=== PATIENT | female | born 1965 | race Caucasian/White ===

== ENCOUNTER → 2019-08-19 08:02 | Outpatient (BNVA) | payer BC, SELFPAY | PROVIDERS: Family Provider Electrodiagnostic Medicine; PCP Nurse Practitioner Family; Visit Provider Anesthesiology | DX: G89.29 Other chronic pain (principal); M19.011 Primary osteoarthritis, right shoulder; M51.17 Intervertebral disc disorders with radiculopathy, lumbosacral region; M43.02 Spondylolysis, cervical region; M96.1 Postlaminectomy syndrome, not elsewhere classified; Z79.891 Long term (current) use of opiate analgesic | CPT/HCPCS: 99214 ==

== ENCOUNTER 2019-10-14 08:01 | Outpatient (CLI) | payer BC, SELFPAY ==
--- NOTE | 2019-10-14 08:16 | MM_ITS ---
WS: [id number] BILATERAL DIGITAL SCREENING MAMMOGRAPHY WITH CAD CLINICAL INFORMATION: SCREEENING HISTORY: Screening mammogram. No current complaints. COMPARISON: July 11, 2018 TECHNIQUE: Bilateral CC and MLO views. FINDINGS: Bilateral breast implants. Implants appear unchanged. The breasts are composed of heterogeneous fibroglandular density tissue, which can limit the detectio n of small underlying mass lesions. No suspicious mass, asymmetry, calcifications, or architectural d istortion. No evidence of malignancy. Stable coarse and Lucent centered calcifications MM/[place] [id number] IMPRESSION: BI-RADS: 2-Benign FOLLOW UP: 1 Year Follow-up Recommend return to annual screening mammography.
== END 2019-10-14 08:02 | disposition home or self-care (01) ==
LOC: RADSHAW 08:03
PROVIDERS: PCP Nurse Practitioner Family; Visit Provider Nurse Practitioner Family
DX: Z12.31 Encounter for screening mammogram for malignant neoplasm of breast (principal)
CPT/HCPCS: 77067

== ENCOUNTER → 2019-12-24 10:24 | Outpatient (BNVA) | payer BC, SELFPAY | PROVIDERS: PCP Nurse Practitioner Family; Visit Provider Anesthesiology | DX: G89.29 Other chronic pain (principal); M51.17 Intervertebral disc disorders with radiculopathy, lumbosacral region; M54.9 Dorsalgia, unspecified; M43.02 Spondylolysis, cervical region; M96.1 Postlaminectomy syndrome, not elsewhere classified; Z79.891 Long term (current) use of opiate analgesic | CPT/HCPCS: 99214 ==

== ENCOUNTER → 2020-02-03 14:27 | Outpatient (BNVA) | payer BC, SELFPAY | PROVIDERS: PCP Nurse Practitioner Family; Visit Provider Anesthesiology | DX: G89.29 Other chronic pain (principal); M51.17 Intervertebral disc disorders with radiculopathy, lumbosacral region; M43.02 Spondylolysis, cervical region; M96.1 Postlaminectomy syndrome, not elsewhere classified; M54.9 Dorsalgia, unspecified; Z79.891 Long term (current) use of opiate analgesic | CPT/HCPCS: 99213; 99214 ==

== ENCOUNTER → 2020-06-23 08:37 | Outpatient (BNVA) | payer OTHER, SELFPAY | PROVIDERS: PCP Nurse Practitioner Family; Visit Provider Specialist | DX: R51.9 Headache, unspecified (principal); M43.02 Spondylolysis, cervical region; M54.2 Cervicalgia; Z96.89 Presence of other specified functional implants | CPT/HCPCS: 99204 ==

== ENCOUNTER → 2020-07-12 08:04 | Outpatient (BNVA) | payer OTHER, SELFPAY | PROVIDERS: PCP Nurse Practitioner Family; Visit Provider Anesthesiology | DX: G89.29 Other chronic pain (principal); M96.1 Postlaminectomy syndrome, not elsewhere classified; M54.9 Dorsalgia, unspecified; M43.02 Spondylolysis, cervical region; M51.17 Intervertebral disc disorders with radiculopathy, lumbosacral region; Z79.891 Long term (current) use of opiate analgesic | CPT/HCPCS: 99214 ==

== ENCOUNTER 2020-08-02 09:56 | Outpatient (CLI) | payer OTHER, SELFPAY ==
--- NOTE | 2020-08-02 10:00 | CT_ITS ---
WS: [id number] CT CERVICAL SPINE TECHNIQUE: Noncontrast CT of the cervical spine with coronal and sagittal reformatted images. 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 DLP: 1886.[address] scans at [facility] use at least one of these dose optimization techniques: automat ed exposure control; mA and/or kV adjustment per patient size (includes targeted exams where dose is matched to clinical indication); or iterative reconstruction. FINDINGS: Straightening of the normal cervical lordosis. Mild cervical curve. Slight retrolisthesis C5 on C6. S light anterolisthesis C3 on C4. No high-grade central canal stenosis. Normal C1-C2 articulation. Mast oid air cells are well aerated. C2-C3: Normal C3-C4: Osteophytic ridging. Mild left foraminal narrowing. Moderate left facet arthropathy. Spinal ca nal and foramen are patent. C4-C5:: Osteophytic ridging. Mild left and no right foraminal narrowing. Moderate left facet arthrop athy. Spinal canal is patent. C5-C6: Disc osteophytic ridging. Mild central canal stenosis. Moderate to advanced bony foraminal shahid rowing. Moderate facet arthropathy. C6-C7: Disc osteophytic ridging. Mild left and no right foraminal narrowing. Spinal canal is patent. Mild facet arthropathy. C7-T1: Spinal canal foramen are patent. Mild facet arthropathy. Visualized posterior nasopharynx: Normal. Prevertebral soft tissues: Normal. CT/CT cervical spin wo con* [id number] IMPRESSION: 1. Mild spondylitic changes. Mild cervical curve convex right. Straightening o f the normal cervical lordosis. 2. No high-grade central canal stenosis. 3. Disc osteophyte complex C5-C6 with mild central canal stenosis. Moderate to severe left greater than right bony foraminal narrowing at this level. 4. Mild bony foraminal narrowing left C3-4, left C4-5, and left C6-7. 5. Moderate facet arthropathy left C3-4, left C4-5
[2020-08-02] MEDS: iohexol 350 mg/mL 100 mL Btl IV (10:33)
--- NOTE | 2020-08-02 11:00 | CT_ITS ---
WS: [id number] CTA HEAD AND NECK TECHNIQUE: Contrast enhanced CTA of the head and neck with coronal and sagittal reformatted images an d maximum intensity projection (MIP) images. NASCET criteria utilized. CLINICAL INFORMATION: R51.9 - Headache, unspecified COMPARISON: None. DLP: 1935.[address] scans at [facility] use at least one of these dose optimization techniques: automat ed exposure control; mA and/or kV adjustment per patient size (includes targeted exams where dose is matched to clinical indication); or iterative reconstruction. FINDINGS: No evidence of intracranial hemorrhage or mass effect. Ventricular system and basal cistern s are patent. Normal stephenson-white differentiation. No extra axial fluid collections. Mastoid air cells and paranasal sinuses are well aerated. RIGHT: Right common carotid artery is patent. No significant right ICA stenosis. Right ICA is patent to the skull base. LEFT: Left common carotid artery is patent. No significant left ICA stenosis. Left ICA is patent to t he skull base. Codominant and patent vertebral arteries bilaterally. INTRACRANIAL CTA: Basilar artery is patent. Normal vascularity to the [employer] territory bilaterally. Both ICAs are patent at the skull base. Normal vascularity to the DEEJAY and MCA territories bilaterally. No evidence of high-grade proximal stenosis or aneurysm. CT/CT angio headneck* [id number] IMPRESSION: 1. No significant ICA stenosis bilaterally. Both ICAs are patent to the skull base. 2. Unremarkable intracranial CTA. 3. Codominant and patent vertebral arteries bilaterally. 4. No other significant findings.
== END 2020-08-02 09:57 | disposition home or self-care (01) ==
LOC: RADWPI 09:58
PROVIDERS: PCP Nurse Practitioner Family; Visit Provider Specialist
DX: R51.9 Headache, unspecified (principal)
CPT/HCPCS: 70496; 70498; 72125; Q9967

== ENCOUNTER 2020-10-26 17:20 | Emergency (ER) | payer OTHER, SELFPAY ==
[2020-10-26 17:55] VITALS: BP 143/81; PULSE 102; RESP 16; TEMP 36.7; O2SAT 94; BMI 29.9
[2020-10-26 17:58] VITALS: BP 121/64; PULSE 110; RESP 20; O2SAT 93
--- NOTE | 2020-10-26 18:19 | W.ED.RECABL ---
HPI - Recheck/Abnormal Lab/Rx General: Chief Complaint: Recheck/Abnormal Lab/Rx Stated Complaint: muscle aches, abnormal lab values Time Seen by Provider: 10/26/20 17:56 Source: patient Mode of arrival: ambulatory Limitations: no limitations History of Present Illness: HPI narrative: 55-year-old female who states that she has been having joint and full body pain over the last week. States is mainly in her joints they have been aching. She was seen yesterday and had an elevated ESR and CRP. States pain today is a 9 out of 10. Denies any fevers. Denies any vomiting. Denies any worsening improving factors. Review of Systems Const: Reports: body aches Eyes: Denies: blurry vision or eye discomfort ENMT: Denies: throat pain or dental pain Card: Denies: chest pain Resp: Denies: dyspnea GI: Denies: abdominal pain, nausea, vomiting or diarrhea : Denies: dysuria Musc: Reports: joint pain Skin/Breast: Denies: rash Neuro: Denies: headache(s) Psych: Denies: depression Aj/Lymph: Denies: easy bruising All/Imm: Denies: urticaria PFSH ED PFSH: Medical History (Updated 10/26/20 @ 20:40 by Josi Matos MD) Arthritis of right acromioclavicular joint Chronic back pain Encounter for long-term opiate analgesic use Failed back syndrome, lumbosacral Intervertebral disc disorders with radiculopathy, lumbosacral region Spondylolisthesis, lumbar region Spondylolysis, cervical region Surgical History Hx of hysterectomy, total Hx of repair of right rotator cuff S/P insertion of spinal cord stimulator Family History Other CAD (coronary artery disease) Cancer Diabetes Social History Smoking and tobacco status: never smoked Second hand smoke exposure: No Alcohol intake: never History of recent travel: No Physical Exam Const: COMMON NORMALS: no acute distress, patient oriented x3 and healthy appearing HENMT: COMMON NORMALS: normocephalic and atraumatic HEAD & SCALP: normocephalic and atraumatic Eye: COMMON NORMALS: Equal, round and reactive pupils present and EOMs intact bilaterally PUPIL: Yes Equal, round and reactive pupils present Neck/C-Spine: COMMON NORMALS: full ROM and supple Chest: COMMONS NORMALS: normal inspection of the chest and normal palpation of entire chest wall Resp: COMMON NORMALS: normal respiratory effort, No retractions, No use of accessory muscles and clear to auscultation bilaterally AUSCULTATION: clear to auscultation bilaterally Cardio: COMMON NORMALS: regular rate, regular rhythm and No murmurs present (Cardio) RATE: regular rate RHYTHM: regular rhythm GI: COMMON NORMALS: Normal to inspection, nondistended, normoactive bowel sounds present, Soft to palpation, non-tender and no masses PALPATION: Yes Soft to palpation Extremity: COMMON NORMALS: normal to inspection and full ROM Neuro: COMMON NORMALS: patient oriented x3, moves all extremities and no focal motor deficits Psych: COMMON NORMALS: mental status grossly normal, Normal thought process present and cooperative THOUGHT PROCESS: Normal thought process present Skin: COMMON NORMALS: no rashes or lesions noted and no wounds GENERAL SKIN EXAM: no rashes or lesions noted Course Vital Signs: Vital signs: Vital Signs Temperature 98.0 F 10/26/20 17:55 Pulse Rate 98 10/26/20 20:46 Respiratory Rate 17 10/26/20 20:46 Blood Pressure 121/64 10/26/20 17:58 Pulse Oximetry 93 10/26/20 20:46 MDM - Recheck/Abnormal Lab/Rx MDM Narrative: Medical decision making narrative: Patient presents here with arthralgias with possibility of polymyalgia rheumatica. Her CRP is actually improved from 2 days ago. She is currently on the steroid taper. Did give her IV steroids. Patient is afebrile. She has had a cough and does have asthma. Her x-ray is concerning for pneumonitis. Her pulse ox here has been in the mid 90s and will start on doxycycline as well. She is to follow-up with PCP and return if worsening. We will also try to get her follow-up with rheumatology. Lab Data: Labs: Lab Results 10/26/20 10/26/20 10/26/20 Range/Units 18:35 18:35 18:35 WBC 7.5 (4.0-10.0) 10^3/ uL RBC 3.98 L (4.1-5.3) 10^6/u L Hgb 11.8 (11.5-15.3) g/dL Hct 37.3 (37.0-47.0) % MCV 93.7 (81-99) fL MCH 29.6 (28.0-34.0) pg MCHC 31.6 (30.0-36.0) g/dL RDW 15.9 H (12.1-15.1) % Plt Count 305 (130-400) 10^3/c mm MPV 9.1 (7.4-10.4) fL Neut % (Auto) 75.0 % Lymph % (Auto) 16.0 % Steele % (Auto) 7.7 % Eos % (Auto) 0.0 % Baso % (Auto) 0.1 % Neut # (Auto) 5.63 (1.8-7.7) 10^3/u L Lymph # (Auto) 1.2 (0.8-4.8) 10^3/u L Steele # (Auto) 0.6 (0.2-0.9) 10^3/u L Eos # (Auto) 0.0 (0.0-0.8) 10^3/u L Baso # (Auto) 0.0 (0.0-0.1) 10^3/u L Nucleated RBC % (a uto) 0 % Nucleated RBCs # 0.0 /100WBC ESR 58 H (0-15) mm/hr Sodium 141 (136-145) mmol/L Potassium 3.7 (3.5-5.1) mmol/L Chloride 104 (98-107) mmol/L Carbon Dioxide 22 (22-29) mmol/L Anion Gap 18.7 (5-19) BUN 7 (6-20) mg/dL Creatinine 0.8 (0.5-0.9) mg/dL GFR Calculation 75.0 L (90-130) mL/min Glucose 127 H (65-115) mg/dL Calculated Osmolal ity 292 (285-295) mOsm/k g Calcium 8.8 (8.5-10.5) mg/dL Total Bilirubin 0.3 (0.15-1.2) mg/dL AST 45 H (0-32) U/L ALT 55 H (0-33) U/L Alkaline Phosphata se 120 H (35-105) IU/L Creatine Kinase 46 (26-192) U/L C-Reactive Protein 61.8 H (0.0-4.9) mg/L Total Protein 7.3 (6.6-8.7) g/dL Albumin 4.1 (3.5-5.2) g/dL Globulin 3.2 (1.3-4.6) g/dL Imaging Data^: CXR: Attestation: I personally reviewed and interpreted this imaging study as follows: My impression: pneumonitis Discharge Plan Discharge Patient Disposition: Home Clinical Impression: Bronchitis Arthralgia Qualifiers: Laterality: unspecified laterality Condition: Stable Prescriptions: New doxycycline hyclate 100 mg tablet 100 mg PO BID 7 Days Qty: 14 RF: 0 No Action tramadol 50 mg tablet 100 mg PO BID PRN (Reason: pain) 30 Days Qty: 120 RF: 1 citalopram 40 mg tablet 40 mg PO DAILY@0800 RF: 0 fluticasone propion-salmeterol [Advair Diskus] 500-50 mcg/dose blister with device 1 inh INHALATION BID@0800,2000 RF: 0 albuterol sulfate [ProAir HFA] 90 mcg/actuation HFA aerosol inhaler 1 puff INHALATION PRN PRN (Reason: Shortness Of Breath) RF: 0 montelukast [Singulair] 10 mg tablet 10 mg PO DAILY@0800 RF: 0 diclofenac potassium 50 mg tablet 75 mg PO DAILY RF: 0 sumatriptan succinate [Imitrex] 100 mg tablet 100 mg PO Q2H PRN (Reason: Migraine Headache) RF: 0 estradiol 1 mg tablet 1 mg PO DAILY@0800 RF: 0 omeprazole 20 mg capsule,delayed release(DR/EC) 20 mg PO DAILY@0800 RF: 0 duloxetine [Cymbalta] 60 mg capsule,delayed release(DR/EC) 60 mg PO DAILY@0800 RF: 0 oxycodone-acetaminophen [Percocet] 10-325 mg tablet 1 tab PO QID PRN (Reason: pain) 30 Days Qty: 92 RF: 0 buspirone 5 mg tablet 5 mg PO TID@08,12,20 RF: 0 Vicks Zquill See Rx Instructions .ROUTE .COMPLEX RF: 0 Discharge Orders: Discharge ED (Routine); Ordered 10/26/20 Ordered By: Josi Matos Referrals: Anitra Millan FNP [Primary Care Provider] - Discharge Diet: Advance as tolerated Discharge Activity: Resume usual activity Patient Instructions: Arthralgia (ED), Opioid Safety Coding Level of Care Code ED Patient Scheduling Manager for Chg Fwd Exam Comprehensive
[2020-10-26 18:37] VITALS: RESP 18
[2020-10-26] MEDS: morphine 4 mg/mL SDV 1 mL IVP (18:37)
[2020-10-26 18:39] LABS: Basophils % 0.1 %; Hematocrit 37.3 % (37.0-47.0); Hemoglobin 11.8 g/dL (11.5-15.3); Lymphocytes # 1.2 10^3/uL (0.8-4.8); Mean Corpuscular HGB Conc 31.6 g/dL (30.0-36.0); Mean Corpuscular Hemoglobin 29.6 pg (28.0-34.0); Mean Corpuscular Volume 93.7 fL (81-99); Mean Platelet Volume 9.1 fL (7.4-10.4); Monocytes # 0.6 10^3/uL (0.2-0.9); Monocytes % 7.7 %; Neutrophils # 5.63 10^3/uL (1.8-7.7); Nucleated Red Blood Cells % 0 %; Platelet Count 305 10^3/cmm (130-400); Red Blood Count 3.98 10^6/uL (4.1-5.3); Red Cell Distribution Width 15.9 % (12.1-15.1); White Blood Count 7.5 10^3/uL (4.0-10.0)
[2020-10-26 18:55] LABS: Alanine Aminotransferase 55 U/L (0-33); Albumin Level 4.1 g/dL (3.5-5.2); Alkaline Phosphatase 120 IU/L (35-105); Anion Gap 18.7 (5-19); Aspartate Amino Transferase 45 U/L (0-32); Blood Urea Nitrogen 7 mg/dL (6-20); C Reactive Protein 61.8 mg/L (0.0-4.9); Calcium 8.8 mg/dL (8.5-10.5); Carbon Dioxide 22 mmol/L (22-29); Chloride 104 mmol/L (98-107); Creatine Phosphokinase 46 U/L (26-192); Globulin 3.2 g/dL (1.3-4.6); Glucose 127 mg/dL (65-115); Osmolality Calculated 292 mOsm/kg (285-295); Potassium 3.7 mmol/L (3.5-5.1); Sodium 141 mmol/L (136-145); Total Bilirubin 0.3 mg/dL (0.15-1.2); Total Protein 7.3 g/dL (6.6-8.7)
[2020-10-26 19:23] LABS: Erythrocyte Sedimentation Rate 58 mm/hr (0-15)
--- NOTE | 2020-10-26 19:41 | XRR_ITS ---
PROCEDURE INFORMATION: Exam: XR Chest Exam date and time: 10/26/2020 7:56 PM Age: 55 years old Clinical indication: Cough and shortness of breath; Prior surgery; Surgery type: Spinal stimulator; Additional info: Cough, SOB TECHNIQUE: Imaging protocol: XR of the chest. Views: 1 view. Total images: 1 COMPARISON: No relevant prior studies available. FINDINGS: Lungs: Bibasilar ground-glass interstitial lung disease of potential active interstitial pneumonitis. Mild discoid atelectasis lung bases. Pleural spaces: Unremarkable. No pleural effusion. No pneumothorax. Heart/Mediastinum: Cardiac structures and configuration unremarkable. Bones/joints: Unremarkable. Soft tissues: Heavy body habitus. Other findings: Epidural TENS unit. XR/XR chest 1V portable [id number] IMPRESSION: 1. Bibasilar ground-glass interstitial lung disease of potential active interstitial pneumonitis. 2. Mild bibasilar discoid atelectasis.
[2020-10-26 19:58] VITALS: PULSE 101; RESP 17; O2SAT 96
[2020-10-26] MEDS: ipratropium-albuterol 3 mL Neb INHALATION (19:58)
[2020-10-26 20:04] VITALS: PULSE 106
[2020-10-26 20:46] VITALS: PULSE 98; RESP 17; O2SAT 93
--- NOTE | 2020-10-27 09:45 | DCPLANNER ---
conference services manager had message to schedule a follow up appointment for patient with rheumatology. conference services manager called the rheumatology clinic, spoke with Nadege, gave clinic patients information. conference services manager was told that patients information would be printed and given to physician for review.
--- NOTE | 2020-11-02 15:49 | DCPLANNER ---
Patient has a follow up appointment scheduled for Saturday, December 21, 2020 at 9:[address] Rolon at Rheumatology. Clinic will call patient with appointment information.
--- NOTE | 2021-01-19 11:41 | DCPLANNER ---
Patient had a follow up appointment scheduled for 12.21.20 with rheumatology - patient did attend appointment.
== END 2020-10-26 20:47 | disposition home or self-care (01) ==
PROVIDERS: Family Medicine; Emergency Provider Emergency Medicine; PCP Nurse Practitioner Family
DX: J40 Bronchitis, not specified as acute or chronic (principal); M25.50 Pain in unspecified joint
CPT/HCPCS: 71045; 80053; 82550; 85025; 85651; 86140; 94640; 96374; 96375; 99284; J2270; J2930

== ENCOUNTER 2020-11-13 14:30 | Emergency (ER) | payer OTHER, SELFPAY ==
[2020-11-13 15:10] VITALS: BP 125/86; PULSE 109; RESP 16; TEMP 36.4; O2SAT 97; BMI 29.9
--- NOTE | 2020-11-13 15:58 | W.ED.GENADLT ---
Documented by User: LIZZIE Brown 11/15/20 17:09 HPI - General Adult General: Chief complaint: Recheck/Abnormal Lab/Rx Stated complaint: abnormal labs, high HR Time Seen by Provider: 11/13/20 15:37 Source: patient Mode of arrival: ambulatory Limitations: no limitations History of Present Illness: HPI narrative: Patient is a 55-year-old female who presents to ED today after she was referred here from the [facility] walk-in clinic. Patient tells me over the past few weeks she has been experiencing diffuse joint pains. She at some point had labs drawn which showed elevated inflammatory markers. She was given a presumptive diagnosis of polymyalgia rheumatica. She does have labs on her phone showing a negative SHAMAR and Rh factor. She does have a referral with rheumatology placed but her appointment is not until 12/21. She recently was diagnosed with hypokalemia on lab work and completed a 3-day course of potassium supplementation. She states when she was diagnosed she was having what felt like a racing heart. She states she went to [facility] today and the provider did not feel comfortable discharging her as she was having complaints of a racing heart again. She states they were concerned her potassium might be low and sent her to the ED. She also states she would like IV steroids for her joint pain. No fevers. No joint redness/warmth. Onset (ago): day(s) Location: lower extremity Quality: aching, dull and constant Pain Consistency: constant Exacerbating factors: movement Associated symptoms: Reports palpitations (reports racing heart ); Deny chest pain, dyspnea, headache(s), malaise, nausea, rash, syncope or vomiting Review of Systems Const: Reports: other (joint pain); Denies: fever(s), chills, change in appetite, change in weight, fatigue or malaise Eyes: Denies: change in vision, blurry vision, photophobia, floaters or seeing flashes Card: Reports: palpitations (reports racing heart ); Denies: chest pain, irregular heart rhythm, edema, swelling of feet/ankles, lightheadedness, syncope, pre-syncope, dyspnea on exertion or leg pain with exertion Resp: Denies: dyspnea, productive cough or pain on inspiration GI: Reports: abdominal pain (reports chronic pain related to hemorrhoids); Denies: nausea, vomiting, heartburn or diarrhea : Denies: flank pain, difficulty voiding, dysuria, urinary frequency, urinary urgency or urinary hesitancy Musc: Reports: neck pain, back pain, joint pain and joint stiffness; Denies: joint swelling, joint redness, joint warmth or limited range of motion Skin/Breast: Denies: rash Neuro: Reports: difficulty walking (secondary to hip arthalgias ); Denies: headache(s), numbness in extremities, weakness in extremities or sensory changes PFSH ED PFSH: Medical History (Updated 11/13/20 @ 18:56 by JOEL Clemens) Arthritis of right acromioclavicular joint Chronic back pain Encounter for long-term opiate analgesic use Failed back syndrome, lumbosacral Intervertebral disc disorders with radiculopathy, lumbosacral region Spondylolisthesis, lumbar region Spondylolysis, cervical region Surgical History Hx of hysterectomy, total Hx of repair of right rotator cuff S/P insertion of spinal cord stimulator Family History Other CAD (coronary artery disease) Cancer Diabetes Social History Smoking and tobacco status: never smoked Second hand smoke exposure: No Alcohol intake: never History of recent travel: No Physical Exam Const: COMMON NORMALS: no acute distress, patient oriented x3, no limitations and alert GENERAL APPEARANCE: cooperative NUTRITIONAL APPEARANCE: overweight ORIENTATION/CONSCIOUSNESS: Yes awake, Yes oriented to person, Yes oriented to place and Yes oriented to time HENMT: COMMON NORMALS: normocephalic and atraumatic HEAD & SCALP: normocephalic and atraumatic Neck/C-Spine: COMMON NORMALS: full ROM, no lymphadenopathy, supple and no meningeal signs Chest: COMMONS NORMALS: normal inspection of the chest Resp: COMMON NORMALS: normal respiratory effort and clear to auscultation bilaterally AUSCULTATION: clear to auscultation bilaterally Cardio: COMMON NORMALS: regular rate and regular rhythm RATE: regular rate RHYTHM: regular rhythm GI: COMMON NORMALS: Normal to inspection, nondistended, normoactive bowel sounds present, Soft to palpation, No hepatosplenomegaly present and no masses PALPATION: Yes Soft to palpation, Yes Tenderness to palpation present (GI) (mild diffusely-patient states this is normal) and Yes No hepatosplenomegaly present : COMMON NORMALS: Yes no CVA tenderness BLADDER/KIDNEY EXAM: Yes no CVA tenderness Back/Pelvis: COMMON NORMALS: no CVA tenderness, thoracic and lumbar spine normal to inspection, no thoracic nor lumbar tenderness, thoraco-lumbar ROM normal and straight leg raise negative bilaterally Extremity: COMMON NORMALS: normal to inspection, full ROM, capillary refill normal, no joint enlargement, no clubbing, cyanosis or edema, no calf tenderness and no pedal edema GENERAL: Yes normal exam except as noted Neuro: COMMON NORMALS: patient oriented x3, moves all extremities, no focal motor deficits and no sensory deficits noted SENSORIUM/ORIENTATION: Yes alert, Yes oriented to person, Yes oriented to place and Yes oriented to time MENINGEAL SIGNS: Yes no meningeal signs Skin: COMMON NORMALS: no rashes or lesions noted GENERAL SKIN EXAM: no rashes or lesions noted Course Vital Signs: Vital signs: Vital Signs Temperature 97.6 F 11/13/20 15:10 Pulse Rate 98 11/13/20 19:05 Respiratory Rate 16 11/13/20 19:05 Blood Pressure 129/71 11/13/20 19:05 Pulse Oximetry 97 11/13/20 19:05 MDM - General Adult MDM Narrative: Medical decision making narrative: Care transferred to JOEL Lipscomb pending remainder of lab results including repeat trop. Lab Data: Labs: Lab Results 11/13/20 11/13/20 11/13/20 Range/Units 16:10 16:10 16:10 WBC 17.7 H (4.0-10.0) 10^3/ uL RBC 4.70 (4.1-5.3) 10^6/u L Hgb 13.9 (11.5-15.3) g/dL Hct 43.6 (37.0-47.0) % MCV 92.8 (81-99) fL MCH 29.6 (28.0-34.0) pg MCHC 31.9 (30.0-36.0) g/dL RDW 16.2 H (12.1-15.1) % Plt Count 625 H (130-400) 10^3/c mm MPV 8.6 (7.4-10.4) fL Neut % (Auto) 88.3 % Lymph % (Auto) 6.4 % Whitley % (Auto) 4.2 % Eos % (Auto) 0.0 % Baso % (Auto) 0.2 % Neut # (Auto) 15.58 H (1.8-7.7) 10^3/u L Lymph # (Auto) 1.1 (0.8-4.8) 10^3/u L Whitley # (Auto) 0.8 (0.2-0.9) 10^3/u L Eos # (Auto) 0.0 (0.0-0.8) 10^3/u L Baso # (Auto) 0.0 (0.0-0.1) 10^3/u L Nucleated RBC % (a uto) 0 % Nucleated RBCs # 0.0 /100WBC Sodium 129 L (136-145) mmol/L Potassium 5.1 (3.5-5.1) mmol/L Chloride 91 L (98-107) mmol/L Carbon Dioxide 25 (22-29) mmol/L Anion Gap 18.1 (5-19) BUN 12 (6-20) mg/dL Creatinine 0.8 (0.5-0.9) mg/dL GFR Calculation 75.0 L (90-130) mL/min Glucose 118 H (65-115) mg/dL Calculated Osmolal ity 269 L (285-295) mOsm/k g Calcium 10.0 (8.5-10.5) mg/dL Total Bilirubin 0.8 (0.15-1.2) mg/dL AST 14 (0-32) U/L ALT 27 (0-33) U/L Alkaline Phosphata se 96 (35-105) IU/L Troponin T Gen 5 n g/L Cancelled Troponin T Baselin e (0-10) ng/L Troponin T 120 Min morongo (0-10) ng/L Delta Troponin T (0-10) ABS# C-Reactive Protein 0.3 (0.0-4.9) mg/L Total Protein 6.9 (6.6-8.7) g/dL Albumin 4.6 (3.5-5.2) g/dL Globulin 2.3 (1.3-4.6) g/dL 11/13/20 11/13/20 Range/Units 16:10 18:09 WBC (4.0-10.0) 10^3/ uL RBC (4.1-5.3) 10^6/u L Hgb (11.5-15.3) g/dL Hct (37.0-47.0) % MCV (81-99) fL MCH (28.0-34.0) pg MCHC (30.0-36.0) g/dL RDW (12.1-15.1) % Plt Count (130-400) 10^3/c mm MPV (7.4-10.4) fL Neut % (Auto) % Lymph % (Auto) % Whitley % (Auto) % Eos % (Auto) % Baso % (Auto) % Neut # (Auto) (1.8-7.7) 10^3/u L Lymph # (Auto) (0.8-4.8) 10^3/u L Whitley # (Auto) (0.2-0.9) 10^3/u L Eos # (Auto) (0.0-0.8) 10^3/u L Baso # (Auto) (0.0-0.1) 10^3/u L Nucleated RBC % (a uto) % Nucleated RBCs # /100WBC Sodium (136-145) mmol/L Potassium (3.5-5.1) mmol/L Chloride (98-107) mmol/L Carbon Dioxide (22-29) mmol/L Anion Gap (5-19) BUN (6-20) mg/dL Creatinine (0.5-0.9) mg/dL GFR Calculation (90-130) mL/min Glucose (65-115) mg/dL Calculated Osmolal ity (285-295) mOsm/k g Calcium (8.5-10.5) mg/dL Total Bilirubin (0.15-1.2) mg/dL AST (0-32) U/L ALT (0-33) U/L Alkaline Phosphata se (35-105) IU/L Troponin T Gen 5 n g/L Troponin T Baselin e 35 H (0-10) ng/L Troponin T 120 Min morongo 32.13 H (0-10) ng/L Delta Troponin T -2.87 L (0-10) ABS# C-Reactive Protein (0.0-4.9) mg/L Total Protein (6.6-8.7) g/dL Albumin (3.5-5.2) g/dL Globulin (1.3-4.6) g/dL EKG Data^: EKG 1: Computer generated interpretation: Chest X-Ray 11/13/20 15:59 IMPRESSION: 1. No acute findings. 2. Interval resolution of lower lung opacities visible on 10/26/2020. Discharge Plan Discharge Patient Disposition: Home Clinical Impression: Atypical chest pain, Corticosteroid use Constipation Qualifiers: Constipation type: unspecified constipation type Qualified Code(s): K59.00 - Constipation, unspecified Condition: Stable Prescriptions: No Action tramadol 50 mg tablet 100 mg PO BID PRN (Reason: pain) 30 Days Qty: 120 RF: 1 citalopram 40 mg tablet 40 mg PO DAILY@0800 RF: 0 fluticasone propion-salmeterol [Advair Diskus] 500-50 mcg/dose blister with device 1 inh INHALATION BID@0800,2000 RF: 0 sumatriptan succinate [Imitrex] 100 mg tablet 100 mg PO Q2H PRN (Reason: Migraine Headache) RF: 0 estradiol 1 mg tablet 1 mg PO DAILY@0800 RF: 0 omeprazole 20 mg capsule,delayed release(DR/EC) 20 mg PO DAILY@0800 RF: 0 duloxetine [Cymbalta] 60 mg capsule,delayed release(DR/EC) 60 mg PO DAILY@0800 RF: 0 oxycodone-acetaminophen [Percocet] 10-325 mg tablet 1 tab PO QID PRN (Reason: pain) 30 Days Qty: 92 RF: 0 buspirone 5 mg tablet 5 mg PO TID@08,12,20 RF: 0 Vicks Zquill See Rx Instructions .ROUTE .COMPLEX RF: 0 prednisone 20 mg Tablet 40 mg PO DAILY RF: 0 Discharge Orders: Discharge ED (Routine); Ordered 11/13/20 Ordered By: Victoriano Hooker Referrals: Anitra Millan FNP [Primary Care Provider] - Discharge Diet: Usual diet Discharge Activity: Increase activity as tolerated Patient Instructions: Chest Pain (ED), Opioid Safety Activity Restrictions/Additional Instructions: Healthy diet and activity. Continue with medications as directed. For constipation use MiraLAX 1 capful 3 times a day for the next 2 days. Drink at least 8-10, 8 ounce glasses of fluid with the regimen per day. Eat foods that are easy to digest over the next 2 days. Stay close to the toilet. Follow-up with primary care regarding other recommendations. Return to the ER for high fever, worsening pain, or new concerns. Sign Out Sign Out Data: Patient Sign Out occurred on 11/13/20 at 17:06. Patient's care was discussed, and care was transferred from to Victoriano Hooker. Coding Level of Care Code ED Hedis Manager for Chg Fwd Exam Comprehensive Documented by User: JOEL Clemens 11/13/20 18:58 HPI - General Adult General: Chief complaint: Recheck/Abnormal Lab/Rx Stated complaint: abnormal labs, high HR Time Seen by Provider: 11/13/20 15:37 PFSH ED PFSH: Medical History (Updated 11/13/20 @ 18:56 by JOEL Clemens) Arthritis of right acromioclavicular joint Chronic back pain Encounter for long-term opiate analgesic use Failed back syndrome, lumbosacral Intervertebral disc disorders with radiculopathy, lumbosacral region Spondylolisthesis, lumbar region Spondylolysis, cervical region Surgical History Hx of hysterectomy, total Hx of repair of right rotator cuff S/P insertion of spinal cord stimulator Family History Other CAD (coronary artery disease) Cancer Diabetes Social History Smoking and tobacco status: never smoked Second hand smoke exposure: No Alcohol intake: never History of recent travel: No Course ED course: 1704, see patient from Shanti Singh PA-C. We are awaiting repeat troponin due to some elevation at 35 on her first initial troponin. Patient was referred to the ER from [facility] for concerns of tachycardia and palpitations. EKG shows a rate of 91 bpm. Patient recently has been being treated with steroids for PMR. Vital Signs: Vital signs: Vital Signs Temperature 97.6 F 11/13/20 15:10 Pulse Rate 98 11/13/20 19:05 Respiratory Rate 16 11/13/20 19:05 Blood Pressure 129/71 11/13/20 19:05 Pulse Oximetry 97 11/13/20 19:05 MDM - General Adult MDM Narrative: Medical decision making narrative: Patient comes in today for complaints of palpitations. On exam patient is alert and oriented. Patient is concerned about her palpitations and increase shortness of breath. Patient has recently been on high-dose steroid daily for PMR. Patient has no swelling in lower extremities. Vital signs are normal. Differential diagnosis includes not limited to pneumonia, ACS, CHF. Chest x-ray was normal. Pneumonia which patient had at the end of October has cleared up. EKG showed no changes after 2 hours. Troponin had had shown any changes after 2 hours. Laboratory values noted a potassium of 5.1 and a sodium of 129. Patient had elevation in her white blood cell count of 17.7 which is probably most likely due to her high-dose steroid use. Patient was also concerned about constipation she was recommended to use a MiraLAX cleanout regimen. Patient should continue with routine care and follow-up with primary care for further evaluation and treatment. Patient stated understanding. Lab Data: Labs: Lab Results 11/13/20 11/13/20 11/13/20 Range/Units 16:10 16:10 16:10 WBC 17.7 H (4.0-10.0) 10^3/ uL RBC 4.70 (4.1-5.3) 10^6/u L Hgb 13.9 (11.5-15.3) g/dL Hct 43.6 (37.0-47.0) % MCV 92.8 (81-99) fL MCH 29.6 (28.0-34.0) pg MCHC 31.9 (30.0-36.0) g/dL RDW 16.2 H (12.1-15.1) % Plt Count 625 H (130-400) 10^3/c mm MPV 8.6 (7.4-10.4) fL Neut % (Auto) 88.3 % Lymph % (Auto) 6.4 % Whitley % (Auto) 4.2 % Eos % (Auto) 0.0 % Baso % (Auto) 0.2 % Neut # (Auto) 15.58 H (1.8-7.7) 10^3/u L Lymph # (Auto) 1.1 (0.8-4.8) 10^3/u L Whitley # (Auto) 0.8 (0.2-0.9) 10^3/u L Eos # (Auto) 0.0 (0.0-0.8) 10^3/u L Baso # (Auto) 0.0 (0.0-0.1) 10^3/u L Nucleated RBC % (a uto) 0 % Nucleated RBCs # 0.0 /100WBC Sodium 129 L (136-145) mmol/L Potassium 5.1 (3.5-5.1) mmol/L Chloride 91 L (98-107) mmol/L Carbon Dioxide 25 (22-29) mmol/L Anion Gap 18.1 (5-19) BUN 12 (6-20) mg/dL Creatinine 0.8 (0.5-0.9) mg/dL GFR Calculation 75.0 L (90-130) mL/min Glucose 118 H (65-115) mg/dL Calculated Osmolal ity 269 L (285-295) mOsm/k g Calcium 10.0 (8.5-10.5) mg/dL Total Bilirubin 0.8 (0.15-1.2) mg/dL AST 14 (0-32) U/L ALT 27 (0-33) U/L Alkaline Phosphata se 96 (35-105) IU/L Troponin T Gen 5 n g/L Cancelled Troponin T Baselin e (0-10) ng/L Troponin T 120 Min morongo (0-10) ng/L Delta Troponin T (0-10) ABS# C-Reactive Protein 0.3 (0.0-4.9) mg/L Total Protein 6.9 (6.6-8.7) g/dL Albumin 4.6 (3.5-5.2) g/dL Globulin 2.3 (1.3-4.6) g/dL 11/13/20 11/13/20 Range/Units 16:10 18:09 WBC (4.0-10.0) 10^3/ uL RBC (4.1-5.3) 10^6/u L Hgb (11.5-15.3) g/dL Hct (37.0-47.0) % MCV (81-99) fL MCH (28.0-34.0) pg MCHC (30.0-36.0) g/dL RDW (12.1-15.1) % Plt Count (130-400) 10^3/c mm MPV (7.4-10.4) fL Neut % (Auto) % Lymph % (Auto) % Whitley % (Auto) % Eos % (Auto) % Baso % (Auto) % Neut # (Auto) (1.8-7.7) 10^3/u L Lymph # (Auto) (0.8-4.8) 10^3/u L Whitley # (Auto) (0.2-0.9) 10^3/u L Eos # (Auto) (0.0-0.8) 10^3/u L Baso # (Auto) (0.0-0.1) 10^3/u L Nucleated RBC % (a uto) % Nucleated RBCs # /100WBC Sodium (136-145) mmol/L Potassium (3.5-5.1) mmol/L Chloride (98-107) mmol/L Carbon Dioxide (22-29) mmol/L Anion Gap (5-19) BUN (6-20) mg/dL Creatinine (0.5-0.9) mg/dL GFR Calculation (90-130) mL/min Glucose (65-115) mg/dL Calculated Osmolal ity (285-295) mOsm/k g Calcium (8.5-10.5) mg/dL Total Bilirubin (0.15-1.2) mg/dL AST (0-32) U/L ALT (0-33) U/L Alkaline Phosphata se (35-105) IU/L Troponin T Gen 5 n g/L Troponin T Baselin e 35 H (0-10) ng/L Troponin T 120 Min morongo 32.13 H (0-10) ng/L Delta Troponin T -2.87 L (0-10) ABS# C-Reactive Protein (0.0-4.9) mg/L Total Protein (6.6-8.7) g/dL Albumin (3.5-5.2) g/dL Globulin (1.3-4.6) g/dL EKG Data^: EKG 1: Attestation: I personally reviewed and interpreted this EKG as follows: (1710, EKG shows artifact secondary to patient's spinal stimulator, shows a regular rate at 91 bpm, no ST elevation, no ectopy. No prior data is available for interpretation.) Computer generated interpretation: Chest X-Ray 11/13/20 15:59 IMPRESSION: 1. No acute findings. 2. Interval resolution of lower lung opacities visible on 10/26/2020. Discharge Plan Discharge Patient Disposition: Home Clinical Impression: Atypical chest pain, Corticosteroid use Constipation Qualifiers: Constipation type: unspecified constipation type Qualified Code(s): K59.00 - Constipation, unspecified Condition: Stable Prescriptions: No Action tramadol 50 mg tablet 100 mg PO BID PRN (Reason: pain) 30 Days Qty: 120 RF: 1 citalopram 40 mg tablet 40 mg PO DAILY@0800 RF: 0 fluticasone propion-salmeterol [Advair Diskus] 500-50 mcg/dose blister with device 1 inh INHALATION BID@0800,2000 RF: 0 sumatriptan succinate [Imitrex] 100 mg tablet 100 mg PO Q2H PRN (Reason: Migraine Headache) RF: 0 estradiol 1 mg tablet 1 mg PO DAILY@0800 RF: 0 omeprazole 20 mg capsule,delayed release(DR/EC) 20 mg PO DAILY@0800 RF: 0 duloxetine [Cymbalta] 60 mg capsule,delayed release(DR/EC) 60 mg PO DAILY@0800 RF: 0 oxycodone-acetaminophen [Percocet] 10-325 mg tablet 1 tab PO QID PRN (Reason: pain) 30 Days Qty: 92 RF: 0 buspirone 5 mg tablet 5 mg PO TID@08,12,20 RF: 0 Vicks Zquill See Rx Instructions .ROUTE .COMPLEX RF: 0 prednisone 20 mg Tablet 40 mg PO DAILY RF: 0 Discharge Orders: Discharge ED (Routine); Ordered 11/13/20 Ordered By: Victoriano Hooker Referrals: Anitra Millan FNP [Primary Care Provider] - Discharge Diet: Usual diet Discharge Activity: Increase activity as tolerated Patient Instructions: Chest Pain (ED), Opioid Safety Activity Restrictions/Additional Instructions: Healthy diet and activity. Continue with medications as directed. For constipation use MiraLAX 1 capful 3 times a day for the next 2 days. Drink at least 8-10, 8 ounce glasses of fluid with the regimen per day. Eat foods that are easy to digest over the next 2 days. Stay close to the toilet. Follow-up with primary care regarding other recommendations. Return to the ER for high fever, worsening pain, or new concerns. Sign Out Sign Out Data: Patient Sign Out occurred on 11/13/20 at 17:06. Patient's care was discussed, and care was transferred from to Victoriano Hooker. Coding Level of Care Code ED Hedis Manager for Casi Fwd Exam Comprehensive
--- NOTE | 2020-11-13 15:59 | XRR_ITS ---
PROCEDURE INFORMATION: Exam: XR Chest Exam date and time: 11/13/2020 3:59 PM Age: 55 years old Clinical indication: Angina; Additional info: Racing heart TECHNIQUE: Imaging protocol: XR of the chest. Views: 1 view. COMPARISON: CR (CHEST, ) 10/26/2020 7:47 PM FINDINGS: Tubes, catheters and devices: There is an epidural neurostimulator with leads positioned at T6-7. Lungs: Lungs are clear. Pleural spaces: There is no pleural effusion or pneumothorax. Heart/Mediastinum: Cardiomediastinal contours are unremarkable. Bones/joints: Bones are unremarkable. XR/XR chest 1V portable [id number] IMPRESSION: 1. No acute findings. 2. Interval resolution of lower lung opacities visible on 10/26/2020.
--- NOTE | 2020-11-13 15:59 | ECG_ITS ---
[facility] Test Date: 2020-11-13 Pat Name: Sivan Sarabia Department: Room: Gender: Female Automobile Relocation Engineer: : 1965 Requested By: Shanti Singh Order Number: [id number] Art MD: Cortney Tabares M.D. Measurements Intervals [place] Rate: 103 P: 50 CT: 111 QRS: 6 QRSD: 69 T: 31 QT: 294 QTc: 386 Interpretive Statements SINUS TACHYCARDIA ARTIFACT ABNORMAL RHYTHM ECG No previous ECG available for comparison Electronically Signed On 11-14-2020 23:06:44 CDT by Cortney Tabares M.D. [id number]
[2020-11-13 16:18] LABS: Basophils % 0.2 %; Hematocrit 43.6 % (37.0-47.0); Hemoglobin 13.9 g/dL (11.5-15.3); Lymphocytes # 1.1 10^3/uL (0.8-4.8); Lymphocytes % 6.4 %; Mean Corpuscular HGB Conc 31.9 g/dL (30.0-36.0); Mean Corpuscular Hemoglobin 29.6 pg (28.0-34.0); Mean Corpuscular Volume 92.8 fL (81-99); Mean Platelet Volume 8.6 fL (7.4-10.4); Monocytes # 0.8 10^3/uL (0.2-0.9); Monocytes % 4.2 %; Neutrophils # 15.58 10^3/uL (1.8-7.7); Neutrophils % 88.3 %; Nucleated Red Blood Cells % 0 %; Platelet Count 625 10^3/cmm (130-400); Red Cell Distribution Width 16.2 % (12.1-15.1); White Blood Count 17.7 10^3/uL (4.0-10.0)
[2020-11-13 16:22] VITALS: BP 132/92; PULSE 92; RESP 18; O2SAT 95
[2020-11-13 16:42] LABS: Alanine Aminotransferase 27 U/L (0-33); Albumin Level 4.6 g/dL (3.5-5.2); Alkaline Phosphatase 96 IU/L (35-105); Blood Urea Nitrogen 12 mg/dL (6-20); C Reactive Protein 0.3 mg/L (0.0-4.9); Carbon Dioxide 25 mmol/L (22-29); Chloride 91 mmol/L (98-107); Globulin 2.3 g/dL (1.3-4.6); Glucose 118 mg/dL (65-115); Osmolality Calculated 269 mOsm/kg (285-295); Sodium 129 mmol/L (136-145); Total Bilirubin 0.8 mg/dL (0.15-1.2); Total Protein 6.9 g/dL (6.6-8.7)
[2020-11-13 16:45] LABS: Anion Gap 18.1 (5-19); Aspartate Amino Transferase 14 U/L (0-32); Potassium 5.1 mmol/L (3.5-5.1)
--- NOTE | 2020-11-13 16:47 | ECG_ITS ---
[facility] Test Date: 2020-11-13 Pat Name: Sivan Sarabia Department: Room: Gender: Female Mail Room: : 1965 Requested By: Shanti Singh Order Number: [id number] Rubens MD: Cortney Tabares M.D. Measurements Intervals [place] Rate: 91 P: 15 DE: 125 QRS: 6 QRSD: 82 T: 19 QT: 322 QTc: 398 Interpretive Statements SINUS RHYTHM NORMAL AXIS WARNING: DATA QUALITY MAY AFFECT INTERPRETATION No previous ECG available for comparison Electronically Signed On 11-13-2020 21:04:49 CDT by Cortney Tabares M.D. [id number]
[2020-11-13 16:53] LABS: Troponin(5th) Baseline 35 ng/L (0-10)
[2020-11-13 18:00] VITALS: BP 129/71; PULSE 96; RESP 16; O2SAT 98
[2020-11-13 18:40] LABS: Troponin 5 2HR 32.13 ng/L (0-10)
[2020-11-13 18:41] LABS: Troponin 5 2HR Delta -2.87 ABS# (0-10)
--- NOTE | 2020-11-13 18:47 | ECG_ITS ---
[facility] Test Date: 2020-11-13 Pat Name: Sivan Sarabia Department: Room: Gender: Female Contract Technician: : 1965 Requested By: Shanti Singh Order Number: [id number] Rubens MD: Cortney Tabares M.D. Measurements Intervals [place] Rate: P: HI: QRS: 0 QRSD: T: 0 QT: QTc: Interpretive Statements SINUS RHYTHM ATYPICAL ECG WARNING: DATA QUALITY MAY AFFECT INTERPRETATION Compared to ECG 11/13/2020 17:04:24 Atrial-paced complex(es) or rhythm no longer present Ventricular-paced complex(es) or rhythm no longer present Electronically Signed On 11-14-2020 23:03:55 CDT by Cortney Tabares M.D. [id number]
[2020-11-13 18:59] VITALS: BP 133/86; PULSE 101; RESP 18; O2SAT 98
[2020-11-13 19:05] VITALS: BP 129/71; PULSE 98; RESP 16; O2SAT 97
== END 2020-11-13 19:06 | disposition home or self-care (01) ==
PROVIDERS: Physician Assistant; Emergency Provider Nurse Practitioner Family; PCP Nurse Practitioner Family
DX: K59.00 Constipation, unspecified (principal); R07.89 Other chest pain; Z79.52 Long term (current) use of systemic steroids
CPT/HCPCS: 36415; 71045; 80053; 84484; 85025; 86140; 93005; 96374; 99284; J2930

== ENCOUNTER → 2020-11-25 10:16 | Outpatient (BNVA) | payer OTHER, SELFPAY | PROVIDERS: PCP Nurse Practitioner Family; Visit Provider Anesthesiology | DX: G89.29 Other chronic pain (principal); M51.17 Intervertebral disc disorders with radiculopathy, lumbosacral region; M54.9 Dorsalgia, unspecified; M43.02 Spondylolysis, cervical region; M96.1 Postlaminectomy syndrome, not elsewhere classified; Z79.891 Long term (current) use of opiate analgesic | CPT/HCPCS: 99214 ==

== ENCOUNTER → 2020-12-15 08:57 | Outpatient (BNVA) | payer OTHER, SELFPAY | PROVIDERS: PCP Nurse Practitioner Family; Visit Provider Nurse Practitioner | DX: G89.29 Other chronic pain (principal); M51.17 Intervertebral disc disorders with radiculopathy, lumbosacral region; M96.1 Postlaminectomy syndrome, not elsewhere classified; M43.02 Spondylolysis, cervical region; M19.011 Primary osteoarthritis, right shoulder; Z96.89 Presence of other specified functional implants; Z79.891 Long term (current) use of opiate analgesic | CPT/HCPCS: 99214 ==

== ENCOUNTER → 2020-12-21 09:07 | Outpatient (BNVA) | payer OTHER, SELFPAY | PROVIDERS: PCP Nurse Practitioner Family; Visit Provider Internal Medicine Rheumatology | DX: M35.3 Polymyalgia rheumatica (principal); M19.90 Unspecified osteoarthritis, unspecified site; Z79.899 Other long term (current) drug therapy; Z79.52 Long term (current) use of systemic steroids; Z11.59 Encounter for screening for other viral diseases; Z71.89 Other specified counseling | CPT/HCPCS: 99204 ==

== ENCOUNTER 2020-12-21 16:22 | Outpatient (CLI) | payer OTHER, SELFPAY ==
--- NOTE | 2020-12-21 16:29 | XR_ITS ---
WS: [id number] Right hand, 3 views, 12/21/2020 Clinical Data: Z79.899 - Other fpc (current) drug therapy Comparison: None. Findings: No fractures or dislocations are seen. The soft tissues are unremarkable. The joint space s are normal No periarticular demineralization or calcifications are seen. There are decorative items overlying th e distal phalanx of the right third finger. XR/XR hand RT min 3V* [id number] Impression: Negative right hand.
--- NOTE | 2020-12-21 16:29 | XR_ITS ---
WS: [id number] Left hand, 3 views, 12/21/2020 Clinical Data: Z79.899 - Other fpc (current) drug therapy Comparison: None. Findings: No fractures or dislocations are seen. The soft tissues are unremarkable. The joint spaces are normal No periarticular demineralization or calcifications are seen. XR/XR hand LT min 3V* [id number] Impression: Negative left hand.
[2020-12-21 17:52] LABS: Hepatitis B Core AB, Total Non-Reactive (Nonreactive); Hepatitis B Surface Antigen Non-Reactive (Nonreactive); Hepatitis C Virus Antibody Non-Reactive (Nonreactive)
[2020-12-21 20:43] LABS: 25 Hydroxy Vitamin D 33 ng/mL (30-100)
[2020-12-23 15:09] LABS: Cyclic Citrullinated Peptide <16 UNITS
== END 2020-12-21 16:23 | disposition home or self-care (01) ==
PROVIDERS: PCP Nurse Practitioner Family; Visit Provider Internal Medicine Rheumatology
DX: M19.90 Unspecified osteoarthritis, unspecified site (principal); Z79.899 Other long term (current) drug therapy; Z11.59 Encounter for screening for other viral diseases; R93.89 Abnormal findings on diagnostic imaging of other specified body structures
CPT/HCPCS: 36415; 73130; 82306; 86431; 86704; 86803; 87340

== ENCOUNTER 2021-01-03 07:50 | Outpatient (CLI) | payer OTHER, SELFPAY ==
--- NOTE | 2021-01-03 08:00 | CT_ITS ---
WS: [id number] CT scan of the chest without IV contrast, additional two-dimensional coronal and sagittal reconstruct ion was performed. 01/03/2021 Clinical Data: R93.89 - Abnormal findings on diagnostic imaging of other... Comparison: Portable chest, 11/13/2020 DLP: 914.[address] scans at [facility] use at least one of these dose optimization techniques: automat ed exposure control; mA and/or kV adjustment per patient size (includes targeted exams where dose is matched to clinical indication); or iterative reconstruction. Findings: No nodules, masses or effusions are seen. There are bilateral augmentation mammoplasty implants. The heart size is normal with no pericardial effusion. No pneumonia or pneumothorax is seen. The pulmonar y arterial system and thoracic aorta demonstrate no abnormalities or dilatations. The trachea bifurca cathy normally into the bronchi. There is no axillary or significant mediastinal adenopathy. There is a small hiatal hernia. The bones of the thorax show minimal osteoarthritic change. There are epidural stimulator wires which end in the mid thoracic epidural space. The upper abdomen and straight no abnormalities. CT/CT chest wo con [id number] Impression: Negative CT scan of the chest without IV contrast.
== END 2021-01-03 07:51 | disposition home or self-care (01) ==
PROVIDERS: PCP Nurse Practitioner Family; Visit Provider Nurse Practitioner Family
DX: R93.89 Abnormal findings on diagnostic imaging of other specified body structures (principal)
CPT/HCPCS: 71250

== ENCOUNTER → 2021-02-02 11:28 | Outpatient (BNVA) | payer OTHER, SELFPAY | PROVIDERS: PCP Nurse Practitioner Family; Visit Provider Internal Medicine Rheumatology | DX: M19.90 Unspecified osteoarthritis, unspecified site (principal); Z79.899 Other long term (current) drug therapy | CPT/HCPCS: 36415; 80076; 82565; 85025; 86140 ==

== ENCOUNTER → 2021-02-14 14:27 | Outpatient (BNVA) | payer OTHER, SELFPAY | PROVIDERS: PCP Nurse Practitioner Family; Visit Provider Internal Medicine Rheumatology | DX: M35.3 Polymyalgia rheumatica (principal); M19.90 Unspecified osteoarthritis, unspecified site; R60.9 Edema, unspecified; R13.10 Dysphagia, unspecified; Z79.899 Other long term (current) drug therapy; Z79.52 Long term (current) use of systemic steroids; Z71.89 Other specified counseling | CPT/HCPCS: 99214 ==

== ENCOUNTER → 2021-02-17 09:23 | Outpatient (BNVA) | payer OTHER, SELFPAY | PROVIDERS: PCP Nurse Practitioner Family; Visit Provider Nurse Practitioner | DX: G89.29 Other chronic pain (principal); M51.17 Intervertebral disc disorders with radiculopathy, lumbosacral region; M96.1 Postlaminectomy syndrome, not elsewhere classified; M43.02 Spondylolysis, cervical region; M19.011 Primary osteoarthritis, right shoulder; M19.90 Unspecified osteoarthritis, unspecified site; M35.3 Polymyalgia rheumatica; Z96.89 Presence of other specified functional implants; Z79.891 Long term (current) use of opiate analgesic | CPT/HCPCS: 99213 ==

== ENCOUNTER → 2021-03-28 15:46 | Outpatient (BNVA) | payer OTHER, SELFPAY | PROVIDERS: PCP Nurse Practitioner Family; Visit Provider Internal Medicine Rheumatology | DX: M35.3 Polymyalgia rheumatica (principal); Z71.89 Other specified counseling | CPT/HCPCS: 20610; J1030 ==

== ENCOUNTER → 2021-04-12 13:57 | Outpatient (BNVA) | payer OTHER, SELFPAY | PROVIDERS: PCP Nurse Practitioner Family; Visit Provider Anesthesiology | DX: G89.29 Other chronic pain (principal); M51.17 Intervertebral disc disorders with radiculopathy, lumbosacral region; M43.02 Spondylolysis, cervical region; M19.90 Unspecified osteoarthritis, unspecified site; M35.3 Polymyalgia rheumatica; M96.1 Postlaminectomy syndrome, not elsewhere classified; Z79.899 Other long term (current) drug therapy; Z79.891 Long term (current) use of opiate analgesic | CPT/HCPCS: 99214 ==

== ENCOUNTER 2021-06-13 11:00 | Outpatient (CLI) | payer OTHER, SELFPAY ==
--- NOTE | 2021-06-13 11:08 | CT_ITS ---
WS: [id number] CT LUMBAR SPINE TECHNIQUE: Noncontrast CT of the lumbar spine with coronal and sagittal reformatted images. CLINICAL INFORMATION: CHRONIC BILATERAL LOW BACK PAIN COMPARISON: None. DLP: 2706.[address] scans at [facility] use at least one of these dose optimization techniques: automated e xposure control; mA and/or kV adjustment per patient size (includes targeted exams where dose is matc hed to clinical indication); or iterative reconstruction. FINDINGS: Mild lumbar curve convex left. No acute compression fractures. Prior postoperative changes pedicle sc rew fixation L5-S1 with interbody fusion graft. No evidence of hardware loosening. Epidural catheter ascending cephalad off the [id number]. L1-L2: Mild disc bulging and osteophytic ridging. Spinal canal and foramen are patent. Mild facet art hropathy. L2-L3: Slight retrolisthesis. Mild annular bulging. Mild facet arthropathy. Spinal canal and foramen are patent. L3-L4: Mild annular bulging with slight effacement of the ventral thecal sac. Shallow central protrus ion with mild central canal stenosis. Slight impingement traversing L4 nerve roots bilaterally. Sligh t encroachment on the far exiting left L3 nerve root. Moderate facet arthropathy. L4-L5: Mild annular bulging. Spinal canal and foramen are patent. Moderate facet arthropathy. L5-S1: Pedicle screw fixation. No evidence of hardware loosening. Laminectomy defects. Spinal canal a nd foramen are patent. Partially visualized sigmoid diverticulosis. Adrenal Glands are normal. CT/CT lumbar spine wo con* [id number] IMPRESSION: 1. Mild lumbar curve convex left. 2. Prior postoperative changes pedicle screw fixation L5-S1 with interbody fus ion graft. Fusion appears solid. No evidence of hardware loosening. 3. Annular bulging L3-4 with a shallow central protrusion and mild central can al stenosis. Slight impingement traversing left greater than right L4 nerve laura ts. 4. Moderate facet arthropathy L3-L4 and L4-L5.
--- NOTE | 2021-06-13 11:08 | CT_ITS ---
WS: [id number] NONCONTRAST CT RIGHT HIP TECHNIQUE: Noncontrast CT of with coronal and sagittal reformatted images. CLINICAL INFORMATION: R HIP PAIN COMPARISON: Radiograph April 06, 2021 DLP: 1785.[address] scans at [facility] use at least one of these dose optimization techniques: automated e xposure control; mA and/or kV adjustment per patient size (includes targeted exams where dose is matc hed to clinical indication); or iterative reconstruction. FINDINGS: Moderate to advanced degenerative narrowing superolateral right hip with [id number]-cn-kulo articulation. S mall amount of subchondral sclerosis and subchondral cystic change. Slight hypertrophic spurring abou t the acetabulum. No acute fractures. Normal femoral neck. Normal pubic rami. Benign bone island pubi c symphysis CT/CT hip RT wo con* [id number] IMPRESSION: 1. Moderate to advanced degenerative narrowing superolateral joint compartment right hip with yasu-[id number]-jocm articulation. Subchondral cystic change and sclero sis involving the adjacent acetabulum and femoral head. 2. Mild hypertrophic spurring of the acetabulum. 3. No acute fractures. 4. No other acute findings. Benign bone island in the pubic symphysis. Pelvic phleboliths.
== END 2021-06-13 11:01 | disposition home or self-care (01) ==
LOC: RAD 11:04
PROVIDERS: PCP Nurse Practitioner Family; Visit Provider Nurse Practitioner Family
DX: M54.41 Lumbago with sciatica, right side (principal); M54.42 Lumbago with sciatica, left side; M25.551 Pain in right hip; M47.816 Spondylosis without myelopathy or radiculopathy, lumbar region; M51.26 Other intervertebral disc displacement, lumbar region
CPT/HCPCS: 72131; 73700

== ENCOUNTER → 2021-07-18 00:01 | Outpatient (BNVA) | payer OTHER, SELFPAY | PROVIDERS: PCP Nurse Practitioner Family; Visit Provider Orthopaedic Surgery | DX: Z20.822 Contact with and (suspected) exposure to COVID-19 (principal); M16.11 Unilateral primary osteoarthritis, right hip | CPT/HCPCS: 87635 ==

== ENCOUNTER 2021-07-24 15:13 | Observation (INO) | payer OTHER, SELFPAY ==
[2021-07-21 11:32] VITALS: BMI 30.4
[2021-07-21 12:22] LABS: Basophils # 0.1 10^3/uL (0.0-0.1); Basophils % 0.4 %; Eosinophils % 0.1 %; Hematocrit 42.6 % (37.0-47.0); Lymphocytes # 1.7 10^3/uL (0.8-4.8); Lymphocytes % 12.2 %; Mean Corpuscular HGB Conc 30.5 g/dL (30.0-36.0); Mean Corpuscular Hemoglobin 30.7 pg (28.0-34.0); Mean Corpuscular Volume 100.5 fl (81-99); Mean Platelet Volume 8.4 fL (7.4-10.4); Monocytes # 0.9 10^3/uL (0.2-0.9); Monocytes % 6.5 %; Neutrophils # 10.97 10^3/uL (1.8-7.7); Neutrophils % 80.2 %; Nucleated Red Blood Cells % 0 %; Platelet Count 486 10^3/cmm (130-400); Red Blood Count 4.24 10^6/uL (4.1-5.3); Red Cell Distribution Width 14.8 % (12.1-15.1); White Blood Count 13.7 10^3/uL (4.0-10.0)
--- NOTE | 2021-07-21 14:14 | ANES.PREANE2 ---
Pre-Anesthetic Assessment Height/Weight: Height 1.65 m Weight 83.007 kg Operation Date: 07/24/21 10:10 Proposed Procedures p Total Hip Arthroplasty(Not Applicable) - Remberto Freed MD Was Beta Kalie taken within 24 hours: N/A Was Clonidine taken within 24 hours: N/A Social No alcohol and No tobacco Exam alert, oriented x 3, clear to auscultation bilaterally and regular rate & rhythm Airway Submandibular: within normal limits Cervical ROM: within normal limits Mallampati: Class I Dentition: full Pulmonary Asthma CV/HEM METS < 4 due to pain Chronic steroids Presumed acquired adrenal insufficiency None reported Hepatic None reported GI Gastroesophageal Reflux Disease Metabolic Presumed acquired adrenal insufficiency from [facility] prednisone use 20 mg daily Musc/skel Lower Back Pain and Osteoarthritis/DJD PMR Immunosuppresion Neuropsych Anxiety Hx of neuralgia right thigh Anesthetic Plan Other: Plan stress dose steroids 100 mg hydrocortisone before or at induction of anesthesia. Patient prefers general. We discussed risk and benefits of general anesthesia including PONV, sore throat (sometimes severe), corneal abrasion, positioning and peripheral nerve injuries, life threatening allergic reaction, post operative ICU admission requiring prolonged intubation, stroke, heart attack, , and rare incidences of recall. Patient consents to proceed with general anesthesia. Risk of > 500 ml blood loss (7ml/kg in children): No Medications/Allergies Home Medications Medication Instructions Recorded Confirmed Last Taken Type citalopram 40 mg tablet 40 mg PO DAILY@0800 08/19/19 07/21/21 11/13/20 History sumatriptan succinate 100 mg 100 mg PO Q2H PRN 06/23/20 07/21/21 10/25/20 History tablet (Imitrex) duloxetine 60 mg capsule,delayed 60 mg PO DAILY@0800 09/22/20 07/21/21 11/13/20 History release (Cymbalta) buspirone 5 mg tablet 5 mg PO PRN PRN 10/26/20 07/21/21 11/12/20 History tuberculin-allergy syringes 1 mL #50 ea 01/04/21 07/05/21 Unknown Rx 26 gauge x 3/8 potassium gluconate 595 mg (99 mg) 595 mg PO DAILY 02/14/21 07/21/21 Unknown History tablet omeprazole 20 mg capsule,delayed 40 mg PO DAILY@0800 cap 04/12/21 07/21/21 Unknown History release tramadol 50 mg tablet 100 mg PO DAILY PRN 30 Days #60 tab 04/12/21 07/21/21 Unknown Rx prednisone 5 mg tablet See Rx Instructions PO DAILY #90 04/19/21 07/21/21 Unknown Rx tab oxycodone-acetaminophen 10 mg-325 1 tab PO QID PRN 30 Days #120 tab 05/15/21 07/21/21 Unknown Rx mg tablet (Percocet) leflunomide 20 mg tablet 20 mg PO DAILY #30 tab 06/26/21 07/21/21 Unknown Rx ondansetron HCl 8 mg tablet 8 mg PO Q8H PRN #30 tab 06/26/21 07/21/21 Unknown Rx prednisone 10 mg tablet 20 mg PO DAILY #60 tab 06/26/21 07/21/21 Unknown Rx sulfamethoxazole 800 See Rx Instructions PO .COMPLEX 06/26/21 07/21/21 Unknown Rx mg-trimethoprim 160 mg tablet #15 tab (Bactrim DS) estradiol 0.5 mg tablet 0.5 mg PO DAILY 07/21/21 07/21/21 Unknown History folic acid 1 mg tablet 1 mg PO DAILY 07/21/21 07/21/21 Unknown History Allergies Allergy/AdvReac Type Severity Reaction Status Date / Time tetracycline Allergy ADR-Nausea Verified 07/21/21 11:26 [facility] Anesthesia Medical History Anxiety Arthritis of right acromioclavicular joint Asthma Chronic back pain Chronic steroid use Encounter for long-term opiate analgesic use Failed back syndrome, lumbosacral Fibromyalgia High risk medication use Hx of migraines Immunization counseling Inflammatory arthritis Intervertebral disc disorders with radiculopathy, lumbosacral region Neuralgia of right thigh Numbness and tingling PMR (polymyalgia rheumatica) Polymyalgia rheumatica Radiculopathy Spina bifida Spondylolisthesis, lumbar region Spondylolysis, cervical region Trochanteric bursitis of right hip Surgical History Hx of hysterectomy, total Hx of repair of right rotator cuff S/P insertion of spinal cord stimulator Family History Other CAD (coronary artery disease) Cancer Chronic kidney disease (CKD) Diabetes Hyperlipidemia Denies family history of Rheumatoid arthritis Lupus Lung disease Hypertension Stroke Social History Smoking and tobacco status: never smoked Second hand smoke exposure: No Alcohol intake: never History of recent travel: No Data Anesthesia : 07/21/21 11:52 Short CBC 07/21/21 Range/Units 11:52 WBC 13.7 H (4.0-10.0) 10^3/uL Hgb 13.0 (11.5-15.3) g/dL Hct 42.6 (37.0-47.0) % MCV 100.5 H (81-99) fl Plt Count 486 H (130-400) 10^3/cmm Neut % (Auto) 80.2 % Neut # (Auto) 10.97 H (1.8-7.7) 10^3/uL Cardiac Studies: No Data to Display
[2021-07-21 14:32] LABS: Alanine Aminotransferase 27 U/L (0-33); Albumin Level 4.6 g/dL (3.5-5.2); Alkaline Phosphatase 99 IU/L (35-105); Aspartate Amino Transferase 21 U/L (0-32); Globulin 2.2 g/dL (1.3-4.6); Glomerular Filtration Rate 65.5 mL/min (90-130); Total Bilirubin 0.7 mg/dL (0.15-1.2); Total Protein 6.8 g/dL (6.6-8.7)
[2021-07-24] VITALS (32 sets, daily range): BP systolic 116–203; BP diastolic 60–123; PULSE 20–115; RESP 14–22; TEMP 36.3–37.1; O2SAT 90–100
[2021-07-24] MEDS: oxyCODONE 20 mg ER (12 HR) Tablet PO (09:47)
[2021-07-24] MEDS: sodium chloride 0.9% 1,000 ML 30 ML IV (09:48)
[2021-07-24] MEDS: acetaminophen 500 mg Tablet 1000 MG PO ×3 (09:48→23:07)
[2021-07-24] MEDS: CELEcoxib 200 mg Capsule 400 MG PO (09:48)
[2021-07-24] MEDS: fentaNYL 50 mcg/mL INJ 2mL IVP (09:51)
--- NOTE | 2021-07-24 10:06 | P.ANESUD_ITS ---
Pre-Anesthetic Update Pre-Anesthetic Assessment: Date of Surgery/Procedure: 07/24/21 Preop Nichole gnosis: Osteoarthritis right hip Proposed Procedure: Operation Date: 07/24/21 10:10 Proposed Procedures p Total Hip Arthroplasty(Not Applicable) - Remberto Freed MD Any changes to Pre-Anesthetic Assessment?: No Last Intake: Intake Last Liquid Date 07/23/21 Last Liquid Time 18:30 Last Solid Date 07/23/21 Last Solid Time 18:30 Vitals: Temperature 97.6 F 07/24/21 09:31 Temperature Source Temporal Artery S can 07/24/21 09:31 Pulse Rate 90 07/24/21 09:31 Pulse Rhythm 07/24/21 09:31 Pulse Strength 3+ Normal 07/24/21 09:31 Respiratory Rate 18 07/24/21 09:51 Respiratory Effort 07/24/21 09:51 Respiratory Depth Normal 07/24/21 09:51 Respiratory Patter n 07/24/21 09:51 Blood Pressure 130/82 07/24/21 09:31 Blood Pressure Eli n 98 07/24/21 09:31 Pulse Oximetry 97 07/24/21 09:51 Oxygen Delivery Me thod 07/24/21 09:31 Exam: Pre-Anes Outpt Exam: alert, oriented x 3, clear to auscultation bilaterally and regular rate & rhythm Cardiac Studies: No Data to Display
--- NOTE | 2021-07-24 11:08 | P.HP_ITS ---
Same Day Surgery H&P Indication for Procedure/HPI DATE OF PROCEDURE: July 24, 2021 CHIEF COMPLAINT/INDICATIONFOR SURGICAL PROCEDURE: Osteoarthritis right hip here for right total hip arthroplasty PREOP DIAGNOSIS: Osteoarthritis right hip PLANNED PROCEDURE: Operation Date: 07/24/21 10:10 Proposed Procedures p Total Hip Arthroplasty(Not Applicable) - Remberto Freed MD 55-year-old with progressive right hip pain here for right total hip arthroplasty Medications/Allergies* Home Medications Medication Instructions Recorded Confirmed Type citalopram 40 mg tablet 40 mg PO DAILY@0800 08/19/19 07/24/21 History sumatriptan succinate 100 mg 100 mg PO Q2H PRN 06/23/20 07/24/21 History tablet (Imitrex) duloxetine 60 mg capsule,delayed 60 mg PO DAILY@0800 09/22/20 07/24/21 History release (Cymbalta) buspirone 5 mg tablet 5 mg PO PRN PRN 10/26/20 07/24/21 History potassium gluconate 595 mg (99 mg) 595 mg PO DAILY 02/14/21 07/24/21 History tablet omeprazole 20 mg capsule,delayed 40 mg PO DAILY@0800 cap 04/12/21 07/24/21 Hi story release estradiol 0.5 mg tablet 0.5 mg PO DAILY 07/21/21 07/24/21 History folic acid 1 mg tablet 1 mg PO DAILY 07/21/21 07/24/21 History Allergies/Adverse Reactions Allergy/AdvReac Type Severity Reaction Status Date / Time tetracycline Allergy ADR-Nausea Verified 07/21/21 11:26 Current Medications: Generic Name Dose Route Start Last Admin Trade Name Freq PRN Reason Stop Dose Admin Fentanyl 50 mcg 07/24/21 09:08 07/24/21 09:51 Fentanyl 50 Mcg/Ml Inj 2ml IVP 50 mcg Q10M PRN Administration Preop Pain Sodium Chloride 1,000 mls @ 30 mls/hr 07/24/21 09:15 07/24/21 09:48 Sodium Chloride 0.9% IV 07/25/21 09:14 30 mls/hr .Q24H CORBY Administration Pertinent History/Comorbid Conditions* Medical History (Updated 12/21/20 @ 10:34 by Vasu Benitez MD) Anxiety Arthritis of right acromioclavicular joint Asthma Chronic back pain Chronic steroid use Encounter for long-term opiate analgesic use Failed back syndrome, lumbosacral Fibromyalgia High risk medication use Hx of migraines Immunization counseling Inflammatory arthritis Intervertebral disc disorders with radiculopathy, lumbosacral region Neuralgia of right thigh Numbness and tingling PMR (polymyalgia rheumatica) Polymyalgia rheumatica Radiculopathy Spina bifida Spondylolisthesis, lumbar region Spondylolysis, cervical region Trochanteric bursitis of right hip Surgical History (Updated 06/23/20 @ 12:48 by Haley Saunders MD) Hx of hysterectomy, total Hx of repair of right rotator cuff S/P insertion of spinal cord stimulator Family History (Updated 12/21/20 @ 09:50 by Monserrat Golden LPN) Diabetes CAD (coronary artery disease) Hyperlipidemia Chronic kidney disease (CKD) Cancer Denies family history of Rheumatoid arthritis Lupus Lung disease Hypertension Stroke Social History Smoking and tobacco status: never smoked Second hand smoke exposure: No Alcohol intake: never History of recent travel: No Pertinent Exam Findings alert, oriented x 3, clear to auscultation bilaterally, regular rate & rhythm and operative site marked Recommendations Surgery/Procedure today Coding Level of Care Code Acute Can Closing Machine Tender for Casi Miranda
--- NOTE | 2021-07-24 13:46 | P.OP_ITS ---
Operative Report Date of procedure: July 24, 2021 Pre-op diagnosis: Preop Diagnosis Osteoarthritis right hip Post-op diagnosis: same Post-op diagnosis: Same Post-op findings: Same Procedure done: Right total hip arthroplasty Implants: 1) Javy 52 mm Trident 2 solid back acetabular shell 2) Size 3 Javy 127 degree neck angle Accolade 2 stem 3} 28mm -3 mm ceramic femoral head 4} MDM metal liner Pathology: none sent Surgeon: Remberto Freed Estimated blood loss (mL): 200 Complications: None Findings: The patient had eburnated bone over the superior femoral head Condition: stable Disposition: PACU Procedure: The patient was taken to the operating room and anesthesia provided by the anesthesia service. The patient was placed in the lateral position on a pegboard. A timeout was performed. The patient was draped in the usual fashion. A 15 cm long incision was made beginning just proximal to the greater trochanter and extending posteriorly to a point just distal to the trochanter on the posterior border of the trochanter. Dissection was carried down with electrocautery through the subcutaneous fat to the fascia holley which was divided proximally and distally with curved scissors. The anterior two thirds of the gluteus medius and minimus were elevated off the hip with electrocautery. The capsule was divided in a H-like fashion. The hip was dislocated and a neck cut made just above the level of the lesser trochanter. Exposure of the acetabulum was facilitated with the acetabular retractors. Remnants of labrum and peripheral osteophytes were removed with electrocautery and a rongeur. A reamer 2 mm under the size the femoral head was utilized to ream medially to the base of the palm and are. Reaming was then increased in 1 mm intervals until a healthy rim a trabecular bone was encountered. The rim was touched with the reamer the size of the final acetabular shell to be placed. A final Trident 2 acetabular cup of the same size as the final reaming was press- fit into place. The ADM liner was secured. Attention was then focused on the femur. The canal was localized with a canal finder. Broaching was then accomplished until a stable broach size was obtained. A trial reduction with the head and neck provided excellent stability. The wound was irrigated with saline and antibiotic solution. The final Javy Accolade II stem was press-fit into place. The femoral head was placed and the hip was reduced. The hip was brought through range of motion and found to be free of impingement and stable. The anterior capsule was reapproximated with 1 Ethibond. The gluteus medius and minimus were repaired through bone with 5 Ethibond and reinforced with 1 Ethibond. The fascial holley was closed with a running 0 Stratafix suture. Deep pelvic tissues were closed with 2-0 Stratafix and the skin with a running 4-0 l Stratafix. The skin was covered with a Prineo dressing and op site dressings.
--- NOTE | 2021-07-24 13:52 | XR_ITS ---
WS: [id number] Exam: XR hip RT 1V wo/w pel [id number] Date/Time of Exam: 07/24/2021 2:03 PM Reason For Exam: right total hip Comparison 04/06/2021. Total hip prosthesis is in place. Postoperative changes in the adjacent soft tissues. Hardware noted in the lumbosacral spine. XR/XR hip RT 1V wo/w pel [id number] IMPRESSION: 1. Right hip prosthesis in place as noted above.
--- NOTE | 2021-07-24 14:04 | SUR.PHASEI ---
RECEIVED PATIENT FROM OR STAFF. AIRWAY PATENT PT APPEARS DROWSY. ST ON MONITOR. VENTILATING WELL.
[2021-07-24] MEDS: HYDROmorphone 1 mg/mL INJ 1 mL 0.5 MG IVP ×2 (14:28→14:45)
--- NOTE | 2021-07-24 14:29 | SUR.PHASEI ---
14:15 MEDICATED FOR HIP PAIN. PATIENT OFF O2 MASK.
--- NOTE | 2021-07-24 15:38 | ANE.PACU2 ---
Inpatient post-anesthesia follow up: Airway intact: Yes Vital signs: Temperature 98.4 F Pulse Rate 81 Respiratory Rate 18 Blood Pressure 165/95 Pulse Oximetry 100 Oxygen Delivery Me thod Nasal Cannula Oxygen Flow Rate 3 Fraction of Inspir ed Oxygen Hydration adequate: Yes Nausea and vomiting: No Pain level: 3 Mental status: Baseline
[2021-07-24] MEDS: CELEcoxib 200 mg Capsule PO (16:04)
[2021-07-24] MEDS: oxyCODONE 5 mg IR Tab/Cap 10 MG PO ×3 (16:05→23:04)
[2021-07-24] MEDS: gabapentin 300 mg Capsule PO (17:10)
[2021-07-24] MEDS: TRAMadol 50 mg Tablet 100 MG PO (17:13)
[2021-07-25 02:03] VITALS: RESP 16
[2021-07-25] MEDS: oxyCODONE 5 mg IR Tab/Cap 10 MG PO ×3 (02:03→09:56)
[2021-07-25] MEDS: sodium chloride 0.9% 1,000 ML 100 ML IV (02:05)
[2021-07-25] MEDS: ondansetron 2 mg/ML SDV 2 mL 4 MG IVP (03:55)
[2021-07-25 04:41] VITALS: BP 128/83; PULSE 95; RESP 19; TEMP 36.7; O2SAT 93
[2021-07-25 04:55] LABS: Hemoglobin 10.1 g/dL (11.5-15.3)
[2021-07-25 06:30] VITALS: RESP 16
--- NOTE | 2021-07-25 06:35 | PC.NURSE ---
SHIFT SUMMARY Has had a good night. Dressing to Right hip incision C&D. ABD pillow in place. Ice packs in place to hip. Has been up to BSC with walker and nurse with good tolerance. Has received OXYIR prn and scheduled po Tylenol for pain. Had a little nausea and lightheadedness after one of the doses of OXYIR and received IV Zofran with good relief. Says she usually only takes 5mg of the OXYIR at home. IV infusing at 100ml/hr rate. Is hoping to go home today.
[2021-07-25] MEDS: acetaminophen 500 mg Tablet 1000 MG PO (06:51)
--- NOTE | 2021-07-25 08:22 | PM.DCS ---
Discharge Providers Date of Admission: 07/24/21 15:13 Date of Discharge: July 25, 2021 Attending Provider at Admission: Remberto De Leon MD Attending Provider at Discharge: Remberto De Leon MD Primary Care Provider: JOEL Mahan Diagnoses at Discharge Discharge Diagnosis (1) Osteoarthritis of right hip: Status: Resolved (2) Status post right hip replacement: Status: Acute (3) Failed back syndrome, lumbosacral: Status: Chronic Reason for Visit Reason for Visit: arthritis of right hip Hospital Course Hospital Course The patient tolerated surgery well. They remained hemodynamically stable. They was begun on aspirin and foot pumps for DVT prophylaxis. The patient was mobilized with therapy beginning the day of surgery and by the first postoperative day independent with the walker. As the pain was adequately controlled and they were fully mobile they were discharged home. Physical Exam Narrative: On the day of discharge the hip incision was clean. The incision was free of drainage. They had no particular swelling about the thigh or distal. No distal neurovascular deficits were noted. Discharge Data Studies Completed and Pending Completed Studies During Hospitalization Category Date Time Status XR hip RT 1V wo/w pel [id number] Routine Exams 07/24/21 13:52 Completed Radiology Impressions Hip X-Ray 07/24/21 13:52 IMPRESSION: 1. Right hip prosthesis in place as noted above. Laboratory Results WBC 13.7 10^3/uL (4.0-10.0) H 07/21/21 11:52 RBC 4.24 10^6/uL (4.1-5.3) 07/21/21 11:52 Hgb 10.1 g/dL (11.5-15.3) L 07/25/21 04:25 Hct 42.6 % (37.0-47.0) 07/21/21 11:52 MCV 100.5 fl (81-99) H 07/21/21 11:52 MCH 30.7 pg (28.0-34.0) 07/21/21 11:52 MCHC 30.5 g/dL (30.0-36.0) 07/21/21 11:52 RDW 14.8 % (12.1-15.1) 07/21/21 11:52 Plt Count 486 10^3/cmm (130-400) H 07/21/21 11:52 MPV 8.4 fL (7.4-10.4) 07/21/21 11:52 Neut % (Auto) 80.2 % 07/21/21 11:52 Lymph % (Auto) 12.2 % 07/21/21 11:52 [place] % (Auto) 6.5 % 07/21/21 11:52 Eos % (Auto) 0.1 % 07/21/21 11:52 Baso % (Auto) 0.4 % 07/21/21 11:52 Neut # (Auto) 10.97 10^3/uL (1.8-7.7) H 07/21/21 11:52 Lymph # (Auto) 1.7 10^3/uL (0.8-4.8) 07/21/21 11:52 [place] # (Auto) 0.9 10^3/uL (0.2-0.9) 07/21/21 11:52 Eos # (Auto) 0.0 10^3/uL (0.0-0.8) 07/21/21 11:52 Baso # (Auto) 0.1 10^3/uL (0.0-0.1) 07/21/21 11:52 Nucleated RBC % (auto) 0 % 07/21/21 11:52 Nucleated RBCs # 0.0 /100WBC 07/21/21 11:52 Creatinine 0.9 mg/dL (0.5-0.9) 07/21/21 11:52 GFR Calculation 65.5 mL/min (90-130) L 07/21/21 11:52 Total Bilirubin 0.7 mg/dL (0.15-1.2) 07/21/21 11:52 Direct Bilirubin 0.20 mg/dL (0.00-0.30) 07/21/21 11:52 AST 21 U/L (0-32) 07/21/21 11:52 ALT 27 U/L (0-33) 07/21/21 11:52 Alkaline Phosphatase 99 IU/L (35-105) 07/21/21 11:52 C-Reactive Protein 3.0 mg/L (0.0-4.9) 07/21/21 11:52 Total Protein 6.8 g/dL (6.6-8.7) 07/21/21 11:52 Albumin 4.6 g/dL (3.5-5.2) 07/21/21 11:52 Globulin 2.2 g/dL (1.3-4.6) 07/21/21 11:52 Vitals Last Vital Signs Temp 98.1 F 07/25/21 04:41 Pulse 95 07/25/21 04:41 Resp 16 07/25/21 06:30 BP 128/83 07/25/21 04:41 Pulse Ox 93 07/25/21 04:41 Discharge Plan Discharge Patient Disposition: Home Condition: Stable Prescriptions: New acetaminophen 500 mg Tablet 1,000 mg PO Q8H 14 Days Qty: 84 0RF celecoxib 200 mg Capsule 200 mg PO Q12H 14 Days Qty: 28 0RF aspirin 325 mg Tablet,Delayed Release (Dr/Ec) 325 mg PO DAILY 30 Days Qty: 3 0RF gabapentin 300 mg Capsule 300 mg PO BID 7 Days Qty: 14 0RF Continued potassium gluconate 595 mg (99 mg) tablet 595 mg PO DAILY 0RF leflunomide 20 mg tablet 20 mg PO DAILY Qty: 30 3RF ondansetron HCl 8 mg tablet 8 mg PO Q8H PRN (Reason: nausea and vomiting) Qty: 30 1RF prednisone 10 mg tablet 20 mg PO DAILY Qty: 60 3RF sulfamethoxazole-trimethoprim [Bactrim DS] 800-160 mg tablet See Rx Instructions PO .COMPLEX Qty: 15 3RF Rx Instructions: take 1 tab 3 times a week, Sat, Sat, and Saturday PO; citalopram 40 mg tablet 40 mg PO DAILY@0800 0RF sumatriptan succinate [Imitrex] 100 mg tablet 100 mg PO Q2H PRN (Reason: Migraine Headache) 0RF Rx Instructions: do not exceed 2 doses per 24 hrs duloxetine [Cymbalta] 60 mg capsule,delayed release(DR/EC) 60 mg PO DAILY@0800 0RF omeprazole 20 mg capsule,delayed release(DR/EC) 40 mg PO DAILY@0800 0RF tramadol 50 mg tablet 100 mg PO DAILY PRN (Reason: pain) 30 Days Qty: 60 1RF Rx Instructions: Fill on or after 04/12/21 and 05/12/21 (DME) tuberculin-allergy syringes 1 mL 26 gauge x 3/8 syringe See Rx Instructions .Route Qty: 50 0RF Rx Instructions: As directed prednisone 5 mg tablet See Rx Instructions PO DAILY Qty: 90 0RF Rx Instructions: take 17.5mg for 7days then 15mg x7days then 12.5mg for 7days then stay on 10mg daily PO daily; oxycodone-acetaminophen [Percocet] 10-325 mg tablet 1 tab PO QID PRN (Reason: pain) 30 Days Qty: 120 0RF Rx Instructions: fill on or after 05/12/21 buspirone 5 mg tablet 5 mg PO PRN PRN (Reason: Anxiety) 0RF folic acid 1 mg tablet 1 mg PO DAILY 0RF estradiol 0.5 mg tablet 0.5 mg PO DAILY 0RF Discharge Orders: Discharge Order (Routine); Ordered 07/25/21 Ordered By: Remberto De Leon Referrals: Remberto De Leon MD [Physician] - 07/28/21 8:00 am Discharge Diet: Advance as tolerated Discharge Activity: Limit activity as instructed Patient Instructions: Opioid Safety Activity Restrictions/Additional Instructions: Okay to shower. No soaking incision in tub Apply FirstIce up to 20 min/hr for pain and swelling Take Celebrex twice a day for the next 15 days for pain , discontinue other anti-inflammatories Take Neurontin twice a day for 7 days. Take Tylenol 500mg (up to 2 tabs) 3 times a day for mild pain Take oxycodone or Ultram for breakthrough pain. Exercises per physical therapy. May weight-bear as tolerated on total hip arthroplasty IF HAVE ANY PROBLEMS OR QUESTIONS CALL HOSPITAL VIDEO COORDINATOR AT AND ASK TO HAVE DR. DE LEON PAGED. Discharge Attestations Time Spent in Discharge Care*: other Quality Metrics Clinical Quality Measures [ No reported AMI, CVA or VTE this stay] Coding Level of Care Code Acute Community Resource Consultant for g Fwd Diagnoses Osteoarthritis of right hip M16.11 Status post right hip replacement Z96.641 Failed back syndrome, lumbosacral M96.1
[2021-07-25 08:28] VITALS: BP 127/78; PULSE 117; RESP 18; TEMP 37.1; O2SAT 93
[2021-07-25] MEDS: aspirin 325 mg EC Tablet PO (08:40)
[2021-07-25] MEDS: duloxetine 60 mg Capsule PO (08:40)
[2021-07-25] MEDS: folic acid 1 mg Tablet PO (08:40)
[2021-07-25] MEDS: pantoprazole DR 40 mg Tablet PO (08:40)
[2021-07-25] MEDS: gabapentin 300 mg Capsule PO (08:41)
[2021-07-25] MEDS: citalopram 20 mg Tablet 40 MG PO (08:41)
[2021-07-25 09:56] VITALS: RESP 18; O2SAT 95
--- NOTE | 2021-07-25 11:41 | PC.NURSE ---
discharge instructions given to patient and patient verbalized understanding of instructions. patient taken to private vehicle via wheel chair by literary writer.
[2021-07-25 11:42] VITALS: BP 127/78; PULSE 117; RESP 18; TEMP 37.1; O2SAT 95
== END 2021-07-25 11:43 | disposition home or self-care (01) ==
LOC: MEDSURG 15:14
PROVIDERS: Internal Medicine Rheumatology; Admitting Provider Orthopaedic Surgery; PCP Nurse Practitioner Family; Visit Provider Orthopaedic Surgery
PROC: (CPT 27130; principal; 2021-07-24 09:55)
DX: M16.11 Unilateral primary osteoarthritis, right hip (principal); F41.9 Anxiety disorder, unspecified; M79.7 Fibromyalgia; Z82.49 Family history of ischemic heart disease and other diseases of the circulatory system; Z83.3 Family history of diabetes mellitus; M96.1 Postlaminectomy syndrome, not elsewhere classified; K21.9 Gastro-esophageal reflux disease without esophagitis; Z79.52 Long term (current) use of systemic steroids
CPT/HCPCS: 27130; 36415; 73501; 80076; 82565; 85018; 85025; 86140; 96374; 97110; 97116; 97161; 97165; 97530; C1713; C1776; G0378; J0690; J1170; J1580; J1720; J2270; J2405; J2704; J2710; J3010; J3490; J7030

== ENCOUNTER → 2021-08-08 09:36 | Outpatient (BNVA) | payer OTHER, SELFPAY | PROVIDERS: PCP Nurse Practitioner Family; Visit Provider Orthopaedic Surgery | DX: M16.11 Unilateral primary osteoarthritis, right hip (principal) | CPT/HCPCS: 73502 ==

== ENCOUNTER → 2022-01-22 14:57 | Outpatient (BNVA) | payer OTHER, SELFPAY | PROVIDERS: PCP Nurse Practitioner Family; Visit Provider Internal Medicine Rheumatology | DX: M06.041 Rheumatoid arthritis without rheumatoid factor, right hand (principal); M35.3 Polymyalgia rheumatica; Z71.89 Other specified counseling; M06.042 Rheumatoid arthritis without rheumatoid factor, left hand; Z79.899 Other long term (current) drug therapy | CPT/HCPCS: 80076; 82565; 85025; 86140 ==

== ENCOUNTER 2022-01-30 12:32 | Outpatient (CLI) | payer OTHER, SELFPAY ==
[2022-01-30 13:05] LABS: Basophils % 0.5 %; Hemoglobin 10.9 g/dL (11.5-15.3); Lymphocytes # 0.8 10^3/uL (0.8-4.8); Lymphocytes % 9.8 %; Mean Corpuscular HGB Conc 29.5 g/dL (30.0-36.0); Mean Corpuscular Hemoglobin 28.4 pg (28.0-34.0); Mean Corpuscular Volume 96.4 fl (81-99); Mean Platelet Volume 8.3 fL (7.4-10.4); Monocytes # 0.4 10^3/uL (0.2-0.9); Monocytes % 4.4 %; Neutrophils # 7.16 10^3/uL (1.8-7.7); Neutrophils % 84.5 %; Nucleated Red Blood Cells % 0 %; Platelet Count 483 10^3/cmm (130-400); Red Blood Count 3.84 10^6/uL (4.1-5.3); Red Cell Distribution Width 15.4 % (12.1-15.1); White Blood Count 8.5 10^3/uL (4.0-10.0)
[2022-01-30 13:06] LABS: Erythrocyte Sedimentation Rate < 1 mm/hr (0-15)
[2022-01-30 13:07] VITALS: BP 154/90; PULSE 104; RESP 18; TEMP 37.5; O2SAT 96
[2022-01-30] MEDS: sodium chloride 0.9% 250 ML 50 ML IV (13:20)
[2022-01-30] MEDS: acetaminophen 325 mg Tablet 650 MG PO (13:21)
[2022-01-30] MEDS: diphenhydrAMINE 50 mg/mL SDV 1mL 25 MG IVP (13:23)
[2022-01-30 13:30] LABS: Alanine Aminotransferase 26 U/L (0-33); Albumin Level 4.5 g/dL (3.5-5.2); Alkaline Phosphatase 68 U/L (35-105); Aspartate Amino Transferase 16 U/L (0-32); Glomerular Filtration Rate 65.2 mL/min (90-130); Total Bilirubin 0.5 mg/dL (0.15-1.2); Total Protein 6.5 g/dL (6.6-8.7)
[2022-01-30] MEDS: tocilizumab 400 MG, tocilizumab 200 MG, tocilizumab 70 MG in sodium chloride 0.9% (100 ... 100 MG IV (13:40)
[2022-01-30 14:57] VITALS: BP 155/93; PULSE 92; RESP 18; TEMP 36.2; O2SAT 95
== END 2022-01-30 12:33 | disposition home or self-care (01) ==
PROVIDERS: PCP Nurse Practitioner Family; Visit Provider Internal Medicine Rheumatology
DX: M06.9 Rheumatoid arthritis, unspecified (principal); Z79.899 Other long term (current) drug therapy
CPT/HCPCS: 80076; 82565; 85025; 85651; 96365; 96375; J1200; J2920; J3262; J7050

== ENCOUNTER 2022-03-01 10:55 | Outpatient (CLI) | payer OTHER, SELFPAY ==
[2022-03-01] MEDS: acetaminophen 325 mg Tablet 650 MG PO (11:30)
[2022-03-01] MEDS: sodium chloride 0.9% 250 ML 75 ML IV (11:30)
[2022-03-01] MEDS: diphenhydrAMINE 50 mg/mL SDV 1mL 25 MG IV (11:30)
[2022-03-01 15:23] VITALS: BP 122/68; PULSE 96; RESP 18; TEMP 36.3; O2SAT 98
== END 2022-03-01 10:56 | disposition home or self-care (01) ==
PROVIDERS: PCP Nurse Practitioner Family; Visit Provider Internal Medicine Rheumatology
DX: M06.9 Rheumatoid arthritis, unspecified (principal)
CPT/HCPCS: 96365; 96375; J1200; J2920; J3262; J7050

== ENCOUNTER → 2022-03-21 17:03 | Outpatient (BNVA) | payer OTHER, SELFPAY | PROVIDERS: PCP Nurse Practitioner Family; Visit Provider Internal Medicine Cardiovascular Disease | DX: R06.02 Shortness of breath (principal); N18.9 Chronic kidney disease, unspecified; R00.0 Tachycardia, unspecified; I10 Essential (primary) hypertension; M35.3 Polymyalgia rheumatica | CPT/HCPCS: 80048; 83880; 84443; 85378 ==

== ENCOUNTER 2022-03-29 09:29 | Outpatient (CLI) | payer OTHER, SELFPAY ==
[2022-03-29 09:43] VITALS: BP 131/86; PULSE 96; RESP 18; TEMP 35.7; O2SAT 98
[2022-03-29 10:11] LABS: Basophils # 0.1 10^3/uL (0.0-0.1); Basophils % 0.3 %; Eosinophils # 0.1 10^3/uL (0.0-0.8); Eosinophils % 0.3 %; Hematocrit 36.7 % (37.0-47.0); Hemoglobin 11.1 g/dL (11.5-15.3); Lymphocytes # 5.5 10^3/uL (0.8-4.8); Mean Corpuscular HGB Conc 30.2 g/dL (30.0-36.0); Mean Corpuscular Hemoglobin 28.6 pg (28.0-34.0); Mean Corpuscular Volume 94.6 fl (81-99); Mean Platelet Volume 8.2 fL (7.4-10.4); Monocytes # 1.3 10^3/uL (0.2-0.9); Monocytes % 8.1 %; Neutrophils # 8.23 10^3/uL (1.8-7.7); Neutrophils % 53.8 %; Nucleated Red Blood Cells % 0 %; Platelet Count 498 10^3/cmm (130-400); Red Blood Count 3.88 10^6/uL (4.1-5.3); Red Cell Distribution Width 15.7 % (12.1-15.1); White Blood Count 15.3 10^3/uL (4.0-10.0)
[2022-03-29 10:22] LABS: Erythrocyte Sedimentation Rate 1 mm/hr (0-15)
[2022-03-29] MEDS: acetaminophen 325 mg Tablet 650 MG PO (10:47)
[2022-03-29] MEDS: sodium chloride 0.9% 250 ML 50 ML IV (10:47)
[2022-03-29] MEDS: diphenhydrAMINE 50 mg/mL SDV 1mL 25 MG IVP (10:49)
[2022-03-29 10:51] LABS: Alanine Aminotransferase 22 U/L (0-33); Albumin Level 4.6 g/dL (3.5-5.2); Alkaline Phosphatase 58 U/L (35-105); Aspartate Amino Transferase 13 U/L (0-32); Globulin 1.9 g/dL (1.3-4.6); Glomerular Filtration Rate 65.2 mL/min (90-130); Total Bilirubin 0.7 mg/dL (0.15-1.2); Total Protein 6.5 g/dL (6.6-8.7)
[2022-03-29] MEDS: tocilizumab 400 MG, tocilizumab 200 MG, tocilizumab 70 MG in sodium chloride 0.9% (100 ... 100 MG IV (10:59)
[2022-03-29 12:03] VITALS: BP 120/76; PULSE 94; RESP 18; TEMP 35.9; O2SAT 96
== END 2022-03-29 09:30 | disposition home or self-care (01) ==
PROVIDERS: PCP Nurse Practitioner Family; Visit Provider Internal Medicine Rheumatology
DX: M06.9 Rheumatoid arthritis, unspecified (principal)
CPT/HCPCS: 80076; 82565; 85025; 85651; 96365; 96375; J1200; J2920; J3262; J7050

== ENCOUNTER 2022-04-25 09:56 | Outpatient (CLI) | payer OTHER, SELFPAY ==
[2022-04-25 10:15] VITALS: BP 123/73; PULSE 105; RESP 18; TEMP 36.6; O2SAT 94
[2022-04-25] MEDS: sodium chloride 0.9% 250 ML 50 ML IV (10:58)
[2022-04-25] MEDS: acetaminophen 325 mg Tablet 650 MG PO (10:59)
[2022-04-25] MEDS: diphenhydrAMINE 50 mg/mL SDV 1mL 25 MG IVP (11:00)
[2022-04-25] MEDS: tocilizumab 400 MG, tocilizumab 200 MG, tocilizumab 70 MG in sodium chloride 0.9% (100 ... 100 MG IV (11:07)
[2022-04-25 12:26] VITALS: BP 135/82; PULSE 103; RESP 18; TEMP 36.1; O2SAT 97
== END 2022-04-25 09:57 | disposition home or self-care (01) ==
PROVIDERS: PCP Nurse Practitioner Family; Visit Provider Internal Medicine Rheumatology
DX: M06.9 Rheumatoid arthritis, unspecified (principal)
CPT/HCPCS: 96365; 96375; J1200; J2920; J3262; J7050

== ENCOUNTER 2022-05-02 12:36 | Outpatient (CLI) | payer OTHER, SELFPAY ==
--- NOTE | 2022-05-02 13:00 | CT_ITS ---
WS: [id number] CTA OF THE CHEST WITH PULMONARY EMBOLISM PROTOCOL TECHNIQUE: High-resolution contrast enhanced CTA of the chest with coronal and sagittal reformatted i mages with pulmonary embolism protocol. MIP images are also reviewed. CLINICAL INFORMATION: R/O PE COMPARISON: CT January 03, 2021 DLP: 472.[address] scans at [facility] use at least one of these dose optimization techniques: automated e xposure control; mA and/or kV adjustment per patient size (includes targeted exams where dose is matc hed to clinical indication); or iterative reconstruction. FINDINGS: Proximal main pulmonary arteries are normal. Normal segmental and subsegmental pulmonary arteries. No evidence of pulmonary embolus. Normal caliber thoracic aorta. Normal descending thoracic aorta. Adrenal glands are normal. Small eso phageal hiatal hernia. Bilateral breast implants. Both lungs are well aerated. Slight bibasilar atele ctasis. No focal pneumonia or pleural fluid. No axillary lymphadenopathy. Dorsal epidural spinal cath eter in the mid thoracic spine. Mild thoracic curve. CT/CT angio chest PE protcl [id number] IMPRESSION: 1. No evidence of pulmonary embolus. 2. Lungs are well aerated. Slight bibasilar atelectasis. 3. Small esophageal hiatal hernia. 4. No other acute findings.
[2022-05-02] MEDS: iohexol 350 mg/mL 500 mL Btl (per mL) IV (13:01)
== END 2022-05-02 12:37 | disposition home or self-care (01) ==
LOC: RAD 12:38
PROVIDERS: PCP Nurse Practitioner Family; Visit Provider Internal Medicine Cardiovascular Disease
DX: R06.02 Shortness of breath (principal); R00.0 Tachycardia, unspecified; K44.9 Diaphragmatic hernia without obstruction or gangrene; J98.11 Atelectasis
CPT/HCPCS: 71275; Q9967

== ENCOUNTER 2022-05-10 09:53 | Outpatient (CLI) | payer OTHER, SELFPAY ==
--- NOTE | 2022-05-10 10:12 | US_ITS ---
WS: [id number] ULTRASOUND SOFT TISSUES neck, parotid glands. HISTORY: R60.9 - Edema, unspecified COMPARISON: None available. TECHNIQUE: 2-D and color Doppler imaging is submitted. Imaging is performed in the region of the parotid glands as requested. Parotid glands appear normal h omogeneous intermediate echogenicity. There is a hypoechoic nodule at adjacent to the RIGHT parotid g land. Ill-defined nodule measures 1.7 x 1.4 x 1.3 cm. This is probably external to the parotid gland and may be a small lymph node or normal adjacent soft tissues. This is very nonspecific and no increa sed vascularity. US/US soft tissue head neck [id number] IMPRESSION: 1. Unremarkable parotid glands. 2. Indeterminate hypoechoic nodule adjacent to the RIGHT parotid gland. This m ay be external to the parotid gland and normal adjacent cervical musculature. F or further evaluation neck CT with IV contrast can be obtained.
--- NOTE | 2022-05-10 10:15 | USCV_ITS ---
Sivan Sarabia Age: 56 Gender: F : 1965 Exam Date: 05/10/2022 10:44 Ordering Phys: Kristi Godoy MD ([email or web address]) Technologist: ELI Exam Location: [facility] [place] Indication: SHORTNESS OF BREATH BP: 117 / 66 HR: 38 Rhythm: Sinus Technical Quality: Adequate MEASUREMENTS (Male / Female) Normal Values 2D ECHO LVOT Diameter 2.0 cm LV Ejection Fraction MOD 2C 69.7 % LV Ejection Fraction 2C AL 70.8 % LA Diameter 2.6 cm LA Width 2.4 cm LA Height 3.5 cm RA Width 2.7 cm RA Height 3.5 cm Aorta at Sinotubular Diameter 2.4 cm IVC Diameter 1.1 cm M-MODE Aortic Annulus Diameter 2.8 cm LA Ao Ratio MM 0.9 MV E Point Septal Separation 0.2 cm DOPPLER AV Peak Velocity 137.0 cm/s LVOT Peak Velocity 102.0 cm/s AV Area Cont Eq vti 2.1 cm squared AV Area Cont Eq pk 2.4 cm squared MV Peak Velocity 113.0 cm/s MV Area PHT 3.1 cm squared Mitral E to A Ratio 0.9 MV E' Velocity 55.0 cm/s Mitral E to MV E' Ratio 10.4 Mitral E to LV E' Lateral Ratio 10.4 Mitral E to LV E' Septal Ratio 10.5 TR Peak Velocity 193.8 cm/s TR Peak Gradient 15.0 mmHg TR Mean Velocity 192.2 cm/s TR Mean Gradient 15.0 mmHg TR Velocity Time Integral 64.9 cm TV Peak E Velocity 59.0 cm/s Right Atrial Pressure 3.0 mmHg Pulmonary Artery Systolic Pressu 18.0 mmHg PV Peak Velocity 100.0 cm/s RV Acceleration Time 0.2 s RV Ejection Time 0.3 s RV AcT/ET 0.6 FINDINGS Left Ventricle Normal left ventricular size and systolic function, EF 67 %. No regional wall motion abnormalities. Grade I/IV diastolic dysfunction (abnormal relaxation filling pattern), normal to mildly elevated filling pressures. Right Ventricle The right ventricle is normal in size and function. Right Atrium The right atrium is normal in size. Left Atrium The left atrium is normal in size. Mitral Valve Mild mitral valve regurgitation. Aortic Valve Trace of aortic valve regurgitation. Tricuspid Valve Trace tricuspid valve regurgitation. Pulmonic Valve No gross abnormalities noted Pericardium No pericardial effusion. Aorta Normal ascending aorta dimension. IVC The inferior vena cava appears normal. CONCLUSIONS Normal left ventricular size and systolic function, EF 67 %. No regional wall motion abnormalities. Grade I/IV diastolic dysfunction (abnormal relaxation filling pattern), normal to mildly elevated filling pressures. Trace of aortic valve regurgitation. Mild mitral valve regurgitation. Trace tricuspid valve regurgitation. Estimated pulmonary artery peak systolic pressure of 18 mmHg There is no pericardial effusion. There are no intracardiac masses. No previous study is available for comparison. Dr Kristi Godoy MD [facility] (Electronically Signed) Final Date: 11 May 2022 19:00 S
== END 2022-05-10 09:54 | disposition home or self-care (01) ==
PROVIDERS: PCP Nurse Practitioner Family; Visit Provider Internal Medicine Cardiovascular Disease
DX: R60.9 Edema, unspecified (principal); R06.02 Shortness of breath; R06.09 Other forms of dyspnea
CPT/HCPCS: 76536; 93306

== ENCOUNTER 2022-05-24 07:55 | Outpatient (CLI) | payer OTHER, SELFPAY ==
[2022-05-24 08:06] VITALS: BP 141/87; PULSE 92; RESP 18; TEMP 35.8; O2SAT 95
[2022-05-24] MEDS: sodium chloride 0.9% 250 ML 50 ML IV (08:31)
[2022-05-24] MEDS: acetaminophen 325 mg Tablet 650 MG PO (08:32)
[2022-05-24] MEDS: diphenhydrAMINE 50 mg/mL SDV 1mL 25 MG IVP (08:33)
[2022-05-24] MEDS: tocilizumab 400 MG, tocilizumab 200 MG, tocilizumab 80 MG in sodium chloride 0.9% (100 ... 100 MG IV (08:50)
[2022-05-24 10:06] VITALS: BP 126/78; PULSE 92; RESP 18; TEMP 36.2; O2SAT 99
== END 2022-05-24 07:56 | disposition home or self-care (01) ==
PROVIDERS: PCP Nurse Practitioner Family; Visit Provider Internal Medicine Rheumatology
DX: M06.9 Rheumatoid arthritis, unspecified (principal)
CPT/HCPCS: 96365; 96375; J1200; J2920; J3262; J7050

== ENCOUNTER → 2022-06-06 14:59 | Outpatient (BNVA) | payer OTHER, SELFPAY | PROVIDERS: PCP Nurse Practitioner Family; Visit Provider Internal Medicine Rheumatology | DX: M06.041 Rheumatoid arthritis without rheumatoid factor, right hand (principal); M06.042 Rheumatoid arthritis without rheumatoid factor, left hand; R06.02 Shortness of breath; Z79.899 Other long term (current) drug therapy; Z71.89 Other specified counseling | CPT/HCPCS: 36415; 71046; 80076; 82565; 85025; 86140 ==

== ENCOUNTER 2022-06-18 09:20 | Outpatient (CLI) | payer OTHER, MEDICAID, SELFPAY ==
[2022-06-18 09:45] VITALS: BP 135/79; PULSE 117; RESP 18; TEMP 36.1; O2SAT 96
[2022-06-18 09:52] LABS: Basophils # 0.1 10^3/uL (0.0-0.1); Basophils % 0.3 %; Eosinophils # 0.1 10^3/uL (0.0-0.8); Eosinophils % 0.6 %; Hematocrit 37.4 % (37.0-47.0); Hemoglobin 10.9 g/dL (11.5-15.3); Lymphocytes # 4.8 10^3/uL (0.8-4.8); Lymphocytes % 31.5 %; Mean Corpuscular HGB Conc 29.1 g/dL (30.0-36.0); Mean Corpuscular Volume 92.6 fl (81-99); Mean Platelet Volume 8.1 fL (7.4-10.4); Monocytes # 1.3 10^3/uL (0.2-0.9); Monocytes % 8.6 %; Neutrophils # 8.81 10^3/uL (1.8-7.7); Neutrophils % 57.8 %; Nucleated Red Blood Cells % 0 %; Platelet Count 565 10^3/cmm (130-400); Red Blood Count 4.04 10^6/uL (4.1-5.3); Red Cell Distribution Width 15.9 % (12.1-15.1); White Blood Count 15.3 10^3/uL (4.0-10.0)
[2022-06-18] MEDS: sodium chloride 0.9% 250 ML 50 ML IV (09:55)
[2022-06-18] MEDS: acetaminophen 325 mg Tablet 650 MG PO (09:56)
[2022-06-18] MEDS: diphenhydrAMINE 50 mg/mL SDV 1mL 25 MG IVP (09:58)
[2022-06-18 10:04] LABS: Erythrocyte Sedimentation Rate 1 mm/hr (0-15)
[2022-06-18 10:11] LABS: Alanine Aminotransferase 28 U/L (0-33); Albumin Level 4.5 g/dL (3.5-5.2); Alkaline Phosphatase 66 U/L (35-105); Aspartate Amino Transferase 18 U/L (0-32); Globulin 2.5 g/dL (1.3-4.6); Glomerular Filtration Rate 51.8 mL/min (90-130); Total Bilirubin 0.5 mg/dL (0.15-1.2)
[2022-06-18 11:13] VITALS: BP 109/80; PULSE 113; RESP 18; TEMP 36.4; O2SAT 94
== END 2022-06-18 09:21 | disposition home or self-care (01) ==
LOC: ONCMED 09:20
PROVIDERS: PCP Nurse Practitioner Family; Visit Provider Internal Medicine Rheumatology
DX: M06.9 Rheumatoid arthritis, unspecified (principal); Z79.899 Other long term (current) drug therapy
CPT/HCPCS: 80076; 82565; 85025; 85651; 96365; 96375; J1200; J2920; J3262; J7050

== ENCOUNTER 2022-07-16 11:02 | Outpatient (CLI) | payer OTHER, SELFPAY ==
[2022-07-16] MEDS: acetaminophen 325 mg Tablet 650 MG PO (11:59)
[2022-07-16] MEDS: diphenhydrAMINE 50 mg/mL SDV 1mL 25 MG IV (11:59)
[2022-07-16] MEDS: sodium chloride 0.9% 250 ML 100 ML IV (12:01)
[2022-07-16] MEDS: tocilizumab 400 MG, tocilizumab 200 MG, tocilizumab 80 MG in sodium chloride 0.9% (100 ... 100 MG IV (12:08)
[2022-07-16 14:15] VITALS: BP 114/64; PULSE 66; RESP 18; TEMP 36.9; O2SAT 98
== END 2022-07-16 11:03 | disposition home or self-care (01) ==
PROVIDERS: PCP Nurse Practitioner Family; Visit Provider Internal Medicine Rheumatology
DX: M06.9 Rheumatoid arthritis, unspecified (principal)
CPT/HCPCS: 96365; 96375; J1200; J2920; J3262; J7050

== ENCOUNTER → 2022-07-17 10:48 | Outpatient (BNVA) | payer OTHER, SELFPAY | PROVIDERS: PCP Nurse Practitioner Family; Visit Provider Orthopaedic Surgery | DX: M25.552 Pain in left hip (principal); Z96.641 Presence of right artificial hip joint; M35.3 Polymyalgia rheumatica | CPT/HCPCS: 73522 ==

== ENCOUNTER → 2022-07-26 14:37 | Outpatient (BNVA) | payer OTHER, SELFPAY | PROVIDERS: PCP Nurse Practitioner Family; Visit Provider Internal Medicine Rheumatology | DX: R79.89 Other specified abnormal findings of blood chemistry (principal); R22.1 Localized swelling, mass and lump, neck; M06.041 Rheumatoid arthritis without rheumatoid factor, right hand; M06.042 Rheumatoid arthritis without rheumatoid factor, left hand; Z71.89 Other specified counseling; Z79.899 Other long term (current) drug therapy | CPT/HCPCS: 36415; 82565; 84520 ==

== ENCOUNTER 2022-08-02 13:36 | Outpatient (CLI) | payer OTHER, MEDICAID, SELFPAY ==
--- NOTE | 2022-08-02 13:56 | CT_ITS ---
WS: [id number] CT NECK TECHNIQUE: Contrast-enhanced CT of the neck with coronal and sagittal reformatted images. CLINICAL INFORMATION: R22.1 - Localized swelling, mass and lump, neck COMPARISON: Ultrasound May 10, 2022 DLP: 232.[address] scans at [facility] use at least one of these dose optimization techniques: automated e xposure control; mA and/or kV adjustment per patient size (includes targeted exams where dose is matc hed to clinical indication); or iterative reconstruction. FINDINGS: Somewhat enlarged heterogeneously dense parotid glands bilaterally. Accessory LEFT anterior parotid t issue. No parotid lesions. Submandibular glands are normal in appearance. Normal posterior nasopharynx. Normal parapharyngeal fat. Mastoid air cells well aerated. Paranasal si nuses are well aerated. Small amount of mucosal thickening RIGHT maxillary sinus. No evidence of supr aglottic or glottic mass. Retropharyngeal course RIGHT cervical ICA. Thyroid gland is normal in appea krissy. Lung apices are well aerated. Mild spondylitic changes cervical spine. Straightening of the no rmal cervical lordosis. Slight anterolisthesis C4 on C5 measuring 3.[address]/CT neck w con* [id number] IMPRESSION: 1. No parotid nodules to correspond to the ultrasound findings. 2. Somewhat enlarged heterogeneously dense parotid glands bilaterally may be i ncidental but can be seen with connective tissue disorders and Sjogren's. 3. No evidence of supraglottic or glottic mass. 4. No cervical lymphadenopathy. 5. Retropharyngeal course to the RIGHT cervical ICA. 6. Slight anterolisthesis C4 on C5 measuring 3.5 mm.
== END 2022-08-02 13:37 | disposition home or self-care (01) ==
PROVIDERS: PCP Nurse Practitioner Family; Visit Provider Internal Medicine Rheumatology
DX: R22.1 Localized swelling, mass and lump, neck (principal)
CPT/HCPCS: 70491; Q9967

== ENCOUNTER 2022-08-16 11:24 | Observation (INO) | payer OTHER, MEDICAID, SELFPAY ==
[2022-08-16] VITALS (13 sets, daily range): BP systolic 127–165; BP diastolic 69–101; PULSE 63–79; RESP 16–22; TEMP 36.8; O2SAT 92–98; BMI 31.6
--- NOTE | 2022-08-16 11:34 | ECG_ITS ---
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
[2022-08-16] MEDS: clopidogrel 300 mg Tablet 600 MG PO (11:42)
[2022-08-16] MEDS: aspirin 81 mg Chew Tablet 324 MG PO (11:42)
[2022-08-16] MEDS: heparin 5,000 unit/mL INJ 1 mL 4000 UNIT IVP (11:43)
--- NOTE | 2022-08-16 11:48 | ECG_ITS ---
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
--- NOTE | 2022-08-16 11:53 | ED_ITS ---
HPI - Chest Pain General: Chief Complaint: Chest Pain Stated Complaint: Chest Pain, Jaw pain, Back pain Time Seen by Provider: 08/16/22 11:37 Source: patient Mode of arrival: ambulatory History of Present Illness: 57-year-old female presents emergency room with onset of chest pain 3040 minutes prior to arrival while at rest extends into her jaw left arm she has been nauseous with that no diaphoresis. She has not had any previous episodes. She is not diabetic hypertensive nor does she smoke. She has a history of polymyalgia rheumatica and is on chronic prednisone. She does have a family history of early coronary disease. MD complaint: chest pain Onset (ago): minute(s) Timing of current episode: episodic Prior episodes: No Onset: during rest Pain location: substernal and left chest Pain radiation: left arm, back, neck and jaw/teeth Severity: severe Quality: tightness and aching Relieving factors: nothing Exacerbating factors: nothing Associated symptoms: Reports dyspnea and nausea; Deny abdominal pain, diaphoresis, fever(s), leg edema, palpitations, sense of impending doom, syncope or vomiting Treatment prior to arrival: none Review of Systems Const: Denies: fever(s) or diaphoresis ENMT: Denies: throat pain, ear or mastoid pain, nasal discharge or nasal congestion Card: Reports: chest pain; Denies: palpitations, irregular heart rhythm, edema, swelling of feet/ankles or syncope Resp: Reports: dyspnea GI: Reports: nausea; Denies: abdominal pain or vomiting : Denies: flank pain, difficulty voiding, dysuria, urinary frequency or urinary urgency Skin/Breast: Denies: rash or pruritus PFSH ED PFSH: Medical History Anxiety Arthritis of right acromioclavicular joint Asthma Chronic back pain Chronic steroid use Encounter for long-term opiate analgesic use Failed back syndrome, lumbosacral Fibromyalgia Heart palpitations High risk medication use Hx of migraines Hypertension Immunization counseling Inflammatory arthritis Intervertebral disc disorders with radiculopathy, lumbosacral region Neuralgia of right thigh Numbness and tingling PMR (polymyalgia rheumatica) Polymyalgia rheumatica Radiculopathy Rapid heart rate Seronegative rheumatoid arthritis of both hands Spina bifida Spondylolisthesis, lumbar region Spondylolysis, cervical region Trochanteric bursitis of right hip Surgical History History of back surgery x 2 with hardware Hx of section x 2 Hx of hysterectomy, total Hx of repair of right rotator cuff S/P insertion of spinal cord stimulator Family History Mother Cancer Father Diabetes Hypertension CAD (coronary artery disease) [place] Chronic kidney disease (CKD) Family/Other Parkinson disease Grandmother Stroke Other Hyperlipidemia Denies family history of Rheumatoid arthritis Lupus Clotting disorder Dementia Suicide Anesthesia complication Bleeding disorder Lung disease Social History Smoking and tobacco status: never smoked Second hand smoke exposure: No Alcohol intake: never Physical Exam Const: GENERAL APPEARANCE: cooperative and comfortable ORIENTATION/CONSCIOUSNESS: Yes awake, Yes oriented to person, Yes oriented to place and Yes oriented to time HENMT: COMMON NORMALS: normocephalic, atraumatic and hearing grossly normal bilaterally HEAD & SCALP: normocephalic and atraumatic Resp: COMMON NORMALS: normal respiratory effort, No retractions, No use of accessory muscles and clear to auscultation bilaterally AUSCULTATION: clear to auscultation bilaterally Cardio: COMMON NORMALS: regular rate, regular rhythm and No murmurs present (Cardio) RATE: regular rate RHYTHM: regular rhythm GI: COMMON NORMALS: Soft to palpation and No hepatosplenomegaly present AUSCULTATION: Yes normoactive bowel sounds PALPATION: Yes Soft to palpation, No Tenderness to palpation present (GI), No Guarding due to palpation present (GI) and Yes No hepatosplenomegaly present Extremity: COMMON NORMALS: normal to inspection, capillary refill normal, no clubbing, cyanosis or edema, no calf tenderness and no pedal edema Neuro: SENSORIUM/ORIENTATION: Yes oriented to person, Yes oriented to place and Yes oriented to time Skin: COMMON NORMALS: no rashes or lesions noted GENERAL SKIN EXAM: no rashes or lesions noted Course Vital Signs: Vital signs: Vital Signs Temperature 98.2 F 08/16/22 11:32 Pulse Rate 79 08/16/22 11:32 Respiratory Rate 20 H 08/16/22 12:16 Blood Pressure 165/101 08/16/22 12:16 Pulse Oximetry 98 03/16/23 12:16 Oxygen Delivery Me thod 08/16/22 11:32 MDM - Chest Pain Medical Decision Making EKG shows acute ST changes which are very subtle. Old EKG shows a lot of ar tifact from her spinal cord stimulator. STEMI alert was called based on her EKG changes and her current ongoing symptoms cussed Dr. Farley explained take her directly to Jr. Systems Administrator. She is given heparin Plavix and aspirin per STEMI protocols. Medical Records I reviewed the patient's medical records. Lab Data I reviewed the patient's lab results. 08/16/22 11:49 08/16/22 11:49 Laboratory Results WBC 13.0 10^3/uL (4.0-10.0) H 08/16/22 11:49 RBC 4.02 10^6/uL (4.1-5.3) L 08/16/22 11:49 Hgb 10.8 g/dL (11.5-15.3) L 08/16/22 11:49 Hct 37.5 % (37.0-47.0) 08/16/22 11:49 MCV 93.3 fl (81-99) 08/16/22 11:49 MCH 26.9 pg (28.0-34.0) L 08/16/22 11:49 MCHC 28.8 g/dL (30.0-36.0) L 08/16/22 11:49 RDW 16.2 % (12.1-15.1) H 08/16/22 11:49 Plt Count 443 10^3/cmm (130-400) H 08/16/22 11:49 MPV 8.5 fL (7.4-10.4) 08/16/22 11:49 Neut % (Auto) 50.7 % 08/16/22 11:49 Lymph % (Auto) 40.0 % 08/16/22 11:49 Coffee % (Auto) 7.5 % 08/16/22 11:49 Eos % (Auto) 0.5 % 08/16/22 11:49 Baso % (Auto) 0.5 % 08/16/22 11:49 Neut # (Auto) 6.59 10^3/uL (1.8-7.7) 08/16/22 11:49 Lymph # (Auto) 5.2 10^3/uL (0.8-4.8) H 08/16/22 11:49 Coffee # (Auto) 1.0 10^3/uL (0.2-0.9) H 08/16/22 11:49 Eos # (Auto) 0.1 10^3/uL (0.0-0.8) 08/16/22 11:49 Baso # (Auto) 0.1 10^3/uL (0.0-0.1) 08/16/22 11:49 Nucleated RBC % (auto) 0 % 08/16/22 11:49 Nucleated RBCs # 0.0 /100WBC 08/16/22 11:49 PT 13.10 SECONDS (12.1-14.9) 08/16/22 11:49 INR 0.96 (0.8-1.2) 08/16/22 11:49 APTT 46.9 SECONDS (23.9-36.7) H 08/16/22 11:49 Sodium 139 mmol/L (136-145) 08/16/22 11:49 Potassium 4.0 mmol/L (3.5-5.1) 08/16/22 11:49 Chloride 101 mmol/L (98-107) 08/16/22 11:49 Carbon Dioxide 25 mmol/L (22-29) 08/16/22 11:49 Anion Gap 17.0 (5-19) 08/16/22 11:49 BUN 13 mg/dL (6-20) 08/16/22 11:49 Creatinine 0.8 mg/dL (0.5-0.9) 08/16/22 11:49 GFR Calculation 74.5 mL/min (90-130) L 08/16/22 11:49 Glucose 78 mg/dL (65-115) 08/16/22 11:49 Calculated Osmolality 287 mOsm/kg (285-295) 08/16/22 11:49 Calcium 9.1 mg/dL (8.5-10.5) 08/16/22 11:49 Total Bilirubin 0.8 mg/dL (0.15-1.2) 08/16/22 11:49 AST 21 U/L (0-32) 08/16/22 11:49 ALT 25 U/L (0-33) 08/16/22 11:49 Alkaline Phosphatase 50 U/L (35-105) 08/16/22 11:49 Troponin T Baseline 64 ng/L (0-10) H 08/16/22 11:49 Total Protein 6.1 g/dL (6.6-8.7) L 08/16/22 11:49 Albumin 4.1 g/dL (3.5-5.2) 08/16/22 11:49 Globulin 2.0 g/dL (1.3-4.6) 08/16/22 11:49 Discharge Plan Discharge Patient Disposition: Admitted As Inpatient Admit Provider: Alex Juarez Clinical Impression: ST elevation (STEMI) myocardial infarction Condition: Stable Coding Level of Care Code ED Continuous Mining Machine Operator for Casi Miranda
--- NOTE | 2022-08-16 11:58 | XACV_ITS ---
Exam Room: [facility] Ht: 165 cm Wt: 86 kg BSA: 2.02 m2 Gender: Female : 1965 Exam Priority: Routine Procedure(s): Procedure Description: Diagnostic procedure Procedure Description: Left Heart Catheterization Procedure Description: Left ventriculography Procedure Description: Coronary Angiography Cecily TURNER; Diagnostic Cath Status: Emergency Diagnostic Findings * Left heart cath, left main is normal, LAD no significant obstructive disease, left ramus intermedius and nondominant circumflex no significant disease. RCA moderate size and caliber vessel which is dominant no significant disease.. * Normal left ventricular ejection fraction 60% without wall motion abnormality. * Mild peak to peak gradient noted * across the aortic valve * suggestive of mild aortic stenosis. PCI Status: Emergency Conclusions 1. Cardiac Catheterization study revealed normal coronaries, normal left ventriculogram and elevated left ventricular end-diastolic pressure. Recommendations * Usual post-cath care. Interventional RX Recommendation: none Diagnostic RX Recommendation: medical therapy and/or counseling LV EDP: 22 mmHg Ventriculography Ejection Fraction: 60.0 % Pressures Phase:Rest AO : 150 / 91 ( 118 ) @ 1:11:00 PM 161 / 90 ( 125 ) @ 1:22:00 PM LV : 176 / -3 / 22 @ 1:20:00 PM 171 / -6 / 25 @ 1:21:00 PM 173 / -5 / 25 @ 1:22:00 PM Valves Phase:DefaultPhase AV : 13.0 @ 12:45:43 PM 13.0 @ 12:45:43 PM AV Mean Gradient: 11.0 @ 12:45:43 PM Clinical Evaluation EBL: 5mL-10mL Procedural Details Pre-Procedure Time Out. Identified patient by full name and date of as verbalized by the patient/guarantor. Does the consent match the physician's order: Yes. Accurate & Complete Informed Consent: N/A Emergent. Inpatient/Outpatient History & Physical on Chart: N/A Emergent. If H&P is completed, is and addenduem needed: N/A Emergent; If yes, is the addendum complete: N/A Emergent. Visualize and Verify Site with Patient/Guarantor: N/A. Relevant Radiology Images available: N/A Emergent. Pre-op teaching completed and patient verbalized understanding. The risks, benefits, and alternatives of sedation and/or procedure were discussed by physician. The patient agrees to continue. Procedure started. Current diagnosis: STEMI. Correct patient, site and procedure confirmed by cath team. PERRLA. 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 Lungs clear x 5 lobes. IV Site on Arrival: 20 gauge in the left anticubital. IV Site on Arrival: 20 gauge in the right forearm. Pre Procedural Pulses: right radial was 3+. Pre Procedural Pulses: right dorsalis pedis was 1+. Oxygen started at 2liters/min via nasal canula. right groin was prepped with chloroprep then draped in the usual sterile fashion. right radial was prepped with chloroprep then draped in the usual sterile fashion. Baseline sample Acquired. HR: 68 BPM. Physician notified. Physician arrived. Physician scrubbed in. Immediate Pre-Procedure Time Out. Correct Patient: N/A Emergent; Correct Procedure: N/A Emergent; Correct Site: N/A Emergent; Correct Patient Position: N/A Emergent; Correct Supplies: N/A Emergent; Dried Flammable Prep: N/A Emergent; Blood Products Available: N/A;. Lidocaine 1% infiltrated to the right radial. Admit Source: Emergency department. Arterial access obtained. IV Fluids: 0.9% NaCl at KVO. 0 mL infused prior to laboratory tester. A 6 slovenian TIG catheter in over wire. Multiple views taken of left coronary artery. Catheter redirected to the RCA. Multiple views taken of right coronary artery. Catheter out. A 5 slovenian Angled Pig catheter in over wire. EDP Sample taken: LV 176/-4,22; HR: 70 BPM; SpO2: Off%. LV gram performed in DANGELO @ 10 mL/second for a total of 30 mL. Patient EF: Normal. EDP Sample taken: LV 171/-7,25; HR: 85 BPM; SpO2: 98%. Pullback taken: LV 173/-6,25; AO 161/90(125); Mean: 11mmHg, Peak to Peak: 13mmHg, SEP: 24sec/min; HR: 86 BPM; SpO2: 97%. Catheter out. Wire out. A TR Band was successful obtaining hemostatsis at the Right Radial artery insertion site. PERRLA. 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 No VTE prophylaxis required. Medication's Wasted: Heparin = 1000 units. Medication's Wasted: Nitro = 49.8 mg. Medication's Wasted: Other = versed 1 mg. Total IV fluids: 25 mL. PCI Indication: New Onset Angina. Post-op diagnosis: normal coronaries. Complications: none. Estimated blood loss: 5mL-10mL. Responsiveness - Normal response to verbal stimuli; alert and oriented, PERRLA. Airway - Unaffected, no intervention required; spontaneous ventilation. Circulation: W/N/L, pulses unchanged. Nausea/Vomiting: No. Procedure completed. Patient transferred by wheelchair to 1st floor. Vital chart was stopped. Access Site Site: Right Radial artery Sheath Size: 6 Fr Hemostasis Method: TR Band Hemostasis Success: Successful Procedure Medications Start: 12:06 PM Stop: 12:06 PM Medication: Versed Amount: 1 mg Route: I.V. Start: 12:06 PM Stop: 12:06 PM Medication: Fentanyl Amount: 50 mcg Route: I.V. Start: 12:07 PM Stop: 12:07 PM Medication: Nitrogylcerin Amount: 200 mcg Route: I.A. Start: 12:18 PM Stop: 12:18 PM Medication: Fentanyl Amount: 50 mcg Route: I.V. I, the attending physician, have reviewed and verified all procedure medications. Yes, all medications given per verbal order Report Signatures Finalized by Alex Mitchell MD on 08/16/2022 12:53 PM
[2022-08-16 12:04] LABS: Basophils # 0.1 10^3/uL (0.0-0.1); Basophils % 0.5 %; Eosinophils # 0.1 10^3/uL (0.0-0.8); Eosinophils % 0.5 %; Hematocrit 37.5 % (37.0-47.0); Hemoglobin 10.8 g/dL (11.5-15.3); Lymphocytes # 5.2 10^3/uL (0.8-4.8); Mean Corpuscular HGB Conc 28.8 g/dL (30.0-36.0); Mean Corpuscular Hemoglobin 26.9 pg (28.0-34.0); Mean Corpuscular Volume 93.3 fl (81-99); Mean Platelet Volume 8.5 fL (7.4-10.4); Monocytes % 7.5 %; Neutrophils # 6.59 10^3/uL (1.8-7.7); Neutrophils % 50.7 %; Nucleated Red Blood Cells % 0 %; Platelet Count 443 10^3/cmm (130-400); Red Blood Count 4.02 10^6/uL (4.1-5.3); Red Cell Distribution Width 16.2 % (12.1-15.1)
--- NOTE | 2022-08-16 12:15 | PC.NURSE ---
[facility]emi was called , started a IV and did not have time to do a assessment on the pt. Pt care was turned over to [place]ings dam laborer staff
[2022-08-16 12:21] LABS: INR 0.96 (0.8-1.2)
[2022-08-16 12:22] LABS: Partial Thromboplastin Time 46.9 SECONDS (23.9-36.7)
[2022-08-16 12:25] LABS: Troponin(5th) Baseline 64 ng/L (0-10)
[2022-08-16 12:26] LABS: Alanine Aminotransferase 25 U/L (0-33); Albumin Level 4.1 g/dL (3.5-5.2); Alkaline Phosphatase 50 U/L (35-105); Aspartate Amino Transferase 21 U/L (0-32); Blood Urea Nitrogen 13 mg/dL (6-20); Calcium 9.1 mg/dL (8.5-10.5); Carbon Dioxide 25 mmol/L (22-29); Chloride 101 mmol/L (98-107); Creatinine Clr Calc Pharmacy 86.1396; Glomerular Filtration Rate 74.5 mL/min (90-130); Glucose 78 mg/dL (65-115); Osmolality Calculated 287 mOsm/kg (285-295); Sodium 139 mmol/L (136-145); Total Bilirubin 0.8 mg/dL (0.15-1.2); Total Protein 6.1 g/dL (6.6-8.7)
--- NOTE | 2022-08-16 12:33 | PM.CONSULT ---
Providers/Reason For Consult Consulting Physician/Specialty*: Dr. Tony Reason for Consult*: Chest pain with abnormal EKG suspicious for ST elevation [place] Requesting Physician: Dr. Peña Attending Physician: Alex Juarez MD Primary Care Provider: JOEL Mahan History of Present Illness History of Present Illness Sivan Sarabia is a 57 year old female with past medical history significant for polymyalgia rheumatic obesity hypertension who is non-smoker nondiabetic presented with chest pain radiating to neck jaw along with shortness of breath with twelve-lead EKG was suggestive of questionable ST elevation in the inferolateral lead versus early repolarization abnormality. Prior EKG had a lot of artifact so not comparable since patient continues to have chest pain with subtle EKG changes unsure of ST elevation CO versus early repolarization she was taken to the Senior Hardware Design Engineer, left heart cath revealed normal coronaries without significant stenosis, left ventricular ejection fraction was normal. There was mild gradient across the aortic valve could be mild aortic stenosis. Recommend echocardiogram. Medications/Allergies Home Medications Medication Instructions Recorded Confirmed Last Taken Type citalopram 40 mg tablet 40 mg PO DAILY@0800 08/19/19 07/26/22 07/23/21 History sumatriptan succinate 100 mg 100 mg PO Q2H PRN Migraine Headache 06/23/20 07/26/22 07/23/21 History tablet (Imitrex) duloxetine 60 mg capsule,delayed 60 mg PO DAILY@0800 09/22/20 07/26/22 07/23/21 History release (Cymbalta) potassium gluconate 595 mg (99 mg) 595 mg PO DAILY 02/14/21 07/26/22 07/23/21 History tablet oxycodone-acetaminophen 10 mg-325 1 tab PO QID PRN pain 30 days #120 05/15/21 07/26/22 07/23/21 Rx mg tablet (Percocet) tabs conjugated estrogens 0.625 mg 0.625 mg PO DAILY 03/19/22 07/26/22 Unknown History tablet (Premarin) buspirone 5 mg tablet 5 mg PO BID PRN 03/20/22 07/26/22 Unknown History diclofenac sodium 75 mg 75 mg PO BID PRN 03/20/22 07/26/22 Unknown History tablet,delayed release tramadol 50 mg tablet 50 mg PO Q6H PRN 03/20/22 07/26/22 Unknown History omeprazole 20 mg capsule,delayed 40 mg PO DAILY@0800 #90 caps 06/06/22 07/26/22 Unknown Rx release prednisone 5 mg tablet See Rx Instructions PO DAILY #90 06/06/22 07/26/22 Unknown Rx tabs sulfamethoxazole 800 See Rx Instructions PO .COMPLEX 06/06/22 07/26/22 Unknown Rx mg-trimethoprim 160 mg tablet #15 tabs (Bactrim DS) cyclobenzaprine 10 mg tablet 10 mg PO TID PRN muscle spasm 06/26/22 07/26/22 Unknown History lisinopril 2.5 mg tablet 2.5 mg PO DAILY #90 tabs 06/26/22 07/26/22 Unknown Rx metoprolol tartrate 25 mg tablet 25 mg PO BID #180 tabs 07/23/22 07/26/22 Unknown Rx Allergies Allergy/AdvReac Type Severity Reaction Status Date / Time tetracycline Allergy ADR-Nausea Verified 07/23/22 11:09 PFSH Acute PFSH: Medical History Anxiety Arthritis of right acromioclavicular joint Asthma Chronic back pain Chronic steroid use Encounter for long-term opiate analgesic use Failed back syndrome, lumbosacral Fibromyalgia Heart palpitations High risk medication use Hx of migraines Hypertension Immunization counseling Inflammatory arthritis Intervertebral disc disorders with radiculopathy, lumbosacral region Neuralgia of right thigh Numbness and tingling PMR (polymyalgia rheumatica) Polymyalgia rheumatica Radiculopathy Rapid heart rate Seronegative rheumatoid arthritis of both hands Spina bifida Spondylolisthesis, lumbar region Spondylolysis, cervical region Trochanteric bursitis of right hip Surgical History History of back surgery x 2 with hardware Hx of section x 2 Hx of hysterectomy, total Hx of repair of right rotator cuff S/P insertion of spinal cord stimulator Family History Mother Cancer Father Diabetes Hypertension CAD (coronary artery disease) [place] Chronic kidney disease (CKD) Family/Other Parkinson disease Grandmother Stroke Other Hyperlipidemia Denies family history of Rheumatoid arthritis Lupus Clotting disorder Dementia Suicide Anesthesia complication Bleeding disorder Lung disease Social History Smoking and tobacco status: never smoked Second hand smoke exposure: No Alcohol intake: never Vitals/I&O/Wt Last Vital Signs Temp 98.2 F 08/16/22 11:32 Pulse 79 08/16/22 11:32 Resp 20 H 08/16/22 12:16 BP 165/101 08/16/22 12:16 Pulse Ox 98 08/16/22 12:16 O2 Del Method 08/16/22 11:32 Weight last 48 hrs Weight 190 lb Physical Exam Narrative: Alert awake oriented x3, mild distress No JVD cyanosis icterus Heart regular S1-S2 Abdomen soft nontender nondistended Lungs clear to auscultate bilateral 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 Patient will be transferred back to [facility]. Extracardiac causes for chest pain will be sought out most likely secondary to polymyalgia, no need further continuing Plavix (2) Hypertension: Moderately elevated will titrate medications to control blood pressure increase lisinopril to 5 mg once a day Plan From a cardiovascular perspective patient can go home once she complete bedrest however due to other comorbidities we will leave the decision to medicine whether she will be admitted for observation Coding Level of Care Code Acute Code for [facility] Diagnoses Chest pain R07.9 Hypertension I10
--- NOTE | 2022-08-16 12:41 | USCV_ITS ---
Sivan aSrabia Age: 57 Gender: F : 1965 Exam Date: 08/16/2022 14:18 Ordering Phys: Alex Mitchell MD ([email or web address]) Technologist: ELI Exam Location: [facility] Indication: CHEST PAIN, MILD SEEN ON LEFT HEART CATH BP: 143 / 87 HR: 62 Rhythm: Sinus Technical Quality: Adequate MEASUREMENTS (Male / Female) Normal Values 2D ECHO LVOT Diameter 2.0 cm LV Ejection Fraction MOD 2C 67.9 % LV Ejection Fraction 2C AL 66.9 % LA Diameter 2.8 cm LA Width 2.4 cm LA Height 4.7 cm RA Width 2.8 cm RA Height 3.1 cm Aorta at Sinotubular Diameter 2.0 cm IVC Diameter 1.3 cm M-MODE Aortic Annulus Diameter 2.5 cm LA Ao Ratio MM 1.1 MV E Point Septal Separation 0.4 cm DOPPLER AV Peak Velocity 166.0 cm/s LVOT Peak Velocity 138.0 cm/s AV Area Cont Eq vti 2.5 cm squared AV Area Cont Eq pk 2.6 cm squared MV Peak Velocity 135.0 cm/s MV Area PHT 3.9 cm squared Mitral E to A Ratio 0.9 MV E' Velocity 64.0 cm/s Mitral E to MV E' Ratio 10.9 Mitral E to LV E' Lateral Ratio 10.6 Mitral E to LV E' Septal Ratio 11.2 TR Peak Velocity 182.0 cm/s TR Peak Gradient 13.2 mmHg TR Mean Velocity 147.9 cm/s TR Mean Gradient 9.4 mmHg TR Velocity Time Integral 57.3 cm TV Peak E Velocity 48.0 cm/s Right Atrial Pressure 3.0 mmHg Pulmonary Artery Systolic Pressu 16.2 mmHg PV Peak Velocity 119.0 cm/s RV Acceleration Time 0.1 s RV Ejection Time 0.3 s RV AcT/ET 0.2 FINDINGS Left Ventricle Normal left ventricular size, systolic function and wall thickness, with no regional wall motion abnormalities. Left ventricular ejection fraction is estimated at 60 %. Grade I/IV diastolic dysfunction (abnormal relaxation filling pattern), normal to mildly elevated filling pressures. Right Ventricle The right ventricle is normal in size and function. Right Atrium The right atrium is normal in size. Left Atrium The left atrium is normal in size. Mitral Valve Structurally normal mitral valve without significant stenosis or prolapse. Trace mitral regurgitation. Aortic Valve Moderate aortic valve calcification. No aortic valve stenosis. There is mild aortic regurgitation. Tricuspid Valve Structurally normal tricuspid valve without significant stenosis or regurgitation. Pulmonary artery systolic pressure is normal. Pulmonic Valve Structurally normal pulmonic valve without significant stenosis. There is no pulmonic regurgitation. Pericardium Normal pericardium without effusion. Aorta Normal ascending aorta dimension. IVC The inferior vena cava appears normal. CONCLUSIONS 1-Normal left ventricular size, systolic function and wall thickness, with no regional wall motion abnormalities. Left ventricular ejection fraction is estimated at 60 %. Grade I/IV diastolic dysfunction (abnormal relaxation filling pattern), normal to mildly elevated filling pressures. 2-Structurally normal mitral valve without significant stenosis or prolapse. Trace mitral regurgitation. 3- There is mild aortic regurgitation. 4-There is no pericardial effusion. 5-Right atrial pressure is around 5 mm of mercury. Alex Mitchell MD (Electronically Signed) Final Date: 16 August 2022 20:50 S
--- NOTE | 2022-08-16 13:19 | PM.HP ---
Providers/Chief Complaint Admitting Physician: Alex Juarez MD Primary Care Provider: JOEL Mahan Chief Complaint: Chest Pain, Jaw pain, Back pain History of Present Illness Sivan Sarabia is a 57 year old female who has history of polymyalgia rheumatica, on muscle relaxants and anxiolytics presented with chief complaint of chest pain, STEMI alert was called in the ER Dr. Farley evaluated her and took her to the [facility]le Control [facility]. Normal coronary vessels as per my conversation with Dr. Farley. Radial access for cardiac catheterization. Patient is hemodynamically stable. Hospitalist service was consulted for postcardiac cath management and assist in disposition. Review of Systems Const: Denies: fever(s) Eyes: Denies: change in vision ENMT: Denies: throat pain Card: Reports: chest pain Resp: Reports: dyspnea GI: Denies: abdominal pain : Denies: flank pain Skin/Breast: Denies: rash Neuro: Denies: headache(s) Psych: Reports: anxiety Endo: Denies: polyuria Aj/Lymph: Denies: easy bruising All/Imm: Denies: urticaria Medications/Allergies Home Medications Medication Instructions Recorded Confirmed Last Taken Type citalopram 40 mg tablet 40 mg PO DAILY@0800 08/19/19 07/26/22 07/23/21 History sumatriptan succinate 100 mg 100 mg PO Q2H PRN Migraine Headache 06/23/20 07/26/22 07/23/21 History tablet (Imitrex) duloxetine 60 mg capsule,delayed 60 mg PO DAILY@0800 09/22/20 07/26/22 07/23/21 History release (Cymbalta) potassium gluconate 595 mg (99 mg) 595 mg PO DAILY 02/14/21 07/26/22 07/23/21 History tablet oxycodone-acetaminophen 10 mg-325 1 tab PO QID PRN pain 30 days #120 05/15/21 07/26/22 07/23/21 Rx mg tablet (Percocet) tabs conjugated estrogens 0.625 mg 0.625 mg PO DAILY 03/19/22 07/26/22 Unknown History tablet (Premarin) buspirone 5 mg tablet 5 mg PO BID PRN 03/20/22 07/26/22 Unknown History diclofenac sodium 75 mg 75 mg PO BID PRN 03/20/22 07/26/22 Unknown History tablet,delayed release tramadol 50 mg tablet 50 mg PO Q6H PRN 03/20/22 07/26/22 Unknown History omeprazole 20 mg capsule,delayed 40 mg PO DAILY@0800 #90 caps 06/06/22 07/26/22 Unknown Rx release prednisone 5 mg tablet See Rx Instructions PO DAILY #90 06/06/22 07/26/22 Unknown Rx tabs sulfamethoxazole 800 See Rx Instructions PO .COMPLEX 06/06/22 07/26/22 Unknown Rx mg-trimethoprim 160 mg tablet #15 tabs (Bactrim DS) cyclobenzaprine 10 mg tablet 10 mg PO TID PRN muscle spasm 06/26/22 07/26/22 Unknown History lisinopril 2.5 mg tablet 2.5 mg PO DAILY #90 tabs 06/26/22 07/26/22 Unknown Rx metoprolol tartrate 25 mg tablet 25 mg PO BID #180 tabs 07/23/22 07/26/22 Unknown Rx Allergies Allergy/AdvReac Type Severity Reaction Status Date / Time tetracycline Allergy ADR-Nausea Verified 07/23/22 11:09 PFSH Acute PFSH: Medical History Anxiety Arthritis of right acromioclavicular joint Asthma Chronic back pain Chronic steroid use Encounter for long-term opiate analgesic use Failed back syndrome, lumbosacral Fibromyalgia Heart palpitations High risk medication use Hx of migraines Hypertension Immunization counseling Inflammatory arthritis Intervertebral disc disorders with radiculopathy, lumbosacral region Neuralgia of right thigh Numbness and tingling PMR (polymyalgia rheumatica) Polymyalgia rheumatica Radiculopathy Rapid heart rate Seronegative rheumatoid arthritis of both hands Spina bifida Spondylolisthesis, lumbar region Spondylolysis, cervical region Trochanteric bursitis of right hip Surgical History History of back surgery x 2 with hardware Hx of section x 2 Hx of hysterectomy, total Hx of repair of right rotator cuff S/P insertion of spinal cord stimulator Family History Mother Cancer Father Diabetes Hypertension CAD (coronary artery disease) [place] Chronic kidney disease (CKD) Family/Other Parkinson disease Grandmother Stroke Other Hyperlipidemia Denies family history of Rheumatoid arthritis Lupus Clotting disorder Dementia Suicide Anesthesia complication Bleeding disorder Lung disease Social History Smoking and tobacco status: never smoked Second hand smoke exposure: No Alcohol intake: never Vitals/I&O/Wt Last Vital Signs Temp 98.2 F 08/16/22 11:32 Pulse 79 08/16/22 11:32 Resp 20 H 08/16/22 12:16 BP 165/101 08/16/22 12:16 Pulse Ox 98 08/16/22 12:16 O2 Del Method 08/16/22 11:32 Weight last 48 hrs Weight 86.183 kg Physical Exam Narrative: Middle-age female Appears stated age Complaining of active chest pain S1, S2 Abdomen soft Nonfocal neuro exam Currently on room air Awake and alert GCS 15 Data 08/16/22 11:49 08/16/22 11:49 A&P Assessment and plan (1) ST elevation (STEMI) myocardial infarction: (2) Sinus tachycardia: (3) SVT (supraventricular tachycardia): (4) Polymyalgia rheumatica: (5) Hypertension: (6) Seronegative rheumatoid arthritis of both hands: Plan Acute STEMI STEMI alert was called [facility] activated Dr. Farley consulted who has evaluated the patient in the ER Patient is n.p.o. Full code Received ACS protocol medications Hypertension: Optimize antihypertensive regimen Hold anxiolytics muscle relaxants which she takes for polymyalgia rheumatica and GERD Attestations Medical Necessity Statement*: Anticipating discharge within [address] elevation (STEMI) myocardial infarction I21.3 Sinus tachycardia R00.0 SVT (supraventricular tachycardia) I47.1 Polymyalgia rheumatica M35.3 Hypertension I10 Seronegative rheumatoid arthritis of both hands M06.041; M06.042
--- NOTE | 2022-08-16 14:07 | ECG_ITS ---
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
--- NOTE | 2022-08-16 14:21 | PC.NURSE ---
received into room 102 from landscape and yardwork laborer at 1240.report received.pt is alert and awake and oriented x 4.sr on monitor.bp stable.reports chest pain-substernal /10.right radial tr band is on and inflated.right hand is warm to touch and with brisk capillary refill.palpable radial pulse noted distal to tr band .no hematoma noted.instructed in activity restrictions s/p radial artery procedure..and instructed to notify staff for any bleeding,pain,numbness,sob,or for any concerns at all.pt verb understanding of instructions
[2022-08-16 14:24] LABS: Troponin 5 2HR 176.9 ng/L (0-10); Troponin 5 2HR Delta 112.9 ABS# (0-10)
[2022-08-16] MEDS: oxyCODONE-APAP 10-325 mg Tablet 1 TAB PO (14:46)
[2022-08-16] MEDS: metoprolol tartrate 25 mg Tablet PO (17:18)
--- NOTE | 2022-08-16 17:19 | PM.DCS ---
Discharge Providers Date of Admission: 08/16/22 11:52 Date of Discharge: August 16, 2022 Attending Provider at Admission: Alxe Juarez MD Attending Provider at Discharge: Alex Juarez MD Primary Care Provider: JOEL Mahan Diagnoses at Discharge Discharge Diagnosis (1) ST elevation (STEMI) myocardial infarction: Status: Acute (2) Sinus tachycardia: Status: Acute (3) SVT (supraventricular tachycardia): Status: Acute (4) Polymyalgia rheumatica: Status: Acute (5) Hypertension: Status: Acute (6) Seronegative rheumatoid arthritis of both hands: Status: Acute Reason for Visit Reason for Visit: Chest Pain, Jaw pain, Back pain Hospital Course Hospital Course 57 female who presented to the hospital with chief complaint chest pain, troponin 64 and then 176, STEMI alert was called, coronary angiogram was unremarkable patient was sent to [facility], patient is stating that she is hurting all over especially in her left body, she is already on omeprazole along anxiolytics. I will discontinue NSAIDs, asked her to continue her PPI, for her hypertension she is already on lisinopril and metoprolol, at this point I would not add any new medication for her she can follow-up with her PCP for further recommendations. Right radial access with TR band, we will remove it before discharge and make sure there is no bleeding or hematoma. CSU nurse updated. 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 Timed Lab 08/16/22 17:40 Ordered CV. echo complete* [id number] Routine Ultrasound 08/16/22 12:41 Taken Laboratory Results WBC 13.0 10^3/uL (4.0-10.0) H 08/16/22 11:49 RBC 4.02 10^6/uL (4.1-5.3) L 08/16/22 11:49 Hgb 10.8 g/dL (11.5-15.3) L 08/16/22 11:49 Hct 37.5 % (37.0-47.0) 08/16/22 11:49 MCV 93.3 fl (81-99) 08/16/22 11:49 MCH 26.9 pg (28.0-34.0) L 08/16/22 11:49 MCHC 28.8 g/dL (30.0-36.0) L 08/16/22 11:49 RDW 16.2 % (12.1-15.1) H 08/16/22 11:49 Plt Count 443 10^3/cmm (130-400) H 08/16/22 11:49 MPV 8.5 fL (7.4-10.4) 08/16/22 11:49 Neut % (Auto) 50.7 % 08/16/22 11:49 Lymph % (Auto) 40.0 % 08/16/22 11:49 Sutton % (Auto) 7.5 % 08/16/22 11:49 Eos % (Auto) 0.5 % 08/16/22 11:49 Baso % (Auto) 0.5 % 08/16/22 11:49 Neut # (Auto) 6.59 10^3/uL (1.8-7.7) 08/16/22 11:49 Lymph # (Auto) 5.2 10^3/uL (0.8-4.8) H 08/16/22 11:49 Sutton # (Auto) 1.0 10^3/uL (0.2-0.9) H 08/16/22 11:49 Eos # (Auto) 0.1 10^3/uL (0.0-0.8) 08/16/22 11:49 Baso # (Auto) 0.1 10^3/uL (0.0-0.1) 08/16/22 11:49 Nucleated RBC % (auto) 0 % 08/16/22 11:49 Nucleated RBCs # 0.0 /100WBC 08/16/22 11:49 PT 13.10 SECONDS (12.1-14.9) 08/16/22 11:49 INR 0.96 (0.8-1.2) 08/16/22 11:49 APTT 46.9 SECONDS (23.9-36.7) H 08/16/22 11:49 Sodium 139 mmol/L (136-145) 08/16/22 11:49 Potassium 4.0 mmol/L (3.5-5.1) 08/16/22 11:49 Chloride 101 mmol/L (98-107) 08/16/22 11:49 Carbon Dioxide 25 mmol/L (22-29) 08/16/22 11:49 Anion Gap 17.0 (5-19) 08/16/22 11:49 BUN 13 mg/dL (6-20) 08/16/22 11:49 Creatinine 0.8 mg/dL (0.5-0.9) 08/16/22 11:49 GFR Calculation 74.5 mL/min (90-130) L 08/16/22 11:49 Glucose 78 mg/dL (65-115) 08/16/22 11:49 Calculated Osmolality 287 mOsm/kg (285-295) 08/16/22 11:49 Calcium 9.1 mg/dL (8.5-10.5) 08/16/22 11:49 Total Bilirubin 0.8 mg/dL (0.15-1.2) 08/16/22 11:49 AST 21 U/L (0-32) 08/16/22 11:49 ALT 25 U/L (0-33) 08/16/22 11:49 Alkaline Phosphatase 50 U/L (35-105) 08/16/22 11:49 Troponin T Baseline 64 ng/L (0-10) H 08/16/22 11:49 Troponin T 120 Minute 176.9 ng/L (0-10) H 08/16/22 13:45 Delta Troponin T 112.9 ABS# (0-10) H* 08/16/22 13:45 Total Protein 6.1 g/dL (6.6-8.7) L 08/16/22 11:49 Albumin 4.1 g/dL (3.5-5.2) 08/16/22 11:49 Globulin 2.0 g/dL (1.3-4.6) 08/16/22 11:49 Vitals Last Vital Signs Temp 98.2 F 08/16/22 11:32 Pulse 63 08/16/22 15:21 Resp 18 03/16/23 15:08 BP 143/87 08/16/22 15:08 Pulse Ox 96 08/16/22 15:21 O2 Del Method 08/16/22 15:21 Discharge Plan Discharge Patient Disposition: Home Condition: Stable Prescriptions: Continued potassium gluconate 595 mg (99 mg) tablet 595 mg PO DAILY citalopram 40 mg tablet 40 mg PO DAILY@0800 duloxetine [Cymbalta] 60 mg capsule,delayed release(DR/EC) 60 mg PO DAILY@0800 Premarin 0.625 mg tablet 0.625 mg PO DAILY tramadol 50 mg tablet 50 mg PO Q6H PRN buspirone 5 mg tablet 5 mg PO BID PRN cyclobenzaprine 10 mg tablet 10 mg PO TID PRN (Reason: muscle spasm) lisinopril 2.5 mg tablet 2.5 mg PO DAILY Qty: 90 3RF omeprazole 20 mg capsule,delayed release(DR/EC) 40 mg PO DAILY@0800 Qty: 90 1RF prednisone 5 mg tablet See Rx Instructions PO DAILY Qty: 90 3RF Rx Instructions: take 3 tabs(15mg) daily x5 days then stay on 2 tabs (10mg) orally daily; sulfamethoxazole-trimethoprim [Bactrim DS] 800-160 mg tablet See Rx Instructions PO .COMPLEX Qty: 15 3RF Rx Instructions: take 1 tab 3 times a week, Sat, Sat, and Saturday PO; metoprolol tartrate 25 mg tablet 25 mg PO BID Qty: 180 3RF Rx Instructions: May take an additional 12.5mg (1/2 tab) as needed for heart rate above 110 bpm oxycodone-acetaminophen [Percocet] 10-325 mg tablet 1 tab PO QID PRN (Reason: pain) 30 Days Qty: 120 0RF Rx Instructions: fill on or after 05/12/21 Held sumatriptan succinate [Imitrex] 100 mg tablet 100 mg PO Q2H PRN (Reason: Migraine Headache) Hold Instructions: Resume on 08/23/22. Rx Instructions: do not exceed 2 doses per 24 hrs Discontinued diclofenac sodium 75 mg tablet,delayed release (DR/EC) 75 mg PO BID PRN Discharge Orders: Discharge Order (Routine); Ordered 08/16/22 Ordered By: Alex Juarez Referrals: Anitra Millan FNP [Primary Care Provider] - (Anitra MALDONADO Office will be calling you to schedule a follow up appointment. Please call [phone] if you have any questions or concerns. Thank you.) Shelly Dennis FNP [Nurse Practitioner] - 08/29/22 10:15 am Patient Instructions: Opioid Safety Discharge Attestations Time Spent in Discharge Care*: less than 30 min Quality Metrics Clinical Quality Measures [ No reported AMI, CVA or VTE this stay] Coding Level of Care Code Acute Code for g Fwd Diagnoses ST elevation (STEMI) myocardial infarction I21.3 Sinus tachycardia R00.0 SVT (supraventricular tachycardia) I47.1 Polymyalgia rheumatica M35.3 Hypertension I10 Seronegative rheumatoid arthritis of both hands M06.041; M06.042
[2022-08-16 18:21] LABS: Troponin 5 6HR 416.5 ng/L (0-10); Troponin 5 6HR Delta 352.5 ng/L (0-12)
--- NOTE | 2022-08-16 18:37 | PC.NURSE ---
tr band slowly deflated and eventually removed at 1630.site dressed with 2x2 gauze and secured with biocclusive drsg.right hand remained warm to touch and with brisk capillary refill.no hematoma noted.discharge instructions given and explained.pt verb understanding of instructions.discharged via w/c to exit at this time.spouse to drive pt home
== END 2022-08-16 18:41 | disposition home or self-care (01) ==
LOC: ER 11:47 → CSU 11:54
PROVIDERS: Internal Medicine Cardiovascular Disease; Admitting Provider Internal Medicine; Emergency Provider Family Medicine; PCP Nurse Practitioner Family; Visit Provider Internal Medicine
DX: I21.3 ST elevation (STEMI) myocardial infarction of unspecified site (principal); I47.1 Supraventricular tachycardia; M35.3 Polymyalgia rheumatica; I10 Essential (primary) hypertension; M06.041 Rheumatoid arthritis without rheumatoid factor, right hand; M06.042 Rheumatoid arthritis without rheumatoid factor, left hand; F41.9 Anxiety disorder, unspecified; Z79.52 Long term (current) use of systemic steroids; M79.7 Fibromyalgia; E66.9 Obesity, unspecified; Z68.31 Body mass index [BMI] 31.0-31.9, adult
CPT/HCPCS: 36415; 80053; 84484; 85025; 85610; 85730; 93005; 93306; 93458; 96360; 99152; 99153; 99285; C1769; C1887; C1894; G0378; J1644; J2250; J3010; J3490; Q9967

== ENCOUNTER 2022-08-21 09:22 | Outpatient (CLI) | payer OTHER, MEDICAID, SELFPAY ==
--- NOTE | 2022-08-21 09:40 | CT_ITS ---
WS: [id number] NONCONTRAST CT LEFT HIP TECHNIQUE: Noncontrast CT LEFT with coronal and sagittal reformatted images. CLINICAL INFORMATION: LEFT HIP PAIN COMPARISON: None. DLP: 541.[address] scans at [facility] use at least one of these dose optimization techniques: automated e xposure control; mA and/or kV adjustment per patient size (includes targeted exams where dose is matc hed to clinical indication); or iterative reconstruction. FINDINGS: Prior postoperative changes RIGHT BELLE. Postoperative changes lower lumbar spine with pedicle screw fi xation L5-S1. Mild to moderate degenerative narrowing LEFT hip with joint space narrowing. Normal jacques tabulum. Normal femoral head and neck. No visualized acute fractures. Normal pubic rami. Degenerative arthritis LEFT sacroiliac joint. Normal sigmoid colon. Sigmoid diverticulosis. Normal visualized sac rum. CT/CT hip LT wo con* [id number] IMPRESSION: 1. Mild to moderate degenerative narrowing LEFT hip. No acute fractures. 2. Normal LEFT pubic rami. 3. Degenerative arthritis partially visualized LEFT sacroiliac joint 4. Partially visualized pedicle screw fixation L5-S1 with interbody fusion gra ft. 5. Sigmoid diverticulosis. 6. No other acute findings.
== END 2022-08-21 09:23 | disposition home or self-care (01) ==
PROVIDERS: PCP Nurse Practitioner Family; Visit Provider Nurse Practitioner Family
DX: K57.30 Diverticulosis of large intestine without perforation or abscess without bleeding (principal); M46.1 Sacroiliitis, not elsewhere classified
CPT/HCPCS: 73700

== ENCOUNTER 2022-08-28 11:53 | Oncology outpatient (recurring) (ONCR) | payer OTHER, MEDICAID, SELFPAY ==
[2022-08-28 12:06] VITALS: BP 114/63; PULSE 73; RESP 16; TEMP 35.3; O2SAT 96
[2022-08-28] MEDS: acetaminophen 325 mg Tablet 650 MG PO (12:19)
[2022-08-28] MEDS: sodium chloride 0.9% 250 ML 75 ML IV (12:20)
[2022-08-28] MEDS: diphenhydrAMINE 50 mg/mL SDV 1mL 25 MG IVP (12:49)
[2022-08-28] MEDS: abatacept 500 MG in sodium chloride 0.9% (100 ml) 100 ML 200 MG IV (13:06)
[2022-08-28 13:55] VITALS: BP 98/58; PULSE 82; RESP 18; TEMP 36.6; O2SAT 98
== END 2022-08-31 23:59 | disposition home or self-care (01) ==
PROVIDERS: PCP Nurse Practitioner Family; Visit Provider Internal Medicine Rheumatology
DX: M06.9 Rheumatoid arthritis, unspecified (principal); Z79.899 Other long term (current) drug therapy
CPT/HCPCS: 96365; 96375; J0129; J1200; J7050

== ENCOUNTER → 2022-08-29 11:29 | Outpatient (BNVA) | payer OTHER, MEDICAID, SELFPAY | PROVIDERS: PCP Nurse Practitioner Family; Visit Provider Nurse Practitioner Family | DX: I10 Essential (primary) hypertension (principal) | CPT/HCPCS: 36415; 80048 ==

== ENCOUNTER 2022-09-13 10:33 | Emergency (ER) | payer OTHER, MEDICAID, SELFPAY ==
[2022-09-13 10:42] VITALS: BP 106/68; PULSE 62; RESP 16; TEMP 36.8; O2SAT 97; BMI 32.3
--- NOTE | 2022-09-13 10:52 | ECG_ITS ---
[facility] Test Date: 2022-09-13 Pat Name: Geovanna Sarabia Department: Room: Gender: Female Senior Wealth Advisor: : 1965 Requested By: Suhail Sharif Order Number: [id number] Rubens MD: Kristi Godoy M.D. Measurements Intervals [place] Rate: 62 P: -77 MS: 305 QRS: -9 QRSD: 73 T: -28 QT: 376 QTc: 382 Interpretive Statements Regular supraventricular rhythm Electrical artifact Defective EKG Electronically Signed On 09-13-2022 21:06:43 CDT by Kristi Godoy M.D. [email or web address] [email or web address] specialty hospital of greenvilleWebPesadosselect medical specialty hospital [facility] north.[employer]/store/OM/[id number]
--- NOTE | 2022-09-13 10:56 | XR_ITS ---
WS: [id number] EXAMINATION: XR chest 1V portable [id number] REASON FOR EXAM: cp COMPARISON: 06/06/2022 ORDER DATE: 09/13/2022 11:01 AM TECHNIQUE: A single, portable frontal chest x-ray was obtained. X-RAY FINDINGS: Electronic stimulator wire extends to the mid dorsal spine Lungs: Unremarkable. No consolidation. Pleural spaces: Unremarkable. No pleural effusion. No pneumothorax. Heart/Mediastinum: Unremarkable. No cardiomegaly. Bones/joints: Mild dorsal spine dextroscoliosis. XR/XR chest 1V portable [id number] IMPRESSION: 1. No acute findings. 2. Electronic stimulator wire mid dorsal spine 3. Dorsolumbar spine mild dextroscoliosis
[2022-09-13 11:40] LABS: Basophils % 0.3 %; Eosinophils % 0.1 %; Hematocrit 33.9 % (37.0-47.0); Hemoglobin 9.8 g/dL (11.5-15.3); Lymphocytes # 2.1 10^3/uL (0.8-4.8); Lymphocytes % 13.8 %; Mean Corpuscular HGB Conc 28.9 g/dL (30.0-36.0); Mean Corpuscular Hemoglobin 27.1 pg (28.0-34.0); Mean Corpuscular Volume 93.9 fl (81-99); Mean Platelet Volume 8.2 fL (7.4-10.4); Monocytes # 0.7 10^3/uL (0.2-0.9); Monocytes % 4.9 %; Neutrophils # 11.96 10^3/uL (1.8-7.7); Neutrophils % 79.6 %; Nucleated Red Blood Cells % 0 %; Platelet Count 422 10^3/cmm (130-400); Red Blood Count 3.61 10^6/uL (4.1-5.3); Red Cell Distribution Width 16.7 % (12.1-15.1)
[2022-09-13 11:42] VITALS: BP 119/75; PULSE 61; RESP 14; O2SAT 97
[2022-09-13 12:02] LABS: Troponin(5th) Baseline 9 ng/L (0-10)
[2022-09-13 12:05] LABS: Alanine Aminotransferase 24 U/L (0-33); Albumin Level 4.1 g/dL (3.5-5.2); Alkaline Phosphatase 48 U/L (35-105); Anion Gap 16.5 (5-19); Aspartate Amino Transferase 14 U/L (0-32); Blood Urea Nitrogen 14 mg/dL (6-20); Calcium 8.9 mg/dL (8.5-10.5); Carbon Dioxide 27 mmol/L (22-29); Chloride 100 mmol/L (98-107); Globulin 2.3 g/dL (1.3-4.6); Glomerular Filtration Rate 57.6 mL/min (90-130); Glucose 100 mg/dL (65-115); Osmolality Calculated 289 mOsm/kg (285-295); Potassium 4.5 mmol/L (3.5-5.1); Sodium 139 mmol/L (136-145); Total Bilirubin 0.6 mg/dL (0.15-1.2); Total Protein 6.4 g/dL (6.6-8.7)
--- NOTE | 2022-09-13 12:28 | W.ED.CHESTPA ---
HPI - Chest Pain General: Chief Complaint: Chest Pain Stated Complaint: chest pain, heart pt Time Seen by Provider: 09/13/22 11:26 Source: patient Mode of arrival: ambulatory History of Present Illness: 57-year-old female with a history of polymyalgia rheumatica who is on infusions. Last month she describes having had an UT she had an angiogram there were no stents it was thought to be due to her PMR per her report. This morning she began having chest discomfort she thought it was what she describes as a gas bubble it lasted for few minutes and resolved after she drank some water she reports that when she went to the infusion center to get her regular scheduled infusion her blood pressure was low and they referred her to the emergency room because of her history and the episode of chest pain this morning MD complaint: chest pain Onset (ago): hour(s) Timing of current episode: episodic Prior episodes: Yes Onset: during rest Pain location: substernal and epigastric Pain radiation: none Severity: moderate Quality: tightness and aching Relieving factors: other (Drinking water) Exacerbating factors: nothing Associated symptoms: Deny abdominal pain, diaphoresis, dyspnea, fever(s), leg edema, nausea, palpitations, sense of impending doom, syncope or vomiting Treatment prior to arrival: none Review of Systems Const: Reports: fatigue and malaise; Denies: fever(s), chills or diaphoresis ENMT: Denies: throat pain, ear or mastoid pain, nasal discharge or nasal congestion Card: Reports: chest pain, edema and swelling of feet/ankles; Denies: palpitations or syncope Resp: Denies: dyspnea GI: Denies: abdominal pain, nausea or vomiting : Denies: flank pain, difficulty voiding, dysuria, urinary frequency or urinary urgency Skin/Breast: Denies: rash or pruritus PFSH ED PFSH: Medical History Anxiety Arthritis of right acromioclavicular joint Asthma Chronic back pain Chronic steroid use Encounter for long-term opiate analgesic use Failed back syndrome, lumbosacral Fibromyalgia Heart palpitations High risk medication use Hx of migraines Hypertension Immunization counseling Inflammatory arthritis Intervertebral disc disorders with radiculopathy, lumbosacral region Neuralgia of right thigh Numbness and tingling PMR (polymyalgia rheumatica) Polymyalgia rheumatica Polymyalgia rheumatica Radiculopathy Rapid heart rate Seronegative rheumatoid arthritis of both hands Sinus tachycardia Spina bifida Spondylolisthesis, lumbar region Spondylolysis, cervical region SVT (supraventricular tachycardia) Trochanteric bursitis of right hip Surgical History History of back surgery x 2 with hardware Hx of section x 2 Hx of hysterectomy, total Hx of repair of right rotator cuff S/P insertion of spinal cord stimulator Family History Mother Cancer Father Diabetes Hypertension CAD (coronary artery disease) UT Chronic kidney disease (CKD) Family/Other Parkinson disease Grandmother Stroke Other Hyperlipidemia Denies family history of Rheumatoid arthritis Lupus Clotting disorder Dementia Suicide Anesthesia complication Bleeding disorder Lung disease Social History Smoking and tobacco status: never smoked Second hand smoke exposure: No Alcohol intake: never Physical Exam Const: GENERAL APPEARANCE: cooperative and comfortable ORIENTATION/CONSCIOUSNESS: Yes awake, Yes oriented to person, Yes oriented to place and Yes oriented to time HENMT: COMMON NORMALS: normocephalic, atraumatic and hearing grossly normal bilaterally HEAD & SCALP: normocephalic and atraumatic Resp: COMMON NORMALS: normal respiratory effort, No retractions, No use of accessory muscles and clear to auscultation bilaterally AUSCULTATION: clear to auscultation bilaterally Cardio: COMMON NORMALS: regular rate, regular rhythm and No murmurs present (Cardio) RATE: regular rate RHYTHM: regular rhythm GI: COMMON NORMALS: Soft to palpation and No hepatosplenomegaly present AUSCULTATION: Yes normoactive bowel sounds PALPATION: Yes Soft to palpation, No Tenderness to palpation present (GI), No Guarding due to palpation present (GI) and Yes No hepatosplenomegaly present Extremity: COMMON NORMALS: normal to inspection, capillary refill normal, no clubbing, cyanosis or edema, no calf tenderness and no pedal edema Neuro: SENSORIUM/ORIENTATION: Yes oriented to person, Yes oriented to place and Yes oriented to time Skin: COMMON NORMALS: no rashes or lesions noted GENERAL SKIN EXAM: no rashes or lesions noted Course Vital Signs: Vital signs: Vital Signs Temperature 98.2 F 09/13/22 10:42 Pulse Rate 61 09/13/22 11:42 Respiratory Rate 14 09/13/22 11:42 Blood Pressure 119/75 09/13/22 11:42 Pulse Oximetry 97 09/13/22 11:42 Oxygen Delivery Me thod Room Air 09/13/22 11:42 MDM - Chest Pain Medical Decision Making Labs imaging and EKG reviewed. Negative delta troponin EKG does not show any acute ST changes her symptoms are resolved at this point. Patient had normal coronary arteries at her last angiogram in August. Discussed with cardiology at this point they feel patient be discharged home they are not likely to repeat a coronary angiogram given normal EKG and cardiac enzymes. Cardiology on-call recommends same medications and follow-up in the cardiology clinic. Return if is further problems. Discussed with the patient she is anxious to be discharged had no further symptoms she has rescheduled her regular infusion. She understands to return if she has worsening symptoms Medical Records I reviewed the patient's medical records. Lab Data I reviewed the patient's lab results. 09/13/22 11:27 09/13/22 11:27 Radiology Impressions Chest X-Ray 09/13/22 10:56 IMPRESSION: 1. No acute findings. 2. Electronic stimulator wire mid dorsal spine 3. Dorsolumbar spine mild dextroscoliosis Laboratory Results WBC 15.0 10^3/uL (4.0-10.0) H 09/13/22 11:27 RBC 3.61 10^6/uL (4.1-5.3) L 09/13/22 11:27 Hgb 9.8 g/dL (11.5-15.3) L 09/13/22 11:27 Hct 33.9 % (37.0-47.0) L 09/13/22 11:27 MCV 93.9 fl (81-99) 09/13/22 11:27 MCH 27.1 pg (28.0-34.0) L 09/13/22 11:27 MCHC 28.9 g/dL (30.0-36.0) L 09/13/22 11:27 RDW 16.7 % (12.1-15.1) H 09/13/22 11:27 Plt Count 422 10^3/cmm (130-400) H 09/13/22 11:27 MPV 8.2 fL (7.4-10.4) 09/13/22 11:27 Neut % (Auto) 79.6 % 09/13/22 11: Lymph % (Auto) 13.8 % 09/13/22 11:27 [place] % (Auto) 4.9 % 09/13/22 11: Eos % (Auto) 0.1 % 09/13/22 11:27 Baso % (Auto) 0.3 % 09/13/22 11:27 Neut # (Auto) 11.96 10^3/uL (1.8-7.7) H 09/13/22 11: Lymph # (Auto) 2.1 10^3/uL (0.8-4.8) 09/13/22 11: [place] # (Auto) 0.7 10^3/uL (0.2-0.9) 09/13/22 11: Eos # (Auto) 0.0 10^3/uL (0.0-0.8) 09/13/22 11: Baso # (Auto) 0.0 10^3/uL (0.0-0.1) 09/13/22 11: Nucleated RBC % (auto) 0 % 09/13/22 11: Nucleated RBCs # 0.0 /100WBC 09/13/22 11:27 Sodium 139 mmol/L (136-145) 09/13/22 11:27 Potassium 4.5 mmol/L (3.5-5.1) 09/13/22 11:27 Chloride 100 mmol/L (98-107) 09/13/22 11:27 Carbon Dioxide 27 mmol/L (22-29) 09/13/22 11:27 Anion Gap 16.5 (5-19) 09/13/22 11:27 BUN 14 mg/dL (6-20) 09/13/22 11:27 Creatinine 1.0 mg/dL (0.5-0.9) H 09/13/22 11:27 GFR Calculation 57.6 mL/min (90-130) L 09/13/22 11:27 Glucose 100 mg/dL (65-115) 09/13/22 11:27 Calculated Osmolality 289 mOsm/kg (285-295) 09/13/22 11:27 Calcium 8.9 mg/dL (8.5-10.5) 09/13/22 11:27 Total Bilirubin 0.6 mg/dL (0.15-1.2) 09/13/22 11:27 AST 14 U/L (0-32) 09/13/22 11:27 ALT 24 U/L (0-33) 09/13/22 11:27 Alkaline Phosphatase 48 U/L (35-105) 09/13/22 11:27 Troponin T Baseline 9 ng/L (0-10) 09/13/22 11:27 Troponin T 120 Minute 7.18 ng/L (0-10) 09/13/22 13:39 Delta Troponin T -1.82 ABS# (0-10) L 09/13/22 13:39 Total Protein 6.4 g/dL (6.6-8.7) L 09/13/22 11:27 Albumin 4.1 g/dL (3.5-5.2) 09/13/22 11:27 Globulin 2.3 g/dL (1.3-4.6) 09/13/22 11:27 Discharge Plan Discharge Patient Disposition: Home Clinical Impression: Atypical chest pain, Polymyalgia rheumatica Condition: Stable Prescriptions: No Action potassium gluconate 595 mg (99 mg) tablet 595 mg PO DAILY citalopram 40 mg tablet 40 mg PO DAILY@0800 sumatriptan succinate [Imitrex] 100 mg tablet 100 mg PO Q2H PRN (Reason: Migraine Headache) Hold Instructions: Resume on 08/23/22. Rx Instructions: do not exceed 2 doses per 24 hrs duloxetine [Cymbalta] 60 mg capsule,delayed release(DR/EC) 60 mg PO DAILY@0800 Premarin 0.625 mg tablet 0.625 mg PO DAILY tramadol 50 mg tablet 50 mg PO Q6H PRN (Reason: Pain) buspirone 5 mg tablet 5 mg PO BID PRN (Reason: Anxiety) lisinopril 2.5 mg tablet 2.5 mg PO DAILY Qty: 90 3RF omeprazole 20 mg capsule,delayed release(DR/EC) 40 mg PO DAILY@0800 Qty: 90 1RF prednisone 5 mg tablet See Rx Instructions PO DAILY Qty: 90 3RF Rx Instructions: take 3 tabs(15mg) daily x5 days then stay on 2 tabs (10mg) orally daily; sulfamethoxazole-trimethoprim [Bactrim DS] 800-160 mg tablet See Rx Instructions PO .COMPLEX Qty: 15 3RF Rx Instructions: take 1 tab 3 times a week, Mon, Wed, and Saturday PO; metoprolol tartrate 25 mg tablet 25 mg PO BID Qty: 180 3RF Rx Instructions: May take an additional 12.5mg (1/2 tab) as needed for heart rate above 110 bpm oxycodone-acetaminophen [Percocet] 10-325 mg tablet 1 tab PO QID PRN (Reason: pain) 30 Days Qty: 120 0RF Rx Instructions: fill on or after 05/12/21 isosorbide mononitrate 30 mg tablet extended release 24 hr 30 mg PO DAILY Qty: 60 3RF aspirin 81 mg tablet,delayed release (DR/EC) 81 mg PO DAILY Qty: 60 0RF nitroglycerin 0.4 mg tablet, sublingual 0.4 mg sublingual Q5M Qty: 10 0RF Rx Instructions: do not exceed 3 doses per episode chlorzoxazone 500 mg tablet 500 mg PO TID magnesium 200 mg Tablet 200 mg PO DAILY biotin 5 mg Tablet 5 mg PO DAILY Discharge Orders: Discharge ED (Routine); Ordered 09/13/22 Ordered By: Suhail Tony Referrals: Anitra Millan FNP [Primary Care Provider] - Patient Instructions: Opioid Safety, Pain Management Activity Restrictions/Additional Instructions: You are seen today for chest discomfort. Your presenting symptoms were atypical for coronary symptoms. Your EKG and troponins were negative. We discussed your case with the on-call client service consultant reviewed your previous angiogram. At this point recommend discharge and follow-up with your primary care doctor. Continue to take your current medications as previously prescribed. Coding Level of Care Code ED Mobile Patrol Officer for Casi Miranda
--- NOTE | 2022-09-13 12:56 | ECG_ITS ---
[facility] Test Date: 2022-09-13 Pat Name: Geovanna Sarabia Department: Room: Gender: Female Historic Preservationist: : 1965 Requested By: Samuel Resendiz Order Number: [id number] Rubens MD: Kristi Godoy M.D. Measurements Intervals [place] Rate: 58 P: 0 TX: 0 QRS: 51 QRSD: 71 T: 57 QT: 398 QTc: 393 Interpretive Statements Sinus bradycardia with a rate of 58 bpm. Electrical artifacts. Definitive EKG Electronically Signed On 09-13-2022 21:13:06 CDT by Kristi Godoy M.D. [email or web address]/store/[id number]
[2022-09-13 14:10] LABS: Troponin 5 2HR 7.18 ng/L (0-10)
[2022-09-13 14:21] LABS: Troponin 5 2HR Delta -1.82 ABS# (0-10)
== END 2022-09-13 14:55 | disposition home or self-care (01) ==
PROVIDERS: Emergency Medicine; Emergency Provider Family Medicine; PCP Nurse Practitioner Family
DX: R07.89 Other chest pain (principal); M35.3 Polymyalgia rheumatica
CPT/HCPCS: 36415; 71045; 80053; 84484; 85025; 93005; 99285

== ENCOUNTER 2022-09-18 10:07 | Oncology outpatient (recurring) (ONCR) | payer OTHER, MEDICAID, SELFPAY ==
[2022-09-13 10:20] VITALS: BP 109/68; PULSE 64; RESP 18; TEMP 35.9; O2SAT 97
--- NOTE | 2022-09-13 12:09 | PC.NURSE ---
Pt presented to the infusion suite for [place] infusion. Vital signs obtained, and pt expressed some discomfort in her chest similar to the same discomfort she experienced before an MN last month. No shortness of breath, or elevated BP was noted, however, she was diaphoretic. I spoke with my supervisor aluminum fabrication, and we transported her by wheelchair to the E.D. where she will be further evaluated. If she is cleared in the E.D., she will return to the infusion suite for her scheduled infusion. dh
[2022-09-18 10:20] VITALS: BP 127/71; PULSE 75; TEMP 36.1; O2SAT 96
[2022-09-18] MEDS: sodium chloride 0.9% 250 ML 100 ML IV (10:40)
[2022-09-18] MEDS: diphenhydrAMINE 50 mg/mL SDV 1mL 25 MG IVP (10:41)
[2022-09-18] MEDS: acetaminophen 325 mg Tablet 650 MG PO (10:41)
[2022-09-18] MEDS: abatacept 500 MG in sodium chloride 0.9% (100 ml) 100 ML 200 MG IV (11:23)
[2022-09-18 12:06] VITALS: BP 118/72; PULSE 79; TEMP 36.2; O2SAT 94
== END 2022-09-30 23:59 | disposition home or self-care (01) ==
PROVIDERS: PCP Nurse Practitioner Family; Visit Provider Internal Medicine Rheumatology
DX: M06.9 Rheumatoid arthritis, unspecified (principal)
CPT/HCPCS: 96375; 96413; J0129; J1200; J7050

== ENCOUNTER 2022-10-02 09:44 | Oncology outpatient (recurring) (ONCR) | payer OTHER, MEDICAID, SELFPAY ==
[2022-10-02 10:10] VITALS: BP 120/78; PULSE 78; RESP 18; TEMP 36.6
[2022-10-02 10:37] LABS: Hematocrit 38.8 % (37.0-47.0); Hemoglobin 11.2 g/dL (11.5-15.3); Mean Corpuscular HGB Conc 28.9 g/dL (30.0-36.0); Mean Corpuscular Hemoglobin 26.7 pg (28.0-34.0); Mean Corpuscular Volume 92.4 fl (81-99); Mean Platelet Volume 8.2 fL (7.4-10.4); Platelet Count 588 10^3/cmm (130-400); Red Cell Distribution Width 16.2 % (12.1-15.1); White Blood Count 17.9 10^3/uL (4.0-10.0)
[2022-10-02] MEDS: acetaminophen 325 mg Tablet 650 MG PO (10:37)
[2022-10-02] MEDS: diphenhydrAMINE 50 mg/mL SDV 1mL 25 MG IVP (10:37)
[2022-10-02] MEDS: sodium chloride 0.9% 250 ML 75 ML IV (10:38)
[2022-10-02] MEDS: abatacept 500 MG in sodium chloride 0.9% (100 ml) 100 ML 200 MG IV (10:53)
[2022-10-02 11:01] LABS: Alanine Aminotransferase 21 U/L (0-33); Albumin Level 4.5 g/dL (3.5-5.2); Alkaline Phosphatase 63 U/L (35-105); Anion Gap 19.6 (5-19); Aspartate Amino Transferase 14 U/L (0-32); Blood Urea Nitrogen 17 mg/dL (6-20); Calcium 9.5 mg/dL (8.5-10.5); Carbon Dioxide 24 mmol/L (22-29); Chloride 100 mmol/L (98-107); Globulin 2.4 g/dL (1.3-4.6); Glucose 86 mg/dL (65-115); Osmolality Calculated 291 mOsm/kg (285-295); Potassium 3.6 mmol/L (3.5-5.1); Sodium 140 mmol/L (136-145); Total Bilirubin 0.4 mg/dL (0.15-1.2); Total Protein 6.9 g/dL (6.6-8.7)
[2022-10-02 11:25] LABS: Slide Review Slide Review Perform
[2022-10-02 11:26] LABS: Absolute Segmented Neutrophil 11.6 10/cmm (1.6-7.1); Lymphocytes 19 %; Monocytes Absolute 0.7 10^3/cmm (0.1-0.6); Segmented Neutrophils 65 %; Total Cells Counted 100 (0-100)
[2022-10-02 11:27] LABS: Absolute Neutrophil 11.6 10^3/cmm (1.4-6.5); Eosinophils 0 %; Lymphocytes Absolute 5.5 10^3/cmm (1.2-3.4); Platelet Estimate Increased (Normal); Polychromasia 1+
[2022-10-02 11:40] LABS: Erythrocyte Sedimentation Rate 9 mm/hr (0-15)
[2022-10-02 12:05] VITALS: BP 114/78; PULSE 78; RESP 18; TEMP 36.6; O2SAT 91
== END 2022-10-31 23:59 | disposition home or self-care (01) ==
LOC: ONCMED 09:45
PROVIDERS: PCP Nurse Practitioner Family; Visit Provider Internal Medicine Rheumatology
DX: M35.3 Polymyalgia rheumatica
CPT/HCPCS: 80053; 85007; 85025; 85651; 86140; 96375; 96413; J0129; J1200; J7050

== ENCOUNTER → 2022-10-24 14:48 | Outpatient (BNVA) | payer OTHER, MEDICAID, SELFPAY | PROVIDERS: PCP Nurse Practitioner Family; Visit Provider Internal Medicine Rheumatology | DX: M45.6 Ankylosing spondylitis lumbar region (principal); Z79.899 Other long term (current) drug therapy; I10 Essential (primary) hypertension | CPT/HCPCS: 36415; 85651; 86038; 86140; 86812 ==

== ENCOUNTER 2022-12-11 10:32 | Outpatient (CLI) | payer OTHER, SELFPAY ==
--- NOTE | 2022-12-11 10:56 | XRR_ITS ---
PROCEDURE INFORMATION: Exam: XR Chest Exam date and time: 12/11/2022 11:05 AM Age: 57 years old Clinical indication: Cough; Patient HX: Checking for tb; Additional info: R05.8 - other specified cough TECHNIQUE: Imaging protocol: Radiologic exam of the chest. Views: 2 views. COMPARISON: CR XR chest 1V portable [id number] 09/13/2022 11:09 AM FINDINGS: Tubes, catheters and devices: Epidural neurostimulator in the midthoracic spine. Lungs: There is no consolidation. Pleural spaces: There is no pleural effusion or pneumothorax. Heart/Mediastinum: Cardiomediastinal contours are unremarkable. Bones/joints: There is mild irregularity of the right lateral chest wall suggesting healed rib fractures. There is mild S-shaped thoracic scoliosis. No acute fracture. XR/XR chest 2V* [id number] IMPRESSION: No acute findings.
[2022-12-13 13:14] LABS: Quantiferon Mitogen >10.00 IU/mL; Quantiferon Nil 0.02 IU/mL; Quantiferon Plus TB1 <0.00 IU/mL; Quantiferon Plus TB2 <0.00 IU/mL; Quantiferon TB Gold NEGATIVE (NEGATIVE)
== END 2022-12-11 10:33 | disposition home or self-care (01) ==
PROVIDERS: PCP Nurse Practitioner Family; Visit Provider Internal Medicine Rheumatology
DX: Z11.59 Encounter for screening for other viral diseases (principal); R05.8 Other specified cough
CPT/HCPCS: 36415; 71046; 86480

== ENCOUNTER → 2023-01-29 15:55 | Outpatient (BNVA) | payer OTHER, MEDICAID, SELFPAY | PROVIDERS: PCP Nurse Practitioner Family; Visit Provider Internal Medicine Rheumatology | DX: Z79.899 Other long term (current) drug therapy (principal); M06.041 Rheumatoid arthritis without rheumatoid factor, right hand; M06.042 Rheumatoid arthritis without rheumatoid factor, left hand; M19.90 Unspecified osteoarthritis, unspecified site; R76.8 Other specified abnormal immunological findings in serum; Z71.89 Other specified counseling | CPT/HCPCS: 36415; 80076; 82565; 85025; 86140; 86160; 86162; 86235; 86255; 86376 ==

== ENCOUNTER → 2023-02-26 11:09 | Outpatient (BNVA) | payer OTHER, MEDICAID, SELFPAY | PROVIDERS: PCP Nurse Practitioner Family; Visit Provider Nurse Practitioner Women's Health | DX: N39.0 Urinary tract infection, site not specified (principal) | CPT/HCPCS: 81000; 87086 ==

== ENCOUNTER → 2023-03-27 11:39 | Outpatient (BNVA) | payer OTHER, MEDICAID, SELFPAY | PROVIDERS: PCP Nurse Practitioner Family; Visit Provider Internal Medicine Rheumatology | DX: Z79.899 Other long term (current) drug therapy (principal); M06.041 Rheumatoid arthritis without rheumatoid factor, right hand; M06.042 Rheumatoid arthritis without rheumatoid factor, left hand; Z71.89 Other specified counseling | CPT/HCPCS: 36415; 80076; 82565; 82728; 83540; 83550; 85025; 86140; 99214 ==

== ENCOUNTER 2023-05-01 12:53 | Emergency (ER) | payer OTHER, MEDICAID, SELFPAY ==
--- NOTE | 2023-05-01 12:58 | ECG_ITS ---
[facility] Test Date: 2023-05-01 Pat Name: Geovanna Sarabia Department: Room: Gender: Female Wet Process Technician: : 1965 Requested By: Keaton Garay Order Number: [id number] Rubens MD: Flor Perez M.D. Measurements Intervals [place] Rate: 66 P: 45 VT: 131 QRS: 6 QRSD: 66 T: 26 QT: 349 QTc: 368 Interpretive Statements Significant baseline artifact SINUS RHYTHM Unable to comment on ST segments due to artifact Compared to ECG 09/13/2022 12:52:37 No significant change Electronically Signed On 05-02-2023 16:41:40 BARKER OPERATOR by Flor Perez M.D. [email or web address] Marineuniversity [email or web address] par[facility].[email or web address]/store/NU/[id number]/[id number] f
[2023-05-01 13:03] VITALS: BP 168/85; PULSE 64; RESP 17; TEMP 36.5; O2SAT 97; BMI 30.4
[2023-05-01] MEDS: aspirin 81 mg Chew Tablet 324 MG PO (13:13)
[2023-05-01 14:23] LABS: Basophils # 0.1 10^3/uL (0.0-0.1); Basophils % 0.3 %; Eosinophils # 0.1 10^3/uL (0.0-0.8); Eosinophils % 0.4 %; Hematocrit 37.4 % (36-47); Lymphocytes # 5.1 10^3/uL (0.8-4.8); Lymphocytes % 33.6 %; Mean Corpuscular HGB Conc 28.6 g/dL (30-55); Mean Corpuscular Hemoglobin 26.6 pg (27-33); Mean Platelet Volume 8.2 fL (7.4-10.4); Monocytes # 1.2 10^3/uL (0.2-0.9); Monocytes % 7.8 %; Neutrophils # 8.65 10^3/uL (1.8-7.7); Neutrophils % 56.7 %; Nucleated Red Blood Cells % 0 %; Platelet Count 532 10^3/cmm (157-399); Red Blood Count 4.02 10^6/uL (3.85-5.65); Red Cell Distribution Width 18.1 % (12.1-15.1); White Blood Count 15.29 10^3/uL (3.29-11.43)
[2023-05-01 14:38] LABS: D Dimer 0.34 ug/mLFEU (0-0.59)
[2023-05-01 14:40] LABS: Alanine Aminotransferase 27 U/L (0-33); Albumin Level 4.3 g/dL (3.5-5.2); Alkaline Phosphatase 62 U/L (35-105); Anion Gap 17.7 (5-19); Aspartate Amino Transferase 16 U/L (0-32); Blood Urea Nitrogen 15 mg/dL (6-20); Calcium 9.1 mg/dL (8.5-10.5); Carbon Dioxide 25 mmol/L (22-29); Chloride 101 mmol/L (98-107); Globulin 2.1 g/dL (1.3-4.6); Glucose 87 mg/dL (65-115); Osmolality Calculated 290 mOsm/kg (285-295); Potassium 3.7 mmol/L (3.5-5.1); Sodium 140 mmol/L (136-145); Total Bilirubin 0.6 mg/dL (0.15-1.2); Total Protein 6.4 g/dL (6.6-8.7)
[2023-05-01 14:43] LABS: Troponin(5th) Baseline 11 ng/L (0-10)
== END 2023-05-01 14:05 | disposition left against medical advice (07) ==
PROVIDERS: Emergency Medicine; Emergency Provider Family Medicine; PCP Nurse Practitioner Family
DX: Z53.21 Procedure and treatment not carried out due to patient leaving prior to being seen by health care provider (principal)
CPT/HCPCS: 36415; 80053; 84484; 85025; 85378; 93005; 99285

== ENCOUNTER → 2023-06-11 14:16 | Outpatient (BNVA) | payer OTHER, MEDICAID, SELFPAY | PROVIDERS: PCP Nurse Practitioner Family; Visit Provider Internal Medicine Rheumatology | DX: M06.041 Rheumatoid arthritis without rheumatoid factor, right hand; M06.042 Rheumatoid arthritis without rheumatoid factor, left hand; Z71.89 Other specified counseling; Z79.899 Other long term (current) drug therapy | CPT/HCPCS: 99214 ==

== ENCOUNTER → 2023-06-27 15:12 | Outpatient (BNVA) | payer OTHER, MEDICAID, SELFPAY | PROVIDERS: PCP Nurse Practitioner Family; Referring Provider Internal Medicine Rheumatology; Visit Provider Orthopaedic Surgery | DX: G89.29 Other chronic pain; M54.41 Lumbago with sciatica, right side; M54.42 Lumbago with sciatica, left side; Z96.82 Presence of neurostimulator; Z98.1 Arthrodesis status | CPT/HCPCS: 72070; 72110 ==

== ENCOUNTER 2023-09-20 06:00 | Outpatient (RCR) | payer OTHER, MEDICAID, SELFPAY | END 2023-10-01 23:59 | disposition home or self-care (01) | LOC: SPT 06:00 | PROVIDERS: PCP Nurse Practitioner Family; Visit Provider Orthopaedic Surgery | DX: M54.9 Dorsalgia, unspecified (principal); G89.29 Other chronic pain | CPT/HCPCS: 97110; 97161 ==

== ENCOUNTER 2023-10-10 09:59 | Outpatient (RCR) | payer OTHER, MEDICAID, SELFPAY | END 2023-11-01 23:59 | disposition home or self-care (01) | LOC: SPT 09:59 | PROVIDERS: PCP Nurse Practitioner Family; Visit Provider Orthopaedic Surgery | DX: M54.9 Dorsalgia, unspecified (principal); G89.29 Other chronic pain | CPT/HCPCS: 97110 ==

== ENCOUNTER 2023-11-04 12:45 | Outpatient (CLI) | payer OTHER, MEDICAID, SELFPAY ==
[2023-11-04 13:04] LABS: Basophils % 0.4 %; Eosinophils % 0.4 %; Hematocrit 37.6 % (36-47); Lymphocytes % 26.9 %; Mean Corpuscular HGB Conc 29.8 g/dL (30-55); Mean Corpuscular Volume 104.2 fl (85-98); Monocytes % 9.1 %; Neutrophils # 6.87 10^3/uL (1.8-7.7); Neutrophils % 61.8 %; Nucleated Red Blood Cells % 0 %; Platelet Count 614 10^3/cmm (157-399); Red Blood Count 3.61 10^6/uL (3.85-5.65); Red Cell Distribution Width 15.9 % (12.1-15.1)
[2023-11-04 13:26] LABS: Alanine Aminotransferase 25 U/L (0-33); Albumin Level 4.4 g/dL (3.5-5.2); Alkaline Phosphatase 77 U/L (35-105); Aspartate Amino Transferase 21 U/L (0-32); Globulin 2.3 g/dL (1.3-4.6); Glomerular Filtration Rate 51.4 mL/min (90-130); Total Bilirubin 0.5 mg/dL (0.15-1.2); Total Protein 6.7 g/dL (6.6-8.7)
== END 2023-11-04 12:46 | disposition home or self-care (01) ==
LOC: LAB 12:47
PROVIDERS: PCP Nurse Practitioner Family; Visit Provider Internal Medicine Rheumatology
DX: Z79.899 Other long term (current) drug therapy (principal); M06.041 Rheumatoid arthritis without rheumatoid factor, right hand; M06.042 Rheumatoid arthritis without rheumatoid factor, left hand; M19.90 Unspecified osteoarthritis, unspecified site
CPT/HCPCS: 36415; 80076; 82565; 85025; 86140

== ENCOUNTER 2023-11-14 10:01 | Outpatient (CLI) | payer OTHER, MEDICAID, SELFPAY ==
--- NOTE | 2023-11-14 10:00 | IR_ITS ---
WS: [id number] LUMBAR MYELOGRAM HISTORY: back pain COMPARISON: Lumbar CT 06/13/2021 FLUOROSCOPY TIME: 1min [id number] # of spot films: 9 Procedure, risks and complications were explained to the patient. Risks including bleeding, infection , headaches, allergic reaction and seizures. Consent has been obtained. With the patient in prone position the skin over the lumbar region is cleansed with ChloraPrep and an esthetized with lidocaine. 22-gauge spinal needle is inserted into the thecal sac at the appropriate level determined by fluoroscopy. Omnipaque 240; 10 ml is injected slowly under fluoroscopy with no co mplications. Needle bevel is perpendicular to the longitudinal fibers of the dura. Stylet is reinsert ed prior to removal of the needle. Patient tolerated the procedure well. Patient will proceed to CT f or further evaluation. Uncomplicated injection into the thecal sac. Patient is status post lumbar fusion at L5-S1. Same numb ering pattern will be used for the vertebral bodies as on 06/13/2021. There is also a dorsal column st imulator with lead wires extending superiorly towards the thoracic spine. Rotary scoliosis of the lum bar spine. There is mild disc bulging and contact on the ventral thecal sac. IR/IR myelogram sp lumbar [id number] IMPRESSION: 1. Uncomplicated lumbar myelogram. 2. Posterior lumbar fusion at L5-S1. 3. Lumbar CT to follow. 4. Note: As the patient was being discharged after the myelogram was performed she did experience some chest pain. She took a nitroglycerin tablet. Chest marlon n persisted and she was transported to the emergency department for further gómez luation.
--- NOTE | 2023-11-14 10:03 | CT_ITS ---
WS: [id number] CT MYELOGRAM LUMBAR SPINE HISTORY: POST MYELOGRAM TECHNIQUE: Contiguous 2.5 mm axial imaging performed from T12 through the mid sacral level. Bone and soft tissue windows reviewed. Sagittal and coronal reformats are submitted and reviewed. DLP: 734.[address] scans at [facility] use at least one of these dose optimization techniques: automated e xposure control; mA and/or kV adjustment per patient size (includes targeted exams where dose is matc hed to clinical indication); or iterative reconstruction. COMPARISON: CT lumbar spine 06/13/2021 Same vertebral body numbering pattern will be utilized as on 06/13/2021. Very slight increase in the LEFT rotary scoliosis of the lumbar spine. Prior posterior fusion at L5-S 1 with interbody spacer. There is also a dorsal column stimulator with the electrodes extending super iorly towards the thoracic line. 2 mm retrolisthesis of of L1 and L3. L1-L2: Mild annular disc bulging and osteophytic ridging. Vacuum disc phenomenon and disc space narro wing has progressed since 06/13/2021. L2-L3: Mild diffuse annular disc bulging and ligamentum flavum hypertrophy. No stenosis. L3-L4: Asymmetric disc bulging to the RIGHT. Mild encroachment and narrowing of the thecal sac. Ligam entum flavum and facet arthritis. Mild central and subarticular recess encroachment. L4-L5: Mild annular disc bulging. Mild osteophytic ridging. Facet joint arthropathy has progressed. M ild central and bilateral foraminal stenosis. L5-S1: Osteophytic ridging. Large posterior laminectomy defect. Mild LEFT foraminal stenosis. Hardwar e is causing significant artifact but no disc is identified. CT/CT lumbar spine w con [id number] IMPRESSION: 1. Study is compromised by artifact from the hardware at L5-S1. 2. Prior posterior lumbar fusion at L5-S1 with interbody spacer. No hardware f racture or displacement identified. No loosening appreciated. 3. Mild progression of degenerative LEFT scoliosis lumbar spine. 4. Large posterior laminectomy defect at L5-S1. 5. Progression of degenerative disc disease at L1-2. 6. Mild central and subarticular recess stenosis at L3-4. 7. Mild central and bilateral foraminal stenosis at L4-5.
== END 2023-11-14 10:02 | disposition home or self-care (01) ==
PROVIDERS: PCP Nurse Practitioner Family; Visit Provider Orthopaedic Surgery
DX: M43.27 Fusion of spine, lumbosacral region (principal); M41.86 Other forms of scoliosis, lumbar region; M43.16 Spondylolisthesis, lumbar region; M51.36 Other intervertebral disc degeneration, lumbar region; M48.061 Spinal stenosis, lumbar region without neurogenic claudication; M51.86 Other intervertebral disc disorders, lumbar region; M47.816 Spondylosis without myelopathy or radiculopathy, lumbar region; M25.78 Osteophyte, vertebrae; M48.07 Spinal stenosis, lumbosacral region; M53.87 Other specified dorsopathies, lumbosacral region
CPT/HCPCS: 62304; 72132

== ENCOUNTER 2023-11-14 11:28 | Emergency (ER) | payer MEDICAID, SELFPAY ==
[2023-11-14 11:30] VITALS: BP 120/73; PULSE 60; RESP 18; TEMP 36.8; O2SAT 92; BMI 34.3
--- NOTE | 2023-11-14 11:39 | XRR_ITS ---
PROCEDURE INFORMATION: Exam: XR Chest Exam date and time: 11/14/2023 12:00 PM Age: 58 years old Clinical indication: Cough and dyspnea; Patient HX: PT had a lumbar myelogram this morning and immediately following started having severe chest pains and n/v. ; Additional info: Dyspnea/cough TECHNIQUE: Imaging protocol: Radiologic exam of the chest. Views: 1 view. COMPARISON: CR XR chest 2V* [id number] 04/09/2023 11:05 FINDINGS: Tubes, catheters and devices: There is a epidural neurostimulator device projecting over the midthoracic spine. Lungs: Unremarkable. No consolidation. Pleural spaces: Unremarkable. No pleural effusion. No pneumothorax. Heart/Mediastinum: Unremarkable. No cardiomegaly. Bones/joints: Unremarkable. XR/XR chest 1V portable [id number] IMPRESSION: No radiographic evidence of acute cardiopulmonary disease
--- NOTE | 2023-11-14 11:40 | ECG_ITS ---
[facility] Test Date: 2023-11-14 Pat Name: Sivan Sarabia Department: Room: Gender: Female Supervisor Benzene Refining: : 1965 Requested By: Suhail Sharif Order Number: [id number] Rubens MD: Kristi Godoy M.D. Measurements Intervals [place] Rate: 58 P: 39 UT: 136 QRS: 37 QRSD: 70 T: 47 QT: 409 QTc: 402 Interpretive Statements SINUS BRADYCARDIA Compared to ECG 05/01/2023 12:58:02 Sinus rhythm no longer present Electronically Signed On 11-14-2023 22:00:24 CDT by Kristi Godoy M.D. [email or web address] Incomelicking memorial hospitalTAPQUAD/store/NU/[id number] f
--- NOTE | 2023-11-14 11:58 | ED_ITS ---
HPI - Chest Pain 2 General: Chief Complaint: Chest Pain Stated Complaint: cp Time Seen by Provider: 11/14/23 11:37 Source: patient History of Present Illness: 58-year-old female presents emergency ro om with onset of chest pain after getting a myelogram. Patient is history of rheumatoid arthritis. 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 Because of her normal cath she was discharged home she was not started on any other medications. She does report having had intermittent episodes of chest pain since then. She does take aspirin daily. She took nitro today when the chest pain started with no relief of symptoms. She seen cardiology in August of this year she complained of some intermittent chest pain at that time and MD complaint: chest pain Pertinent past history: coronary artery disease Onset (ago): minute(s) Timing of current episode: episodic Onset: during rest Pain location: left chest Quality: tightness and heaviness Exacerbating factors: nothing Associated symptoms: Deny abdominal pain, dyspnea, fever(s) or palpitations Review of Systems 2 Const: Denies: fever(s) or chills Card: Reports: chest pain; Denies: palpitations Resp: Denies: dyspnea GI: Denies: abdominal pain : Denies: dysuria, urinary frequency or urinary urgency Musc: Denies: neck pain or back pain Skin/Breast: Denies: rash PFSH ED 2 PFSH: Medical History Shoulder pain, acute Sinus tachycardia SVT (supraventricular tachycardia) Polymyalgia rheumatica Rapid heart rate Hypertension Heart palpitations Seronegative rheumatoid arthritis of both hands Immunization counseling Inflammatory arthritis High risk medication use Chronic steroid use Polymyalgia rheumatica Spina bifida Asthma Anxiety Numbness and tingling Fibromyalgia PMR (polymyalgia rheumatica) Hx of migraines Radiculopathy Neuralgia of right thigh Trochanteric bursitis of right hip Chronic back pain Failed back syndrome, lumbosacral Spondylolisthesis, lumbar region Intervertebral disc disorders with radiculopathy, lumbosacral region Arthritis of right acromioclavicular joint Spondylolysis, cervical region Encounter for long-term opiate analgesic use Surgical History Hx of section x 2 History of back surgery x 2 with hardware Hx of hysterectomy, total S/P insertion of spinal cord stimulator Hx of repair of right rotator cuff Family History Mother Breast cancer Father Diabetes Hypertension Heart disease Hypercholesteremia Grandmother Stroke Sister Uterine cancer Denies family history of Colon cancer Ovarian cancer Social History Smoking and tobacco/nicotine status: never used tobacco/nicotine Alcohol intake: never Physical Exam 2 Const: COMMON NORMALS: no acute distress GENERAL APPEARANCE: cooperative and comfortable ORIENTATION/CONSCIOUSNESS: Yes awake, Yes oriented to person, Yes oriented to place and Yes oriented to time HENMT: COMMON NORMALS: normocephalic, atraumatic and hearing grossly normal bilaterally HEAD & SCALP: normocephalic and atraumatic Resp: COMMON NORMALS: normal respiratory effort, No retractions, No use of accessory muscles and clear to auscultation bilaterally AUSCULTATION: clear to auscultation bilaterally Cardio: COMMON NORMALS: regular rate, regular rhythm and No murmurs present (Cardio) RATE: regular rate RHYTHM: regular rhythm GI: COMMON NORMALS: Soft to palpation and No hepatosplenomegaly present A USCULTATION: Yes normoactive bowel sounds PALPATION: Yes Soft to palpation, No Tenderness to palpation present (GI), No Guarding due to palpation present (GI) and Yes No hepatosplenomegaly present Extremity: COMMON NORMALS: normal to inspection, capillary refill normal, no clubbing, cyanosis or edema, no calf tenderness and no pedal edema Neuro: SENSORIUM/ORIENTATION: Yes oriented to person, Yes oriented to place and Yes oriented to time Skin: COMMON NORMALS: no rashes or lesions noted GENERAL SKIN EXAM: no rashes or lesions noted Course 2 Vital Signs: Vital signs: Vital Signs Temperature 98.3 F 11/14/23 11:30 Pulse Rate 57 L 11/14/23 15:58 Respiratory Rate 18 11/14/23 11:30 Blood Pressure 121/73 11/14/23 15:58 Pulse Oximetry 94 11/14/23 15:58 Oxygen Delivery Me thod Room Air 11/14/23 15:17 MDM - Chest Pain Medical Decision Making Cardiac enzymes and EKG did not show any sign of acute coronary syndrome. Year ago was seen this time patient and she had an ST elevation [place] with significant increase in her cardiac enzymes but her heart catheterization was normal. Left ventriculogram was normal as well. 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 Reviewed the case with Dr. Godoy reviewed his office notes as well she is continually had chest pain to the last year she states today is a little more intense was no sign of acute coronary syndrome, her EKGs did not show any acute changes. Dr. Godoy recommends Lexiscan sestamibi stress test will discharge patient home she is pain-free at this time have her follow-up with Dr. Godoy after the stress test completed. Medical Records I reviewed the patient's medical records. Lab Data I reviewed the patient's lab results. 11/14/23 11:52 11/14/23 11:52 Radiology Impressions Chest X-Ray 11/14/23 11:39 IMPRESSION: No radiographic evidence of acute cardiopulmonary disease Laboratory Results WBC 9.62 10^3/uL (3.29-11.43) 11/14/23 11:52 RBC 3.29 10^6/uL (3.85-5.65) L 11/14/23 11:52 Hgb 10.20 g/dL (11.27-16.99) L 11/14/23 11:52 Hct 33.7 % (36-47) L 11/14/23 11:52 MCV 102.4 fl (85-98) H 11/14/23 11:52 MCH 31.0 pg (27-33) 11/14/23 11:52 MCHC 30.3 g/dL (30-55) 11/14/23 11:52 RDW 15.9 % (12.1-15.1) H 11/14/23 11:52 Plt Count 532 10^3/cmm (157-399) H 11/14/23 11:52 MPV 7.9 fL (7.4-10.4) 11/14/23 11:52 Neut % (Auto) 62.0 % 11/14/23 11:52 Lymph % (Auto) 27.0 % 11/14/23 11:52 [place] % (Auto) 9.0 % 11/14/23 11:52 Eos % (Auto) 0.3 % 11/14/23 11:52 Baso % (Auto) 0.3 % 11/14/23 11:52 Neut # (Auto) 5.96 10^3/uL (1.8-7.7) 11/14/23 11:52 Lymph # (Auto) 2.6 10^3/uL (0.8-4.8) 11/14/23 11:52 [place] # (Auto) 0.9 10^3/uL (0.2-0.9) 11/14/23 11:52 Eos # (Auto) 0.0 10^3/uL (0.0-0.8) 11/14/23 11:52 Baso # (Auto) 0.0 10^3/uL (0.0-0.1) 11/14/23 11:52 Nucleated RBC % (auto) 0 % 11/14/23 11:52 Nucleated RBCs # 0.0 /100WBC 11/14/23 11:52 Sodium 138 mmol/L (136-145) 11/14/23 11:52 Potassium 4.6 mmol/L (3.5-5.1) 11/14/23 11:52 Chloride 100 mmol/L (98-107) 11/14/23 11:52 Carbon Dioxide 27 mmol/L (22-29) 11/14/23 11:52 Anion Gap 15.6 (5-19) 11/14/23 11:52 BUN 20 mg/dL (6-20) 11/14/23 11:52 Creatinine 1.2 mg/dL (0.5-0.9) H 11/14/23 11:52 GFR Calculation 46.5 mL/min (90-130) L 11/14/23 11:52 Glucose 96 mg/dL (65-115) 11/14/23 11:52 Calculated Osmolality 288 mOsm/kg (285-295) 11/14/23 11:52 Calcium 9.1 mg/dL (8.5-10.5) 11/14/23 11:52 Total Bilirubin 0.7 mg/dL (0.15-1.2) 11/14/23 11:52 AST 17 U/L (0-32) 11/14/23 11:52 ALT 23 U/L (0-33) 11/14/23 11:52 Alkaline Phosphatase 58 U/L (35-105) 11/14/23 11:52 Troponin T Baseline 25 ng/L (0-10) H 11/14/23 11:52 Troponin T 120 Minute 20.56 ng/L (0-10) H 11/14/23 13:52 Delta Troponin T -4.44 ABS# (0-10) L 11/14/23 13:52 Total Protein 5.9 g/dL (6.6-8.7) L 11/14/23 11:52 Albumin 4.0 g/dL (3.5-5.2) 11/14/23 11:52 Globulin 1.9 g/dL (1.3-4.6) 11/14/23 11:52 Urine Color Yellow (Yellow) 11/14/23 13:46 Urine Appearance Slightly cloudy (CLEAR) 11/14/23 13:46 Urine pH 7 (5-7) 11/14/23 13:46 Ur Specific [place] 1.010 (1.005-1.030) 11/14/23 13:46 Urine Protein Neg (Negative) 11/14/23 13:46 Urine Glucose (UA) Norm (Normal) 11/14/23 13:46 Urine Ketones Negative (Negative) 11/14/23 13:46 Urine Blood Neg (Negative) 11/14/23 13:46 Urine Nitrate Negative (Negative) 11/14/23 13:46 Urine Bilirubin Neg (Negative) 11/14/23 13:46 Urine Urobilinogen Norm mg/dL (Negative) 11/14/23 13:46 Ur Leukocyte Esterase 2+ (Negative) H 11/14/23 13:46 Urine RBC 0-4 /hpf (0-2) H 11/14/23 13:46 Urine WBC Rare /hpf (0-5) 11/14/23 13:46 Ur Squamous Epith Cells 0-4 /hpf (0-5) H 11/14/23 13:46 Amorphous Sediment Not Reportable 11/14/23 13:46 Urine Bacteria 1+ /hpf (NONE) H 11/14/23 13:46 Urine Mucus 1+ /hpf 11/14/23 13:46 All radiology interpretation(s) finalized by discharge Discharge Plan Discharge Patient Disposition: Home Clinical Impression: Atypical chest pain Condition: Stable Prescriptions: No Action potassium gluconate 595 mg (99 mg) tablet 595 mg PO DAILY citalopram 40 mg tablet 40 mg PO DAILY@0800 sumatriptan succinate [Imitrex] 100 mg tablet 100 mg PO Q2H PRN (Reason: Migraine Headache) Hold Instructions: Resume on 08/23/22. Rx Instructions: do not exceed 2 doses per 24 hrs duloxetine [Cymbalta] 60 mg capsule,delayed release(DR/EC) 60 mg PO DAILY@0800 tramadol 50 mg tablet 50 mg PO Q6H PRN (Reason: Pain) buspirone 5 mg tablet 5 mg PO BID PRN (Reason: Anxiety) diclofenac sodium 75 mg tablet,delayed release (DR/EC) 75 mg PO BID PRN (Reason: PAIN OR INFLAMMATION) sulfamethoxazole-trimethoprim 800-160 mg tablet See Rx Instructions .ROUTE .COMPLEX Qty: 15 3RF Dose Instruction: TAKE ONE TABLET BY MOUTH THREE TIMES WEEKLY ON SATURDAY, SATURDAY, AND SATURDAY Rx Instructions: TAKE ONE TABLET BY MOUTH THREE TIMES WEEKLY ON SATURDAY, SATURDAY, AND SATURDAY prednisone 5 mg tablet 15 mg PO DAILY Qty: 90 5RF Humira Pen 40 mg/0.8 mL pen injector kit 40 mg SUBCUT Q14D Qty: 2 5RF estradiol 0.5 mg tablet 0.5 mg PO DAILY Rx Instructions: off 5 days; repeat cycle oxycodone-acetaminophen [Percocet] 10-325 mg tablet 1 tab PO QID PRN (Reason: pain) 30 Days Qty: 120 0RF isosorbide mononitrate 30 mg tablet extended release 24 hr 30 mg PO DAILY Qty: 60 3RF lisinopril 2.5 mg tablet 2.5 mg PO DAILY Qty: 90 3RF ondansetron HCl 8 mg tablet 8 mg PO Q8H PRN (Reason: nausea and vomiting) Qty: 30 1RF aspirin 81 mg tablet,delayed release (DR/EC) 81 mg PO DAILY Qty: 60 0RF nitroglycerin 0.4 mg tablet, sublingual 0.4 mg sublingual Q5M Qty: 10 0RF Rx Instructions: do not exceed 3 doses per episode ketoconazole 2 % shampoo See Rx Instructions .ROUTE .COMPLEX Rx Instructions: APPLY TOPICALLY TO SCALP 2-3 TIMES WEEKLY AND ALLOW TO SIT 5 MINUTES BEFORE RINSING. furosemide 20 mg tablet 20 mg PO DAILY PRN (Reason: SWELLING) clobetasol 0.05 % solution See Rx Instructions .ROUTE .COMPLEX Rx Instructions: APPLY TOPICALLY TO THE SCALP DAILY NEEDED FOR ITCHING. potassium chloride 20 mEq tablet extended release 20 meq PO DAILY Rx Instructions: WHEN TAKING LASIX cyclobenzaprine 10 mg tablet 10 mg PO TID PRN (Reason: Muscle Spasm) omeprazole 20 mg capsule,delayed release(DR/EC) 40 mg PO DAILY Rx Instructions: AT 8AM estradiol 0.01 % (0.1 mg/gram) cream See Rx Instructions .ROUTE .COMPLEX Rx Instructions: INSERT 1 g vaginally twice daily for 14 days and then apply twice weekly. metoprolol tartrate 25 mg tablet 25 mg PO BID magnesium 200 mg Tablet 200 mg PO DAILY biotin 5 mg Tablet 5 mg PO DAILY Discharge Orders: Discharge ED (Routine); Ordered 11/14/23 Ordered By: Suhail Tony Referrals: Anitra Millan FNP [Primary Care Provider] - Discharge Diet: Usual diet Discharge Activity: Resume usual activity Patient Instructions: Opioid Safety, Pain Management Activity Restrictions/Additional Instructions: Thank you for choosing [facility] for your healthcare needs today. It is very important that you follow up as instructed or that you return to the Emergency Department should you have concerns or if your condition changes or worsens in any way. You are seen today for chest discomfort your cardiac enzymes were normal. Your EKG does not show any acute changes I reviewed your case with Dr. Godoy she recommends that we do an outpatient Lexiscan sestamibi stress test and have you follow-up with him in the office return to the emergency room if you have any further problems. Continue to take all of your previously prescribed medications. Coding Level of Care Code ED Legal Officer for Casi Miranda
[2023-11-14 12:05] LABS: Basophils % 0.3 %; Eosinophils % 0.3 %; Hematocrit 33.7 % (36-47); Lymphocytes # 2.6 10^3/uL (0.8-4.8); Mean Corpuscular HGB Conc 30.3 g/dL (30-55); Mean Corpuscular Volume 102.4 fl (85-98); Mean Platelet Volume 7.9 fL (7.4-10.4); Monocytes # 0.9 10^3/uL (0.2-0.9); Neutrophils # 5.96 10^3/uL (1.8-7.7); Nucleated Red Blood Cells % 0 %; Platelet Count 532 10^3/cmm (157-399); Red Blood Count 3.29 10^6/uL (3.85-5.65); Red Cell Distribution Width 15.9 % (12.1-15.1); White Blood Count 9.62 10^3/uL (3.29-11.43)
[2023-11-14 12:24] LABS: Alanine Aminotransferase 23 U/L (0-33); Alkaline Phosphatase 58 U/L (35-105); Anion Gap 15.6 (5-19); Aspartate Amino Transferase 17 U/L (0-32); Blood Urea Nitrogen 20 mg/dL (6-20); Calcium 9.1 mg/dL (8.5-10.5); Carbon Dioxide 27 mmol/L (22-29); Chloride 100 mmol/L (98-107); Creatinine Clr Calc Pharmacy 57.1094; Globulin 1.9 g/dL (1.3-4.6); Glomerular Filtration Rate 46.5 mL/min (90-130); Glucose 96 mg/dL (65-115); Osmolality Calculated 288 mOsm/kg (285-295); Potassium 4.6 mmol/L (3.5-5.1); Sodium 138 mmol/L (136-145); Total Bilirubin 0.7 mg/dL (0.15-1.2); Total Protein 5.9 g/dL (6.6-8.7)
[2023-11-14 12:30] LABS: Troponin(5th) Baseline 25 ng/L (0-10)
--- NOTE | 2023-11-14 12:30 | PC.NURSE ---
NITRO PASTE ORDERED FOR PATIENT. BLOOD PRESSURE RECYCLED. BLOOD PRESSURE 106/65 PRIOR TO ADMINISTRATION OF NITRO PASTE. ORDER VERIFIED WITH DR PEÑA. NEW ORDERS FOR 500ML BAG OF NORMAL SALINE. VERBAL ORDERS TO CONTINUE WITH NITRO PASTE WITH FLUIDS.
[2023-11-14] MEDS: sodium chloride 0.9% 500 ML 999 ML IV ×2 (12:52→14:18)
[2023-11-14 12:54] VITALS: BP 100/58; PULSE 54
[2023-11-14] MEDS: nitroglycerin 1 gm/inch oint Pkt 0.5 INCH TOPICAL (12:54)
[2023-11-14 13:00] VITALS: BP 103/61; PULSE 55; O2SAT 94
[2023-11-14 13:30] VITALS: BP 95/54; PULSE 51; O2SAT 97
--- NOTE | 2023-11-14 13:35 | ECG_ITS ---
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 Measurements Intervals [place] Rate: 52 P: 54 HI: 143 QRS: 38 QRSD: 67 T: 50 QT: 439 QTc: 410 Interpretive Statements SINUS BRADYCARDIA LOW QRS VOLTAGE IN PRECORDIAL LEADS [QRS DEFLECTION < 1.0 mV IN CHEST LEADS] MODERATE ST DEPRESSION [0.05+ mV ST DEPRESSION] Compared to ECG 11/14/2023 11:40:17 Low QRS voltage now present ST (T wave) deviation now present Electronically Signed On 11-14-2023 22:11:03 CDT by Kristi Godoy M.D. [id number]
[2023-11-14 14:23] LABS: Bilirubin Urine Neg (Negative); Blood Urine Neg (Negative); Glucose Urine UA Norm (Normal); Ketones Urine Negative (Negative); Nitrate Urine Negative (Negative); Protein Urine Neg (Negative); Urine Appearance Slightly Cloudy (CLEAR); Urine Color Yellow (Yellow); Urobilinogen Urine Norm (Negative); pH Urine 7 (5-7)
[2023-11-14 14:24] LABS: Add Urine Microscopic? YES; Leukocyte Esterase Urine 2+ (Negative)
[2023-11-14 14:24] LABS: Troponin 5 2HR 20.56 ng/L (0-10); Troponin 5 2HR Delta -4.44 ABS# (0-10)
[2023-11-14 14:25] LABS: RBC Urine 0-4 /hpf (0-2)
[2023-11-14 14:26] LABS: Bacteria Urine 1+ /hpf; Mucus Urine 1+ /hpf; Squamous Epithelial Cell Urine 0-4 /hpf (0-5); WBC Urine RARE /hpf (0-5)
[2023-11-14 15:17] VITALS: BP 103/66; PULSE 52; O2SAT 93
[2023-11-14 15:58] VITALS: BP 121/73; PULSE 57; O2SAT 94
--- NOTE | 2023-11-14 16:18 | DCPLANNER ---
faxed referral and order for er f/u to scheduling
== END 2023-11-14 16:05 | disposition home or self-care (01) ==
PROVIDERS: Emergency Provider Family Medicine; PCP Nurse Practitioner Family
DX: R07.89 Other chest pain (principal); I10 Essential (primary) hypertension; I25.10 Atherosclerotic heart disease of native coronary artery without angina pectoris; M06.042 Rheumatoid arthritis without rheumatoid factor, left hand; M06.041 Rheumatoid arthritis without rheumatoid factor, right hand; J45.909 Unspecified asthma, uncomplicated; Z79.899 Other long term (current) drug therapy; Z79.82 Long term (current) use of aspirin
CPT/HCPCS: 71045; 80053; 81001; 84484; 85025; 93005; 96360; 96361; 99285; J7040

== ENCOUNTER 2023-12-24 08:06 | Outpatient (CLI) | payer OTHER, MEDICAID, SELFPAY ==
[2023-12-24 08:25] VITALS: BMI 35.4
--- NOTE | 2023-12-24 08:29 | NMCV_ITS ---
NM keshav perf SPECT r/s* [id number] Cornell, Sivan Age: 58 Gender: F : 1965 Exam Date: 12/24/2023 08:29 Ordering Phys: Suhail Tony DO Technologist: MARGARITA Hernadez Exam Location: [facility] Indications: Chest discomfort STRESS TEST [facility] IMAGE PROTOCOL Rest/Stress 1 Lexiscan Day Radiopharmaceutical Dose (mCi) Administration Site Administered by Rest: Tc-99m 10.6 IV MARGARITA Hernadez Sestamibi Stress:Tc-99m 32.9 IV MARGARITA Hernadez Sestamibi Rest: 24-Dec-2023 60 Discovery 630 Stress: 24-Dec-2023 30 Discovery 630 0.4mg Lexiscan. Supine position only as patient was unable to lay prone. SPECT RESULTS Technical Quality: Good Raw Data Analysis: Breast attenuation Image Corrections: No attenuation or motion correction applied Summed Stress Score: 5 Summed Rest Score: 5 Summed Difference Score: 1 PERFUSION FINDINGS There is a moderate sized, mostly fixed perfusion defect noted in the inferolateral and apical lateral lafle[place]. This is consistent with moderate sized area of prior infarct with minimal ramesh-infarct ischemia seen in the left circumflex artery territory. FUNCTIONAL RESULTS (calculated via Gated SPECT) Stress Image LV EF (%): 76 Stress EDV (mL):68 TID: 1.13 Stress ESV (mL):16 FUNCTIONAL FINDINGS: There is normal left ventricular systolic function. IMPRESSIONS 1. Moderate sized area of prior infarct with minimal ramesh-infarct ischemia seen in the left circumflex artery territory. 2. LV systolic function is normal Gerard Palumbo MD (Electronically Signed) Final Date: 27 December 2023 12:05 S
--- NOTE | 2023-12-24 08:29 | ECG_ITS ---
[facility] Test Date: 2023-12-24 Pat Name: Sivan Sarabia Department: Room: Gender: Female Cook Short Order: : 1965 Requested By: Suhail Sharif Order Number: [id number] Reading MD: Interpretive Statements Lung unchanged pre/post procedure; Intraprocedure shortess of breath; Symptoms resoled by discharge [id number]
[2023-12-24] MEDS: regadenoson 0.4 Mg/5 ml Syringe IVP (10:18)
[2023-12-24 10:36] VITALS: BP 105/74; PULSE 67
== END 2023-12-24 08:07 | disposition home or self-care (01) ==
LOC: CDL 08:07
PROVIDERS: PCP Nurse Practitioner Family; Visit Provider Family Medicine
DX: R07.9 Chest pain, unspecified (principal); R06.02 Shortness of breath
CPT/HCPCS: 36415; 78452; 93017; 96374; A9500; J2785

== ENCOUNTER → 2024-01-20 10:34 | Outpatient (BNVA) | payer OTHER, MEDICAID, SELFPAY | PROVIDERS: Visit Provider Specialist | DX: M18.0 Bilateral primary osteoarthritis of first carpometacarpal joints (principal) | CPT/HCPCS: 73130 ==

== ENCOUNTER 2024-01-20 12:14 | Outpatient (CLI) | payer OTHER, MEDICAID, SELFPAY | END 2024-01-20 12:15 | disposition home or self-care (01) | LOC: SPT 12:14 | PROVIDERS: Visit Provider Specialist | DX: Z46.89 Encounter for fitting and adjustment of other specified devices (principal); M18.0 Bilateral primary osteoarthritis of first carpometacarpal joints | CPT/HCPCS: 97760; L3924 ==

== ENCOUNTER → 2024-01-30 14:42 | Outpatient (BNVA) | payer OTHER, MEDICAID, SELFPAY | PROVIDERS: PCP Nurse Practitioner Family; Visit Provider Orthopaedic Surgery | DX: Z01.818 Encounter for other preprocedural examination (principal); M43.16 Spondylolisthesis, lumbar region | CPT/HCPCS: 72070; 72110; 80053; 81003; 81015; 85025 ==

== ENCOUNTER → 2024-02-26 14:04 | Outpatient (BNVA) | payer OTHER, MEDICAID, SELFPAY | PROVIDERS: PCP Nurse Practitioner Family; Visit Provider Family Medicine | DX: Z01.818 Encounter for other preprocedural examination (principal) | CPT/HCPCS: 81003; 87086 ==

== ENCOUNTER → 2024-07-14 15:12 | Outpatient (BNVA) | payer MEDICAID, SELFPAY | PROVIDERS: PCP Nurse Practitioner Family; Visit Provider Internal Medicine Rheumatology | DX: M06.041 Rheumatoid arthritis without rheumatoid factor, right hand (principal); M06.042 Rheumatoid arthritis without rheumatoid factor, left hand; Z79.899 Other long term (current) drug therapy; Z71.89 Other specified counseling | CPT/HCPCS: 36415; 80076; 82565; 85025; 85651; 86140 ==

== ENCOUNTER → 2024-07-27 11:39 | Outpatient (BNVA) | payer MEDICAID, SELFPAY | PROVIDERS: PCP Nurse Practitioner Family; Visit Provider Family Medicine | DX: Z01.818 Encounter for other preprocedural examination (principal) | CPT/HCPCS: 81003; 87086 ==

== ENCOUNTER 2024-08-03 15:28 | Inpatient (IN) | payer MEDICAID, SELFPAY ==
[2024-08-03] VITALS (24 sets, daily range): BP systolic 87–142; BP diastolic 51–90; PULSE 67–120; RESP 14–24; TEMP 36.2–36.9; O2SAT 90–100; BMI 36.1
[2024-08-03] MEDS: sodium chloride 0.9% 1,000 ML 30 ML IV (09:32)
--- NOTE | 2024-08-03 09:34 | W.PM.OPSFHP ---
Same Day Surgery H&P Indication for Procedure/HPI DATE OF PROCEDURE: August 03, 2024 CHIEF COMPLAINT/INDICATIONFOR SURGICAL PROCEDURE: Back and leg pain PREOP DIAGNOSIS: Lumbar stenosis with neurogenic claudication PLANNED PROCEDURE: Operation Date: 08/03/24 10:40 Proposed Procedures p Spinal Fusion PSF(Not Applicable) - Rogelio Messer, DO s Lumbar Decompression(Not Applicable) - Rogelio Messer, DO s Lumbopelvic Fixation(Not Applicable) - Rogelio Messer, DO s Sacroiliac Joint Fusion SI Joint Fusion(Bilateral) - Rogelio Messer, DO Medications/Allergies* Home Medications ?Medication ?Instructions ?Recorded ?Confirmed ?Type citalopram 40 mg tablet 40 mg PO DAILY@0800 08/19/19 07/31/24 History sumatriptan succinate 100 mg 100 mg PO Q2H PRN Migraine Headache 06/23/20 07/31/24 History tablet (Imitrex) Held on 08/16/22. Instructions: Resume on 08/23/22. duloxetine 60 mg capsule,delayed 60 mg PO DAILY@0800 09/22/20 07/31/24 History release (Cymbalta) potassium gluconate 595 mg (99 mg) 595 mg PO DAILY 02/14/21 07/31/24 History tablet buspirone 5 mg tablet 5 mg PO BID PRN Anxiety 03/20/22 07/31/24 History biotin 5 mg tablet 5 mg PO DAILY 09/13/22 07/31/24 History diclofenac sodium 75 mg 75 mg PO BID PRN PAIN OR 03/27/23 07/31/24 History tablet,delayed release INFLAMMATION clobetasol 0.05 % scalp solution See Rx Instructions .Route .COMPLEX 11/14/23 07/31/24 History cyclobenzaprine 10 mg tablet 10 mg PO TID PRN Muscle Spasm 11/14/23 07/31/24 History ketoconazole 2 % shampoo See Rx Instructions .Route .COMPLEX 11/14/23 07/31/24 History gabapentin 100 mg capsule 100 mg PO TID 01/30/24 07/31/24 History calcium 333 mg-vit D3 200 1 tab PO DAILY 02/26/24 07/31/24 History unit-magnesium 133 mg-zinc 5 mg tablet cholecalciferol (vitamin D3) 50 50 mcg PO DAILY 02/26/24 07/31/24 History mcg (2,000 unit) capsule ferrous sulfate 325 mg (65 mg 325 mg PO DAILY 02/26/24 07/31/24 History iron) tablet (Feosol) estradiol 0.5 mg tablet 0.5 mg PO DAILY 07/27/24 07/31/24 History metoprolol tartrate 25 mg tablet 25 mg PO BID 07/31/24 07/31/24 History sulfamethoxazole 800 160 - 800 tab PO QMWF 07/31/24 07/31/24 History mg-trimethoprim 160 mg tablet Allergies/Adverse Reactions Allergy/AdvReac Type Severity Reaction Status Date / Time Iodinated Contrast Media Allergy Unknown Unknown Verified 07/27/24 11:28 tetracycline Allergy ADR-Nausea Verified 07/27/24 11:28 adalimumab (From Humira(CF)) AdvReac Intermediate body rash Verified 07/27/24 11:28 etanercept (From Enbrel) AdvReac Intermediate hair loss Verified 07/27/24 11:28 and bruising Current Medications: Generic Name Dose Route Start Last Admin Trade Name Freq PRN Reason Stop Dose Admin Sodium Chloride 1,000 mls @ 30 mls/hr 08/03/24 09:30 08/03/24 09:32 Sodium Chloride 0.9% IV 08/04/24 09:29 30 mls/hr .Q24H CORBY Administration Pertinent History/Comorbid Conditions* Medical History (Updated 01/30/24 @ 16:01 by Rogelio Messer DO) Shoulder pain, acute Sinus tachycardia SVT (supraventricular tachycardia) Polymyalgia rheumatica Rapid heart rate Hypertension Heart palpitations Seronegative rheumatoid arthritis of both hands Immunization counseling Inflammatory arthritis High risk medication use Chronic steroid use Polymyalgia rheumatica Spina bifida Asthma Anxiety Numbness and tingling Fibromyalgia PMR (polymyalgia rheumatica) Hx of migraines Radiculopathy Neuralgia of right thigh Trochanteric bursitis of right hip Chronic back pain Failed back syndrome, lumbosacral Spondylolisthesis, lumbar region Intervertebral disc disorders with radiculopathy, lumbosacral region Arthritis of right acromioclavicular joint Spondylolysis, cervical region Encounter for long-term opiate analgesic use Surgical History (Updated 07/13/22 @ 11:35 by Amberly Odonnell DO) Hx of section x 2 History of back surgery x 2 with hardware Hx of hysterectomy, total S/P insertion of spinal cord stimulator Hx of repair of right rotator cuff Family History (Updated 12/03/22 @ 14:24 by Sophie Dolan LPN) Diabetes Father Heart disease Father Hypercholesteremia Father Breast cancer Mother Hypertension Father Uterine cancer Sister Stroke Grandmother Denies family history of Colon cancer Ovarian cancer Social History Smoking and tobacco/nicotine status: never used tobacco/nicotine Pertinent Exam Findings alert and procedure specific exam findings Recommendations Surgery/Procedure today Coding Level of Care Code Acute Code for Chg Ruben
--- NOTE | 2024-08-03 09:50 | ANES.PREANE2 ---
Pre-Anesthetic Assessment Height/Weight: Height 5 ft 3 in Weight 204 lb Temp Pulse Resp BP Pulse Ox O2 Del Method 97.2 F L 67 18 127/80 96 Room Air 08/03/24 09:29 08/03/24 09:29 08/03/24 09:29 08/03/24 09:29 08/03/24 09:29 08/03/24 09:30 Preop Diagnosis: Lumbar stenosis with neurogenic claudication Operation Date: 08/03/24 10:40 Proposed Procedures p Spinal Fusion PSF(Not Applicable) - Rogelio Messer DO s Lumbar Decompression(Not Applicable) - Rogelio Messer DO s Lumbopelvic Fixation(Not Applicable) - Rogelio Messer DO s Sacroiliac Joint Fusion SI Joint Fusion(Bilateral) - Rogelio Messer DO Was Beta Kalie taken within 24 hours: Yes Was Clonidine taken within 24 hours: N/A Social No alcohol and No tobacco Exam alert, oriented x 3, clear to auscultation bilaterally and regular rate & rhythm Airway Submandibular: within normal limits Cervical ROM: within normal limits Mallampati: Class II Dentition: full Comments: Comments: Large neck circumference Anesthetic Plan ASA status: 3 Anesthesia: General Other: No prior issues with anesthesia NPO since yesterday evening History of hypertension on lisinopril and metoprolol KETTY compliant with CPAP CAD GERD on omeprazole Rheumatoid arthritis and polymyalgia rheumatica, on chronic prednisone 15 mg daily. Will plan on stress dose steroids Labs reviewed 07/14/2024 and acceptable for procedure Stress test in December was negative Plan for GETA Medications/Allergies Home Medications ?Medication ?Instructions ?Recorded ?Confirmed ?Last Taken ?Type citalopram 40 mg tablet 40 mg PO DAILY@0800 08/19/19 07/31/24 08/03/24 History sumatriptan succinate 100 mg 100 mg PO Q2H PRN Migraine Headache 06/23/20 08/03/24 07/23/21 History tablet (Imitrex) Held on 08/16/22. Instructions: Resume on 08/23/22. duloxetine 60 mg capsule,delayed 60 mg PO DAILY@0800 09/22/20 07/31/24 08/03/24 History release (Cymbalta) potassium gluconate 595 mg (99 mg) 595 mg PO DAILY 02/14/21 07/31/2408/03/25 History tablet buspirone 5 mg tablet 5 mg PO BID PRN Anxiety 03/20/22 07/31/24 08/01/24 History nitroglycerin 0.4 mg sublingual 0.4 mg sublingual Q5M #10 tabs 08/16/22 08/03/24 Unknown Rx tablet biotin 5 mg tablet 5 mg PO DAILY 09/13/22 07/31/24 08/03/24 History diclofenac sodium 75 mg 75 mg PO BID PRN PAIN OR 03/27/23 07/31/24 07/24/24 History tablet,delayed release INFLAMMATION lisinopril 2.5 mg tablet 2.5 mg PO DAILY #90 tabs 09/03/23 07/31/24 08/02/24 Rx clobetasol 0.05 % scalp solution See Rx Instructions .Route .COMPLEX 11/14/23 08/03/24 Unknown History cyclobenzaprine 10 mg tablet 10 mg PO TID PRN Muscle Spasm 11/14/23 08/03/24 08/01/24 History ketoconazole 2 % shampoo See Rx Instructions .Route .COMPLEX 11/14/23 08/03/24 Unknown History isosorbide mononitrate 30 mg 30 mg PO DAILY #60 tabs 12/11/23 07/31/24 08/03/24 Rx tablet,extended release 24 hr [facility] Joint Brace #2 ea 01/20/24 07/14/24 Unknown Rx gabapentin 100 mg capsule 100 mg PO TID 01/30/24 07/31/24 08/02/24 History calcium 333 mg-vit D3 200 1 tab PO DAILY 02/26/24 07/31/24 08/03/24 History unit-magnesium 133 mg-zinc 5 mg tablet cholecalciferol (vitamin D3) 50 50 mcg PO DAILY 02/26/24 07/31/24 08/03/24 History mcg (2,000 unit) capsule ferrous sulfate 325 mg (65 mg 325 mg PO DAILY 02/26/24 07/31/24 08/03/24 History iron) tablet (Feosol) estradiol 0.01% (0.1 mg/gram) See Rx Instructions .Route 04/06/24 07/31/24 07/31/24 Rx vaginal cream .COMPLEX #42.5 grams certolizumab pegol 200 mg/mL 200 mg SUBCUT .[id number] #6 ea 07/14/24 08/03/24 Unknown Rx subcutaneous syringe kit (Cimzia) certolizumab pegol 400 mg/2 mL See Rx Instructions SUBCUT 07/14/24 08/03/24 Unknown Rx (200 mg/mL x2) subcutaneous .COMPLEX #3 ea syringe kit (Cimzia Starter Kit) omeprazole 20 mg capsule,delayed 40 mg (2 x 20 mg) PO DAILY #180 07/14/24 07/31/24 08/03/24 Rx release caps prednisone 5 mg tablet 15 mg (3 x 5 mg) PO DAILY #90 tabs 07/14/24 07/31/24 08/03/24 Rx Bone Growth Stimulator #1 ea 07/23/24 Unknown Rx estradiol 0.5 mg tablet 0.5 mg PO DAILY 07/27/24 07/31/24 08/03/24 History hydrocodone 5 mg-acetaminophen 325 1 tab PO Q8H PRN pain 30 days #30 07/29/24 08/03/24 Unknown Rx mg tablet tabs metoprolol tartrate 25 mg tablet 25 mg PO BID 07/31/24 07/31/24 08/03/24 History sulfamethoxazole 800 160 - 800 tab PO QMWF 07/31/24 07/31/24 08/03/24 History mg-trimethoprim 160 mg tablet Allergies Allergy/AdvReac Type Severity Reaction Status Date / Time Iodinated Contrast Media Allergy Unknown Unknown Verified 08/03/24 09:41 tetracycline Allergy ADR-Nausea Verified 08/03/24 09:41 adalimumab (From Humira(CF)) AdvReac Intermediate body rash Verified 08/03/24 09:41 etanercept (From Enbrel) AdvReac Intermediate hair loss Verified 08/03/24 09:41 and bruising Current Medications Generic Name Dose Route Start Last Admin Trade Name Freq PRN Reason Stop Dose Admin Sodium Chloride 1,000 mls @ 30 mls/hr 08/03/24 09:30 08/03/24 09:32 Sodium Chloride 0.9% IV 08/04/24 09:29 30 mls/hr .Q24H CORBY Administration PFSH Anesthesia Medical History Shoulder pain, acute Sinus tachycardia SVT (supraventricular tachycardia) Polymyalgia rheumatica Rapid heart rate Hypertension Heart palpitations Seronegative rheumatoid arthritis of both hands Immunization counseling Inflammatory arthritis High risk medication use Chronic steroid use Polymyalgia rheumatica Spina bifida Asthma Anxiety Numbness and tingling Fibromyalgia PMR (polymyalgia rheumatica) Hx of migraines Radiculopathy Neuralgia of right thigh Trochanteric bursitis of right hip Chronic back pain Failed back syndrome, lumbosacral Spondylolisthesis, lumbar region Intervertebral disc disorders with radiculopathy, lumbosacral region Arthritis of right acromioclavicular joint Spondylolysis, cervical region Encounter for long-term opiate analgesic use Surgical History Hx of section x 2 History of back surgery x 2 with hardware Hx of hysterectomy, total S/P insertion of spinal cord stimulator Hx of repair of right rotator cuff Family History Mother Breast cancer Father Diabetes Hypertension Heart disease Hypercholesteremia Grandmother Stroke Sister Uterine cancer Denies family history of Colon cancer Ovarian cancer Social History Smoking and tobacco/nicotine status: never used tobacco/nicotine Data Anesthesia Cardiac Studies: Echocardiogram 08/16/22 Sestamibi Stress Test (Cardiology) 12/24/23 Holter Monitor 02/22/22
[2024-08-03] MEDS: ceFAZolin 2,000 mg SDV 2000 MG IVP ×2 (10:12→18:00)
[2024-08-03 10:37] LABS: Add Urine Microscopic? NO
[2024-08-03 10:42] LABS: Bilirubin Urine Negative (Negative); Blood Urine Negative (Negative); Glucose Urine UA Negative (Normal); Ketones Urine Negative (Negative); Leukocyte Esterase Urine Negative (Negative); Nitrate Urine Negative (Negative); Protein Urine Negative (Negative); Specific Gravity, Urine 1.016 (1.005-1.030); Urine Appearance Clear (CLEAR); Urine Color Yellow (Yellow); Urobilinogen Urine 0.2 mg/dL (Negative)
[2024-08-03 10:56] LABS: Add Urine Culture? No; Charge for UA Resulting for Rev
[2024-08-03] MEDS: vancomycin 1,000 MG SDV 1000 MG XX (11:09)
[2024-08-03] MEDS: lidocaine-epi 1% 20 mL INJ INJECTION (11:09)
[2024-08-03] MEDS: heparin, porcine 1,000 unit/mL INJ 10 mL 10000 UNIT IRRIGATION (11:10)
[2024-08-03 11:18] LABS: Anion Gap 14.3 (5-19); Blood Urea Nitrogen 18 mg/dL (6-20); Carbon Dioxide 24 mmol/L (22-29); Chloride 105 mmol/L (98-107); Creatinine Clr Calc Pharmacy 75.4253; Glomerular Filtration Rate 64.8 mL/min (90-130); Glucose 130 mg/dL (65-115); Osmolality Calculated 292 mOsm/kg (285-295); Potassium 4.3 mmol/L (3.5-5.1); Sodium 139 mmol/L (136-145)
--- NOTE | 2024-08-03 14:01 | SUR.OPER ---
updated on surgical progress.
--- NOTE | 2024-08-03 15:26 | XR_ITS ---
WS: [id number] XR lumbar spine 2-3V* [id number] REASON FOR EXAM: GEOVANI IMAGES FINDINGS: Removal of dorsal column stimulator. No device remnant is noted. XR/XR lumbar spine 2-3V* [id number] IMPRESSION: Removal of dorsal column stimulator.
--- NOTE | 2024-08-03 15:32 | PM.OP ---
Operative Report Date of procedure: August 03, 2024 Pre-op diagnosis: Degenerative scoliosis Lumbar stenosis with neurogenic claudication Post-op diagnosis: same Procedure done: 1. T9 to pelvis posterior spine fusion 2. T9 to S1 posterior spine instrumentation 3. Lumbopelvic instrumentation 4. Right open SI fusion 5. Left open SI fusion 6. L3-4 laminectomy with partial facetectomies 7. L4-5 laminectomy with partial facetectomies 8. Use of computer navigation/stereotactic for the spine 9. Bone marrow aspirate from right iliac crest 10. Use of autograft from same incision 11. Use of allograft 12. removal of deep hardware from spine Surgeon: Rogelio Messer DO Estimated blood loss (mL): 600 Procedure: 1. T9 to pelvis posterior spine fusion 2. T9 to S1 posterior spine instrumentation 3. Lumbopelvic instrumentation 4. Right open SI fusion 5. Left open SI fusion 6. L3-4 laminectomy with partial facetectomies 7. L4-5 laminectomy with partial facetectomies 8. Use of computer navigation/stereotactic for the spine 9. Bone marrow aspirate from right iliac crest 10. Use of autograft from same incision 11. Use of allograft 12. removal of deep hardware from spine Patient brought to the operative suite after undergoing anesthesia was placed in the prone position. All areas impingement well-padded. Patient is prepped and draped in normal sterile fashion. Skin incisions made using the previous skin incision extending slightly above and below. The thoracolumbar fascia was split and subperiosteal dissection was made out to the transverse process of T9 down to L5 bilaterally as well as the sacral ala bilaterally. Sacrum and SI joints were dissected out as well. The L5-S1 her previous fusion was identified screws were removed the S1 screw on the left was found to be broken. Next attension was was brought to the bone marrow aspirate. This was done by using the [employer] cell bone marrow aspiration kit. The iliac crest was identified and through a separate incision through the fascia and the bone marrow aspiration kit was inserted into the right iliac crest. Bone marrow aspirate was taken 20 cc. This was mixed with the allograft. Next attention was brought to placing the fiducial for the C-arm. This is going to be used for the computer navigation. 2 pins were placed into the right iliac crest which were later moved to the end of the case. The fiducial was attached. C-arm was brought in and then spun around the patient. The information from serum was then later used after is loaded the computer for the placement of pedicle screws. Next attention was brought to placing the pedicle screws. This was done at T9 bilaterally, T10 bilaterally, T11 bilaterally, T12 bilaterally, L1 was skipped on the left side. But L1 was placed on the right. L2 bilaterally, L3 bilaterally, L4 bilaterally, L3 bilaterally L4 bilaterally, L5 was skipped on the right but 1 was placed on the left side. And S1 on the right. Left arm was in place because of the previous broken screw. The computer navigated awl was inserted into the pedicle. Followed by the pedicle feeler. Followed by placement of the screws using the computer navigation. At all these levels. Next attention was placing the iliac screws. This was done using the computer navigated awl. This is placed through the ala across the SI joint into the iliac crest. Then followed by the pedicle feeler. Followed by computer navigated tap. 90 mm 9.5 millimeter pedicle screws were then placed into the iliac crest. This was done bilaterally. A 70 mm screw was placed on the left side. Next attention was brought to the open SI joint fusions. This was done by using the computer navigated awl crossing the SI joint. Through direct visualization as well. The pedicle feeler was used to make sure was crossed no breaches. The canal was then filled with bone graft. And then a computer navigated SI joint fusion screws placed across the SI joint. This process was done on both the right and the left side. Once all the screws were placed attention was then brought to doing the laminectomy at L3-4. Patient had previous laminectomies performed on the right side. At this point the spinous process was taken down at L3-4. High-speed bur was used to take down the laminectomy. The facet joints were also taken down using the high-speed bur burring completely out so that the L3 nerves were identified. The facet was taken down and the medial aspect of the facet up to the pedicle was taken down bilaterally of the L4 pedicle. Using Kerrison rongeur. Ligamentum flavum was taken down as far as the kidney there was scarring. However the dura was completely opened and felt to be adequately decompressed. The L3 nerves were traced around the L3 pedicle out where the foramen was in the L4 nerves were traced around the L4 pedicles. Laminectomy was performed at L4 at the L4-5 level. Limb was taken down with a high-speed bur medial aspect of facet joints were taken down the high-speed bur curved. Kerrison we reviewed used to remove the remaining bone. The ligament plate was taken down from L4-L5. The L4 nerve roots were traced out the L4-5 foramen and the L5 nerve was traced around the L5 pedicles bilaterally. The dura fluid up to the top there is significant stenosis at this level and significant thickening of the ligamentum flavum. Wounds were then irrigated. The marybeth was then attached from T9, T10, T11, T12 L1, L2 L3, L4, L5, S1 and into the iliac screw completing the lumbopelvic fixation. The screw caps were then torqued into position. This was done bilaterally. Next attention was brought to decorticating the transverse processes offrom T9 down to L5 bilaterally and sacral ala bilaterally as well as the SI joints. Osteoamp bone graft was then packed into the gutters. And across the SI joint. Vancomycin powder was placed deep drain was placed and wound was closed in layered fashion with Vicryl and Monocryl. Sterile dressings were applied patient was transferred to the PACU in stable condition.
[2024-08-03] MEDS: fentaNYL 50 mcg/mL INJ 2mL IVP (16:02)
[2024-08-03] MEDS: HYDROmorphone 1 mg/mL INJ 1 mL 0.5 MG IVP ×2 (16:10→16:20)
--- NOTE | 2024-08-03 17:22 | ANE.PACU2 ---
Inpatient post-anesthesia follow up: Airway intact: Yes Vital signs: Temperature 97.7 F Pulse Rate 73 Respiratory Rate 17 Blood Pressure 98/61 Pulse Oximetry 91 Oxygen Delivery Me thod Room Air Oxygen Flow Rate 1 Fraction of Inspir ed Oxygen Hydration adequate: Yes Nausea and vomiting: No Pain level: 1 Mental status: Baseline
[2024-08-03] MEDS: ketorolac 30 mg/mL INJ IVP (18:00)
[2024-08-03] MEDS: lactated ringers 1,000 ML 90 ML IV (18:00)
[2024-08-03] MEDS: morphine 4 mg/mL SDV 1 mL 2 MG IVP (18:01)
[2024-08-03] MEDS: docusate sodium 100 mg Capsule PO (18:01)
[2024-08-03] MEDS: lanolin oint 7 gm 1 APPLIC TOPICAL (18:34)
[2024-08-03] MEDS: HYDROcodone-acetaminophen 10-325 mg Tablet PO ×2 (18:35→22:22)
[2024-08-03] MEDS: HYDROMORPHONE HCL 0.5 MG/0.5 ML INJ IVP ×2 (21:04→23:37)
[2024-08-03] MEDS: gabapentin 100 mg Capsule PO (21:04)
[2024-08-04] VITALS (12 sets, daily range): BP systolic 95–130; BP diastolic 60–67; PULSE 84–136; RESP 16–22; TEMP 36.5–37; O2SAT 91–96; BMI 36.1
[2024-08-04] MEDS: ceFAZolin 2,000 mg SDV 2000 MG IVP ×2 (01:10→09:04)
[2024-08-04] MEDS: lactated ringers 1,000 ML 90 ML IV (01:11)
[2024-08-04] MEDS: HYDROcodone-acetaminophen 10-325 mg Tablet PO ×2 (02:11→06:41)
[2024-08-04] MEDS: ondansetron 2 mg/ML SDV 2 mL 4 MG IVP (02:46)
[2024-08-04] MEDS: HYDROMORPHONE HCL 0.5 MG/0.5 ML INJ IVP (03:31)
[2024-08-04] MEDS: ketorolac 30 mg/mL INJ IVP ×3 (05:25→15:00)
[2024-08-04] MEDS: BuSPIRONE 10 mg Tablet 5 MG PO (05:27)
--- OUTSIDE RECORDS SUMMARY | 2024-08-04 06:52 | XMS_ITS | Clinical Summary ---
Author Organization [facility] Address [address] [place] [address] Care Team Providers Care Professor Of Theology Name Role Phone Luis Eduardo Kaur Primary Care Provider [phone] Allergies No known active allergies Medications CITALOPRAM HYDROBROMIDE (CELEXA ORAL) Take 40 mg by mouth daily . Active ALPRAZOLAM (XANAX ORAL) Take 0.5 mg by mouth daily at bedtime . Active SUMAtriptan (IMITREX) 25 mg tablet Take 25 mg by mouth every 2 hours as needed for Other (See Comment) may repeat in 2 hours; max dose 200mg in 24 hours . Active ACETAMINOPHEN/DIP HENHYDRAMINE (TYLENOL PM ORAL) Take by mouth. Active oxyCODONE (ROXICODONE) 10 mg tablet Take 1 Tablet (10 mg) by mouth every 4 hours as needed for Pain, Severe (For Pain Scale 7-10). Max Daily Amount: 60 mg 120 Tablet 0 6 Active sennosides-docusa te sodium (SENEXON-S) 8.6-50 mg tablet Take 1 Tablet by mouth 1 time daily as needed. Active cyclobenzaprine (FLEXERIL) 10 mg tablet TAKE ONE TABLET BY MOUTH THREE TIMES DAILY NEEDED FOR SPASM 90 Tablet 7 Active gabapentin (NEURONTIN) 600 mg tablet TAKE ONE TABLET BY MOUTH THREE TIMES DAILY. 90 Tablet 7 Active ADVAIR DISKUS 500-50 mcg/dose disk inhaler 7 Active gabapentin (NEURONTIN) 100 mg capsule 7 Active PROAIR HFA 90 mcg/actuation inhaler 7 Active oxyCODONE-acetami nophen (PERCOCET) 10-325 mg Tablet 7 Active omeprazole (PriLOSEC) 20 mg Capsule, Delayed Release(E.C.) 7 Active gabapentin (NEURONTIN) 300 mg capsule 7 Active montelukast (SINGULAIR) 10 mg tablet Take 10 mg by mouth daily at bedtime. Active Active Problems Problem Noted Date Diagnosed Date Lumbosacral radiculopathy at L5 08/23/2015 Spondylolisthesis, grade 2 08/31/2014 Immunizations Immunization Administration Dates Next Due Influenza Seasonal Unspecified Formulation IM Family History Medical History Relation Name Comments Asthma Father Diabetes Father Heart Failure Father Hypertension Father Cancer Mother Relation Name Status Comments Father Mother Social History Tobacco Use Types Packs/Day Years Used Date Smoking Tobacco: Never Smokeless Tobacco: Never Alcohol Use Standard Drinks/Week Comments No 0 (1 standard drink = 0.6 oz pur e alcohol) Comments No Sex and Gender Information Value Date Recorded Sex Assigned at Not on file Legal Sex Female 11:48 AM [employer] Gender Identity Not on file Sexual Orientation Not on file Last Filed Vital Signs Vital Sign Reading Time Taken Comments Blood Pressure 114/64 03/11/2017 10:14 AM CDT Pulse 88 03/11/2017 10:14 AM CDT Temperature 36.3 ??C (97.4 ??F) 03/11/2017 10:14 AM C DT Respiratory Rate 16 05/05/2015 7:20 AM [employer] Oxygen Saturation 96% 03/11/2017 10:14 AM CDT Inhaled Oxygen Concentration - - Weight 77.1 kg (170 lb) 03/11/2017 10:14 AM CDT Height 162.6 cm (5' 4 ) 03/11/2017 10:14 AM CDT Body Mass Index 29.18 03/11/2017 10:14 AM CDT Plan of Treatment Health Maintenance Due Date Last Done Comments DTAP/TDAP/TD VACCINES (1 - Tdap) 08/14/1986 HEPATITIS B VACCINES (1 of 3 - 19+ 3-dose series) 08/14/1986 CERVICAL CANCER SCREENING 08/14/1997 BREAST CANCER SCREENING 2007 COLORECTAL SCREENING 08/14/2012 Colorectal Cancer Screening 08/14/2012 FIT-DNA Q 3 years 08/14/2012 FIT/FOBT Q 1 year 08/14/2012 Flex Sig/CT Colonography Q 5 years 08/14/2012 ZOSTER VACCINE (1 of 2) 08/14/2017 INFLUENZA VACCINE (#1) 2024 03/21/2015 PNEUMOCOCCAL VACCINE 0-49 YEARS Aged Out No longer eligible based on patient's age to complete this topic Medical Devices Implanted Type Area Superintendent Drivers Device Identifier Shelf Expiration Date Model / Serial / Lot Vitoss Ba Foam Pack 5ml - Sna Implanted:Qty: 1 on 05/02/2015 by Mark Meier MD at [facility] Biological N/A: Spine Lumbar [employer] SPINE 11/30/2016 / NA / [id number] Cage Acculif Pl [id number] - Sna Implanted:Qty: 1 on 05/02/2015 by Mark Meier MD at [facility] Cage N/A: Spine Lumbar [employer]INE 11/30/2016 [id number] / NA / [id number] Yvan Es2 Hex Rad 5.5x40mm [id number] - Sload#[id number] Implanted:Qty: 2 on 05/02/2015 by Mark eMier MD at [facility] Yvan N/A: Spine Lumbar [employer]INE [id number] / LOAD#[id number] / NA Screw Es2 Lng Bld 6.5x40mm [id number] - Sload#[id number] Implanted:Qty: 2 on 05/02/2015 by Mark Meier MD at [facility] Screw N/A: Spine Lumbar [employer]INE [id number] / LOAD#[id number] / NA Screw Es2 Lng Bld 6.5x45mm [id number] - Sload#[id number] Implanted:Qty: 2 on 05/02/2015 by Mark Meier MD at [facility] Screw N/A: Spine Lumbar [employer]INE [id number] / LOAD#[id number] / NA Lite Kalie Mantis [id number] - Sload#[id number] Implanted:Qty: 4 on 05/02/2015 by Mark Meier MD at [facility] Spine N/A: Spine Lumbar [employer]INE [id number] / LOAD#[id number] / NA Explanted Type Area Superintendent Drivers Device Identifier Shelf Expiration Date Model / Serial / Lot Wire K Es2 Le Nitinol Sharp [id number] - Sload#[id number] Implanted:Mark Meier MD (Quantity not on file) Explanted:Qty: 4 on 05/02/2015 by Mark Meier MD at [facility] Wire N/A: Spine Lumbar [employer]INE [id number] / LOAD#[id number] / NA Insurance Deep Glint [facility] Advance Directives For more information, please contact: [phone] * Full Code (Latest Code Status on File) Date Activated Date Inactivated Comments 05/02/2015 5:24 PM 05/05/2015 1:35 PM * Full Code Date Activated Date Inactivated Comments 05/02/2015 9:22 AM 05/02/2015 5:24 PM Care Teams Professor Of Theology Relationship Specialty Start Date End Date Luis Eduardo Kaur DO PCP - General Family Practice 08/31/14
--- OUTSIDE RECORDS SUMMARY | 2024-08-04 06:52 | XMS_ITS | Patient Health Record ---
Author Organization [facility] Address [address] [place], [place] [id number] Care Team Providers Care Cellar Pumper Name Role Phone Anitra Mejía Primary Care Provider Unavailab yajaira Conway MD, Mitchel Unavailable [phone] Kristine Miranda Unavailable [phone] Allergies Allergen (clinical drug ingredient) Drug/Non Drug Allergy documented on EMR Reaction Allergy Type Onset Date Status contrast dye used for myelogram (uncoded) low heart rate Allergy Active Results Component Value Reference Range Notes Urine tox screen / MS if ind icated Reviewed date:11/04/2023 08:25:31 AM Interpretation:Consistent Performing Lab: Notes/Report: Consistent Urine tox screen / MS if ind icated Reviewed date:11/04/2023 08:25:31 AM Interpretation:Consistent Performing Lab: Notes/Report: Consistent [facility] Results Reviewed date:11/04/2023 08:24:54 AM Interpretation: Performing Lab:[id number] [employer], [address] [facility] [place] [address] Karen Sandoval MD Notes/Report: [facility], [address], [facility] [address], [place] [address], , L ab Director: Karen Sandoval MD, CLIA ID# [id number] OPIATES SCREEN negative 300 ng/mL Codeine Quantification negative 50 ng/mL Morphine Quantification negative 50 ng/mL Hydrocodone Quantification negative 50 ng/mL Norhydrocodone Quantification negative 50 ng/mL Hydromorphone Quantification negative 50 ng/mL OXYCODONE SCREEN positive 100 ng/mL Oxycodone Quantification positive-1762.288 50 ng/mL Noroxycodone Quantification positive-2738.625 50 ng/mL Oxymorphone Quantification positive-408.095 50 ng/mL BUPRENORPHINE SCREEN negative 10 ng/mL Buprenorphine Quantification negative 5 ng/mL Norbuprenorphine Quantification negative 20 ng/mL FENTANYL SCREEN negative 2 ng/mL Fentanyl Quantification negative 1 ng/mL Norfentanyl Quantification negative 8 ng/mL METHADONE SCREEN negative 300 ng/mL Methadone Quantification negative 100 ng/mL EDDP (Methadone metabolite) Quantification negative 100 ng/mL TRAMADOL SCREEN positive 200 ng/mL Tramadol Quantification positive-65159.400 100 ng/mL X-ffziholan-nyljzlgt Quantification positive-8780.204 100 ng/mL Z-Jiaafuioi-Jiavzudn Quantification positive-5119.750 100 ng/mL BENZODIAZEPINES SCREEN negative 200 ng/mL Alpha-Hydroxyalprazolam Quantification negative 20 ng/mL 4-Pobpv-Ewszloprbe Quantification negative 20 ng/m L Lorazepam Quantification negative 40 ng/mL Nordiazepam Quantification negative 40 ng/mL Temazepam Quantification negative 50 ng/mL Oxazepam Quantification negative 40 ng/mL AMPHETAMINES SCREEN negative 500 ng/mL Amphetamine Quantification negative 100 ng/mL Methylphenidate Quantification negative 50 ng/mL Ritalinic Acid Quantification negative 50 ng/mL Gabapentin Quantification negative 1000 ng/mL Pregabalin Quantification negative 400 ng/mL Ketamine Quantification negative 50 ng/mL Norketamine Quantification negative 50 ng/mL Naltrexone Quantification negative 10 ng/mL Naltrexol Quantification negative 10 ng/mL Naloxone Quantification negative 20 ng/mL Carisoprodol Quantification negative 100 ng/mL Meprobamate Quantification negative 100 ng/mL BARBITURATES SCREEN negative 200 ng/mL Pentobarbital Quantification negative 200 ng/mL Phenobarbital Quantification negative 200 ng/mL Secobarbital Quantification negative 200 ng/mL Butalbital Quantification negative 200 ng/mL Phentermine Quantification negative 50 ng/mL Methamphetamine Quantification negative 100 ng/mL COCAINE METABOLITE SCREEN negative 150 ng/mL Cocaine metabolite Quantification negative 50 ng/m L CANNABINOIDS (cTHC) SCREEN negative 50 ng/mL cTHC (Marijuana metabolite) Quantification negative 15 ng/mL MDMA SCREEN negative 500 ng/mL MDMA Quantification negative 100 ng/mL HEROIN METABOLITE SCREEN negative 10 ng/mL 6-JARRELL (Heroin metabolite) Quantification negative 10 ng/mL PHENCYCLIDINE SCREEN negative 25 ng/mL Phencyclidine Quantification negative 10 ng/mL 4-ANPP Quantification Fen Neg 2 ng/mL Acetyl fentanyl Quantification Fen Neg 2 ng/mL Acetyl norfentanyl Quantification Fen Neg 5 ng/mL Acryl fentanyl Quantification Fen Neg 1 ng/mL Carfentanil Quantification Fen Neg 2 ng/mL Para-fluorofentanyl Quantification Fen Neg 1 ng/m L 2-methyl AP-237 Quantification negative 10 ng/mL Brorphine Quantification negative 15 ng/mL Metonitazene Quantification negative 5 ng/mL 8-aminoclonazolam Quantification negative 10 ng/mL Etizolam Quantification negative 10 ng/mL Alpha-hydroxyetizolam Quantification negative 10 n g/mL Flualprazolam Quantification negative 10 ng/mL Flubromazolam Quantification negative 10 ng/mL ULH775 metabolite Quantification negative 10 ng/mL HFX025 metabolite Quantification negative 10 ng/mL RCS4 metabolite Quantification negative 10 ng/mL XLR11/UR144 metabolite negative 10 ng/mL 5F-ADB-M7 negative 10 ng/mL DV-DSKODVUD-B7 negative 10 ng/mL MYDR-EQSQNGMU-C6 negative 10 ng/mL Eutylone Quantification negative 10 ng/mL Methylone Quantification negative 3 ng/mL Xylazine Quantification negative 10 ng/mL 4-hydroxy Xylazine Quantification negative 10 ng/m L Mitragynine (Kratom alkaloid ) Quantification negative 1 ng/mL 1-SW-Wziltvlmbnm (Kratom alk aloid) Quantification negative 1 ng/mL CREATININE (CHEMICAL) normal-68.5 >20 mg/dL mg/dL OXIDANT normal-4 <200 ug/mL ug/mL PH normal-5.6 4.5 - 9.5 SPECIFIC GRAVITY normal-1.006 1.003 - 1.035 Embedded PDF Reviewed date:11/04/2023 08:25:04 AM Interpretation: Performing Lab: Notes/Report: 4-ANPP: Fentanyl Negative. Acetyl fentanyl: Fentanyl Negative. Acetyl norfentan yl: Fentanyl Negative. Acryl fentanyl: Fentanyl Negative. Carfentanil: Fentanyl Negative. Para-fluorofentanyl: Fentanyl Negative. [facility], [address] [address] [facility], [facility] [address], [place] [address], , L ab Director: Karen Sandoval MD, CLIA ID# [id number] Reason For Referral No Information Medications Medication SIG (Take, Route, Frequency, Duration) Notes Start Date End Date Status busPIRone 5 mg 1 tab orally 3 times a day Active omeprazole 40 mg 1 cap orally once a day Active Calcium, Magnesium and Zinc as directed Active Potassium Gluconate 99 mg as directed Active acetaminophen-oxycodone 325 mg-10 mg 1 tab orally Q4H prn pain (max 4/day; hold within 4H of planned sleep) for 7 days Do not fill prior to 06/21/24. ICD-10: G89.29 06/18/2024 Active citalopram 40 mg 1 tab orally once a day Active predniSONE 5 mg 1 tab orally once a day Active diclofenac sodium 75 mg 1 tab orally 2 t imes a day, as needed Active isosorbide mononitrate 30 mg 1 tab(s) orally once a day (in the morning) Active lisinopril 2.5 mg 1 tab(s) orally once a day 05/02/2022 Active Aspir 81 Active metoprolol 50 mg 1 tab(s) orally 2 times a day for 30 day(s) Active biotin 10 mg 1 tab orally once a day Active nitroglycerin 0.4 mg 1 tab(s) sublingual ly every 5 minutes Active DULoxetine 60 mg 1 cap orally once a day Active Vitamin C with [place] Hips 1000 mg 1 tab orally once a day Active estradiol 0.5 mg 1 tab(s) orally once a day for 30 day(s) Active Vitamin D3 25 mcg 1 tab chewed once a day Active Humira 20 mg/0.2 mL as directed Active vitamin E 180 mg 1 cap(s) orally once a day Active acetaminophen-oxycodone 325 mg-10 mg 1 tab orally Q4-6H prn pain (max 3/day; hold within 4H of planned sleep) for 21 days ICD-10: G89.29 06/30/2024 Active acetaminophen-oxycodone 325 mg-10 mg 1 tab orally Q4-6H prn pain (max 3/day; hold within 4H of planned sleep) for 28 days Do not fill prior to 07/21/24. ICD-10: G89.29 06/30/2024 Active Social History Tobacco Use: Social History Observation Description Date Details (start date - stop date) Never Smoker NA - NA Tobacco use: Question Answer Notes : nonsmoker AUDIT-C (Standard) Question Answer Notes Did you have a drink contain ing alcohol in the past year? Yes How often did you have six o r more drinks on one occasion in the past year? Never (0 point) How many drinks did you have on a typical day when you were drinking in the past year? 1 or 2 drinks (0 point) How often did you have a dri nk containing alcohol in the past year? Monthly or less (1 point) Points 1 Interpretation Negative Problems Problem Type SNOMED Code ICD Code Onset Dates Problem Status W/U Status Risk Notes Problem High risk drug monitoring status (007043898) senior care (current) use of opiate analgesic (Z79.891) Active confirmed Problem Obstructive sleep apnea syndrome (68184634) Obstructive sleep apnea (adult) (pediatric) (G47.33) Active confirmed Problem Chronic pain (32894365) Other chronic pain (G89.29) Active confirmed Problem Acquired spondylolisthesis (768834922) Spondylolisthesis , lumbosacral region (M43.17) Active confirmed Problem Sciatica (63341130) Lumbago with sciatica, left side (M54.42) Active confirmed Problem Post-laminectomy syndrome (54479637) Postlaminectomy syndrome, not elsewhere classified (M96.1) Active confirmed Problem Long-term current use of drug therapy (036859852) 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 (Z79.899) Active confirmed Problem Neurogenic claudication (068528776) Spinal stenosis, lumbar region with neurogenic claudication (M48.062) Active confirmed Problem Pain in lumbar spine (495734794) Vertebrogenic low back pain (M54.51) Active confirmed Vital Signs Temperature 90.4 degrees Fahrenheit 06/18/2024 Blood pressure diastolic 61 mm Hg 06/18/2024 Oximetry 92 % 06/18/2024 Height 65 in 06/18/2024 Blood pressure systolic 117 mm Hg 06/18/2024 Weight 213.4 lbs 06/18/2024 BMI 35.51 kg/m2 06/18/2024 Encounters Encounter Location Date Provider Diagnosis [facility], [id number] [place], [place] [id number] 08/20/2023 Kristine Brownlee Vertebrogenic low ba ck pain M54.51 ; Other chronic pain G89.29 ; Obstructive sleep apnea (adult) (pediatric) G47.33 and terminal operator (current) use of opiate analgesic Z79.891 [facility], [facility] [address] [place], [place] [id number] 10/29/2023 Kristinesaima Brownlee Vertebrogenic low ba ck pain M54.51 ; Other chronic pain G89.29 ; Obstructive sleep apnea (adult) (pediatric) G47.33 and senior care (current) use of opiate analgesic Z79.891 [facility], [facility] [address] [place], [place] [id number] 12/03/2023 Mitchel Conway Vertebrogenic low ba ck pain M54.51 ; Other chronic pain G89.29 and Obstructive sleep apnea (adult) (pediatric) G47.33 [facility], [facility] [address] [place], [place] [id number] 12/31/2023 Kristine Brownlee Vertebrogenic low ba ck pain M54.51 ; Other chronic pain G89.29 and Obstructive sleep apnea (adult) (pediatric) G47.33 [facility], [facility] [address] [place], [place] [id number] 02/25/2024 Kristine Keenes Vertebrogenic low ba ck pain M54.51 ; Other chronic pain G89.29 and Obstructive sleep apnea (adult) (pediatric) G47.33 [facility], [facility] [address] [place], [place] [id number] 04/23/2024 Mitchel Conway Vertebrogenic low ba ck pain M54.51 ; Other chronic pain G89.29 and Obstructive sleep apnea (adult) (pediatric) G47.33 [facility], [facility] [address] [place], [place] [id number] 06/18/2024 Mitchel Conway Vertebrogenic low ba ck pain M54.51 ; Other chronic pain G89.29 and Obstructive sleep apnea (adult) (pediatric) G47.33 [facility], [facility] [address] [place], [place] [id number] 09/25/2023 Mitchel Conway [facility], [facility] [address] [place], [place] [id number] 03/04/2024 Mitchel Conway [facility], [facility] [address] [place], [place] [id number] 06/29/2024 Mitchel Conway [facility] [address] [place] [phone] 02/21/2024 Mitchel Daviscaron Assessments Encounter Date Diagnosis (ICD Code) Assessment Notes Treatment Notes Treatment Clinical Notes Section Notes 08/20/2023 Vertebrogenic low back pain (ICD-10 - M54.51) Chronic lumbar spine pain. 10/29/2023 Vertebrogenic low back pain (ICD-10 - M54.51) Chronic lumbar spine pain. 12/03/2023 Other chronic pain (ICD-10 - G89.29) Patient reports that taking her pain medication allows her to be more active. Plan to continue oral opioid medication management. RADIOLOGIST'S IMPRESSION OF L-SPINE CT/MYELOGRAM ON 11/14/23: Myelogram: 1. Uncomplicated lumbar myelogram. 2. Posterior lumbar fusion at L5-S1. 3. Lumbar CT to follow. CT: 1. Study is compromised by artifact from the hardware at L5-S1. 2. Prior posterior lumbar fusion at L5-S1 with interbody spacer. No hardware fracture or displacement identified. No loosening appreciated. 3. Mild progression of degenerative LEFT scoliosis lumbar spine. 4. Large posterior laminectomy defect at L5-S1. 5. Progression of degenerative disc disease at L1-2. 6. Mild central and subarticular recess stenosis at L3-4. 7. Mild central and bilateral foraminal stenosis at L4-5. 12/03/2023 Vertebrogenic low back pain (ICD-10 - M54.51) Chronic lumbosacral spine pain. SCS [place] [address] Berger. Recommended patient proceed with reprogramming of SCS system since patient admitted that she has never had reprogramming of the system (contact information for [employer] field sales representative given patient at 12/03/23 visit). Consider SI joint injection therapy pending outcome of reprogramming. Patient has met her insurer's criteria for conservative treatment prior to interventional treatment when she completed PT in order to get her imaging study approved by the insurer (patient did physical therapy twice a week beginning 09/20/23 and ending 10/30/23). Consider LESI as needed pending outcome of reprogramming and SI intervention. Patient reports that Dr. Messer (orthopedic spine surgeon) requires injection therapy prior to any surgical treatment offerings. RADIOLOGIST'S IMPRESSION OF L-SPINE CT/MYELOGRAM ON 11/14/23: Myelogram: 1. Uncomplicated lumbar myelogram. 2. Posterior lumbar fusion at L5-S1. 3. Lumbar CT to follow. CT: 1. Study is compromised by artifact from the hardware at L5-S1. 2. Prior posterior lumbar fusion at L5-S1 with interbody spacer. No hardware fracture or displacement identified. No loosening appreciated. 3. Mild progression of degenerative LEFT scoliosis lumbar spine. 4. Large posterior laminectomy defect at L5-S1. 5. Progression of degenerative disc disease at L1-2. 6. Mild central and subarticular recess stenosis at L3-4. 7. Mild central and bilateral foraminal stenosis at L4-5. 12/31/2023 Other chronic pain (ICD-10 - G89.29) Patient reports that taking her pain medication allows her to care for her home. Plan to continue oral opioid medication management. 12/31/2023 Vertebrogenic low back pain (ICD-10 - M54.51) Chronic lumbosacral spine pain. SCS [place] [address] Berger. Recommended patient proceed with reprogramming of SCS system since patient admitted that she has never had reprogramming of the system (contact information for [employer] field sales representative given patient at 12/03/23 visit). Consider SI joint injection therapy pending outcome of reprogramming. Patient has met her insurer's criteria for conservative treatment prior to interventional treatment when she completed PT in order to get her imaging study approved by the insurer (patient did physical therapy twice a week beginning 09/20/23 and ending 10/30/23). Consider LESI as needed pending outcome of reprogramming and SI intervention. Patient has reported that Dr. Messer (orthopedic spine surgeon) requires injection therapy prior to any surgical treatment offerings. 02/25/2024 Vertebrogenic low back pain (ICD-10 - M54.51) Chronic lumbosacral spine pain. Patient reports benefit with SCS/IPG reprogramming since her last visit. Patient reports she is scheduled for LSP surgery on 03/02/[address] Messer. 04/23/2024 Other chronic pain (ICD-10 - G89.29) Patient reports that taking her pain medication allows her to work in her yard. Plan to continue oral opioid medication management. 04/23/2024 Vertebrogenic low back pain (ICD-10 - M54.51) Chronic lumbosacral spine pain. Patient has reported benefit with reprogramming of the SCS system. Patient reports she is scheduled for lumbar spine surgery with Dr. Messer as soon as insurance approves the surgery. 06/18/2024 Vertebrogenic low back pain (ICD-10 - M54.51) Chronic lumbosacral spine pain. Patient has reported benefit with reprogramming of the SCS system. Patient reports follow up with Dr. Messer is scheduled in 2 weeks to discuss surgery. 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 Patient's insurance change has resulted in a lower MED that is allowed. She has opted for Percocet only; stopping the tramadol. Plan to continue oral opioid medication management. 04/23/2024 Obstructive sleep apnea (adult) (pediatric) (ICD-10 - G47.33) Patient reports consistent nightly use of her CPAP device. 02/25/2024 Obstructive sleep apnea (adult) (pediatric) (ICD-10 - G47.33) Patient reports consistent nightly use of her CPAP device. 02/25/2024 Other chronic pain (ICD-10 - G89.29) Patient reports that taking her pain medication allows her to cook for her family. Plan to continue oral opioid medication management. 12/31/2023 Obstructive sleep apnea (adult) (pediatric) (ICD-10 - G47.33) Patient reports CPAP device use. 12/03/2023 Obstructive sleep apnea (adult) (pediatric) (ICD-10 - G47.33) Patient reports CPAP device use. RADIOLOGIST'S IMPRESSION OF L-SPINE CT/MYELOGRAM ON 11/14/23: Myelogram: 1. Uncomplicated lumbar myelogram. 2. Posterior lumbar fusion at L5-S1. 3. Lumbar CT to follow. CT: 1. Study is compromised by artifact from the hardware at L5-S1. 2. Prior posterior lumbar fusion at L5-S1 with interbody spacer. No hardware fracture or displacement identified. No loosening appreciated. 3. Mild progression of degenerative LEFT scoliosis lumbar spine. 4. Large posterior laminectomy defect at L5-S1. 5. Progression of degenerative disc disease at L1-2. 6. Mild central and subarticular recess stenosis at L3-4. 7. Mild central and bilateral foraminal stenosis at L4-5. 10/29/2023 Obstructive sleep apnea (adult) (pediatric) (ICD-10 - G47.33) Patient reports compliance with use of her CPAP device. 10/29/2023 Other chronic pain (ICD-10 - G89.29) Patient reports that taking her pain medication allows her to increase her physical activity each day. Plan to continue oral opioid medication management. 08/20/2023 Obstructive sleep apnea (adult) (pediatric) (ICD-10 - G47.33) Patient reports compliance with use of her CPAP device. 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 Plan to continue oral opioid medication management. 08/20/2023 senior care (current) use of opiate analgesic (ICD-10 - Z79.891) Patient has a total daily MED of 90. This places the patient in the [facility] high risk category for total daily opioid usage. Have recommended patient taper daily doses to the lowest number of daily doses that provide effective analgesia. 10/29/2023 terminal operator (current) use of opiate analgesic (ICD-10 - Z79.891) Patient has a total daily MED of 90. This places the patient in the [facility]' high risk category for total daily opioid usage. 2022 opioid (OUD) risk tool score = 1. This places the patient in the low risk category. Plan urine toxicology screen today with [employer] to monitor for presence of any unprescribed or illicit controlled substance(s), as well as prescribed oxycodone and tramadol. 06/18/2024 Obstructive sleep apnea (adult) (pediatric) (ICD-10 - G47.33) Patient reports consistent nightly use of her CPAP device. 08/20/2023 Other 10/29/2023 Other 12/03/2023 Other RADIOLOGIST'S IMPRESSION OF L-SPINE CT/MYELOGRAM ON 11/14/23: Myelogram: 1. Uncomplicated lumbar myelogram. 2. Posterior lumbar fusion at L5-S1. 3. Lumbar CT to follow. CT: 1. Study is compromised by artifact from the hardware at L5-S1. 2. Prior posterior lumbar fusion at L5-S1 with interbody spacer. No hardware fracture or displacement identified. No loosening appreciated. 3. Mild progression of degenerative LEFT scoliosis lumbar spine. 4. Large posterior laminectomy defect at L5-S1. 5. Progression of degenerative disc disease at L1-2. 6. Mild central and subarticular recess stenosis at L3-4. 7. Mild central and bilateral foraminal stenosis at L4-5. 12/31/2023 Other 02/25/2024 Other 04/23/2024 Other The service was provided by JOEL Reza, as part of the ongoing care plan established by Mitchel Conway MD, who was present in the office for direct supervision during the encounter. 06/18/2024 Other Patient reports new insurance effective 06/03/24. [place] Medicaid will only pay for an MED of 50. Melissa with [employer] in [place] was notified and the quantity issued was adjusted to equal #3 tablets per day to meet patient's new insurer's (Medicaid) requirements. The service was provided by JOEL Reza, as part of the ongoing care plan established by Mitchel Conway MD, who was present in the office for direct supervision during the encounter. Plan Of Treatment Next Appt Details Provider Name:Mitchel Gallo son, 08/13/2024 02:30:00 PM, [address] [facility], [place], [place], [id number], Insurance Providers Payer Name Payer Address Payer Phone Subscriber Number Group Number Insured Name Patient Relationship to Insured Coverage Start Date Coverage End Date [facility] ATT[employer] CLAIMS [address] [place] [phone] [id number] Blanca Sarabia Self - patient is the insured Medical (General) History Medical History History ICD Code Chronic pain Low back pain (patient has had lumbar la minectomy and fusion surgeries) Lumbar spondylosis, disc dis ease, spinal canal and foraminal stenoses noted upon review of 2023 imaging study report Lumbar radiculopathy Scoliosis, progressive as per 2023 imagi ng study report Hip pain (patient ended up having hip re placement surgery) Fibromyalgia Polymyalgia rheumatica syndrome Asthma Anxiety disorder and depression Mixed hyperlipidemia Migraine with aura and without status mi grainosus Tachycardia CAD, myocardial infarction 2022 Diverticulosis Low hemogobin Elevated glucose Hiatal hernia GERD Obstructive sleep apnea syndrome Obesity, mild Surgical History Surgery Date(Month/Year) section x 2, performed in [facility] by Dr. Brendon Aguilar, 1989, 2003 Lumbar laminectomy, performed in [facility] by Dr. Arredondo, 07/2004 Hysterectomy, performed in [place] by Dr. Praful Aguilar, 2007 Rotator cuff tear repair, right, perform ed by Dr. Reveles, 2010 Arthroscopy, shoulder, right (clean scar tissue) 2011 Spinal fusion, performed at [facility] in [place], [place], 2015 SCS system (with IPG) placem ent ([employer] brand), performed at [facility] by Dr. Liliana Berger, 02/14/18 Colonoscopy, performed by Dr. Chino, 10/22/18 Total hip replacement, right, performed at [facility] by Dr. Freed, 07/24/21 Skin biopsy (basal cell), performed at [facility] by Dr. Maryanne Damico, 03/21/22 Repair of detached retina, left, perform ed at [facility] by Dr. Myers, 05/2022, 06/2022 Hospitalization History Reason Date(Month/Year) Heart attack, treated at [facility] 08/16/22
--- OUTSIDE RECORDS SUMMARY | 2024-08-04 06:52 | XMS_ITS | Encounter Summary ---
Author Organization [facility] Address [address] [place] [address] Care Team Providers Care Smeller Name Role Phone Luis Eduardo Kaur DO Primary Care Provider [phone] Encounter Details Date Type Department Care Team (Late st Contact Info) Description 07/21/2024 External Device Data [place] ABSTRACTION Provider, Abstract NO ADDRESS ON FILE Social History Tobacco Use Types Packs/Day Years Used Date Smoking Tobacco: Never Smokeless Tobacco: Never Alcohol Use Standard Drinks/Week Comments No 0 (1 standard drink = 0.6 oz pur e alcohol) Comments Unknown Sex and Gender Information Value Date Recorded Sex Assigned at Not on file 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
--- OUTSIDE RECORDS SUMMARY | 2024-08-04 06:52 | XMS_ITS ---
Author Organization [facility] Address [address] [place], [place] [address] Care Team Providers Care Nuclear Reactor Technician Name Role Phone Anitra Mejía Primary Care Provider Unavailab Kelli NG, Mitchel Unavailable [phone] Allergies Allergen (clinical drug ingredient) Drug/Non Drug Allergy documented on EMR Reaction Allergy Type Onset Date Status contrast dye used for myelogram (uncoded) low heart rate Allergy Active REASON FOR VISIT Patient states she is here today for low back pain. Medications Medication SIG (Take, Route, Frequency, Duration) Notes Start Date End Date Status predniSONE 5 mg 1 tab orally once a day Active acetaminophen-oxycodone 325 mg-10 mg 1 tab orally Q4H prn severe pain (max 4/day; hold within 4H of planned sleep) for 28 days Do not fill prior to 04/24/24. ICD-10: G89.29 04/23/2024 Active Vitamin D3 25 mcg 1 tab chewed once a day Active Vitamin C with Alma Hips 1000 mg 1 tab orally once a day Active vitamin E 180 mg 1 cap(s) orally once a day Active Potassium Gluconate 99 mg as directed Active omeprazole 40 mg 1 cap orally once a day Active lisinopril 2.5 mg 1 tab(s) orally once a day 05/02/2022 Active nitroglycerin 0.4 mg 1 tab(s) sublingual ly every 5 minutes Active metoprolol 50 mg 1 tab(s) orally 2 times a day for 30 day(s) Active isosorbide mononitrate 30 mg 1 tab(s) orally once a day (in the morning) Active DULoxetine 60 mg 1 cap orally once a day Active diclofenac sodium 75 mg 1 tab orally 2 t imes a day, as needed Active Humira 20 mg/0.2 mL as directed Active estradiol 0.5 mg 1 tab(s) orally once a day for 30 day(s) Active Calcium, Magnesium and Zinc as directed Active busPIRone 5 mg 1 tab orally 3 times a day Active biotin 10 mg 1 tab orally once a day Active Aspir 81 Active citalopram 40 mg 1 tab orally once a day Active acetaminophen-oxycodone 325 mg-10 mg 1 tab orally Q4H prn severe pain (max 4/day; hold within 4H of planned sleep) for 28 days Do not fill prior to 05/22/24. ICD-10: G89.29 04/23/2024 Active traMADol 50 mg 1 tab orally Q4-6H prn pain (max 3/day; hold within 4H of planned sleep) for 28 days ICD-10: G89.29 04/23/2024 Active Social History Tobacco Use: Social History Observation Description Date Details (start date - stop date) Never Smoker NA - NA alcohol Question Answer Notes Did you have a drink containing alcohol in the p ast year? No Points 0 Interpretation Negative Tobacco use: Question Answer Notes : nonsmoker Vital Signs Temperature 90.9 degrees Fahrenheit 04/23/20 24 Blood pressure systolic 124 mm Hg 04/23/20 24 Blood pressure diastolic 74 mm Hg 024 Height 65 in 04/23/2024 Weight 207.2 lbs 04/23/2024 Oximetry 91 % 04/23/2024 BMI 34.48 kg/m2 04/23/2024 Encounters Encounter Location Date Provider Diagnosis [facility], [address] [id number] 04/23/2024 Mitchel Conway Vertebrogenic low ba ck pain M54.51 ; Other chronic pain G89.29 and Obstructive sleep apnea (adult) (pediatric) G47.33 Assessments Encounter Date Diagnosis (ICD Code) Assessment Notes Treatment Notes Treatment Clinical Notes Section Notes 04/23/2024 Vertebrogenic low back pain (ICD-10 - M54.51) Chronic lumbosacral spine pain. Patient has reported benefit with reprogramming of the SCS system. Patient reports she is scheduled for lumbar spine surgery with Dr. Messer as soon as insurance approves the surgery. 04/23/2024 Other chronic pain (ICD-10 - G89.29) Patient reports that taking her pain medication allows her to work in her yard. Plan to continue oral opioid medication management. 04/23/2024 Obstructive sleep apnea (adult) (pediatric) (ICD-10 - G47.33) Patient reports consistent nightly use of her CPAP device. 04/23/2024 Other The service was provided by JOEL Reza, as part of the ongoing care plan established by Mitchel Conway MD, who was present in the office for direct supervision during the encounter. Plan Of Treatment Medication Medication Name Sig Start Date Stop Date Notes acetaminophen-oxycodone 325 mg-10 mg 1 tab orally Q4H prn severe pain (max 4/day; hold within 4H of planned sleep) for 28 days 04/23/2024 Do not fill prior to 04/24/24. ICD-10: G89.29 acetaminophen-oxycodone 325 mg-10 mg 1 tab orally Q4H prn severe pain (max 4/day; hold within 4H of planned sleep) for 28 days 04/23/2024 Do not fill prior to 05/22/24. ICD-10: G89.29 traMADol 50 mg 1 tab orally Q4-6H prn pain (max 3/day; hold within 4H of planned sleep) for 28 days 04/23/2024 ICD-10: G89.29 Treatment Notes Assessment Notes Vertebrogenic low back pain Chronic lumbosacral spine pain. Patient has reported benefit with reprogramming of the SCS system. Patient reports she is scheduled for lumbar spine surgery with Dr. Messer as soon as insurance approves the surgery. Other chronic pain Patient reports that taking her pain medication allows her to work in her yard. Plan to continue oral opioid medication management. Obstructive sleep apnea (adult) (pediatr ic) Patient reports consistent nightly use of her CPAP device. Other The service was prov ided by JOEL Reza, as part of the ongoing care plan established by Mitchel Conway MD, who was present in the office for direct supervision during the encounter. Next Appt Details Follow Up: 2 month Rx visit. , Reason: Provider Name:Mitchel Gallo son, 08/13/2024 02:30:00 PM, [address] [place], [place], [id number], Progress Notes * Deborah SARABIAOB: 8 (58 yo F)Acc No.[id number]:04/23/2024 Patient:Blanca TEIXEIRA Provider:?Mitchel Ryancaron :1965???Age:58 Y???Sex:Female D ate:04/23/2024 Address:[address] [place], [place] [id number] Pcp:JOEL Perez Subjective: * Chief Complaints: * ???Patient states she is her e today for low back pain. * HPI: ???Lumbar Spine:?58 year old female presents with c/o pain?for?chronic duration?in the bilateral lower back. This pain is described as intermittent aching with a burning sensation. This pain extends into the hips and thighs. The back pain is aggravated by sitting > 15 minutes, standing to do dishes, and vacuuming. This pain is somewhat alleviated with use of muscle cream, ice, and heat.?c/o tingling/numbness?intermittently in the feet and toes.?c/o weakness?in the LLE (difficulty lifting LLE).?Denies : radiation of pain.?Denies : change in bowel/bladder function.?Denies : injury:.?previous surgery:?lumbar laminectomy in 2005; L5-S1 fusion / fixation in 2015; SCS system (with IPG) placement in 2018.?Previous Imaging/Studies:?Home-based sleep study?on 10/14/18.?CT?of the right hip and L-spine on 06/13/21; of the C-spine on 08/02/20.?CT / Myelogram?of the L-spine on 11/14/23 and?10/19/14.?X-rays?of the right hip on 04/06/21; of the L-spine on 02/05/20; of the T- spine on 02/14/18.?MRI?of the L-spine on 09/14/14.?Previous Therapy:?Previous therapy:?heat therapy with some benefit; ice therapy with some benefit; topical agent therapy with some benefit; physical therapy with history of no benefit (2017); chiropractic?therapy with history of no significant benefit (1990 - 2020); injection therapy?by Dr. Davenport with history of?moderate benefit (03/2021 - 06/2021) and injection therapy?at [facility] pain clinic in 2016 with history of no benefit; medication management / opioid therapy by Dr. Mendoza at [facility] pain clinic with history of some benefit.?Medication history:?Xanax 0.5 mg; Percocet 10/325; Cymbalta 60 mg; Ultram 50 mg; diclofenac sodium 75 mg; chlorzoxazone 500 mg; OTC Hemp cream topical applications.?Medications:?aspirin?is managed by Dr. Godoy (recent NH); will address / send request for anticoagulation cessation recommendations as the need arises.?Percocet (oxycodone / acetaminophen)?325 mg-10 mg, 1 tab, orally, Q4H prn severe pain (max 4/day; hold within 4H of planned sleep), 28 days, 112, Refills 0.Notes: Prescriptions given (2) on 02/25/24. Patient reports good benefit, as evidenced by improved ability to rake leave and clean house, with quantity 29 and 0 prescription(s) remaining.Last fill date: 03/27/24.?tramadol (Ultram)?50 mg, 1 tab, orally, Q4-6H prn pain (max 3/day; hold within 4H of planned sleep), 28 days, 84, Refills 1 (last prescribed 12/31/23). Patient reports good benefit, as evidenced by improved ability to rake leaves and clean house, with quantity 42 remaining and 0 refills.Last fill date: 04/08/24.? * ROS:?14 point review of systems negative. * Medical History:? * Surgical History:? s ection x 2, performed in [place] by Dr. Brendon Aguilar, 1989, 2003Lumbar laminectomy, performed in [place] by Dr. Arredondo, 07/2004Hysterectomy, performed in [place] by Dr. Praful Aguilar, 2007Rotator cuff tear repair, right, performed by Dr. Reveles, 2011Arthroscopy, shoulder, right (clean scar tissue) 2012Spinal fusion, performed at [facility] in [place], [place], 2015SCS system (with IPG) placement ([place]), performed at [facility] by Dr. Liliana Berger, 02/14/18Colonoscopy, performed by Dr. Chino, 10/22/18Total hip replacement, right, performed at [facility] by Dr. Freed, 07/24/21Skin biopsy (basal cell), performed at [facility] by Dr. Maryanne Damico, 03/21/22Repair of detached retina, left, performed at [facility] by Dr. Myers, 05/2022, 06/2022 * Hospitalization/Major Diagno stic Procedure:?Heart attack, treated at [facility] 08/16/22 * Family History:?Father: dece ased 75 yrs, heart disease and kidney failure.?Mother: 60 yrs, bone cancer.? * Social History:?Tobacco use?:?nonsmoker ???Marijuana: no. ???Meth: no. ???Other illicit drug use: no. ???Alcohol?Did you have a drink containing alcohol in the past year??No ?Points?0 ?Interpretation?Negative ???: yes. ???Children: 1. ???Education: highest grade completed = 12th. ???Occupation: no, reportedly disabled. ???Exercise: no. ???History of welding/metal work: no. ???Travel: no. * Medications:?Takingacetamino phen-oxycodone 325 mg-10 mg tablet 1 tab orally Q4H prn severe pain (max 4/day; hold within 4H of planned sleep) Aspir 81(aspirin) biotin 10 mg tablet 1 tab orally once a day busPIRone 5 mg tablet 1 tab orally 3 times a day Calcium, Magnesium and Zinc as directed citalopram 40 mg tablet 1 tab orally once a day diclofenac sodium 75 mg delayed release tablet 1 tab orally 2 times a day, as needed DULoxetine 60 mg delayed release capsule 1 cap orally once a day estradiol 0.5 mg tablet 1 tab(s) orally once a day Humira(adalimumab) 20 mg/0.2 mL kit as directed isosorbide mononitrate 30 mg tablet, extended release 1 tab(s) orally once a day (in the morning) lisinopril 2.5 mg tablet 1 tab(s) orally once a day metoprolol 50 mg tablet 1 tab(s) orally 2 times a day nitroglycerin 0.4 mg tablet 1 tab(s) sublingually every 5 minutes omeprazole 40 mg delayed release capsule 1 cap orally once a day Potassium Gluconate 99 mg as directed predniSONE 5 mg tablet 1 tab orally once a day traMADol 50 mg tablet 1 tab orally Q4-6H prn pain (max 3/day; hold within 4H of planned sleep) Vitamin C with Alma Hips(ascorbic acid) 1000 mg tablet 1 tab orally once a day Vitamin D3(cholecalciferol) 25 mcg tablet, chewable 1 tab chewed once a day vitamin E 180 mg capsule 1 cap(s) orally once a day Medication List reviewed and reconciled with the patientTaking acetaminophen-oxycodone 325 mg-10 mg tablet 1 tab orally Q4H prn severe pain (max 4/day; hold within 4H of planned sleep) Taking Aspir 81(aspirin) Taking biotin 10 mg tablet 1 tab orally once a day Taking busPIRone 5 mg tablet 1 tab orally 3 times a day Taking Calcium, Magnesium and Zinc as directed Taking citalopram 40 mg tablet 1 tab orally once a day Taking diclofenac sodium 75 mg delayed release tablet 1 tab orally 2 times a day, as needed Taking DULoxetine 60 mg delayed release capsule 1 cap orally once a day Taking estradiol 0.5 mg tablet 1 tab(s) orally once a day Taking Humira(adalimumab) 20 mg/0.2 mL kit as directed Taking isosorbide mononitrate 30 mg tablet, extended release 1 tab(s) orally once a day (in the morning) Taking lisinopril 2.5 mg tablet 1 tab(s) orally once a day Taking metoprolol 50 mg tablet 1 tab(s) orally 2 times a day Taking nitroglycerin 0.4 mg tablet 1 tab(s) sublingually every 5 minutes Taking omeprazole 40 mg delayed release capsule 1 cap orally once a day Taking Potassium Gluconate 99 mg as directed Taking predniSONE 5 mg tablet 1 tab orally once a day Taking traMADol 50 mg tablet 1 tab orally Q4-6H prn pain (max 3/day; hold within 4H of planned sleep) Taking Vitamin C with Alma Hips(ascorbic acid) 1000 mg tablet 1 tab orally once a day Taking Vitamin D3(cholecalciferol) 25 mcg tablet, chewable 1 tab chewed once a day Taking vitamin E 180 mg capsule 1 cap(s) orally once a day Medication List reviewed and reconciled with the patient * Allergies:?contrast dye used for myelogram: low heart rateno[Allergies Verified] Objective: * Vitals:?Pain Scale: 7 (0-10) , Pain average: 6, Pain Range: 3-9, Ht:65in, Wt:207.2lbs, BMI:34.48index, BP:124/74mm Hg, HR:94, RR:16, Temp:90.9, SaO2: 91. * Physical Examination:?General:?General appearence:?well groomed, well nourished.?Build:?mildly obese.?Head:?normocephalic.?Eyes:?Conjunctiva:?without injection.?ENT:?Hearing:?grossly intact.?Chest:?Shape and expansion:?normal expansion, equal bilaterally, respirations even and unlabored.?Neurological:?Psychiatric:?alert and conversant.?Musculoskeletal:?Upper extremity:?bilateral thumb braces in place.?Gait:?antalgic, use of cane for ambulation assistance.?Outcome Assessment:?Findings:?Negative, care plan not required ???Dermatology:?Skin inspection:?pink, warm, dry, and intact.? Therapeutic Interventions: Assessment: * Assessment: 1.?Vertebrogenic low back pa in - M54.51 (Primary)???2.?Other chronic pain - G89.29???3.?Obstructive sleep apnea (adult) (pediatric) - G47.33??? Plan: * Treatment: 2.?Other chronic pain? Notes: Patient reports that taking her pain medication allows her to work in her yard. Plan to continue oral opioid medication management.?? 3.?Obstructive sleep apnea ( adult) (pediatric)? Notes: Patient reports consistent nightly use of her CPAP device.?? 4.?Others? Continue acetaminophen-oxycodone tablet, 325 mg-10 mg, 1 tab, orally, Q4H prn severe pain (max 4/day; hold within 4H of planned sleep), 28 days, 112, Refills 0, Notes to Pharmacist: Do not fill prior to 04/24/24. ICD-10: G89.29;?Continue acetaminophen-oxycodone tablet, 325 mg-10 mg, 1 tab, orally, Q4H prn severe pain (max 4/day; hold within 4H of planned sleep), 28 days, 112, Refills 0, Notes to Pharmacist: Do not fill prior to 05/22/24. ICD-10: G89.29;?Continue traMADol tablet, 50 mg, 1 tab, orally, Q4-6H prn pain (max 3/day; hold within 4H of planned sleep), 28 days, 84, Refills 1, Notes to Pharmacist: ICD-10: G89.29.?? Notes: The service was provided by JOEL Reza, as part of the ongoing care plan established by Mitchle Conway MD, who was present in the office for direct supervision during the encounter.?? Prescription Drug Monitoring Program (PDMP) PDMP report request complete d on 04/23/2024 05:35:52 PM - Mitchel Conway * Procedure Codes:? * Preventive Medicine:? ??Counseling:?Pain Management:?Follow-up Plan documented:?Yes ?Pain Screening:?7 * Follow Up:?2 month Rx visit. * Images: * RANCE UNDERWRITER SALES Sign off status: Completed true * Provider:Jesse Conway Date:?04/23/20 24 Generated for Stoney metzger/Blas/Jeremias on:?08/04/2024 06:52 AM INSURANCE UNDERWRITER SALES History and Physical Notes * HPI (History of Present Illness) Category Sub-Category Detail Notes Category Not es Lumbar Spine injury: tingling/numbness intermittently in th e feet and toes pain in the bilateral low er back. This pain is described as intermittent aching with a burning sensation. This pain extends into the hips and thighs. The back pain is aggravated by sitting > 15 minutes, standing to do dishes, and vacuuming. This pain is somewhat alleviated with use of muscle cream, ice, and heat radiation of pain previous surgery: lumbar laminectomy i n 2004; L5-S1 fusion / fixation in 2014; SCS system (with IPG) placement in 2017 weakness in the LLE (difficul ty lifting LLE) change in bowel/bladder function Medications Percocet (oxycodone / acetaminophen) 325 mg-10 mg, 1 tab, orally, Q4H prn severe pain (max 4/day; hold within 4H of planned sleep), 28 days, 112, Refills 0. Notes: Prescriptions given (2) on 02/25/24. Patient reports good benefit, as evidenced by improved ability to rake leave and clean house, with quantity 29 and 0 prescription(s) remaining. Last fill date: 03/27/24 tramadol (Ultram) 50 mg, 1 tab, orally , Q4-6H prn pain (max 3/day; hold within 4H of planned sleep), 28 days, 84, Refills 1 (last prescribed 12/31/23). Patient reports good benefit, as evidenced by improved ability to rake leaves and clean house, with quantity 42 remaining and 0 refills. Last fill date: 04/08/24 aspirin is managed by Dr. Nitesh cosby (recent NH); will address / send request for anticoagulation cessation recommendations as the need arises Previous Therapy Previous therapy: heat therapy with some benefit; ice therapy with some benefit; topical agent therapy with some benefit; physical therapy with history of no benefit (2018); chiropractic therapy with history of no significant benefit (1990 - 2020); injection therapy by Dr. Davenport with history of moderate benefit (03/2021 - 06/2021) and injection therapy at [facility] pain clinic in 2017 with history of no benefit; medication management / opioid therapy by Dr. Mendoza at [facility] pain clinic with history of some benefit Medication history: Xanax 0.5 mg; Percoc et 10/325; Cymbalta 60 mg; Ultram 50 mg; diclofenac sodium 75 mg; chlorzoxazone 500 mg; OTC Hemp cream topical applications Previous Imaging/Studies MRI of the L-spine o n 09/14/14 CT of the right hip and L-spine on 06/13/21; of the C-spine on 08/02/20 CT / Myelogram of the L-spine on and 10/19/14 X-rays of the right hip on 04/06/21; of the L-spine on 02/05/20; of the T-spine on 02/14/18 Home-based sleep study on 10/14/18 Physical Examination Category Sub-Category Detail Notes Section Note s ENT Hearing: grossly intact Chest Shape and expansion: normal expa nsion, equal bilaterally, respirations even and unlabored Neurological Psychiatric: alert and conversant Musculoskeletal Upper extremity: bilateral thumb brace s in place Gait: antalgic, use of can e for ambulation assistance Outcome Assessment: Findings:: Negative, care pl an not required Dermatology Skin inspection: pink, warm, dry, and int act General General appearence: well groomed, well no urished Build: mildly obese Head: normocephalic Eyes Conjunctiva: without injection
--- OUTSIDE RECORDS SUMMARY | 2024-08-04 06:52 | XMS_ITS ---
Author Organization [facility] Address [address] [place], [place] [address] Care Team Providers Care Cath Lab Radiological Technologist Name Role Phone Anitra Mejía Primary Care Provider Ирина Pereira MD, Mitchel Salazar [phone] REASON FOR VISIT Rx request Medications Medication SIG (Take, Route, Frequency, Duration) Notes Start Date End Date Status acetaminophen-oxycodo ne 325 mg-10 mg 1 tab orally Q4-6H prn pain (max 3/day; hold within 4H of planned sleep) for 28 days Do not fill prior to 07/21/24. ICD-10: G89.29 06/30/2024 Active acetaminophen-oxycodo ne 325 mg-10 mg 1 tab orally Q4-6H prn pain (max 3/day; hold within 4H of planned sleep) for 21 days ICD-10: G89.29 06/30/2024 Active Encounters Encounter Location Date Provider Diagnosis [facility], [place] [address] [place] [id number] 06/29/2024 Mitchel Conway Plan Of Treatment Medication Medication Name Sig Start Date Stop Date Notes acetaminophen-oxycodone 325 mg-10 mg 1 tab orally Q4-6H prn pain (max 3/day; hold within 4H of planned sleep) for 28 days 06/30/2024 Do not fill prior to 07/21/24. ICD-10: G89.29 acetaminophen-oxycodone 325 mg-10 mg 1 tab orally Q4-6H prn pain (max 3/day; hold within 4H of planned sleep) for 21 days 06/30/2024 ICD-10: G89.29 Next Appt Details Provider Name:Mitchel Gallo son, 08/13/2024 02:30:00 PM, [address], [place], [place], [id number], Progress Notes * Kristen SARABIAAdyOB: 8 (58 yo F)Acc No.[id number]:06/29/2024 Patient:?Blanca SARABIA :1965???Age:58 Y???Sex:Female Address:[address] [place] [address], [place], [address] * Refills? Decrease acetaminophen-oxycodone tablet, 325 mg-10 mg, orally, 63, 1 tab, Q4-6H prn pain (max 3/day; hold within 4H of planned sleep), 21 days, Refills=0 Decrease acetaminophen-oxycodone tablet, 325 mg-10 mg, orally, 84, 1 tab, Q4-6H prn pain (max 3/day; hold within 4H of planned sleep), 28 days, Refills=0 * true * Date:? 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
--- OUTSIDE RECORDS SUMMARY | 2024-08-04 06:52 | XMS_ITS | Encounter Summary ---
Author Organization [facility] Address [address] [place] [address] Care Team Providers Care Suction Worker Name Role Phone Luis Eduardo Kaur DO Primary Care Provider [phone] Encounter Details Date Type Department Care Team (Late st Contact Info) Description 07/07/2024 External Device Data [place] ABSTRACTION Provider, Abstract NO ADDRESS ON FILE Social History Tobacco Use Types Packs/Day Years Used Date Smoking Tobacco: Never Smokeless Tobacco: Never Alcohol Use Standard Drinks/Week Comments No 0 (1 standard drink = 0.6 oz pur e alcohol) Comments Unknown Sex and Gender Information Value Date Recorded Sex Assigned at Not on file 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
--- OUTSIDE RECORDS SUMMARY | 2024-08-04 06:52 | XMS_ITS | Clinical Summary ---
Author Organization [facility] Address 5 [facility] Attn: [place] [address] Care Team Providers Care Personal Computer Network Engineer Name Role Phone Luis Eduardo Kaur DO Primary Care Provider [phone] Allergies No known active allergies Medications omeprazole (PriLOSEC) 20 mg Capsule, Delayed Release(E.C.) 7 Active oxyCODONE-acetami nophen (PERCOCET) 10-325 mg Tablet 7 Active gabapentin (NEURONTIN) 100 mg capsule 7 Active gabapentin (NEURONTIN) 300 mg capsule 7 Active gabapentin (NEURONTIN) 600 mg tablet TAKE ONE TABLET BY MOUTH THREE TIMES DAILY. 90 Tablet 0 7 Active fluticasone propion-salmetero L (Advair Diskus) 500-50 mcg/dose disk inhaler 7 Active cyclobenzaprine (FLEXERIL) 10 mg tablet TAKE ONE TABLET BY MOUTH THREE TIMES DAILY NEEDED FOR SPASM 90 Tablet 0 7 Active albuterol sulfate (ProAir HFA) 90 mcg/Actuation inhaler 7 Active montelukast (SINGULAIR) 10 mg tablet Take 10 mg by mouth daily at bedtime. 7 Active SUMAtriptan (IMITREX) 25 mg tablet Take 25 mg by mouth every 2 hours as needed for Other (See Comment) may repeat in 2 hours; max dose 200mg in 24 hours . 5 Active citalopram hydrobromide (CELEXA ORAL) Take 40 mg by mouth daily . 5 Active alprazolam (XANAX ORAL) Take 0.5 mg by mouth daily at bedtime . 5 Active acetaminophen/dip henhydramine (TYLENOL PM ORAL) Take by mouth. 5 Active sennosides-docusa te sodium (SENNA-S) 8.6-50 mg tablet Take 1 Tablet by mouth 1 time daily as needed. 7 Active oxyCODONE (ROXICODONE) 10 mg tablet Take 1 Tablet (10 mg) by mouth every 4 hours as needed for Pain, Severe (For Pain Scale 7-10). Max Daily Amount: 60 mg 120 Tablet 0 6 Active Active Problems Problem Noted Date Diagnosed Date Lumbosacral radiculopathy at L5 08/23/2015 Spondylolisthesis, grade 2 08/31/2014 Encounters Date Type Department Care Team Description 07/21/2024 External Device Data [facility]STRACTION Provider, Abstract 07/07/2024 External Device Data [facility]STRACTION Provider, Abstract 06/24/2024 External Device Data [facility]CTION Provider, Abstract 06/23/2024 External Device Data [facility]STRACTION Provider, Abstract 05/20/2024 Orders Only [place] [address] [place] [place] [address] Crys Gutierrez MD 05/19/2024 8:45 AM COMPUTER HELP DESK SPECIALIST - 05/19/2024 11:59 PM COMPUTER HELP DESK SPECIALIST Hospital Encounter [facility] [place] [address] [place] [place] [address] Crys Gutierrez MD Discharge Disposition: Home or Self Care 05/19/2024 8:10 AM COMPUTER HELP DESK SPECIALIST Ancillary Procedure [place] [address] [place] [phone] Tracy Buenrostro PA-C Chronic thumb pain, bilateral 05/19/2024 7:45 AM COMPUTER HELP DESK SPECIALIST Office Visit [facility] [place] [address] [place] [id number] Crys Gutierrez MD Chronic thumb pain, bilateral (Primary Dx); Arthritis of carpometacarpal (CMC) joint of both thumbs; Rupture of ulnar collateral ligament of right thumb, initial encounter; Closed dislocation of metacarpophalangeal joint of left thumb, initial encounter from Last 3 Months Immunizations Immunization Administration Dates Next Due Influenza Seasonal Unspecified Formulation IM Family History Medical History Relation Name Comments Asthma Father Diabetes Father Heart Failure Father Hypertension Father Cancer Mother Relation Name Status Comments Father Mother Social History Tobacco Use Types Packs/Day Years Used Date Smoking Tobacco: Never Smokeless Tobacco: Never Tobacco Cessation:Counseling Given: Not Answered Alcohol Use Standard Drinks/Week Comments No 0 (1 standard drink = 0.6 oz pur e alcohol) Comments Unknown Sex and Gender Information Value Date Recorded Sex Assigned at Not on file Legal Sex Female 10:34 AM COMPUTER HELP DESK SPECIALIST Gender Identity Not on file Sexual Orientation Not on file Last Filed Vital Signs Vital Sign Reading Time Taken Comments Blood Pressure 138/82 05/19/2024 7:43 AM COMPUTER HELP DESK SPECIALIST Pulse 88 03/11/2017 10:14 AM CDT Temperature 36.3 ??C (97.4 ??F) 03/11/2017 10:14 AM C DT Respiratory Rate 16 05/05/2015 7:20 AM COMPUTER HELP DESK SPECIALIST Oxygen Saturation - - Inhaled Oxygen Concentration - - Weight 90.7 kg (200 lb) 05/19/2024 7:43 AM COMPUTER HELP DESK SPECIALIST Height 162.6 cm (5' 4 ) 05/19/2024 7:43 AM COMPUTER HELP DESK SPECIALIST Body Mass Index 34.33 05/19/2024 7:43 AM COMPUTER HELP DESK SPECIALIST Plan of Treatment Health Maintenance Due Date Last Done Comments Pre-Diabetes and Diabetes Screening 1965 DTAP/TDAP/TD VACCINES (1 - Tdap) 08/14/1986 HEPATITIS B VACCINES (1 of 3 - 19+ 3-dose series) 08/14/1986 CERVICAL CANCER SCREENING 08/14/1997 BREAST CANCER SCREENING 2007 FIT-DNA Q 3 years 08/14/2012 FIT/FOBT Q 1 year 08/14/2012 Flex Sig/CT Colonography Q 5 years 08/14/2012 ZOSTER VACCINE (1 of 2) 08/14/2017 INFLUENZA VACCINE (#1) 2024 9, 03/09/2018, 04/06/2016, Additional history exists Preventative Visit- Commercial 06/03/2024 COLORECTAL SCREENING 06/03/2028 06/03/2018 Colorectal Cancer Screening 06/03/2028 Medical Devices Implanted Type Area Script Supervisor Device Identifier Shelf Expiration Date Model / Serial / Lot Vitoss Ba Foam Pack 5ml - Implanted:Qt y: 1 on 05/02/2015 by Mark Meier MD Biological N/A: Spine Lumbar MAY[employer]- SPINE 11/30/2016 / NA / [id number] Cage Acculif Pl [id number] - Sna Implanted:Qt y: 1 on 05/02/2015 by Mark Meier MD Cage N/A: Spine Lumbar [employer] SPINE 11/30/2016 / NA / [id number] Yvan Es2 Hex Rad 5.5x40mm [id number] - Sload#[id number] Implanted:Qt y: 2 on 05/02/2015 by Mark Meier MD Yvan N/A: Spine Lumbar [employer] SPINE [id number] / LOAD#[id number] / NA Screw Es2 Lng Bld 6.5x40mm [id number] - Sload#[id number] Implanted:Qt y: 2 on 05/02/2015 by Mark Meier MD Screw N/A: Spine Lumbar [employer] SPINE [id number] / LOAD#[id number] / NA Screw Es2 Lng Bld 6.5x45mm [id number] - Sload#[id number] Implanted:Qt y: 2 on 05/02/2015 by Mark Meier MD Screw N/A: Spine Lumbar [employer] SPINE [id number] / LOAD#[id number] / NA Lite Kalie Mantis [id number] - Sload#[id number] Implanted:Qt y: 4 on 05/02/2015 by Mark Meier MD Spine N/A: Spine Lumbar [employer] SPINE [id number] / LOAD#[id number] / NA Explanted Type Area Script Supervisor Device Identifier Shelf Expiration Date Model / Serial / Lot Wire K Es2 Le Nitinol Sharp [id number] - Sload#[id number] Implanted:Mark Meier MD (Quantity not on file) Explanted:Qty: 4 on 05/02/2015 by Mark Meier MD Wire N/A: Spine Lumbar [employer] SPINE [id number] / LOAD#[id number] / NA Procedures Procedure Name Priority Date/Time Associated Diagnosis Comments REFERENCE LAB PROCESSING FEE Routine 05/19/2024 9:01 AM COMPUTER HELP DESK SPECIALIST Rupture of ulnar collateral ligament of right thumb, initial encounter XR HAND 1 VW BILAT Stat 05/19/2024 8:22 AM COMPUTER HELP DESK SPECIALIST Chronic thumb pain, bilateral VITAMIN D 25 HYDROXY Routine 05/19/2024 12:00 AM COMPUTER HELP DESK SPECIALIST Rupture of ulnar collateral ligament of right thumb, initial encounter Closed dislocation of metacarpophalangeal joint of left thumb, initial encounter from Last 3 Months Results * REFERENCE LAB PROCESSING FEE (05/19/2024 9:01 AM COMPUTER HELP DESK SPECIALIST) REFERENCE LAB SENDOUT Sent to Ref Lab 05/19/2024 9:04 AM COMPUTER HELP DESK SPECIALIST [facility] Other, specify BLOOD SPECIMEN / Unknown Collection / Unknown 05/19/2024 9:01 AM COMPUTER HELP DESK SPECIALIST 05/19/2024 9:03 AM COMPUTER HELP DESK SPECIALIST Crys Gutierrez MD CHEMISTRY ORDERABLES Final R esult [id number] [facility] [place] [address] * XR HAND 1 VW BILAT (05/19/2024 8:22 AM COMPUTER HELP DESK SPECIALIST) Anatomical Region Laterality Modality Wrist / Hand Computed Radiogr aphy Narrative 05/20/2024 7:19 AM COMPUTER HELP DESK SPECIALIST X-Rays of the right AP lateral Zulay of the right thumb show angular deformity at the MP joint with some displacement radially indicative of an ulnar collateral ligament injury. ??AP lateral and Zulay of the left showed a dislocated CMC joint fluid secondary MP hyperextension us Tracy Buenrostro PA-C DIAGNOSTIC IMAGING ORDERABLES Final Result * VITAMIN D 25 HYDROXY (05/19/2024 12:00 AM COMPUTER HELP DESK SPECIALIST) VITAMIN D, 25 OH, TOTAL 39 30 - 100 ng/mL [facility] Comment: Vitamin D Status ? 25-OH Vitamin D: Deficiency: ?<20 ng/mL Insufficiency: ? 20 - 29 ng/mL Optimal: ? > or = 30 ng/mL For 25-OH Vitamin D testing on patients on D2-supplementation and patients for whom quantitation of D2 and D3 fractions is required, the QuestAssureD(TM) 25-OH VIT D, (D2,D3), LC/MS/MS is recommended: order code 79675 (patients >2yrs). See Note 1 Note 1 For additional information, please refer to http://education.Miappi/faq/SXZ094 (This link is being provided for informational/ educational purposes only.) Test Performed at: [facility] [address] [place], [place] ??[address] Darius Chavez MD Blood 05/19/2024 05/19/2024 1:4 4 PM COMPUTER HELP DESK SPECIALIST us Crys Gutierrez MD CHEMISTRY ORDERABLES Final R esult [facility] [phone] [facility] [address] [place] [address] from Last [address] [place] [address] [employer] [place] [phone] [facility] MEDICAID Care Teams Personal Computer Network Engineer Relationship Specialty Start Date End Date Luis Eduardo Kaur DO PCP - General Family Practice 08/31/14
--- OUTSIDE RECORDS SUMMARY | 2024-08-04 06:53 | XMS_ITS ---
Author Organization [facility] Address [address] [place], [place] [id number] Care Team Providers Care Plush Finisher Name Role Phone Anitra Mejía Primary Care Provider Unavailab Kelli NG, Mitchel Unavailable [phone] Allergies Allergen (clinical drug ingredient) Drug/Non Drug Allergy documented on EMR Reaction Allergy Type Onset Date Status contrast dye used for myelogram (uncoded) low heart rate Allergy Active REASON FOR VISIT Patient states she is here today for low back pain. Medications Medication SIG (Take, Route, Frequency, Duration) Notes Start Date End Date Status acetaminophen-oxycodone 325 mg-10 mg 1 tab orally Q4H prn pain (max 4/day; hold within 4H of planned sleep) for 7 days Do not fill prior to 06/21/24. ICD-10: G89.29 06/18/2024 Active acetaminophen-oxycodone 325 mg-10 mg 1 tab orally Q4H prn pain (max 4/day; hold within 4H of planned sleep) for 28 days Do not fill prior to 07/19/24. ICD-10: G89.29 06/18/2024 Active acetaminophen-oxycodone 325 mg-10 mg 1 tab orally Q4H prn pain (max 4/day; hold within 4H of planned sleep) for 21 days Do not fill prior to 06/28/24. ICD-10: G89.29 06/18/2024 Active vitamin E 180 mg 1 cap(s) orally once a day Active omeprazole 40 mg 1 cap orally once a day Active Potassium Gluconate 99 mg as directed Active predniSONE 5 mg 1 tab orally once a day Active Vitamin C with [place] 1000 mg 1 tab orally once a day Active Vitamin D3 25 mcg 1 tab chewed once a day Active isosorbide mononitrate 30 mg 1 tab(s) orally once a day (in the morning) Active lisinopril 2.5 mg 1 tab(s) orally once a day 05/02/2022 Active metoprolol 50 mg 1 tab(s) orally 2 times a day for 30 day(s) Active nitroglycerin 0.4 mg 1 tab(s) sublingual ly every 5 minutes Active Humira 20 mg/0.2 mL as directed Active Calcium, Magnesium and Zinc as directed Active citalopram 40 mg 1 tab orally once a day Active diclofenac sodium 75 mg 1 tab orally 2 t imes a day, as needed Active DULoxetine 60 mg 1 cap orally once a day Active estradiol 0.5 mg 1 tab(s) orally once a day for 30 day(s) Active busPIRone 5 mg 1 tab orally 3 times a day Active Aspir 81 Active biotin 10 mg 1 tab orally once a day Active Social History Tobacco Use: Social History [...] less (1 point) Points 1 Interpretation Negative Vital Signs Temperature 90.4 degrees Fahrenheit 06/18/19 25 Blood pressure systolic 117 mm Hg 06/18/19 25 Blood pressure diastolic 61 mm Hg 025 Height 65 in 06/18/2024 Weight 213.4 lbs 06/18/2024 Oximetry 92 % 06/18/2024 BMI 35.51 kg/m2 06/18/2024 Encounters Encounter Location Date Provider Diagnosis [facility] [id number] [place], [place] [id number] 06/18/2024 Mitchel Conway Vertebrogenic low ba ck pain M54.51 ; Other chronic pain G89.29 and Obstructive sleep apnea (adult) (pediatric) G47.33 Assessments Encounter Date Diagnosis (ICD Code) Assessment Notes Treatment Notes Treatment Clinical Notes Section Notes 06/18/2024 Vertebrogenic low back pain (ICD-10 - M54.51) Chronic lumbosacral spine pain. Patient has reported benefit with reprogramming of the SCS system. Patient reports follow up with Dr. Messer is scheduled in 2 weeks to discuss surgery. 06/18/2024 Other chronic pain (ICD-10 - G89.29) Patient reports that taking her pain medication allows her to complete her lap machine tender. Patient's insurance change has resulted in a lower MED that is allowed. She has opted for Percocet only; stopping the tramadol. Plan to continue oral opioid medication management. 06/18/2024 Obstructive sleep apnea (adult) (pediatric) (ICD-10 - G47.33) Patient reports consistent nightly use of her CPAP device. 06/18/2024 Other Patient reports new insurance effective 06/03/24. [place] Medicaid will only pay for an MED of 50. Melissa with [facility] in [place] was notified and the quantity issued was [...] 4H of planned sleep) for 7 days 06/18/2024 Do not fill prior to 06/21/24. ICD-10: G89.29 acetaminophen-oxycodone 325 mg-10 mg 1 tab orally Q4H prn pain (max 4/day; hold within 4H of planned sleep) for 28 days 06/18/2024 Do not fill prior to 07/19/24. ICD-10: G89.29 acetaminophen-oxycodone 325 mg-10 mg 1 tab orally Q4H prn pain (max 4/day; hold within 4H of planned sleep) for 21 days 06/18/2024 Do not fill prior to 06/28/24. ICD-10: G89.29 traMADol 50 mg 1 tab orally Q4-6H prn pain (max 3/day; hold within 4H of planned sleep) Treatment Notes Assessment Notes Vertebrogenic low back pain Chronic lumbosacral spine pain. Patient has reported benefit with reprogramming of the SCS system. Patient reports follow up with Dr. Messer is scheduled in 2 weeks to discuss surgery. Other chronic pain Patient reports that taking her pain medication allows her to complete her lap machine tender. Patient's insurance change has resulted in a lower MED that is allowed. She has opted for Percocet only; stopping the tramadol. Plan to continue oral opioid medication management. Obstructive sleep apnea (adult) (pediatr ic) Patient reports consistent nightly use of her CPAP device. Other Patient reports new insurance effective 06/03/24. [place] Medicaid will only pay for an MED of 50. Melissa with [facility] in [place] was notified and the quantity issued was [...] Provider Name:Mitchel Gallo son, 08/13/2024 02:30:00 PM, [facility], [place], [place], [id number], Progress Notes * ARIELDeborahOB: 8 (58 yo F)Acc No.[id number]:06/18/2024 Patient:?Sivan SARABIAellen Provider:?Mitchel Conway :1965???Age:58 Y???Sex:Female D ate:06/18/2024 Address:[address] [place], [place] [id number] Pcp:JOEL Perez Subjective: * Chief Complaints: * ???Patient states she is her e today for low back pain. * HPI: ???Lumbar Spine:?58 year old female presents with c/o pain?for?chronic duration?in the bilateral lower back. This pain is described as intermittent aching with a burning sensation. This pain extends into the hips and thighs. The back pain is aggravated by cold weather, sitting straight upright, standing to do dishes, and with vacuuming. This pain is somewhat alleviated with use of muscle cream, ice, and heat.?c/o tingling/numbness?intermittently in the feet and toes.?c/o weakness?in the LLE (difficulty lifting LLE).?Denies : radiation of pain.?Denies : change in bowel/bladder function.?Denies : injury:.?previous surgery:?lumbar laminectomy in 2004; L5-S1 fusion / fixation in 2014; SCS system (with IPG) placement in 2018.?Previous Therapy:?Previous therapy:?heat therapy with some benefit; ice therapy with some benefit; topical agent therapy with some benefit; physical therapy with history of no benefit (2017); chiropractic?therapy with history of no significant benefit (1990 - 2020); injection therapy?by Dr. Davenport with history of?moderate benefit (03/2021 - 06/2021) and injection therapy?at [facility] pain clinic in 2016 with history of no benefit; medication management / opioid therapy by Dr. Mendoza at [facility] pain clinic with history of some benefit; prior SCS therapy via other provider with history of some benefit.?Medication history:?Xanax 0.5 mg; Percocet 10/325; Cymbalta 60 mg; Ultram 50 mg; diclofenac sodium 75 mg; chlorzoxazone 500 mg; OTC Hemp cream topical applications.?Medications:?Percocet (oxycodone / acetaminophen)?325 mg-10 mg, 1 tab, orally, Q4H prn severe pain (max 4/day; hold within 4H of planned sleep), 28 days, 112, Refills 0.Notes: Prescriptions given (2) on 04/23/24. Patient reports good benefit, as evidenced by improved ability to perform self care and attend doctor's appointments, with quantity 26 and 0 prescription(s) remaining.Last fill date: 05/24/24.?tramadol (Ultram)?50 mg, 1 tab, orally, Q4-6H prn pain (max 3/day; hold within 4H of planned sleep), 28 days, 84, Refills 1(last prescribed 04/23/24). Patient reports good benefit, as evidenced by improved ability to perform self care and attend doctor's appointments, with quantity 82 remaining and 0 refills.Last fill date: 06/10/24.? * ROS:?14 point review of systems negative. * Medical History:? * Surgical History:? s ection x 2, performed in [place] by Dr. Brendon Aguilar, 1989, 2003Lumbar laminectomy, performed in [place] by Dr. Arredondo, 07/2004Hysterectomy, performed in [place] by Dr. Praful Aguilar, 2007Rotator cuff tear repair, right, performed by Dr. Reveles, 2011Arthroscopy, shoulder, right (clean scar tissue) 2012Spinal fusion, performed at [facility] in [place], [place], 2015SCS system (with IPG) placement (Spectral Image), performed at [facility] by Dr. Liliana Berger, 02/14/18Colonoscopy, performed by Dr. Chino, 10/22/18Total hip replacement, right, performed at [facility] by Dr. Freed, 07/24/21Skin biopsy (basal cell), performed at [facility] by Dr. Maryanne Damico, 03/21/22Repair of detached retina, left, performed at [facility] by Dr. Myers, 05/2022, 06/2022 * Hospitalization/Major Diagno stic Procedure:?Heart attack, treated at [facility] 08/16/22 * Family History:?Father: dece ased 75 yrs, heart disease and kidney failure.?Mother: 60 yrs, bone cancer.? * Social History:?Tobacco use?:?nonsmoker ???Marijuana: no. ???Meth: no. ???Other illicit drug use: no. ???: yes. ???Children: 1. ???Education: highest grade completed = 12th. ???Occupation: no, reportedly disabled. ???Exercise: no. ???History of welding/metal work: no. ???Travel: no. ???AUDIT-C (Standard)?Did you have a drink containing alcohol in the past year??Yes ?How often did you have six or more drinks on one occasion in the past year??Never (0 point) ?How many drinks did you have on a typical day when you were drinking in the past year??1 or 2 drinks (0 point) ?How often did you have a drink containing alcohol in the past year??Monthly or less (1 point) ?Points?1 ?Interpretation?Negative * Medications:?Takingacetamino phen-oxycodone 325 mg-10 mg tablet [...] Pain average: 6, Pain Range: 3-9, Ht:65in, Wt:213.4lbs, BMI:35.51index, BP:117/61mm Hg, HR:71, RR:16, Temp:90.4, SaO2: 92. * Physical Examination:?General:?General appearence:?well groomed, well nourished.?Build:?moderately obese.?Head:?normocephalic.?Eyes:?Conjunctiva:?without injection.?ENT:?Hearing:?grossly intact.?Chest:?Shape and expansion:?normal expansion, equal [...] pain medication allows her to complete her lap machine tender. Patient's insurance change has resulted in a lower MED that is allowed. She has opted for Percocet only; stopping the tramadol. Plan to continue oral opioid medication management.?? 3.?Obstructive sleep apnea ( adult) (pediatric)? Notes: Patient reports consistent nightly use of her CPAP device.?? 4.?Others? Continue acetaminophen-oxycodone tablet, 325 mg-10 mg, 1 tab, orally, Q4H prn pain (max 4/day; hold within 4H of planned sleep), 7 days, 28, Refills 0, Notes to Pharmacist: Do not fill prior to 06/21/24. ICD-10: G89.29;?Continue acetaminophen-oxycodone tablet, 325 mg-10 mg, 1 tab, orally, Q4H prn pain (max 4/day; hold within 4H of planned sleep), 21 days, 84, Refills 0, Notes to Pharmacist: Do not fill prior to 06/28/24. ICD-10: G89.29;?Stop traMADol tablet, 50 mg, 1 tab, orally, Q4-6H prn pain (max 3/day; hold within 4H of planned sleep);?Continue acetaminophen-oxycodone tablet, 325 mg-10 mg, 1 tab, orally, Q4H prn pain (max 4/day; hold within 4H of planned sleep), 28 days, 112, Refills 0, Notes to Pharmacist: Do not fill prior to 07/19/24. ICD-10: G89.29.?? Notes: Patient reports new insurance effective 06/03/24. [place] Medicaid will only pay for an MED of 50. Melissa with [facility] in [place] was notified and the quantity issued was adjusted to equal #3 tablets per day to meet patient's new insurer's (Medicaid) requirements. The service was provided by JOEL Reza, as part of the ongoing care plan established by Mitchel Conway MD, who was present in the office for direct supervision during the encounter.?? Prescription Drug Monitoring Program (PDMP) PDMP report request complete d on 06/17/2024 07:16:04 PM - Mitchel Conway * Procedure Codes:? * Preventive Medicine:? ??Counseling:?Pain Management:?Follow-up Plan documented:?Yes ?Pain Screening:?7 * Follow Up:?2 month Rx visit. * Images: * NTER HAND Sign off status: Completed true * Provider:?Mitchel Conway Date:?06/18/19 Generated for Stoney metzger/Blas/Jeremias on:?08/04/2024 06:52 AM CEMENT[facility] HAND History and Physical Notes * HPI (History of Present Illness) Category Sub-Category Detail Notes Category Not es Lumbar Spine injury: tingling/numbness intermittently in th e feet and toes pain in the bilateral low er back. This pain is described as intermittent aching with a burning sensation. This pain extends into the hips and thighs. The back pain is aggravated by cold weather, sitting straight upright, standing to do dishes, and with vacuuming. This pain is somewhat alleviated with use of muscle cream, ice, and heat radiation of pain previous surgery: lumbar laminectomy i n 2004; L5-S1 fusion / fixation in 2014; SCS system (with IPG) placement in 2018 weakness in the LLE (difficul ty lifting LLE) change in bowel/bladder function Medications Percocet (oxycodone / acetaminophen) 325 mg-10 mg, 1 tab, orally, Q4H prn severe pain (max 4/day; hold within 4H of planned sleep), 28 days, 112, Refills 0. Notes: Prescriptions given (2) on 04/23/24. Patient reports good benefit, as evidenced by improved ability to perform self care and attend doctor's appointments, with quantity 26 and 0 prescription(s) remaining. Last fill date: 05/24/24 tramadol (Ultram) 50 mg, 1 tab, orally , Q4-6H prn pain (max 3/day; hold within 4H of planned sleep), 28 days, 84, Refills 1 (last prescribed 04/23/24). Patient reports good benefit, as evidenced by improved ability to perform self care and attend doctor's appointments, with quantity 82 remaining and 0 refills. Last fill date: 06/10/24 Previous Therapy Previous therapy: heat therapy with some benefit; ice therapy with some benefit; topical agent therapy with some benefit; physical therapy with history of no benefit (2017); chiropractic therapy with history of no significant benefit (1990 - 2020); injection therapy by Dr. Davenport with history of moderate benefit (03/2021 - 06/2021) and injection therapy at [facility] pain clinic in 2016 with history of no benefit; medication management / opioid therapy by Dr. Mendoza at [facility] pain clinic with history of some benefit; prior SCS therapy via other provider with history of some benefit Medication history: Xanax 0.5 mg; Percoc et 10/325; Cymbalta 60 mg; Ultram 50 mg; diclofenac sodium 75 mg; chlorzoxazone 500 mg; OTC Hemp cream topical applications Physical Examination Category Sub-Category Detail Notes Section [...] appearence: well groomed, well no urished Build: moderately obese Head: normocephalic Eyes Conjunctiva: without injection
--- OUTSIDE RECORDS SUMMARY | 2024-08-04 06:53 | XMS_ITS | Data Portability ---
Author Organization [facility]EN [facility] Address [address] [facility] [address] [place] [address] Care Team Providers Care Disability Benefits Specialist Name Role Phone ANITRA BRICENO Primary Care Provider [phone] Assessment Encounter Date Assessment Date Assessment LastModified by Organization Details LastModified Time 11/06/2023 11/06/2023 3 view xray right hand- no fx, no dislocation, no soft tissue swelling- independently viewed by al [email or web address] Not available 11/06/2023 14:24:06 12/25/2023 12/25/2023 Patient here today for a check-up. Her thumbs are really bothering her still. Not available 12/25/2023 12:16:02 04/15/2024 04/15/2024 Patient reports she is waiting on approval for a surgery on her back as well. Insurance is denying it at this time. She has an umbilical hernia that she knew was there but now has a bulge above that area as well that appears to be a hernia. She also reports that she was contacted by her insurance and told she had a positive Fit/cologuard, she is not sure which one it was she did. She contacted her insurance but was unable to figure out what it was. Not available 04/15/2024 12:05:07 06/25/2024 06/25/2024 Patient here today for a [id number] for her CPAP supplies. She has been doing well. She uses her CPAP nightly. She is planning on starting a diet in July. Not available 06/25/2024 16:21:35 Plan of Treatment Reminders Order Date Submit Date Provider Last Modified By Organization Details Last Modified Time Details Appointments None recorded. Lab lipid panel, serum 2024 025 [employer] [facility], [address] [facility] [address], [place], [address], 5 06:01:43 TSH, serum or plasma 2024 025 [facility], [address] [facility] [address], [place], [address], 5 06:01:44 Referral general surgeon referral - Hernias and possibly needs a colonoscopy . 2023 024 [email or web address] 2 Not available 4 14:35:15 hand surgeon referral 2023 024 [email or web address] 8 [facility], [address] [place], [address], 4 15:31:57 occupationa l therapist referral 2023 024 [email or web address] 8 [facility], [address] [place] [address], [facility] [address], [address], 4 16:54:21 Procedures None recorded. Surgeries None recorded. Imaging XR, hand, 3 or more view 2023 024 [facility] [address] [place], [address], 4 10:03:22 Medication Orders gabapentin 100 mg capsule [address] [facility], [address], [place], [address], 5 15:34:36 gabapentin 100 mg capsule 2023 024 [facility], [address], [place], [address], 12:21:35 Zepbound 2.5 mg/0.5 mL subcutaneou s pen injector 2023 024 [facility], [address], [place], [address], 10:14:37 Patient TargetsNo targets recorded. Patient Instructions Encounter Date Encounter Id Patient Instructions Last Modified By Organization Details Last Modified Time 08/22/2023 [id number] Call or return for questions or concerns. Advised her to get an appt a month following starting of the medication. Not available 08/23/2023 09:42:39 12/25/2023 [id number] Call or return for questions or concerns. Not available 12/25/2023 12:15:50 04/15/2024 [id number] Call or return for questions or concerns. Not available 04/15/2024 12:05:46 06/25/2024 [id number] Call or return for questions or concerns. Not available 06/25/2024 16:20:42 Reason for Referral Hand Surgeon Referral for Bi lateral thumb pain Referring Physician: Anitra [facility], Encounter Date: 12/25/2023 Occupational Therapist Refer ral for Bilateral thumb pain Referring Physician: Anitra [facility], Encounter Date: 12/25/2023 General Surgeon Referral for Umbilical hernia Hernias and possibly needs a colonoscopy. Referring Physician: An[facility]ra [facility], Encounter Date: 04/15/2024 Results Created Date Observation Date Name Description Value Unit Range Abnormal Flag Note LastModifiedBy Organization Detail LastModifiedTime 06/25/1906/26/2024 LIPID PANEL , STAND KARLIE cholesterol, total 339 mg/dL <200 high Not Available [facility] [facility] [address], [place], [address], 06/26/2024 06:01:43 06/25/1906/26/2024 LIPID PANEL , STAND KARLIE HDL cholesterol 62 mg/dL > or = 50 normal Not Available [facility] [address] [address] [place], [address], 06/26/2024 06:01:43 06/25/19 25 06/26/2024 LIPID PANEL , STAND KARLIE triglyceride s 531 mg/dL <150 high If a non-f astin g speci men was colle cted, consi sue repea t trigl yceri de testi ng on a fasti ng speci men if clini jayla indic ated. Abhi desir et al. J. of Clin. Lipid ol. 2015; 9:129 -169. There is incre ased risk of pancr eatit is when the trigl yceri de jeannie ntrat ion is very high (> or = 500 mg/dL , espec ially if > or = 1000 mg/dL ). Abhi desir et al. J. of Clin. Lipid ol. 2015; 9:129 -169. Not Available [facility] [address] [address] [place], [address], 06/26/2024 06:01:43 06/25/19 25 06/26/2024 LIPID PANEL , STAND KARLIE LDL-choleste rol mg/dL _(chapo c) LDL sridhar stero l not calcu lated . Trigl yceri de level s great er than 400 mg/dL inval idate calcu lated LDL resul ts. Refer ence range : <100 Alma able range <100 mg/dL for prima ry preve ntion ; <70 mg/dL for patie nts with CHD or diabe tic patie nts with > or = 2 CHD risk facto rs. LDL-C is now calcu lated using the Marley n-Hop kins calcu latmariela n, which is a valid ated novel metho d roberto parrish r accur acy than the Fried carlos equat ion in the estim ation of LDL-C . Marley hill SS et al. CLAUDIA. 2013; 310(1 9): 2061- 2068 (http ://ed ucati on.Qu estDi Igneous Systemss. com/f aq/FA Q164) Not Available [address] [address] [place], [address], 06/26/2024 06:01:43 06/25/1906/26/2024 LIPID PANEL , STAND KARLIE chol/HDLC ratio 5.5 (calc ) <5.0 high Not Available [facility] [address] [address] [place], [address], 06/26/2024 06:01:43 06/25/19 25 06/26/2024 LIPID PANEL , STAND KARLIE non HDL cholesterol 277 mg/dL _(chapo c) <130 high Non-H DL level > or = 220 is very high and may indic ate siena ic famil ial hyper sridhar stero lemia (FH). Clini chapo asses sment and measu remen t of blood lipid level s shoul d be consi dered for all first -degr ee relat elinor of patie nts with an FH diagn osis. For patie nts with diabe cathy plus 1 major ASCVD risk facto r, treat ing to a non-H DL-C goal of <100 mg/dL (LDL- C of <70 mg/dL ) is consi dered a thera peuti c optio n. Not Available [address] [address] [place], [address], 06/26/2024 06:01:43 06/25/1906/26/2024 TSH TSH 1.74 mIU/L 0.40-4 .50 normal Not Available [address] [place], [address], 06/26/2024 06:01:44 Result Notes None recorded. Problems Name Problem SNOMED Code Status Onset Date Resolution Date Notes Provider Name and Address Organization Details Recorded Time Chronic pain syndrome 995076742 Active 2023 BIRD muro [facility], L.LMarycruzCMarycruz 13:44:38 Lumbar spondylosis 873099133 Active 2023 BIRD muro [facility] 4 13:45:11 Lumbar radiculopat hy 812505212 Active 2023 BIRD muro [facility] 4 13:45:08 Fibromyalgi a 721375816 Active 2023 BIRD muro [facility], L.L.CMarycruz 4 13:44:54 Polymyalgia rheumatica 11551693 Active 2023 ANITRA BRICENO, [facility] [address] [place], [address], [facility], L.L.CMarycruz 4 12:14:59 Mixed anxiety and depressive disorder 853798158 Active 2023 BIRD muro [facility] 4 13:45:20 Hyperlipide sun 57670699 Active 2023 BIRD muro [facility] 4 13:45:04 Migraine 15129336 Active 2023 BIRD muro [facility] 13:45:17 Coronary arterioscle rosis 25491208 Active 2023 BIRD muro [facility] 4 13:44:41 Hiatal hernia 65923243 Active 2023 BIRD muro [facility] 4 13:45:01 Gastroesoph ageal reflux disease 476944535 Active 2023 BIRD muro [facility] 4 13:44:58 Obstructive sleep apnea syndrome 88866531 Active 2023 BIRD muro [facility] 4 13:45:23 Sinus tachycardia 18648262 Active BIRD PIERRE [facility] 5 12:14:22 Chronic back pain [id number] [facility] PIERRE [facility] 5 12:13:11 Radiculopat hy of lumbosacral spine due to disc disorder 3300941833199 9108 Active [facility]IRD PIERRE [facility] 5 12:14:14 History of Spinal surgery [id number] [facility] 5 12:13:32 Lumbar post-kylie ctomy syndrome [id number] [facility] BIRD PIERRE [facility] 5 12:13:47 Myocardial infarction [id number] [facility]IRD PIERRE [facility] 5 12:14:01 Multiple premature ventricular complexes [id number] [facility] IGNACIO [facility] 5 12:13:57 Lumbar spondylolis thesis 2516841529596 02 [facility]IRD PIERRE [facility] 5 12:13:51 Osteoarthri tis of right hip joint 4744127824968 07 [facility]ERRE [facility] 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 5 12:14:26 Long-term current use of steroid [id number] [facility]IRD PIERRE [facility] 5 12:13:41 Problem Notes None recorded. Procedures Surgical History Date Name Laterality Status Provider Name and Address Organization Details Recorded Time 06/13/20 24 plain X-ray of chest completed [facility] 11/15/2023 13:47:26 11/14/19 24 [address] of lumbar spine completed [facility] 12/25/2023 12:37:39 06/04/19 19 Colonoscopy completed [facility] 11/06/2023 10:07:34 Back Surgery completed [facility] 08/22/2023 16:44:06 Eye Surgery completed [facility] 08/22/2023 16:44:21 Hysterectomy completed [facility] 08/22/2023 16:44:48 section completed [facility] 11/06/2023 10:06:11 exploratory lumbar laminectomy completed [facility] 11/06/2023 10:06:33 lumbar spinal fusion completed [facility] 11/06/2023 10:06:57 total replacement of hip completed [facility] 11/06/2023 10:07:12 Imaging Results None recorded. Procedure Notes None recorded. Medical Equipment None Reported. Allergies Allergen ID Allergen Name Allergen Category Reaction Reaction Severity Criticality Documentation Date Start Date Code Code System Note Provider Name and Address Organization Details Recorded Time 81741 tetracycl ine medicatio n Not available Not available Not available 12/25/20232023 92372 RxNorm ANITRA BRICENO, [address], [address] [place] [address], LMarycruzLMarycruzC. 12:14:34 67614 etanercep t medicatio n Not available Not available Not available 12/25/20232023 73047 5 [facility] ANITRA BRICENO, [employer] [address] [place], [address], [facility], Caden 4 12:14:34 07238 abatacept medicatio n Not available Not available Not available 12/25/20232023 07718 1 RxNorm ANITRA BRICENO, [employer] [address] [place], [address], [facility], Caden 4 12:14:34 Medications Name Sig Start Date Stop Date Status Note LastModified by Organization Details LastModified Time cyclobenz aprine 10 mg tablet TAKE 1 TABLET BY MOUTH THREE TIMES DAILY NEEDED FOR MUSCLE SPASM 07/17 completed Not Available Not Available Not Available buspirone 5 mg tablet TAKE 1 TABLET BY MOUTH THREE TIMES DAILY active Not Available Not Available No t Available prednison e 10 mg tablet 1.5mg daily 12/02 completed Not Available Not Available Not Available ketoconaz ole 2 % shampoo APPLY TOPICALL Y TO SCALP 2-3 TIMES PER WEEK AND ALLOW TO SIT 5 MINUTES BEFORE RINSING 07/17 completed Not Available Not Available Not Available citalopra m 40 mg tablet Take 1 tablet by mouth once daily active Not Available Not Available No t Available fluconazo le 150 mg tablet TAKE 1 TABLET BY MOUTH A ONE TIME DOSE 02/19 completed Not Available Not Available Not Available chlorzoxa zone 500 mg tablet Take 1 tablet by mouth three times daily as needed 08/21 completed Not Available Not Available Not Available ondansetr on HCl 8 mg tablet TAKE 1 TABLET BY MOUTH EVERY 8 HOURS NEEDED FOR NAUSEA AND VOMITING 07/17 completed Not Available Not Available Not Available fluconazo le 200 mg tablet 12/24 completed Not Available Not Available Not Available sumatript an 25 mg tablet TAKE BY MOUTH 1 TABLET AT THE ONSET OF HEADACHE CAN REPEAT DOSE IN 2 HOURS IF NEEDED NO MORE THAN 2 TABS PER DAY active Not Available Not Available No t Available prednison e 20 mg tablet TAKE 1 TABLET BY MOUTH ONCE DAILY . APPOINTM ENT REQUIRED FOR FUTURE REFILLS 08/21 completed Not Available Not Available Not Available isosorbid e mononitra te ER 30 mg tablet,ex tended release 24 hr TAKE 1 TABLET BY MOUTH ONCE DAILY active Not Available Not Available No t Available prednison e 5 mg tablet TAKE 3 TABLETS BY MOUTH ONCE DAILY active Not Available Not Available No t Available ciproflox acin 500 mg tablet TAKE 1 TABLET BY MOUTH TWICE DAILY 04/15 completed Not Available Not Available Not Available sulfameth oxazole 800 mg-trimet hoprim 160 mg tablet TAKE 1 TABLET BY MOUTH THREE TIMES DAILY WEEKLY ON SATURDAY, , AND 07/17 completed Not Available Not Available Not Available omeprazol e 40 mg capsule,d elayed release daily 12/24 completed 40mg daily Not Available Not Available Not Available aspirin 81 mg tablet,de layed release Take 1 tablet every day by oral route. active Not Available Not Available No t Available tramadol 50 mg tablet 1 TAB EVERY 4 TO 6 HOURS NEEDED FOR PAIN, MAX 3 DAILY, HOLD WITHIN 4 HR OF PLANNED SLEEP, 28 DAYS 07/17 completed Not Available Not Available Not Available oxycodone -acetamin ophen 5 mg-325 mg tablet Take 1 tablet every 6 hours by oral route as needed. 07/17 completed Pain Clinic Not Available Not Available Not Available potassium 99 mg tablet Take 1 mg every day by oral route. 11/05 completed DUPLICAT E MEDICATI ON ON CHART Not Available Not Available Not Available Vitamin C 1,000 mg tablet Take 1 tablet every day by oral route. 12/23 completed Not Available Not Available Not Available oxycodone -acetamin ophen 10 mg-325 mg tablet 1 TABLET EVERY 4 HOURS NEEDED FOR SEVERE PAIN active Pain Clinic Not Available Not Available Not Available nitroglyc lakhwinder 0.4 mg sublingua l tablet DISSOLVE ONE TABLET UNDER THE TONGUE EVERY 5 MINUTES NEEDED FOR CHEST PAIN. DO NOT EXCEED A TOTAL OF 3 DOSES IN 15 MINUTES active Not Available Not Available No t Available gabapenti n 300 mg capsule TAKE 1 CAPSULE BY MOUTH TWICE DAILY NEEDED active Not Available Not Available No t Available omeprazol e 20 mg capsule,d elayed release TAKE 2 CAPSULES BY MOUTH ONCE DAILY AT 8AM active Not Available Not Available No t Available diclofena c sodium 75 mg tablet,de layed release TAKE 1 TABLET BY MOUTH TWICE DAILY NEEDED active Not Available Not Available No t Available furosemid e 20 mg tablet TAKE 1 TABLET BY MOUTH ONCE DAILY NEEDED FOR SWELLING 12/23 completed Not Available Not Available Not Available gabapenti n 100 mg capsule TAKE 1 CAPSULE BY MOUTH THREE TIMES DAILY NEEDED FOR 30 DAYS active Not Available Not Available No t Available estradiol 0.5 mg tablet TAKE 1 TABLET BY MOUTH ONCE DAILY active Not Available Not Available No t Available estradiol 0.01% (0.1 mg/gram) vaginal cream apply ONE gram vaginall y TWICE DAILY FOR 14 DAYS THEN apply twice weekly 07/17 completed Not Available Not Available Not Available zolpidem 10 mg tablet TAKE 1 TABLET BY MOUTH AT BEDTIME NEEDED active Not Available Not Available No t Available clobetaso l 0.05 % scalp solution APPLY TOPICALL Y TO THE SCALP DAILY NEEDED FOR ITCHING 07/17 completed Not Available Not Available Not Available lisinopri l 2.5 mg tablet TAKE 1 TABLET BY MOUTH ONCE DAILY active Not Available Not Available No t Available amoxicill in 875 mg-potass ium clavulana te 125 mg tablet 02/17 completed Not Available Not Available Not Available Premarin 0.625 mg tablet TAKE 1 TABLET BY MOUTH ONCE DAILY 02/19 completed Not Available Not Available Not Available rosuvasta tin 10 mg tablet TAKE 1 TABLET BY MOUTH ONCE DAILY AT BEDTIME active Not Available Not Available No t Available metoprolo l tartrate 25 mg tablet TAKE 1 TABLET BY MOUTH TWICE DAILY active Not Available Not Available No t Available duloxetin e 60 mg capsule,d elayed release Take 1 capsule by mouth once daily active Not Available Not Available No t Available eszopiclo ne 1 mg tablet TAKE 1 TABLET BY MOUTH ONCE DAILY NEEDED FOR 30 DAYS active Not Available Not Available No t Available citalopra m daily 01/31 completed 62657; Recorded 05/01/20 22 6:17PM by Bird Pierre CMT (Authori wayne through JOEL Arango), Refill Request; Refill Quantity : 90; Tablet; Not Available Not Available Not Available Diflucan one time dose 02/19 completed Recorded 08/04/19 23 2:29PM by JOEL Arango, Office Visit; Refill Quantity : 1; Tablet; Not Available Not Available Not Available folic acid daily 02/19 completed 44613; Recorded 12/01/19 22 12:36PM by Grisel Higginbotham LPN (Authori zed through JOEL Arango), Office Visit; Refill Quantity : 0; Not Available Not Available Not Available sumatript an succinate as needed for RAYMOND. can repeat in 2hr if needed. max 2 per 24hr 08/21 completed Max dose of 2 tabs in 24 hours.; 9; Recorded 06/19/19 2:46PM by Bird Pierre CMT (Authori zed through Andi Chavira MD), Refill Request; Refill Quantity : 10; Tablet; Not Available Not Available Not Available Percocet four times daily, as needed 02/19 completed last fill 03/20/21 ; Recorded 12/01/19 22 12:36PM by Grisel Higginbotham LPN, Office Visit; Refill Quantity : 0; Not Available Not Available Not Available Vitamin D3 1 tablet daily 12/24 completed Not Available Not Available Not Available leflunomi de daily 02/19 completed 0; Recorded 08/04/19 23 2:17PM by Bird Pierre CMT, Office Visit; Not Available Not Available Not Available Humira Pen 40 mg/0.8 mL subcutane ous kit Inject 40 mg by sub-q route. 07/17 completed Not Available Not Available Not Available Enbrel SureClick 50 mg/mL (1 mL) subcutane ous pen injector 04/15 completed Not Available Not Available Not Available biotin 5 mg tablet Take 5 mg by oral route. 07/17 completed Not Available Not Available Not Available Actemra monthly 01/31 completed 0; Recorded 08/04/19 23 2:17PM by Bird Pierre CMT, Office Visit; Not Available Not Available Not Available Probiotic 07/17 completed Not Available Not Available Not Available potassium chloride ER 20 mEq tablet,ex tended release TAKE 1 TABLET BY MOUTH ONCE DAILY WHEN TAKING LASIX 04/15 completed Not Available Not Available Not Available Narcan 4 mg/actuat ion nasal spray CALL 911. SPR CONTENTS OF ONE SPRAYER (0.1ML) INTO ONE NOSTRIL. REPEAT IN 2-3 MIN IF SYMPTOMS OF OPIOID EMERGENC Y PERSIST, ALTERNAT E NOSTRILS active Pain clinic Not Available Not Available Not Available Humira(CF ) Pen 40 mg/0.4 mL subcutane ous kit active Not Available Not Available Not Available Rinvoq 15 mg tablet,ex tended release Take 1 tablet every day by oral route. 12/23 completed Not Available Not Available Not Available Zepbound 2.5 mg/0.5 mL subcutane ous pen injector INJECT 1 SYRINGE SUBCUTAN EOUSLY ONCE A WEEK 11/05 completed Not Available Not Available Not Available Vitals Date Recorded Body height Body mass index (BMI) Body weight Oxygen saturation Oxygen saturation in Arterial blood by Pulse oximetry Heart rate Respiratory rate Systolic blood pressure Diastolic blood pressure Provider Name and Address Organization Details Last Updated DateTime 4 158.75 cm 36.4 kg/m2 66526.6 6 g 97 % 97 % 76 /min 20 /min 122 mm[Hg] 72 mm[Hg] BIRD PIERRE [facility] 4 16:34:29 Date Recorded Body height Body mass index (BMI) Body weight Oxygen saturation Oxygen saturation in Arterial blood by Pulse oximetry Heart rate Respiratory rate Body temperature Systolic blood pressure Diastolic blood pressure Provider Name and Address Organization Details Last Updated DateTime 4 158.75 cm 36.6 kg/m2 19074.4 1 g 98 % 98 % 77 /min 17 /min 98 [degF] 130 mm[Hg] 78 mm[Hg] Barbara Malave [facility] 4 10:18:29 Date Recorded Body height Body mass index (BMI) Body weight Oxygen saturation Oxygen saturation in Arterial blood by Pulse oximetry Heart rate Respiratory rate Systolic blood pressure Diastolic blood pressure Provider Name and Address Organization Details Last Updated DateTime 4 158.75 cm 36.5 kg/m2 11864.2 5 g 97 % 97 % 82 /min 22 /min 110 mm[Hg] 70 mm[Hg] BIRD PIERRE [facility] 4 11:49:58 Date Recorded Body height Body mass index (BMI) Body weight Oxygen saturation Oxygen saturation in Arterial blood by Pulse oximetry Respiratory rate Systolic blood pressure Diastolic blood pressure Provider Name and Address Organization Details Last Updated DateTime 4 158.75 cm 36.7 kg/m2 89975.8 4 g 97 % 97 % 22 /min 134 mm[Hg] 80 mm[Hg] BIRD PIERRE [facility] 4 10:47:54 Date Recorded Body height Body mass index (BMI) Body weight Oxygen saturation Oxygen saturation in Arterial blood by Pulse oximetry Heart rate Respiratory rate Systolic blood pressure Diastolic blood pressure Provider Name and Address Organization Details Last Updated DateTime 5 158.75 cm 37.4 kg/m2 66015.2 1 g 97 % 97 % 98 /min 22 /min 128 mm[Hg] 80 mm[Hg] BIRD PIERRE [facility] 5 13:25:17 Social History Question Answer Notes LastModified by Organizat ion Details LastModified Time Tobacco Smoking Status Never Smoker [facility]IRD PIERRE [facility] 08/22/2023 16:42:58 What Is Your Level Of Alcohol Consumption? None Information not available 08/22/2023 Are You Currently Employed? No [email or web address] Information not available 12/25/2023 What Was The Date Of Your Most Recent Tobacco Screening? 11/06/2023 [email or web address] Information not available 11/06/2023 What Is Your Relationship Status? [email or web address] Information not available 08/22/2023 Do You Use Any Illicit Or Recreational Drugs? No [email or web address] Information not available 08/22/2023 Sex: Unknown Functional Status Question Answer Note LastModified by Organization D etails LastModified Time Are you able to care for yourself? Yes [email or web address] Information n ot available 08/22/2023 Mental Status None recorded. Family History Relationship Description Onset Age of this Age Resolved Age Notes LastModified by Organization Details LastModified Time Father Type 2 diabetes mellitus [email or web address] Not available 12/24 11:51:36 Father Essential hypertension [email or web address] Not available 11:51:53 Father Myocardial infarction [email or web address] Not available 12/02 11:52:14 Medical History Condition Response Depression Y Anxiety Disorder Y Gynecological HistoryNo gynecological history recorded. Obstetrics History GPAL:G 0 P 0 0 0 0 Immunizations Vaccine Type Date Status Note Provider Nam e and Address Organization Details Recorded Time Influenza, split virus, trivalent, PF 04/06/2016 completed ANITRA BRICENO, [address], [address], [facility] 12/25/2023 12:15:34 Influenza, split virus, quadrivalent, PF 03/09/2018 completed ANITRA BRICENO, [address], [address], [facility] 12/25/2023 12:15:34 Influenza, split virus, quadrivalent, PF 03/18/2015 completed ANITRA BRICENO, [address], [phone], [facility] 12/25/2023 12:15:34 Influenza, split virus, quadrivalent, PF 03/21/2019 completed ANITRA BRICENO, [address], [phone], [facility] 12/25/2023 12:15:34 Past Encounters Encounter ID Performer Location Encounter Start Date Encounter Closed Date Diagnosis/Indication Diagnosis SNOMED-CT Code Diagnosis ICD10 Code Diagnosis Note [id number] Luis Eduardo Kaur DO [facility] ([facility]) [address] [place] [address] 10/25/2022 16:34:31 12/11/2022 17:21:43 Vaginal discharge [id number] N89.8 Wet prep and sureswab collected today. Will call with results in 3-5 days. Will hold on treatment until swabs have resulted. [id number] ANITRA BRICENO [facility] ([facility]) [address] [place] [phone] 08/22/2023 15:57:18 08/26/2023 12:26:25 Obesity [id number] E66.9 [id number] [facility] [address] [place] [phone] 11/06/2023 10:06:11 11/06/2023 12:24:22 Pain in right hand [id number] 56003 M79.641 Discussed ice, nsaid and f/u in 1 week if symptoms persist. [id number] ANITRA BRICENO [facility] ([facility] [address] [place] [id number] 12/25/2023 11:25:31 12/25/2023 12:29:53 Lumbar radiculopathy 147801149 M54.16 Nerve pain in her feet a night. She talked with Dr. Messer and Dr. Jones regarding injections . Impaired mobility 931006 05 Z74.09 Fell last in May. Bilateral thumb pain [id number] M79.[address] Rolon did injections in bilateral thumbs without improvemen t. [id number] ANITRA BRICENO [facility] [address] [place] [id number] 04/15/2024 10:22:11 04/15/2024 12:07:29 Umbilical hernia [id number] K42.9 [id number] [facility] [address] [place] [phone] 06/25/2024 13:16:16 06/25/2024 16:32:24 Obstructive sleep apnea syndrome [id number] G47.33 CPAP wears nightly. Lumbar radiculopathy 128 [id number] M54.16 Nerve pain in her feet a night. She talked with Dr. Messer and Dr. Jones regarding injections . Hyperlipidemia 93697522 E78.5 Morbid obesity 781140842 E66.01 Discussed low carb diet and increased exercise. Cardiac arrhythmia [id number] I49.3 Follows with cardiology . Polymyalgi a rheumatica [id number] M35.[address] Flores Health Concerns Section Related Observation LastModified by Organization Detai ls LastModified Time None Recorded Concern Status LastModified by Organization Details LastModified Time None Recorded Advance Directives Directive None Recorded Payers Encounter Date Sequence Insurance Name Policy Number Policy Mireles Covered Member ID Mireles Member ID Guarantor Name 08/22/2023 1 [facility] (MEDICAID HM) Sivan Sarabia [id number] Sivan Sarabia 08/22/2023 1 [employer] - [employer] (PPO) Blanca Sarabia [id number] Sivan Sarabia 11/06/2023 1 [facility] (MEDICAID HMO) Sivan Sarabia [id number] Sivan Sarabia 11/06/2023 1 [employer] - [employer] (PPO) Blanca Sarabia [id number] Sivan Sarabia 12/25/2023 1 [facility] (MEDICAID HMO) Sivan Sarabia [id number] Sivan Sarabia 12/25/2023 1 [employer] - [employer] (PPO) Blanca Sarabia [id number] Sivan Sarabia 04/15/2024 1 [facility] (MEDICAID HMO) Sivan Sarabia [id number] Sivan Sarabia 04/15/2024 1 [employer] - [employer] (PPO) Blanca Sarabia [id number] Sivan Sarabia 06/25/2024 1 [facility] (MEDICAID HMO) Sivan Sarabia [id number] Sivan Sarabia Notes Date Note Type Note Provider Name and Address Organization Details Recorded Time 08/22/2023 text/html ObesityReported bypatient.Context:ora l steroids Comorbidities:depress ion Lifestyle Changes:not losing weight Physical Activity:no exercise JOEL MERCER [address] [place] [address], [phone], [facility] 08/23/2023 09:42:47 11/06/2023 text/html Musculoskeletal PainReported bypatient.Location:ri ght thumb Quality:sharp Severity:no change Duration:present for 1-6 months Timing:constant; sudden Context:trauma Alleviating Factors:rest; medications: Motrin, Tylenol Aggravating factors:movement/posi tioning; twisting Associated Symptoms:no fever; no weak limbs; no tingling; no numbness of the legs/feet; no incontinence Pt reports jamming right thumb months ago. States now it feels dislocated. States it is in pain and the thumb twists at an odd angle when picking something up. States she has pulled on it. Has taken Tylenol and motrin for the pain with no relief. JOEL MONTANA [address] [place] [address], [address] [place] [address], [facility], Caden 11/06/2023 14:24:57 12/25/2023 text/html Joint PainReport ed bypatient.Location:bi lateral hand Quality:dull Severity:no change Duration:present for 1-6 months Timing:constant Alleviating Factors:rest JOEL MERCER [address] [place], [place] [id number], [facility], LSam 12/25/2023 12:23:55 04/15/2024 text/html Abdominal PainReported bypatient.Location:ge neralized; periumbilical Quality:tender Severity:moderate Aggravating Factors:movement Associated Symptoms:no shortness of breath;constipation JOEL MERCER [address] [place] [phone], [facility], LMarycruzLSalomón 04/15/2024 12:07:04 06/25/2024 text/html Obstructive Slee p ApneaReported bypatient.Severity:mo derate; improving Timing:chronic Duration:years Alleviating Factors:positive airway pressure devices JOEL MERCER [address] [place] [address], [phone], [facility], Caden 06/25/2024 16:21:59 OBGyn Episode No OBEpisode recorded.
--- NOTE | 2024-08-04 08:13 | P.PN_ITS ---
Subjective 2 Subjective: Patient is in bed tearful this morning she is moving all extremities but complaining of pain. Vitals/I&O/Wt Last Vital Signs Temp 98.5 F 08/04/24 08:00 Pulse 118 H 08/04/24 08:00 Resp 18 08/04/24 08:00 BP 130/66 08/04/24 08:00 Pulse Ox 94 08/04/24 08:00 O2 Del Method Nasal Cannula 08/04/24 08:00 O2 Flow Rate 2 08/04/24 05:40 08/03/24 08/04/24 08/04/24 22:59 06:59 14:59 Intake Total 1220 / 2220 706.5 / 2926.5 Output Total 1250 / 1250 375 / 1625 Balance -30 / 970 331.5 / 1301.5 Weight last 48 hrs Weight 204 lb Weight 204 lb Weight 204 lb Physical Exam 2 Narrative: Patient is very tearful and in pain Urinary Catheter Management: Maxwell: Cath Placed During This Visit: yes Reason for Continuing Indwelling Catheter: Perioperative Use in Selected Surgeries Urinary Catheter Date of Insertion: 08/03/24 Urinary Catheter Time of Insertion: 10:20 Data 08/03/24 10:47 A&P Assessment and plan (1) Status post lumbar spinal fusion: Postop day #1 T9 to pelvis fusion. Will switch pain meds to OxyContin and oxycodone. Will DC hydrocodone. Up with therapy once pain is controlled PDMP PDMP Reviewed: Not Reviewed Attestations 2 Medical Necessity Statement*: Pain control Coding Level of Care Code Acute Code for Chg Fwd Diagnoses Status post lumbar spinal fusion Z98.1
[2024-08-04 08:41] LABS: Basophils # 0.1 10^3/uL (0.0-0.1); Basophils % 0.3 %; Eosinophils % 0.2 %; Hematocrit 25.8 % (36-47); Lymphocytes # 3.4 10^3/uL (0.8-4.8); Mean Corpuscular HGB Conc 30.6 g/dL (30-55); Mean Corpuscular Hemoglobin 33.3 pg (27-33); Mean Corpuscular Volume 108.9 fl (85-98); Mean Platelet Volume 8.7 fL (7.4-10.4); Monocytes % 13.4 %; Neutrophils # 9.17 10^3/uL (1.8-7.7); Neutrophils % 62.2 %; Nucleated Red Blood Cells % 0 %; Platelet Count 280 10^3/cmm (157-399); Red Blood Count 2.37 10^6/uL (3.85-5.65); Red Cell Distribution Width 13.2 % (12.1-15.1); White Blood Count 14.77 10^3/uL (3.29-11.43)
[2024-08-04] MEDS: predniSONE 5 mg Tablet 15 MG PO (09:02)
[2024-08-04] MEDS: cholecalciferol (vitamin D3) 1,000 unit Tablet 2000 UNIT PO (09:02)
[2024-08-04] MEDS: cyclobenzaprine 10 mg Tablet PO ×2 (09:02→15:00)
[2024-08-04] MEDS: ferrous sulfate EC 325 mg Tablet PO (09:02)
[2024-08-04] MEDS: docusate sodium 100 mg Capsule PO ×2 (09:02→16:46)
[2024-08-04] MEDS: duloxetine 60 mg Capsule PO (09:03)
[2024-08-04] MEDS: gabapentin 100 mg Capsule PO ×3 (09:03→21:03)
[2024-08-04] MEDS: estradiol 1 mg Tablet 0.5 MG PO (09:03)
[2024-08-04] MEDS: isosorbide mononitrate ER 30 mg Tablet PO (09:03)
[2024-08-04] MEDS: citalopram 20 mg Tablet 40 MG PO (09:03)
[2024-08-04] MEDS: pantoprazole DR 40 mg Tablet PO (09:03)
[2024-08-04] MEDS: lisinopril 2.5 mg Tablet PO (09:03)
[2024-08-04] MEDS: metoprolol tartrate 25 mg Tablet PO ×2 (09:03→16:46)
[2024-08-04] MEDS: oxyCODONE 10 mg ER (12 HR) Tablet PO ×2 (09:05→16:46)
--- NOTE | 2024-08-04 09:56 | PC.CHAP ---
Pastoral Care Encounter/Spiritual Assessment Type of Contact [] Declined wood barrel reconditioner visit [] Patient/Family/Request visit [] Outpatient visit [] Follow-up visit [] Physician referral [] Code/Alert [] Routine visit [] Staff referral [] Actively dying [] Patient sleeping [] Family support [] [] Out of room [] Palliative care [] [x] Receiving care in room [] Pre-surgical visit [] Trauma [] Long length of stay [] ICU visit [] Other: Relational/Emotional Strength [] Patient feels connected with others/family/visitors/staff [] Distress [] Loneliness/isolation [] Abandonment Spirituality of Patient [] Person of Fatmata [] Attends Buddhist of their Fatmata [] Believes in Prayer [] Reads Bible or Caodaism materials [] There are Spiritual issues to be addressed Adjunct Instructor Of Women'S Studies Interventions [] Prayer [] Active listening [] Non-anxious presence [] Spiritual/emotional support [] Crisis/trauma care [] Spiritual counseling [] Bereavement support [] Provided bereavement packet [] Provided Bible/devotional materials [] Provided toy/stuffed animal, coloring book to patient or family member [] Provided Communion [] Anointing/[place] [] Salvation [] Completed spiritual assessment [] Other: Impact on Illness or Injury [] Angry [] Fearful [] Anxious [] Often cries [] Exhaustion [] Unable to work [] Unable to attend jewish [] Unable to walk/stand [] Unable to read [] Unable to drive [] Unable to eat/drink [] Unable to sleep [] Unable to be with family [] Patient intubated [] Other: Summary Time spent with patient
[2024-08-04] MEDS: oxyCODONE-APAP 10-325 mg Tablet PO ×2 (12:03→22:22)
--- NOTE | 2024-08-04 14:00 | PC.NURSE ---
Patient reported that she was having difficulty getting her nerve stimulator to work in her lower back. She states that it was working correctly last night, however has not been working correctly today. I spoke with Alan Tesfaye, tanker truck driver that has experience with nerve stimulators and she presented to the floor to attempt to troubleshoot the issue. After turning the patient and attempting to get the remote to connect to the stimulator, we were unsuccessful. Per patient, her stimulator is managed with Dr. Jones at [facility]. I called and spoke with Dr. Messer and informed him of this situation and he states he doesn't feel comfortable attempting to manipulate the stimulator and would prefer Dr. Jones be contacted. I called and spoke with the hoisting engine operator and she was able to connect me with Dr. Jones. I reviewed the above information with him and he states that patient's pain should be well-controlled with post-op pain medications prescribed by Dr. Messer at this time, and she would need to f/u with their clinic after d/c to have the stimulator re-programmed. He ask that I called and spoke with Sera at his office and ask her to set up a f/u appointment for patient. I presented back to patient's room and informed her of this and asked permission to call the clinic on her behalf to schedule a f/u appointment. She states that she is unsure of when she will be able to go to a f/u appointment and would prefer me just call and provide the information to the front office attendant and then she will call to schedule a f/u appointment after d/c. I called and spoke with Sera on behalf of Dr. Jones's office and she states that Dr. Jones had already made her aware of the issue and states that patient won't need a f/u appointment in their clinic, so she has contacted the [facility] and provided patient's cell phone number to contact her and set up a time to visit with her either in the hospital or after she goes home. I informed patient of this and she verbalizes understanding and states she will f/u with [facility]. I also spoke with Cyndi, patient's primary nurse, and informed her of this update as well as Dr. Messer.
[2024-08-05] VITALS (14 sets, daily range): BP systolic 91–115; BP diastolic 52–73; PULSE 64–92; RESP 16–22; TEMP 36.5–36.9; O2SAT 91–97; BMI 36.1
[2024-08-05] MEDS: cyclobenzaprine 10 mg Tablet PO ×2 (00:58→15:00)
[2024-08-05] MEDS: oxyCODONE-APAP 10-325 mg Tablet PO ×4 (04:38→19:51)
--- NOTE | 2024-08-05 08:16 | P.PN_ITS ---
Subjective 2 Subjective: Patient is feeling much better today. She has not been out of bed yet though. She said when he tried get a bed yesterday she got dizzy. Vitals/I&O/Wt Last Vital Signs Temp 97.7 F 08/05/24 07:54 Pulse 73 08/05/24 07:54 Resp 17 08/05/24 07:54 BP 98/61 08/05/24 07:54 Pulse Ox 91 08/05/24 07:54 O2 Del Method Room Air 08/05/24 03:40 O2 Flow Rate 1 08/05/24 07:27 08/04/24 08/05/24 08/05/24 22:59 06:59 14:59 Intake Total 200 / 909.5 60 / 60 Output Total 1250 / 1250 250 / 1500 Balance -1050 / -340.5 -250 / -590.5 60 / 60 Weight last 48 hrs Weight 204 lb Weight 204 lb Weight 204 lb Weight 204 lb Physical Exam 2 Narrative: Hemovac drain had 200 out overnight. Patient's pain is controlled she is resting comfortably in bed. Urinary Catheter Management: M[place]: Cath Placed During This Visit: yes Reason for Continuing Indwelling Catheter: Other Urinary Catheter Date of Insertion: 08/03/24 Urinary Catheter Time of Insertion: 10:20 Data 08/04/24 08:26 08/03/24 10:47 A&P Assessment and plan (1) Status post lumbar spinal fusion: Patient is postop day #2 T9 to pelvis fusion. Up with physical therapy Check another CBC We will reevaluate this afternoon for possible discharge. PDMP PDMP Reviewed: Not Reviewed Attestations 2 Medical Necessity Statement*: Pain control Coding Level of Care Code Acute Code for Chg Fwd Diagnoses Status post lumbar spinal fusion Z98.1
--- NOTE | 2024-08-05 08:48 | PC.CHAP ---
Pastoral Care Encounter/Spiritual Assessment Type of Contact [] Declined catia designer visit [] Patient/Family/Request visit [] Outpatient visit [] Follow-up visit [] Physician referral [] Code/Alert [x] Routine visit [] Staff referral [] Actively dying [] Patient sleeping [] Family support [] [] Out of room [] Palliative care [] [] Receiving care in room [] Pre-surgical visit [] Trauma [] Long length of stay [] ICU visit [] Other: Relational/Emotional Strength [x] Patient feels connected with others/family/visitors/staff [] Distress [] Loneliness/isolation [] Abandonment Spirituality of Patient [x] Person of Fatmata [] Attends Jew of their Fatmata [x] Believes in Prayer [] Reads Bible or Mandaen materials [] There are Spiritual issues to be addressed [employer] Interventions [x] Prayer [x] Active listening [] Non-anxious presence [x] Spiritual/emotional support [] Crisis/trauma care [] Spiritual counseling [] Bereavement support [] Provided bereavement packet [] Provided Bible/devotional materials [] Provided toy/stuffed animal, coloring book to patient or family member [] Provided Communion [] Anointing/[place] [] Salvation [x] Completed spiritual assessment [] Other: Impact on Illness or Injury [] Angry [] Fearful [] Anxious [] Often cries [] Exhaustion [] Unable to work [] Unable to attend alevism [] Unable to walk/stand [] Unable to read [] Unable to drive [] Unable to eat/drink [] Unable to sleep [] Unable to be with family [] Patient intubated [] Other: Summary Time spent with patient 5 min
[2024-08-05] MEDS: cholecalciferol (vitamin D3) 1,000 unit Tablet 2000 UNIT PO (08:58)
[2024-08-05] MEDS: oxyCODONE 10 mg ER (12 HR) Tablet PO ×2 (08:58→16:57)
[2024-08-05] MEDS: predniSONE 5 mg Tablet 15 MG PO (08:59)
[2024-08-05] MEDS: gabapentin 100 mg Capsule PO ×3 (08:59→19:48)
[2024-08-05] MEDS: citalopram 20 mg Tablet 40 MG PO (08:59)
[2024-08-05] MEDS: pantoprazole DR 40 mg Tablet PO (08:59)
[2024-08-05] MEDS: ferrous sulfate EC 325 mg Tablet PO (08:59)
[2024-08-05] MEDS: estradiol 1 mg Tablet 0.5 MG PO (08:59)
[2024-08-05] MEDS: duloxetine 60 mg Capsule PO (08:59)
[2024-08-05] MEDS: docusate sodium 100 mg Capsule PO ×2 (09:00→16:56)
--- NOTE | 2024-08-05 10:07 | PC.NURSE ---
Hemovac discontinued per nursing service director with her instructor. Drain intact. Pt tolerated well.
[2024-08-05 10:22] LABS: Basophils # 0.1 10^3/uL (0.0-0.1); Basophils % 0.3 %; Eosinophils # 0.2 10^3/uL (0.0-0.8); Eosinophils % 1.1 %; Hematocrit 24.5 % (36-47); Lymphocytes % 13.6 %; Mean Corpuscular HGB Conc 29.8 g/dL (30-55); Mean Corpuscular Hemoglobin 33.3 pg (27-33); Mean Corpuscular Volume 111.9 fl (85-98); Monocytes # 1.7 10^3/uL (0.2-0.9); Monocytes % 11.3 %; Neutrophils % 72.6 %; Nucleated Red Blood Cells % 0.2 %; Platelet Count 255 10^3/cmm (157-399); Red Blood Count 2.19 10^6/uL (3.85-5.65); Red Cell Distribution Width 13.2 % (12.1-15.1)
--- NOTE | 2024-08-05 10:30 | PC.NURSE ---
Addendum entered by Sandy Correa RN 08/05/24 10:34: Hemovac drain intact. Original Note: graphic arts instructor observed Sharla student nurse, remove patient's urinary sanchez catheter and patient's Hemovac drain. Pt tolerated well.
[2024-08-05] MEDS: HYDROMORPHONE HCL 0.5 MG/0.5 ML INJ IVP (12:03)
[2024-08-05] MEDS: sulfamethoxazole-trimeth DS 160-800 mg Tablet 1 TAB PO (14:11)
[2024-08-05] MEDS: metoprolol tartrate 25 mg Tablet PO (16:56)
[2024-08-06] VITALS (10 sets, daily range): BP systolic 90–113; BP diastolic 54–73; PULSE 74–78; RESP 14–22; TEMP 36.4–37.1; O2SAT 86–96; BMI 37.6
[2024-08-06] MEDS: oxyCODONE-APAP 10-325 mg Tablet PO ×3 (00:12→10:37)
[2024-08-06] MEDS: predniSONE 5 mg Tablet 15 MG PO (08:27)
[2024-08-06] MEDS: gabapentin 100 mg Capsule PO (08:27)
[2024-08-06] MEDS: cholecalciferol (vitamin D3) 1,000 unit Tablet 2000 UNIT PO (08:27)
[2024-08-06] MEDS: oxyCODONE 10 mg ER (12 HR) Tablet PO (08:27)
[2024-08-06] MEDS: pantoprazole DR 40 mg Tablet PO (08:27)
[2024-08-06] MEDS: duloxetine 60 mg Capsule PO (08:27)
[2024-08-06] MEDS: citalopram 20 mg Tablet 40 MG PO (08:28)
[2024-08-06] MEDS: estradiol 1 mg Tablet 0.5 MG PO (08:28)
[2024-08-06] MEDS: ferrous sulfate EC 325 mg Tablet PO (08:28)
[2024-08-06] MEDS: isosorbide mononitrate ER 30 mg Tablet PO (08:28)
[2024-08-06] MEDS: lisinopril 2.5 mg Tablet PO (08:28)
[2024-08-06] MEDS: docusate sodium 100 mg Capsule PO (08:28)
[2024-08-06] MEDS: metoprolol tartrate 25 mg Tablet PO (08:31)
[2024-08-06 09:57] LABS: Basophils # 0.1 10^3/uL (0.0-0.1); Basophils % 0.6 %; Eosinophils # 0.2 10^3/uL (0.0-0.8); Eosinophils % 1.5 %; Hematocrit 29.4 % (36-47); Lymphocytes % 18.9 %; Mean Corpuscular Hemoglobin 33.2 pg (27-33); Mean Corpuscular Volume 107.3 fl (85-98); Mean Platelet Volume 8.8 fL (7.4-10.4); Monocytes # 1.7 10^3/uL (0.2-0.9); Monocytes % 10.6 %; Neutrophils # 10.36 10^3/uL (1.8-7.7); Neutrophils % 66.2 %; Nucleated Red Blood Cells # 0.1 /100WBC; Nucleated Red Blood Cells % 0.6 %; Platelet Count 268 10^3/cmm (157-399); Red Blood Count 2.74 10^6/uL (3.85-5.65); Red Cell Distribution Width 17.5 % (12.1-15.1); White Blood Count 15.64 10^3/uL (3.29-11.43)
--- NOTE | 2024-08-06 09:57 | PM.DCS ---
Discharge Providers Date of Admission: 08/03/24 15:28 Date of Discharge: August 06, 2024 Attending Provider at Admission: Rogelio Messer DO Attending Provider at Discharge: Rogelio Messer DO Primary Care Provider: JOEL Mahan Diagnoses at Discharge Discharge Diagnosis (1) Status post lumbar spinal fusion: Status: Acute Reason for Visit Reason for Visit: M48.062 Physical Exam Narrative: Patient is a much better today she is been up walking with walker. Urinary Catheter Management: Maxwell: Cath Placed During This Visit: yes, but has since been removed by the nurse Reason for Continuing Indwelling Catheter: Acute Urinary Retention or Obstruction Urinary Catheter Date of Insertion: 08/03/24 Urinary Catheter Time of Insertion: 10:20 Date Urinary Catheter Removed: 08/05/24 Time Urinary Catheter Discontinued: 10:24 Discharge Data Studies Completed and Pending Completed Studies During Hospitalization Category Date Time Status XR lumbar spine 2-3V* [id number] Routine Exams 08/03/24 15:26 Completed Pending at discharge Category Date Time Status CBC Auto Diff [Complete Blood Count w/Auto] Routine Lab 08/06/24 09:45 Results CMP [Comprehensive Metabolic Panel] Routine Lab 08/06/24 09:45 Received Radiology Impressions Lumbar Spine X-Ray 08/03/24 15:26 IMPRESSION: Removal of dorsal column stimulator. ADDENDUM: 08/04/24 1151 IMPRESSION: Extension of previous posterior lumbar fusion to thoracolumbar fusion T10 to pelvis. Laboratory Results WBC 14.90 10^3/uL (3.29-11.43) H 08/05/24 10:09 RBC 2.19 10^6/uL (3.85-5.65) L 08/05/24 10:09 Hgb 7.30 g/dL (11.27-16.99) L 08/05/24 10:09 Hct 24.5 % (36-47) L 08/05/24 10:09 MCV 111.9 fl (85-98) H 08/05/24 10:09 MCH 33.3 pg (27-33) H 08/05/24 10:09 MCHC 29.8 g/dL (30-55) L 08/05/24 10:09 RDW 13.2 % (12.1-15.1) 08/05/24 10:09 Plt Count 255 10^3/cmm (157-399) 08/05/24 10:09 MPV 9.0 fL (7.4-10.4) 08/05/24 10:09 Neut % (Auto) 72.6 % 08/05/24 10:09 Lymph % (Auto) 13.6 % 08/05/24 10:09 [place] % (Auto) 11.3 % 08/05/24 10:09 Eos % (Auto) 1.1 % 08/05/24 10:09 Baso % (Auto) 0.3 % 08/05/24 10:09 Neut # (Auto) 10.80 10^3/uL (1.8-7.7) H 08/05/24 10:09 Lymph # (Auto) 2.0 10^3/uL (0.8-4.8) 08/05/24 10:09 [place] # (Auto) 1.7 10^3/uL (0.2-0.9) H 08/05/24 10:09 Eos # (Auto) 0.2 10^3/uL (0.0-0.8) 08/05/24 10:09 Baso # (Auto) 0.1 10^3/uL (0.0-0.1) 08/05/24 10:09 Nucleated RBC % (auto) 0.2 % 08/05/24 10:09 Nucleated RBCs # 0.0 /100WBC 08/05/24 10:09 Sodium 139 mmol/L (136-145) 08/03/24 10:47 Potassium 4.3 mmol/L (3.5-5.1) 08/03/24 10:47 Chloride 105 mmol/L (98-107) 08/03/24 10:47 Carbon Dioxide 24 mmol/L (22-29) 08/03/24 10:47 Anion Gap 14.3 (5-19) 08/03/24 10:47 BUN 18 mg/dL (6-20) 08/03/24 10:47 Creatinine 0.9 mg/dL (0.5-0.9) 08/03/24 10:47 GFR Calculation 64.8 mL/min (90-130) L 08/03/24 10:47 Glucose 130 mg/dL (65-115) H 08/03/24 10:47 Calculated Osmolality 292 mOsm/kg (285-295) 08/03/24 10:47 Calcium 8.0 mg/dL (8.5-10.5) L 08/03/24 10:47 Urine Color Yellow (Yellow) 08/03/24 10:30 Urine Appearance Clear (CLEAR) 08/03/24 10:30 Urine pH 8.0 (5-7) A 08/03/24 10:30 Ur Specific [place] 1.016 (1.005-1.030) 08/03/24 10:30 Urine Protein Negative (Negative) 08/03/24 10:30 Urine Glucose (UA) Negative (Normal) 08/03/24 10:30 Urine Ketones Negative (Negative) 08/03/24 10:30 Urine Blood Negative (Negative) 08/03/24 10:30 Urine Nitrate Negative (Negative) 08/03/24 10:30 Urine Bilirubin Negative (Negative) 08/03/24 10:30 Urine Urobilinogen 0.2 mg/dL (Negative) 08/03/24 10:30 Ur Leukocyte Esterase Negative (Negative) 08/03/24 10:30 Amorphous Sediment Not Reportable 08/03/24 10:30 Blood Type O Positive 08/05/24 10:09 Rho(D) Type Rh positive 08/05/24 10:09 Antibody Screen Negative 08/05/24 10:09 Crossmatch See Detail 08/05/24 10:09 Vitals Last Vital Signs Temp 98.2 F 08/06/24 07:19 Pulse 77 08/06/24 07:19 Resp 16 08/06/24 08:27 BP 113/73 08/06/24 07:19 Pulse Ox 95 08/06/24 07:19 O2 Del Method Nasal Cannula 08/06/24 07:19 O2 Flow Rate 1 08/06/24 07:19 Discharge Plan Discharge Patient Disposition: Home Condition: Stable Prescriptions: New oxycodone 10 mg tablet 10 mg PO Q4H PRN (Reason: pain) 7 Days Qty: 42 0RF Continued potassium gluconate 595 mg (99 mg) tablet 595 mg PO DAILY citalopram 40 mg tablet 40 mg PO DAILY@0800 sumatriptan succinate [Imitrex] 100 mg tablet 100 mg PO Q2H PRN (Reason: Migraine Headache) Rx Instructions: do not exceed 2 doses per 24 hrs duloxetine [Cymbalta] 60 mg capsule,delayed release(DR/EC) 60 mg PO DAILY@0800 buspirone 5 mg tablet 5 mg PO BID PRN (Reason: Anxiety) diclofenac sodium 75 mg tablet,delayed release (DR/EC) 75 mg PO BID PRN (Reason: PAIN OR INFLAMMATION) gabapentin 100 mg capsule 100 mg PO TID omeprazole 20 mg capsule,delayed release(DR/EC) 40 mg PO DAILY Qty: 180 1RF Rx Instructions: AT 8AM prednisone 5 mg tablet 15 mg PO DAILY Qty: 90 5RF Cimzia Starter Kit 400 mg/2 mL (200 mg/mL x 2) syringe kit See Rx Instructions SUBCUT .COMPLEX Qty: 3 0RF Rx Instructions: loading dose 400 mg given as 2 SQ inj of 200 mg each at weeks 0, 2, 4, followed by 200 mg every 2 weeks; Cimzia 200 mg/mL syringe kit 200 mg SUBCUT .P8jhras Qty: 6 1RF (DME) [facility] Joint Brace See Rx Instructions .ROUTE .MEDSUPPLY Qty: 2 0RF Rx Instructions: As directed ferrous sulfate [Feosol] 325 mg (65 mg iron) tablet 325 mg PO DAILY calcium carb-D3-mag [id number] [phone] zy-igas-vw-mg tablet 1 tab PO DAILY Rx Instructions: administer with a meal cholecalciferol (vitamin D3) 50 mcg (2,000 unit) capsule 50 mcg PO DAILY estradiol 0.5 mg tablet 0.5 mg PO DAILY Rx Instructions: off 5 days; repeat cycle lisinopril 2.5 mg tablet 2.5 mg PO DAILY Qty: 90 3RF isosorbide mononitrate 30 mg tablet extended release 24 hr 30 mg PO DAILY Qty: 60 3RF estradiol 0.01 % (0.1 mg/gram) cream See Rx Instructions .ROUTE .COMPLEX Qty: 42.5 3RF Dose Instruction: aply ONE gram vaginally TWICE DAILY FOR 14 DAYS THEN apply twice weekly Rx Instructions: aply ONE gram vaginally TWICE DAILY FOR 14 DAYS THEN apply twice weekly (DME) Bone Growth Stimulator See Rx Instructions .Route .MEDSUPPLY Qty: 1 0RF Rx Instructions: As directed nitroglycerin 0.4 mg tablet, sublingual 0.4 mg sublingual Q5M Qty: 10 0RF Rx Instructions: do not exceed 3 doses per episode ketoconazole 2 % shampoo See Rx Instructions .ROUTE .COMPLEX Rx Instructions: APPLY TOPICALLY TO SCALP 2-3 TIMES WEEKLY AND ALLOW TO SIT 5 MINUTES BEFORE RINSING. clobetasol 0.05 % solution See Rx Instructions .ROUTE .COMPLEX Rx Instructions: APPLY TOPICALLY TO THE SCALP DAILY NEEDED FOR ITCHING. cyclobenzaprine 10 mg tablet 10 mg PO TID PRN (Reason: Muscle Spasm) biotin 5 mg Tablet 5 mg PO DAILY sulfamethoxazole-trimethoprim 800-160 mg tablet 160 - 800 tab PO QMWF metoprolol tartrate 25 mg tablet 25 mg PO BID Rx Instructions: Take 1 tablet by mouth twice daily Discontinued hydrocodone-acetaminophen 5-325 mg tablet 1 tab PO Q8H PRN (Reason: pain) 30 Days Qty: 30 0RF Discharge Orders: Discharge Order (Routine); Ordered 08/06/24 Ordered By: Rogelio Messer Referrals: Rogelio Messer, DO [Physician] - Discharge Diet: Advance as tolerated Discharge Activity: Limit activity as instructed Patient Instructions: Acute Wound Care (DC), Opioid Safety, Post Anesthesia Care Activity Restrictions/Additional Instructions: Thank you for [facility] for your care! The following is a list of instructions, from your provider, to follow upon your discharge to ensure you have the optimal recovery from your recent injury orsurgery. Follow-up care is a valentin part of your treatment and safety. Be sure to make and go to all appointments, and call your doctor if you are having problems. If you do not already have a follow-up appointment made, call Dr. Messer office in the next 1-3 days to make follow up appointment for 1 weeks at [phone]. It is also a good idea to know your test results and keep a list of the medicines you take. Medications will be prescribed for you at your provider's discretion. These medications are to be used as instructed; if they are taken more often that prescribed they will not be refilled early and in most cases will not be refilled at all. > When a refill is needed,you should contact [facility] 2-3 business days before your prescription runs out. Medications will NOT be refilled by lamination technician providers after hours! > Many pain medications contain Tylenol (Acetaminophen). Do not consume more than 4,000 mg of Tylenol per day in total with any combination ofmedications. > Pain medications can cause constipation. Please use an over the counter stool softener as directed, while taking pain medications. Consulty our local pharmacist with questions or recommendations on stool softeners. If constipation persists, contact our office or your primary care provider. > While under our care,you are not to receive pain medications or other controlled substances from any other provider unless our office is notified and approves. Any attempts to do so will result in refusal to prescribe any further pain medications and possible dismissal from our practice. ? Keep dressing on will change in the clinic in 1 week ? Showering is permitted, however we ask that you do not take a bath, sit in a whirlpool / Jacuzzi, or go swimming for 1 month. For only the first 2 days after surgery, lt wilt be necessary for you to cover your wound/dressing with plastic and tape to keep it dry. ? Walking is essential for the healing process after surgery. We would like you to slowly advance your walking. This should be done on relatively flat clear ground (inside or out) or can be done on a treadmill. Remember this goal does not have to happen all at once, slowly increase your distance and duration. This can be broken into more more than one walk per day as tolerated. Patients who walk as directed after surgery rarely require Physical Therapy. In the unlikely event this issue arises your provider will direct hospital staff to make the appropriate arrangements. ? No lifting over 5 pounds {a gallon of milk) or bending/twisting until further notice. Each of these activities places an unnecessary amount of stress onto the body and can impede the delicate healing process. > Instead of bending at the waist, keep your back straight and bend at the knees. > Instead of twisting your torso, keep your back straight and turn your entire body with your feet. ? You may sleep in any position which makes you comfortable. Many patients find comfort sleeping in a reclining chair. It is not abnormal to have difficulty sleeping for the first several weeks following your surgery. We recommend trying Benadry! or Tylenol PM as directed to help with your sleeping difficulties. Both medications are over the counter and available withoutprescription. ? NO SMOKING!!! Smoking dramatically increases the probability of developing postoperative wound infections. ? Common complaints after lumbar and/or thoracic spine surgery include, but are not limited to: numbness and/or tingling in the legs, pain around the incision and surrounding tissues, muscle spasms, or stiffness of the middle to low back. Contact our office if these symptoms persist or if an acute change occurs. ? No driving for the first 3-5days, and not while taking narcotics until seen at your follow-up appointment and cleared. There are no restrictions for riding on short trips, however if you take a longer trip, arrangements should be made to make regular stops to get out of the vehicle and stretch . ? Swelling is an unfortunate event that will take place with any surgery and is the primary source of your postoperative discomfort. While walking and regular approved activities helps control inflammation, there are additional steps you can take to minimizeswelling. > Place ice over the surgical site and surrounding tissue for twenty minutes, followed by applying a low/medium heat (heating pad) for an additional twenty minutes every 1-2 hours as needed for painrelief. > You may use of over the counter anti-inflammatory medications (Ibuprofen, Motrin, Aleve, Advil, etc) as directed on the package label. These types of medicines wm significantly reduce the amount of discomfort you experience after surgery from swelling. It should be noted that if you have and allergy to any of these medications, or a history of ulcers or kidney disease you should consult you primary care provider prior to starting these medications. Discharge Attestations Time Spent in Discharge Care*: less than 30 min Quality Metrics Clinical Quality Measures [ No reported AMI, CVA or VTE this stay] Coding Level of Care Code Acute Code for Chg Fwd Diagnoses Status post lumbar spinal fusion Z98.1
[2024-08-06 10:15] LABS: Alanine Aminotransferase 15 U/L (0-33); Albumin Level 3.3 g/dL (3.5-5.2); Alkaline Phosphatase 63 U/L (35-105); Anion Gap 12.4 (5-19); Aspartate Amino Transferase 26 U/L (0-32); Blood Urea Nitrogen 15 mg/dL (6-20); Calcium 8.5 mg/dL (8.5-10.5); Carbon Dioxide 27 mmol/L (22-29); Chloride 98 mmol/L (98-107); Creatinine Clr Calc Pharmacy 86.7426; Globulin 2.3 g/dL (1.3-4.6); Glomerular Filtration Rate 74.2 mL/min (90-130); Glucose 114 mg/dL (65-115); Osmolality Calculated 280 mOsm/kg (285-295); Potassium 3.4 mmol/L (3.5-5.1); Sodium 134 mmol/L (136-145); Total Bilirubin 0.9 mg/dL (0.15-1.2); Total Protein 5.6 g/dL (6.6-8.7)
--- NOTE | 2024-08-06 14:23 | PC.NURSE ---
Discharge Note Patient discharged to home via personal vehicle accompanied by . Discharge instructions reviewed with patient and/or procurement representative. Mobile pharmacy medications and/or prescriptions provided. Belongings/home medications returned. Extra dressing sent home with the instructions to leave current dressing in place until follow up and only replace it if the dressing becomes saturated or falls off.
== END 2024-08-06 15:09 | disposition home or self-care (01) | DRG 457 ==
LOC: MEDSURG 08-04 06:50
PROVIDERS: Admitting Provider Orthopaedic Surgery; PCP Nurse Practitioner Family; Visit Provider Orthopaedic Surgery
PROC: 0RG7071 Fusion of 2 to 7 Thoracic Vertebral Joints with Autologous Tissue Substitute, Posterior Approach, Posterior Column, Open Approach (ICD-10-PCS; principal; 2024-08-03 10:20)
PROC: 0RG7071 Fusion of 2 to 7 Thoracic Vertebral Joints with Autologous Tissue Substitute, Posterior Approach, Posterior Column, Open Approach (ICD-10-PCS; CPT 63005; 2024-08-03 10:20)
PROC: 0RG7071 Fusion of 2 to 7 Thoracic Vertebral Joints with Autologous Tissue Substitute, Posterior Approach, Posterior Column, Open Approach (ICD-10-PCS; 2024-08-03 10:20)
PROC: 0RG7071 Fusion of 2 to 7 Thoracic Vertebral Joints with Autologous Tissue Substitute, Posterior Approach, Posterior Column, Open Approach (ICD-10-PCS; CPT 27280; 2024-08-03 10:20)
DX: M48.062 Spinal stenosis, lumbar region with neurogenic claudication (principal); T84.226A Displacement of internal fixation device of vertebrae, initial encounter; M51.16 Intervertebral disc disorders with radiculopathy, lumbar region; M43.16 Spondylolisthesis, lumbar region; Z79.890 Hormone replacement therapy; M35.3 Polymyalgia rheumatica; I10 Essential (primary) hypertension; M06.00 Rheumatoid arthritis without rheumatoid factor, unspecified site; Z79.52 Long term (current) use of systemic steroids; Q05.9 Spina bifida, unspecified; J45.909 Unspecified asthma, uncomplicated; F41.9 Anxiety disorder, unspecified; M79.7 Fibromyalgia; G89.29 Other chronic pain; G47.33 Obstructive sleep apnea (adult) (pediatric); Z99.89 Dependence on other enabling machines and devices; I25.10 Atherosclerotic heart disease of native coronary artery without angina pectoris; K21.9 Gastro-esophageal reflux disease without esophagitis; Z91.041 Radiographic dye allergy status
CPT/HCPCS: 36415; 51702; 72100; 76000; 80048; 80053; 81003; 85025; 86850; 86900; 86920; 94760; 97116; 97162; 97530; C1713; C1734; J0330; J0690; J1100; J1171; J1644; J1720; J1885; J2250; J2270; J2405; J2704; J3010; J3370; J7030; J7120; J7512; J8499; P9016; P9045

== ENCOUNTER 2024-09-07 12:20 | Outpatient (CLI) | payer MEDICAID, SELFPAY ==
--- NOTE | 2024-09-07 12:27 | XR_ITS ---
WS: [id number] Exam: XR lumbar spine 2-3V* [id number] Date/Time of Exam: 09/07/2024 12:32 PM Reason For Exam: POSTLAMINECTOMY SYNDROME Compared with intraoperative images performed 08/03/2024. There is posterior fusion of the spine that extends from T10-S1 with pedicle screws and posterior rods. Laminectomy defects noted from L3-S1. Disc spacer at L5-S1. Mild anterolisthesis of L5 on S1. The position of the RIGHT L5 pedicle screw is undetermined. On the lateral view it superimposes the L5-S1 disc implant. Screws bridge the bilateral SI joints. No sign of hardware fracture. A neurostimulator is in place with the leads extending into the lower thoracic spinal canal. Recommendations: CT scan of the lower lumbar spine and upper sacrum could be considered if thought to be clinically warranted. XR/XR lumbar spine 2-3V* [id number] IMPRESSION: 1. Posterior fusion extending from T10-S1. Mild anterolisthesis of L5 on S1. Th e fusion is otherwise in satisfactory alignment. 2. The position of the RIGHT L5 pedicle screw is difficult to determine. See ab infante discussion.
== END 2024-09-07 12:21 | disposition home or self-care (01) ==
LOC: RAD 12:23
PROVIDERS: PCP Nurse Practitioner Family; Visit Provider Nurse Practitioner
DX: M96.1 Postlaminectomy syndrome, not elsewhere classified (principal); Z98.1 Arthrodesis status; M43.17 Spondylolisthesis, lumbosacral region; R93.7 Abnormal findings on diagnostic imaging of other parts of musculoskeletal system; Z96.89 Presence of other specified functional implants
CPT/HCPCS: 72100

== ENCOUNTER → 2024-09-15 15:54 | Outpatient (BNVA) | payer MEDICAID, SELFPAY | PROVIDERS: PCP Nurse Practitioner Family; Visit Provider Orthopaedic Surgery | DX: Z98.1 Arthrodesis status (principal) | CPT/HCPCS: 72100 ==

== ENCOUNTER → 2024-11-05 15:49 | Outpatient (BNVA) | payer MEDICAID, SELFPAY | PROVIDERS: PCP Nurse Practitioner Family; Visit Provider Orthopaedic Surgery | DX: Z98.1 Arthrodesis status (principal) | CPT/HCPCS: 72100 ==

== ENCOUNTER → 2024-12-07 09:33 | Outpatient (BNVA) | payer MEDICAID, SELFPAY | PROVIDERS: PCP Nurse Practitioner Family; Visit Provider Orthopaedic Surgery | DX: M48.062 Spinal stenosis, lumbar region with neurogenic claudication (principal); Z98.1 Arthrodesis status | CPT/HCPCS: 72072; 72100 ==

== ENCOUNTER 2024-12-23 11:58 | Outpatient (CLI) | payer MEDICAID, SELFPAY ==
--- NOTE | 2024-12-23 12:15 | MR_ITS ---
WS: [id number] MRI THORACIC SPINE WITHOUT CONTRAST TECHNIQUE: Sagittal T1, T2 and STIR imaging. Axial T2 imaging. Noncontrast imaging obtained. CLINICAL INFORMATION: M54.6 - Pain in thoracic spine COMPARISON: None. FINDINGS: S-shaped thoracolumbar scoliosis with kyphosis.. No acute compression fractures. Extensive postoperative changes pedicle screw fixation with interconnecting rods extending from approximately T9 inferiorly into the lumbar spine of the [id number]. Prior radiographs demonstrated fusion extending to S1 with bilateral sacroiliac fixation screws. Shallow disc protrusions at T2-3, T3-4, T5-6, and T6-7. No high-grade central canal narrowing at these levels. Slight contact of the RIGHT ventral thoracic cord at T3-4. Shallow LEFT paracentral protrusion at T6-7. Spinal canal is patent at the fusion levels. Some images degraded due to susceptibility artifact. Mild central canal stenosis at T8-9 with interbody fusion graft. Normal caliber thoracic aorta. Adrenal glands appear normal. Bilateral renal cortical atrophy. MR/MR thoracic spin wo con* [id number] IMPRESSION: 1. Extensive postoperative changes described above. 2. Mild central canal stenosis at T8-T9 with dorsal ridging of the interbody f usion graft. Images degraded by artifact in this area. 3. Otherwise shallow disc protrusions at T2-T7 described above with slight con tact of the RIGHT ventral thoracic cord at T3-4
--- NOTE | 2024-12-23 13:00 | MR_ITS ---
WS: [id number] MRI LUMBAR SPINE NONCONTRAST TECHNIQUE: Sagittal T1, T2 and STIR imaging. Axial T1 and T2 imaging. CLINICAL INFORMATION: M48.062 - Spinal stenosis, lumbar region with neurogenic ... FINDINGS: Lumbar scoliosis. Thoracolumbar fusion. Interbody fusion graft L5-S1. Sacroiliac fixation screws. No significant central canal stenosis in the lumbar spine. Wide decompressive laminectomy defects throughout the lumbar spine. Slight anterolisthesis L3 on L4 and L5 on S1. L1-L2: Slight retrolisthesis. Mild disc bulging. Spinal canal and foramen are patent. L2-L3: Tiny far LEFT lateral foraminal protrusion with a small annular fissure. Slight encroachment on the far exiting LEFT L2 nerve root. Spinal canal and RIGHT foramen are patent. L3-L4: Mild annular bulging. Slight narrowing of the RIGHT greater than LEFT subarticular recess. Tiny bilateral foraminal protrusions. Foramen are patent. L4-L5: Mild disc bulging. Narrowing of the LEFT subarticular recess. Mild LEFT foraminal narrowing. RIGHT foramen is patent. Moderate facet arthropathy. L5-S1: Grade 1 anterolisthesis. Interbody fusion graft. Spinal canal and foramen are patent. Visualized pelvic bony structures: Normal. Paravertebral soft tissues: Normal. Peripelvic LEFT renal cysts. MR/MR lumbar spine wo con* [id number] IMPRESSION: Extensive hardware degrades some images. 1. No significant central canal stenosis. Decompressive laminectomies througho ut the lumbar spine. 2. Mild annular bulging L3-4 with slight narrowing of the RIGHT subarticular r ecess. Mild RIGHT foraminal narrowing at this level. 3. Slight narrowing of the LEFT L4-5 subarticular recess. Mild LEFT L4-5 jeff inal narrowing 4. Tiny far LEFT lateral foraminal protrusion L2-3 slightly encroaches on the far exiting LEFT L2 nerve root 5. No other acute findings.
== END 2024-12-23 11:59 | disposition home or self-care (01) ==
LOC: RAD 11:59
PROVIDERS: PCP Nurse Practitioner Family; Visit Provider Orthopaedic Surgery
DX: M48.062 Spinal stenosis, lumbar region with neurogenic claudication (principal); M43.16 Spondylolisthesis, lumbar region
CPT/HCPCS: 72146; 72148

== ENCOUNTER 2024-12-31 15:38 | Outpatient (CLI) | payer MEDICAID, SELFPAY ==
[2024-12-31 16:16] LABS: Hematocrit 44.8 % (36-47); Hemoglobin 14.50 g/dL (11.27-16.99); Mean Corpuscular HGB Conc 32.4 g/dL (30-55); Mean Corpuscular Hemoglobin 32.7 pg (27-33); Mean Corpuscular Volume 100.9 fl (85-98); Nucleated Red Blood Cells % 0 %; Platelet Count 410 10^3/cmm (157-399); Red Blood Count 4.44 10^6/uL (3.85-5.65); White Blood Count 13.66 10^3/uL (3.29-11.43)
[2024-12-31 17:52] LABS: Alanine Aminotransferase 25 U/L (0-33); Albumin Level 4.4 g/dL (3.5-5.2); Alkaline Phosphatase 123 U/L (35-105); Aspartate Amino Transferase 21 U/L (0-32); Globulin 2.6 g/dL (1.3-4.6); Total Protein 7.0 g/dL (6.6-8.7)
== END 2024-12-31 15:39 | disposition home or self-care (01) ==
LOC: LAB 15:42
PROVIDERS: PCP Nurse Practitioner Family; Visit Provider Internal Medicine Rheumatology
DX: Z79.899 Other long term (current) drug therapy (principal)
CPT/HCPCS: 36415; 80076; 82565; 85025; 85651; 86140

== ENCOUNTER → 2025-01-18 12:38 | Outpatient (BNVA) | payer MEDICAID, SELFPAY | PROVIDERS: PCP Nurse Practitioner Family; Visit Provider Internal Medicine Rheumatology | DX: Z79.899 Other long term (current) drug therapy (principal) | CPT/HCPCS: 36415; 82085; 82550; 82565; 84520 ==

== ENCOUNTER 2025-02-18 16:51 | Outpatient (CLI) | payer MEDICAID, SELFPAY ==
--- NOTE | 2025-02-18 16:58 | CT_ITS ---
WS: [id number] CT LEFT KNEE, NONCONTRAST HISTORY: INJURY OF LEFT KNEE Technique: All CT scans at [facility] use at least one of these dose optimization techniques: automated exposure control; mA and/or kV adjustment per patient size (includes targeted exams where dose is matched to clinical indication); or iterative reconstruction. DLP: 467.42 mGy.cm COMPARISON: Radiograph 01/29/2025 Normal alignment of the LEFT knee. No displaced fracture identified. There is very slight increased density in the anterior lateral tibial plateau. This does not correspond to the findings on the CT. No definite fracture is identified. No significant soft tissue edema. No joint effusion. Tiny calcific density along the lateral femoral condyle. There is an additional subcutaneous soft tissue calcification measuring 6 mm lateral to the femoral condyle. No muscle edema or atrophy. CT/CT knee LT wo con* [id number] IMPRESSION: 1. No fractures are identified by CT. Trabecular injury with marrow edema woul d be best evaluated by MRI. 2. No secondary findings of fracture. There is no joint effusion or soft tissu e edema. 3. Tiny densities in the region of the lateral collateral ligament may be from a prior injury. These may be calcific or osseous densities. No adjacent edema. 4. If knee pain persists and there is concern for internal derangement MRI wou ld provide additional information.
== END 2025-02-18 16:52 | disposition home or self-care (01) ==
LOC: RAD 16:51
PROVIDERS: PCP Nurse Practitioner Family; Visit Provider Nurse Practitioner Family
DX: S89.92XA Unspecified injury of left lower leg, initial encounter (principal); Y99.9 Unspecified external cause status; M25.862 Other specified joint disorders, left knee
CPT/HCPCS: 73700

== ENCOUNTER → 2025-03-01 15:24 | Outpatient (BNVA) | payer MEDICAID, SELFPAY | PROVIDERS: PCP Nurse Practitioner Family; Visit Provider Specialist | DX: M25.562 Pain in left knee (principal) | CPT/HCPCS: 73560; 73565 ==

== ENCOUNTER → 2025-03-04 15:48 | Outpatient (BNVA) | payer MEDICAID, SELFPAY | PROVIDERS: PCP Nurse Practitioner Family; Visit Provider Orthopaedic Surgery | DX: Z01.818 Encounter for other preprocedural examination (principal); M48.062 Spinal stenosis, lumbar region with neurogenic claudication; M54.6 Pain in thoracic spine; Z98.1 Arthrodesis status | CPT/HCPCS: 36415; 72072; 72100; 80053; 81001; 85025; 87077; 87086; 87186 ==

== ENCOUNTER 2025-03-12 14:18 | Inpatient (IN) | payer MEDICAID, SELFPAY ==
[2025-03-12 14:27] VITALS: BP 147/84; PULSE 87; RESP 18; TEMP 36.6; O2SAT 90
--- NOTE | 2025-03-12 15:53 | CTR_ITS ---
PROCEDURE INFORMATION: Exam: CT Thoracic Spine Without Contrast Exam date and time: 03/12/2025 4:47 PM Age: 59 years old Clinical indication: Lumbago; Pain in thoracic spine; Additional info: Upper/lower back pain; Bilateral lower ext weakness TECHNIQUE: Imaging protocol: Computed tomography of the thoracic spine without contrast. Radiation optimization: All CT scans at this facility use at least one of these dose optimization techniques: automated exposure control; mA and/or kV adjustment per patient size (includes targeted exams where dose is matched to clinical indication); or iterative reconstruction. COMPARISON: MR thoracic spin wo con* [id number] 12/23/2024 12:23 PM RADIATION DOSE METRICS: Total DLP (mGy-cm): 868.6 FINDINGS: Bones/joints: Nondisplaced fracture of the superior endplate of T11. No other fractures or malalignment. No bony destructive lesions. Intact posterior spinal fusion hardware extending from T9 down to the level of the sacrum. No evidence of hardware complications. 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 There is a proximally 3 mm of anterolisthesis T8 on T9. No evidence of acute erosions. Mild spinal canal stenosis at T8-T9 which is difficult to assess given the amount of streak artifact from the adjacent fixation hardware. Mild dextroscoliosis of the lower thoracic spine with a Gonzalez angle of 20 degrees. Moderate multilevel degenerative disc changes at T3 through T8. Soft tissues: Unremarkable. Lungs: Visualized lungs unremarkable. PROCEDURE INFORMATION: Exam: CT Lumbar Spine Without Contrast Exam date and time: 03/12/2025 4:47 PM Age: 59 years old Clinical indication: Lumbago; Pain in thoracic spine; Additional info: Upper/lower back pain; Bilateral lower ext weakness TECHNIQUE: Imaging protocol: Computed tomography of the lumbar spine without contrast. Radiation optimization: All CT scans at this facility use at least one of these dose optimization techniques: automated exposure control; mA and/or kV adjustment per patient size (includes targeted exams where dose is matched to clinical indication); or iterative reconstruction. COMPARISON: MR lumbar spine wo con* [id number] 12/23/2024 12:42 PM RADIATION DOSE METRICS: Total DLP (mGy-cm): 1000.38 FINDINGS: Bones/joints: No acute fractures. No bony destructive lesions. Intact posterior spinal fusion hardware extending from T9 down to the level of the sacrum. Laminectomy changes at L4-L5. No evidence of hardware complications. Grade 1 retrolisthesis of L1 on L2 measuring 4 mm. Grade 1 anterolisthesis of L3 on L4 measuring 3 mm. Grade 1 retrolisthesis of L4 on L5 measuring 3 mm. No significant spinal canal stenosis or neural foraminal narrowing identified on CT. Soft tissues: Unremarkable. CT/CT thoracic spin wo con* [id number] IMPRESSION: 1. Nondisplaced fracture of the superior endplate of T11. 2. No other fractures or malalignment. 3. Intact posterior spinal fusion hardware extending from T9 down to the level of the sacrum. No evidence of hardware complications. 4. 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 There is a proximally 3 mm of anterolisthesis T8 on T9. No evidence of acute erosions. 5. Mild spinal canal stenosis at T8-T9 which is difficult to assess given the amount of streak artifact from the adjacent fixation hardware. 6. Mild dextroscoliosis of the lower thoracic spine with a Gonzalez angle of 20 degrees. 7. Moderate multilevel degenerative disc changes at T3 through T8. IMPRESSION: 1. No acute fractures. 2. Intact posterior spinal fusion hardware extending from T9 down to the level of the sacrum. Laminectomy changes at L4-L5. No evidence of hardware complications. 3. Multilevel spondylolisthesis as described above. 4. No significant spinal canal stenosis or neural foraminal narrowing identified on CT.
--- NOTE | 2025-03-12 15:53 | CTR_ITS ---
PROCEDURE INFORMATION: Exam: CT Thoracic Spine Without Contrast Exam date and time: 03/12/2025 4:47 PM Age: 59 years old Clinical indication: Lumbago; Pain in thoracic spine; Additional info: Upper/lower back pain; Bilateral lower ext weakness TECHNIQUE: Imaging protocol: Computed tomography of the thoracic spine without contrast. Radiation optimization: All CT scans at this facility use at least one of these dose optimization techniques: automated exposure control; mA and/or kV adjustment per patient size (includes targeted exams where dose is matched to clinical indication); or iterative reconstruction. COMPARISON: MR thoracic spin wo con* [id number] 12/23/2024 12:23 PM RADIATION DOSE METRICS: Total DLP (mGy-cm): 868.6 FINDINGS: Bones/joints: Nondisplaced fracture of the superior endplate of T11. No other fractures or malalignment. No bony destructive lesions. Intact posterior spinal fusion hardware extending from T9 down to the level of the sacrum. No evidence of hardware complications. 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 There is a proximally 3 mm of anterolisthesis T8 on T9. No evidence of acute erosions. Mild spinal canal stenosis at T8-T9 which is difficult to assess given the amount of streak artifact from the adjacent fixation hardware. Mild dextroscoliosis of the lower thoracic spine with a Gonzalez angle of 20 degrees. Moderate multilevel degenerative disc changes at T3 through T8. Soft tissues: Unremarkable. Lungs: Visualized lungs unremarkable. PROCEDURE INFORMATION: Exam: CT Lumbar Spine Without Contrast Exam date and time: 03/12/2025 4:47 PM Age: 59 years old Clinical indication: Lumbago; Pain in thoracic spine; Additional info: Upper/lower back pain; Bilateral lower ext weakness TECHNIQUE: Imaging protocol: Computed tomography of the lumbar spine without contrast. Radiation optimization: All CT scans at this facility use at least one of these dose optimization techniques: automated exposure control; mA and/or kV adjustment per patient size (includes targeted exams where dose is matched to clinical indication); or iterative reconstruction. COMPARISON: MR lumbar spine wo con* [id number] 12/23/2024 12:42 PM RADIATION DOSE METRICS: Total DLP (mGy-cm): 1000.38 FINDINGS: Bones/joints: No acute fractures. No bony destructive lesions. Intact posterior spinal fusion hardware extending from T9 down to the level of the sacrum. Laminectomy changes at L4-L5. No evidence of hardware complications. Grade 1 retrolisthesis of L1 on L2 measuring 4 mm. Grade 1 anterolisthesis of L3 on L4 measuring 3 mm. Grade 1 retrolisthesis of L4 on L5 measuring 3 mm. No significant spinal canal stenosis or neural foraminal narrowing identified on CT. Soft tissues: Unremarkable. CT/CT lumbar spine wo con* [id number] IMPRESSION: 1. Nondisplaced fracture of the superior endplate of T11. 2. No other fractures or malalignment. 3. Intact posterior spinal fusion hardware extending from T9 down to the level of the sacrum. No evidence of hardware complications. 4. 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 There is a proximally 3 mm of anterolisthesis T8 on T9. No evidence of acute erosions. 5. Mild spinal canal stenosis at T8-T9 which is difficult to assess given the amount of streak artifact from the adjacent fixation hardware. 6. Mild dextroscoliosis of the lower thoracic spine with a Gonzalez angle of 20 degrees. 7. Moderate multilevel degenerative disc changes at T3 through T8. IMPRESSION: 1. No acute fractures. 2. Intact posterior spinal fusion hardware extending from T9 down to the level of the sacrum. Laminectomy changes at L4-L5. No evidence of hardware complications. 3. Multilevel spondylolisthesis as described above. 4. No significant spinal canal stenosis or neural foraminal narrowing identified on CT.
[2025-03-12] MEDS: ondansetron 2 mg/ML SDV 2 mL 4 MG IVP (15:55)
[2025-03-12] MEDS: orphenadrine 30 mg/mL Inj 2 mL 60 MG IVP (15:57)
--- NOTE | 2025-03-12 16:00 | W.ED.BACK ---
HPI - Back Pain/Injury General: Chief Complaint: Back Pain/Injury Stated Complaint: back pain - leg weakness Time Seen by Provider: 03/12/25 15:08 History of Present Illness: This 59-year-old female presents emergency room with complaint of back pain. She earlier this year she had had surgery done on her lumbar spine she developed complications above this initial surgery site Dr. Messer had seen her in the office she had reported having increased weakness in her left leg 1 to 2 weeks ago and now is having decreased function in her right leg. She has not had any fecal incontinence or urinary retention. She still has sensation lower extremities and can move her extremities but is unable to bear weight or ambulate. Associated symptoms: Deny abdominal pain, chills, dysuria, fever(s) or urinary urgency Related Data Home Medications ?Medication ?Instructions ?Recorded ?Confirmed citalopram 40 mg tablet 40 mg PO DAILY@0800 08/19/19 03/12/25 sumatriptan succinate 100 mg 100 mg PO Q2H PRN Migraine Headache 06/23/20 03/12/25 tablet (Imitrex) potassium gluconate 595 mg (99 mg) 595 mg PO DAILY 02/14/21 03/12/25 tablet buspirone 5 mg tablet 5 mg PO BID PRN Anxiety 03/20/22 03/12/25 biotin 5 mg tablet 5 mg PO DAILY 09/13/22 03/12/25 diclofenac sodium 75 mg 75 mg PO BID PRN PAIN OR 03/27/23 03/12/25 tablet,delayed release INFLAMMATION ketoconazole 2 % shampoo See Rx Instructions .Route 11/14/23 03/12/25 .COMPLEX PRN scalp irritation gabapentin 100 mg capsule 100 mg PO TID 01/30/24 03/12/25 calcium 333 mg-vit D3 200 1 tab PO DAILY 02/26/24 03/12/25 unit-magnesium 133 mg-zinc 5 mg tablet cholecalciferol (vitamin D3) 50 50 mcg PO DAILY 02/26/24 03/12/25 mcg (2,000 unit) capsule ferrous sulfate 325 mg (65 mg 325 mg PO DAILY 02/26/24 03/12/25 iron) tablet (Feosol) estradiol 0.5 mg tablet 0.5 mg PO DAILY 07/27/24 03/12/25 metoprolol tartrate 25 mg tablet 25 mg PO BID 07/31/24 03/12/25 zolpidem 10 mg tablet 10 mg PO BEDTIME PRN Sleep 09/09/24 03/12/25 cyclobenzaprine 10 mg tablet 10 mg PO TID PRN Muscle Spasm 03/12/25 03/12/25 duloxetine 60 mg capsule,delayed 60 mg PO DAILY 03/12/25 03/12/25 release gabapentin 300 mg capsule 300 mg PO BID PRN nerve pain 03/12/25 03/12/25 nitroglycerin 0.4 mg sublingual 0.4 mg sublingual Q5M PRN Chest 03/12/25 03/12/25 tablet Pain oxycodone-acetaminophen 10 mg-325 1 tab PO .Q4-6H PRN Pain 03/12/25 03/12/25 mg tablet prednisone 5 mg tablet 15 mg PO DAILY 03/12/25 03/12/25 Previous Rx's ?Medication ?Instructions ?Recorded [facility] Joint Brace, left #2 ea 08/18/24 lisinopril 2.5 mg tablet 2.5 mg PO DAILY #90 tabs 09/25/24 prednisone 20 mg tablet See Rx Instructions PO .COMPLEX 10/14/24 PRN joint pain flare #30 tabs omeprazole 20 mg capsule,delayed 40 mg (2 x 20 mg) PO DAILY #180 10/29/24 release caps TLSO Brace #1 ea 12/24/24 ondansetron HCl 8 mg tablet 8 mg PO Q8H PRN nausea and 01/28/25 vomiting #30 tabs tirzepatide (weight loss) 5 mg/0.5 5 mg (0.5 mL) SUBCUT Q7D 1 month 02/25/25 mL subcutaneous pen injector #2.5 mL (Zepbound) tirzepatide (weight loss) 10 10 mg (0.5 mL) SUBCUT Q7D 1 month 03/10/25 mg/0.5 mL subcutaneous pen #2.5 mL injector (Zepbound) tirzepatide (weight loss) 12.5 12.5 mg (0.5 mL) SUBCUT Q7D 1 03/10/25 mg/0.5 mL subcutaneous pen month #2.5 mL injector (Zepbound) tirzepatide (weight loss) 7.5 7.5 mg (0.5 mL) SUBCUT Q7D 1 month 03/10/25 mg/0.5 mL subcutaneous pen #2.5 mL injector ([employer]) Allergies Allergy/AdvReac Type Severity Reaction Status Date / Time Iodinated Contrast Media Allergy Unknown Unknown Verified 03/09/25 11:31 tetracycline Allergy ADR-Nausea Verified 03/09/25 11:31 adalimumab (From Humira(CF)) AdvReac Intermediate body rash Verified 03/09/25 11:31 etanercept (From Enbrel) AdvReac Intermediate hair loss Verified 03/09/25 11:31 and bruising Review of Systems Const: Denies: fever(s) or chills Card: Denies: chest pain Resp: Denies: dyspnea GI: Denies: abdominal pain : Denies: dysuria, urinary frequency or urinary urgency Musc: Reports: back pain and extremity pain; Denies: neck pain Skin/Breast: Denies: rash PFSH ED PFSH: Medical History Shoulder pain, acute Sinus tachycardia SVT (supraventricular tachycardia) Polymyalgia rheumatica Rapid heart rate Hypertension Heart palpitations Seronegative rheumatoid arthritis of both hands Immunization counseling Inflammatory arthritis High risk medication use Chronic steroid use Polymyalgia rheumatica Spina bifida Asthma Anxiety Numbness and tingling Fibromyalgia PMR (polymyalgia rheumatica) Hx of migraines Radiculopathy Neuralgia of right thigh Trochanteric bursitis of right hip Chronic back pain Failed back syndrome, lumbosacral Spondylolisthesis, lumbar region Intervertebral disc disorders with radiculopathy, lumbosacral region Arthritis of right acromioclavicular joint Spondylolysis, cervical region Encounter for long-term opiate analgesic use Surgical History Hx of section x 2 History of back surgery x 2 with hardware Hx of hysterectomy, total S/P insertion of spinal cord stimulator Hx of repair of right rotator cuff Family History Mother Breast cancer Father Diabetes Hypertension Heart disease Hypercholesteremia Grandmother Stroke Sister Uterine cancer Denies family history of Colon cancer Ovarian cancer Social History Smoking and tobacco/nicotine status: never used tobacco/nicotine Alcohol intake: never Substance/Drug Use: never Physical Exam Const: GENERAL APPEARANCE: cooperative ORIENTATION/CONSCIOUSNESS: Yes awake, Yes oriented to person, Yes oriented to place and Yes oriented to time HENMT: COMMON NORMALS: normocephalic, atraumatic and hearing grossly normal bilaterally HEAD & SCALP: normocephalic and atraumatic Resp: COMMON NORMALS: normal respiratory effort, No retractions, No use of accessory muscles and clear to auscultation bilaterally AUSCULTATION: clear to auscultation bilaterally Cardio: COMMON NORMALS: regular rate, regular rhythm and No murmurs present (Cardio) RATE: regular rate RHYTHM: regular rhythm GI: COMMON NORMALS: Soft to palpation and No hepatosplenomegaly present AUSCULTATION: Yes normoactive bowel sounds PALPATION: Yes Soft to palpation, No Tenderness to palpation present (GI), No Guarding due to palpation present (GI) and Yes No hepatosplenomegaly present Extremity: COMMON NORMALS: normal to inspection, capillary refill normal, no clubbing, cyanosis or edema, no calf tenderness and no pedal edema OTHER: Bilateral foot drop sensation intact weakness at the the knee ankle and hip. Patient is able to flex at the hip muscle strength bilaterally in the lower extremities is 3 of 5 Neuro: SENSORIUM/ORIENTATION: Yes oriented to person, Yes oriented to place and Yes oriented to time Skin: COMMON NORMALS: no rashes or lesions noted GENERAL SKIN EXAM: no rashes or lesions noted Course Vital Signs: Vital signs: Vital Signs Temperature 97.9 F 03/12/25 14:27 Pulse Rate 68 03/12/25 17:00 Respiratory Rate 16 03/12/25 17:00 Blood Pressure 103/58 03/12/25 17:00 Pulse Oximetry 91 03/12/25 17:00 Oxygen Delivery Me thod Room Air 03/12/25 18:23 MDM - Back Pain/Injury Medical Decision Making Discussed with Dr. Messer this has been a known problem they are planning surgery. At this point she is not able to ambulate he recommends admission. He recently had done an MRI did not feel that another MRI was needed. Will admit for pain control he will consult on the patient discussed with hospitalist orders written Medical Records I reviewed the patient's medical records. Labs I reviewed the patient's lab results. Radiology Impressions Lumbar Spine CT 03/12/25 15:53 IMPRESSION: 1. Nondisplaced fracture of the superior endplate of T11. 2. No other fractures or malalignment. 3. Intact posterior spinal fusion hardware extending from T9 down to the level of the sacrum. No evidence of hardware complications. 4. 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 There is a proximally 3 mm of anterolisthesis T8 on T9. No evidence of acute erosions. 5. Mild spinal canal stenosis at T8-T9 which is difficult to assess given the amount of streak artifact from the adjacent fixation hardware. 6. Mild dextroscoliosis of the lower thoracic spine with a Gonzalez angle of 20 degrees. 7. Moderate multilevel degenerative disc changes at T3 through T8. IMPRESSION: 1. No acute fractures. 2. Intact posterior spinal fusion hardware extending from T9 down to the level of the sacrum. Laminectomy changes at L4-L5. No evidence of hardware complications. 3. Multilevel spondylolisthesis as described above. 4. No significant spinal canal stenosis or neural foraminal narrowing identified on CT. Thoracic Spine CT 03/12/25 15:53 IMPRESSION: 1. Nondisplaced fracture of the superior endplate of T11. 2. No other fractures or malalignment. 3. Intact posterior spinal fusion hardware extending from T9 down to the level of the sacrum. No evidence of hardware complications. 4. 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 There is a proximally 3 mm of anterolisthesis T8 on T9. No evidence of acute erosions. 5. Mild spinal canal stenosis at T8-T9 which is difficult to assess given the amount of streak artifact from the adjacent fixation hardware. 6. Mild dextroscoliosis of the lower thoracic spine with a Gonzalez angle of 20 degrees. 7. Moderate multilevel degenerative disc changes at T3 through T8. IMPRESSION: 1. No acute fractures. 2. Intact posterior spinal fusion hardware extending from T9 down to the level of the sacrum. Laminectomy changes at L4-L5. No evidence of hardware complications. 3. Multilevel spondylolisthesis as described above. 4. No significant spinal canal stenosis or neural foraminal narrowing identified on CT. All radiology interpretation(s) finalized by discharge Discharge Plan Discharge Patient Disposition: Admitted As Inpatient Admit Provider: Zander Caba Clinical Impression: Lumbar stenosis with neurogenic claudication, Status post lumbar spinal fusion, Closed compression fracture of thoracic vertebra Condition: Stable Coding Level of Care Code ED Dough Maker for Casi Miranda
[2025-03-12] MEDS: morphine 4 mg/mL SDV 1 mL IVP (16:03)
--- NOTE | 2025-03-12 16:18 | PM.HP ---
Providers/Chief Complaint Admitting Physician: Dr. Caba Primary Care Provider: JOEL Mahan Chief Complaint: back pain - leg weakness History of Present Illness Sivan Sarabia is a 59 year old female presenting with worsening of her chronic lower back pain. PMHx is significant for 9 prior spinal fusions in August, pain stimulator is in place. She continues to have ongoing lumbar pain with BL worsening leg weakness. She was scheduled for t7/10 fusion on 03/31, however she has been unable to walk at home. She uses a cart for transfers and has been unable to get on cart and has fallen twice in the past several days. She was attempting to have her scheduled surgery advanced, however this hasn't been possible as yet. Per ER physician, the spinal surgeon has stated that he will consider surgery on Saturday and we can attempt pain control over the weekend. Review of Systems Const: Denies: fever(s), chills or body aches Eyes: Denies: change in vision or blurry vision ENMT: Denies: throat pain, enlarged tonsils or mouth pain Card: Denies: chest pain or palpitations Resp: Denies: dyspnea, productive cough or pain on inspiration GI: Reports: other (no bowel or bladder incontinence ); Denies: abdominal pain, nausea or vomiting : Denies: flank pain Musc: Reports: back pain, extremity pain and extremity swelling Neuro: Reports: numbness in extremities Psych: Denies: anxiety or depression Medications/Allergies Home Medications ?Medication ?Instructions ?Recorded ?Confirmed ?Last Taken ?Type citalopram 40 mg tablet 40 mg PO DAILY@0800 08/19/19 03/09/25 08/03/24 History sumatriptan succinate 100 mg 100 mg PO Q2H PRN Migraine Headache 06/23/20 03/09/25 07/23/21 History tablet (Imitrex) potassium gluconate 595 mg (99 mg) 595 mg PO DAILY 02/14/21 03/09/25 08/03/24 History tablet buspirone 5 mg tablet 5 mg PO BID PRN Anxiety 03/20/22 03/09/25 08/01/24 History nitroglycerin 0.4 mg sublingual 0.4 mg sublingual Q5M #10 tabs 08/16/22 03/09/25 Unknown Rx tablet biotin 5 mg tablet 5 mg PO DAILY 0403/09/25 08/03/24 History diclofenac sodium 75 mg 75 mg PO BID PRN PAIN OR 03/27/23 03/09/25 07/24/24 History tablet,delayed release INFLAMMATION ketoconazole 2 % shampoo See Rx Instructions .Route .COMPLEX 11/14/23 03/09/25 Unknown History gabapentin 100 mg capsule 100 mg PO TID 01/30/24 03/09/25 08/02/24 History calcium 333 mg-vit D3 200 1 tab PO DAILY 02/26/24 03/09/25 08/03/24 History unit-magnesium 133 mg-zinc 5 mg tablet cholecalciferol (vitamin D3) 50 50 mcg PO DAILY 02/26/24 03/09/25 08/03/24 History mcg (2,000 unit) capsule ferrous sulfate 325 mg (65 mg 325 mg PO DAILY 02/26/24 03/09/25 08/03/24 History iron) tablet (Feosol) estradiol 0.5 mg tablet 0.5 mg PO DAILY 07/27/24 03/09/25 08/03/24 History metoprolol tartrate 25 mg tablet 25 mg PO BID 07/31/24 03/09/25 08/03/24 History [facility] Joint Brace, left #2 ea 08/18/24 03/09/25 Unknown Rx oxycodone 10 mg tablet 10 mg PO Q4H PRN pain 7 days #42 08/25/24 03/09/25 Unknown Rx tabs zolpidem 10 mg tablet mg PO 09/09/24 03/09/25 Unknown History lisinopril 2.5 mg tablet 2.5 mg PO DAILY #90 tabs 09/25/24 03/09/25 Unknown Rx isosorbide mononitrate 30 mg See Rx Instructions .Route 10/12/24 03/09/25 Unknown Rx tablet,extended release 24 hr .COMPLEX #90 tabs prednisone 20 mg tablet See Rx Instructions PO .COMPLEX 10/14/24 03/09/25 Unknown Rx PRN joint pain flare #30 tabs omeprazole 20 mg capsule,delayed 40 mg (2 x 20 mg) PO DAILY #180 10/29/24 03/09/25 Unknown Rx release caps TLSO Brace #1 ea 12/24/24 03/09/25 Unknown Rx ondansetron HCl 8 mg tablet 8 mg PO Q8H PRN nausea and 01/28/25 03/09/25 Unknown Rx vomiting #30 tabs tirzepatide (weight loss) 5 mg/0.5 5 mg (0.5 mL) SUBCUT Q7D 1 month 02/25/25 03/09/25 Unknown Rx mL subcutaneous pen injector #2.5 mL (Zepbound) tirzepatide (weight loss) 10 10 mg (0.5 mL) SUBCUT Q7D 1 month 03/10/25 Unknown Rx mg/0.5 mL subcutaneous pen #2.5 mL injector (Zepbound) tirzepatide (weight loss) 12.5 12.5 mg (0.5 mL) SUBCUT Q7D 1 03/10/25 Unknown Rx mg/0.5 mL subcutaneous pen month #2.5 mL injector (Zepbound) tirzepatide (weight loss) 7.5 7.5 mg (0.5 mL) SUBCUT Q7D 1 month 03/10/25 Unknown Rx mg/0.5 mL subcutaneous pen #2.5 mL injector (Zepbound) cyclobenzaprine 10 mg tablet 10 mg PO TID PRN Muscle Spasm 03/12/25 03/12/25 Unknown History duloxetine 60 mg capsule,delayed 60 mg PO DAILY 03/12/25 03/12/25 03/12/25 History release prednisone 5 mg tablet 15 mg PO DAILY 03/12/25 03/12/25 03/12/25 History Allergies Allergy/AdvReac Type Severity Reaction Status Date / Time Iodinated Contrast Media Allergy Unknown Unknown Verified 03/09/25 11:31 tetracycline Allergy ADR-Nausea Verified 03/09/25 11:31 adalimumab (From Humira(CF)) AdvReac Intermediate body rash Verified 03/09/25 11:31 etanercept (From Enbrel) AdvReac Intermediate hair loss Verified 03/09/25 11:31 and bruising PFSH Acute PFSH: Medical History Shoulder pain, acute Sinus tachycardia SVT (supraventricular tachycardia) Polymyalgia rheumatica Rapid heart rate Hypertension Heart palpitations Seronegative rheumatoid arthritis of both hands Immunization counseling Inflammatory arthritis High risk medication use Chronic steroid use Polymyalgia rheumatica Spina bifida Asthma Anxiety Numbness and tingling Fibromyalgia PMR (polymyalgia rheumatica) Hx of migraines Radiculopathy Neuralgia of right thigh Trochanteric bursitis of right hip Chronic back pain Failed back syndrome, lumbosacral Spondylolisthesis, lumbar region Intervertebral disc disorders with radiculopathy, lumbosacral region Arthritis of right acromioclavicular joint Spondylolysis, cervical region Encounter for long-term opiate analgesic use Surgical History Hx of section x 2 History of back surgery x 2 with hardware Hx of hysterectomy, total S/P insertion of spinal cord stimulator Hx of repair of right rotator cuff Family History Mother Breast cancer Father Diabetes Hypertension Heart disease Hypercholesteremia Grandmother Stroke Sister Uterine cancer Denies family history of Colon cancer Ovarian cancer Social History (Updated 03/12/25 @ 16:24 by Zander Caba MD) Smoking and tobacco/nicotine status: never used tobacco/nicotine Alcohol intake: never Substance/Drug Use: never Vitals/I&O/Wt Last Vital Signs Temp 97.9 F 03/12/25 14:27 Pulse 87 03/12/25 14:27 Resp 18 03/12/25 14:27 BP 147/84 03/12/25 14:27 Pulse Ox 90 03/12/25 14:27 O2 Del Method Room Air 03/12/25 14:27 Physical Exam Const: COMMON NORMALS: no acute distress and patient oriented x3 HENMT: COMMON NORMALS: normocephalic and atraumatic Eye: COMMON NORMALS: Equal, round and reactive pupils present and EOMs intact bilaterally Neck/C-Spine: COMMON NORMALS: supple Resp: COMMON NORMALS: clear to auscultation bilaterally Cardio: COMMON NORMALS: regular rate and regular rhythm GI: COMMON NORMALS: Soft to palpation, non-tender, No hepatosplenomegaly present and no masses Extremity: GENERAL: Yes edema (BL LE) Neuro: COMMON NORMALS: patient oriented x3 and CN's II-XII intact bilaterally A&P Assessment and plan 1. Status post lumbar spinal fusion: 2. Lumbar stenosis with neurogenic claudication: 3. Obesity: Plan: 59 year old female presenting with ongoing low back pain Failed back syndrome Lumbosacral - multiple prior fusions in the past - pain stimulator in place - planning for t7/10 fusion on 03/31, per spinal surgery, may be able to do this Mon - cont. home oxy, add fentanyl PRN for breakthrough - cont. muscle relaxer - cont. gabapentin Anxiety - cont. buspirone, citalopram RA Fibromyalgia - cont. as per home regimen Diet: regular, NPO after midnight for day of surgery PPx: lovenox, hold 12 hr prior to surgery Disposition - pain control, await spinal surgery recommendations. PDMP PDMP Reviewed: Not Reviewed Attestations Medical Necessity Statement*: Anticipate > 2 midnights for lumbar pain, spinal fusion planned. Time Spent in Patient Care: 16 - 35 minutes (>than 50% of time spent in counselling and/or direct pt care on unit). Coding Level of Care Code Acute Code for Chg Fwd Diagnoses Status post lumbar spinal fusion Z98.1 Lumbar stenosis with neurogenic claudication M48.062 Obesity E66.9
[2025-03-12 17:00] VITALS: BP 103/58; PULSE 68; RESP 16; O2SAT 91
[2025-03-12 18:23] VITALS: BMI 33.3
[2025-03-12 21:42] VITALS: RESP 18
[2025-03-12] MEDS: oxyCODONE 5 mg IR Tab/Cap 10 MG PO (21:42)
[2025-03-12] MEDS: morphine 4 mg/mL SDV 1 mL 2 MG IVP (23:51)
[2025-03-13] VITALS (12 sets, daily range): BP systolic 95–113; BP diastolic 54–65; PULSE 69–89; RESP 16–19; TEMP 36.4–36.9; O2SAT 91–98
[2025-03-13] MEDS: oxyCODONE 5 mg IR Tab/Cap 10 MG PO ×4 (03:49→20:09)
[2025-03-13 04:48] LABS: Hematocrit 37.4 % (36-47); Hemoglobin 12.10 g/dL (11.27-16.99); Mean Corpuscular HGB Conc 32.4 g/dL (30-55); Mean Corpuscular Hemoglobin 32.7 pg (27-33); Mean Corpuscular Volume 101.1 fl (85-98); Nucleated Red Blood Cells % 0 %; Platelet Count 361 10^3/cmm (157-399); Red Blood Count 3.70 10^6/uL (3.85-5.65); White Blood Count 8.81 10^3/uL (3.29-11.43)
[2025-03-13 05:18] LABS: Anion Gap 16.4 (5-19); Blood Urea Nitrogen 17 mg/dL (6-20); Calcium 9.3 mg/dL (8.5-10.5); Carbon Dioxide 25 mmol/L (22-29); Chloride 102 mmol/L (98-107); Creatinine Clr Calc Pharmacy 94.0952; Glucose 157 mg/dL (65-115); Osmolality Calculated 293 mOsm/kg (285-295); Potassium 4.4 mmol/L (3.5-5.1); Sodium 139 mmol/L (136-145)
--- NOTE | 2025-03-13 11:27 | PM.CONSULT ---
Providers/Reason For Consult Consulting Physician/Specialty*: Hospitalist Reason for Consult*: Spine fracture Attending Physician: Zander Caba MD Primary Care Provider: JOEL Mahan History of Present Illness History of Present Illness Sivan Sarabia is a 59 year old female has a known proximal junctional kyphosis above her previous fusion. At this point she was scheduled to have surgery on 102. However symptoms progress we keep getting worse at this point we will plan to do surgery on Saturday03/15/2025. Review of Systems Const: Denies: fever(s), chills or body aches Eyes: Denies: change in vision or blurry vision ENMT: Denies: throat pain, enlarged tonsils or mouth pain Card: Denies: chest pain or palpitations Resp: Denies: dyspnea, productive cough or pain on inspiration GI: Reports: other (no bowel or bladder incontinence ); Denies: abdominal pain, nausea or vomiting : Denies: flank pain Musc: Reports: back pain, extremity pain and extremity swelling Neuro: Reports: numbness in extremities Psych: Denies: anxiety or depression Medications/Allergies Home Medications ?Medication ?Instructions ?Recorded ?Confirmed ?Last Taken ?Type citalopram 40 mg tablet 40 mg PO DAILY@0800 08/19/19 03/12/25 03/12/25 History sumatriptan succinate 100 mg 100 mg PO Q2H PRN Migraine Headache 06/23/20 03/12/25 07/23/21 History tablet (Imitrex) potassium gluconate 595 mg (99 mg) 595 mg PO DAILY 02/14/21 03/12/25 03/11/25 History tablet buspirone 5 mg tablet 5 mg PO BID PRN Anxiety 03/20/22 03/12/25 08/01/24 History biotin 5 mg tablet 5 mg PO DAILY 09/13/22 03/12/25 03/11/25 History diclofenac sodium 75 mg 75 mg PO BID PRN PAIN OR 03/27/23 03/12/25 07/24/24 History tablet,delayed release INFLAMMATION ketoconazole 2 % shampoo See Rx Instructions .Route 11/14/23 03/12/25 Unknown History .COMPLEX PRN scalp irritation gabapentin 100 mg capsule 100 mg PO TID 01/30/24 03/12/25 03/12/25 History calcium 333 mg-vit D3 200 1 tab PO DAILY 02/26/24 03/12/25 03/11/25 History unit-magnesium 133 mg-zinc 5 mg tablet cholecalciferol (vitamin D3) 50 50 mcg PO DAILY 02/26/24 03/12/25 03/11/25 History mcg (2,000 unit) capsule ferrous sulfate 325 mg (65 mg 325 mg PO DAILY 02/26/24 03/12/25 03/11/25 History iron) tablet (Feosol) estradiol 0.5 mg tablet 0.5 mg PO DAILY 07/27/24 03/12/25 03/12/25 History metoprolol tartrate 25 mg tablet 25 mg PO BID 07/31/24 03/12/25 03/12/25 History [facility] Joint Brace, left #2 ea 08/18/24 03/12/25 Unknown Rx zolpidem 10 mg tablet 10 mg PO BEDTIME PRN Sleep 09/09/24 03/12/25 Unknown History lisinopril 2.5 mg tablet 2.5 mg PO DAILY #90 tabs 09/25/24 03/12/25 03/12/25 Rx prednisone 20 mg tablet See Rx Instructions PO .COMPLEX 10/14/24 03/12/25 Unknown Rx PRN joint pain flare #30 tabs omeprazole 20 mg capsule,delayed 40 mg (2 x 20 mg) PO DAILY #180 10/29/24 03/12/25 03/12/25 Rx release caps TLSO Brace #1 ea 12/24/24 03/12/25 Unknown Rx ondansetron HCl 8 mg tablet 8 mg PO Q8H PRN nausea and 01/28/25 03/12/25 Unknown Rx vomiting #30 tabs tirzepatide (weight loss) 5 mg/0.5 5 mg (0.5 mL) SUBCUT Q7D 1 month 02/25/25 03/12/25 03/09/25 Rx mL subcutaneous pen injector #2.5 mL (Zepbound) tirzepatide (weight loss) 10 10 mg (0.5 mL) SUBCUT Q7D 1 month 03/10/25 03/12/25 Unknown Rx mg/0.5 mL subcutaneous pen #2.5 mL injector (Zepbound) tirzepatide (weight loss) 12.5 12.5 mg (0.5 mL) SUBCUT Q7D 1 03/10/25 03/12/25 Unknown Rx mg/0.5 mL subcutaneous pen month #2.5 mL injector (Zepbound) tirzepatide (weight loss) 7.5 7.5 mg (0.5 mL) SUBCUT Q7D 1 month 03/10/25 03/12/25 Unknown Rx mg/0.5 mL subcutaneous pen #2.5 mL injector (Zepbound) cyclobenzaprine 10 mg tablet 10 mg PO TID PRN Muscle Spasm 03/12/25 03/12/25 Unknown History duloxetine 60 mg capsule,delayed 60 mg PO DAILY 03/12/25 03/12/25 03/12/25 History release gabapentin 300 mg capsule 300 mg PO BID PRN nerve pain 03/12/25 03/12/25 Unknown History nitroglycerin 0.4 mg sublingual 0.4 mg sublingual Q5M PRN Chest 03/12/25 03/12/25 Unknown History tablet Pain oxycodone-acetaminophen 10 mg-325 1 tab PO .Q4-6H PRN Pain 03/12/25 03/12/25 03/11/25 History mg tablet prednisone 5 mg tablet 15 mg PO DAILY 03/12/25 03/12/25 03/12/25 History Allergies Allergy/AdvReac Type Severity Reaction Status Date / Time Iodinated Contrast Media Allergy Unknown Unknown Verified 03/09/25 11:31 tetracycline Allergy ADR-Nausea Verified 03/09/25 11:31 adalimumab (From Humira(CF)) AdvReac Intermediate body rash Verified 03/09/25 11:31 etanercept (From Enbrel) AdvReac Intermediate hair loss Verified 03/09/25 11:31 and bruising Current Medications Generic Name Dose Route Start Last Admin Trade Name Freq PRN Reason Stop Dose Admin Cyclobenzaprine HCl 10 mg 03/12/25 21:00 03/13/25 04:46 Cyclobenzaprine 10 Mg Tablet PO 10 mg TID PRN Administration MUSCLE SPASMS Duloxetine HCl 60 mg 03/13/25 08:00 03/13/25 09:04 Duloxetine 60 Mg Capsule PO 60 mg DAILY@0800 CORBY Administration Enoxaparin Sodium 40 mg 03/12/25 18:22 03/12/25 21:44 Enoxaparin 40 Mg/0.4 Ml Syringe SUBCUT 40 mg Q24H CORBY Administration Gabapentin 100 mg 03/12/25 21:00 03/13/25 04:44 Gabapentin 100 Mg Capsule PO 100 mg TID CORBY Administration Isosorbide Mononitrate 30 mg 03/13/25 05:00 03/13/25 04:44 Isosorbide Mononitrate Er 30 Mg Tablet PO 30 mg DAILY CORBY Administration Lisinopril 2.5 mg 03/13/25 05:00 03/13/25 04:44 Lisinopril 2.5 Mg Tablet PO 2.5 mg DAILY CORBY Administration Metoprolol Tartrate 25 mg 03/12/25 18:22 03/13/25 04:43 Metoprolol Tartrate 25 Mg Tablet PO 25 mg BID CORBY Administration Morphine Sulfate 2 mg 03/12/25 18:22 03/12/25 23:51 Morphine 4 Mg/Ml Sdv 1 Ml IVP 2 mg Q4H PRN Administration SEVERE PAIN Oxycodone HCl 10 mg 03/12/25 18:28 03/13/25 09:04 Oxycodone 5 Mg Ir Tab/Cap PO 10 mg Q4H PRN Administration pain Pantoprazole Sodium 40 mg 03/13/25 05:00 03/13/25 04:[address] 40 Mg Tablet PO 40 mg DAILY CORBY Administration Zolpidem Tartrate 5 mg 03/12/25 21:00 03/12/25 21:43 Zolpidem 5 Mg Tablet PO 5 mg BEDTIME CORBY Administration PFSH Acute PFSH: Medical History (Updated 03/12/25 @ 19:08 by Suhail Tony, DO) Shoulder pain, acute Sinus tachycardia SVT (supraventricular tachycardia) Polymyalgia rheumatica Rapid heart rate Hypertension Heart palpitations Seronegative rheumatoid arthritis of both hands Immunization counseling Inflammatory arthritis High risk medication use Chronic steroid use Polymyalgia rheumatica Spina bifida Asthma Anxiety Numbness and tingling Fibromyalgia PMR (polymyalgia rheumatica) Hx of migraines Radiculopathy Neuralgia of right thigh Trochanteric bursitis of right hip Chronic back pain Failed back syndrome, lumbosacral Spondylolisthesis, lumbar region Intervertebral disc disorders with radiculopathy, lumbosacral region Arthritis of right acromioclavicular joint Spondylolysis, cervical region Encounter for long-term opiate analgesic use Surgical History (Updated 03/12/25 @ 19:08 by Suhail Tony DO) Hx of section x 2 History of back surgery x 2 with hardware Hx of hysterectomy, total S/P insertion of spinal cord stimulator Hx of repair of right rotator cuff Family History Mother Breast cancer Father Diabetes Hypertension Heart disease Hypercholesteremia Grandmother Stroke Sister Uterine cancer Denies family history of Colon cancer Ovarian cancer Social History Smoking and tobacco/nicotine status: never used tobacco/nicotine Alcohol intake: never Substance/Drug Use: never Vitals/I&O/Wt Last Vital Signs Temp 98.2 F 03/13/25 07:58 Pulse 80 03/13/25 07:58 Resp 16 03/13/25 09:04 BP 108/65 03/13/25 07:58 Pulse Ox 93 03/13/25 07:58 O2 Del Method Room Air 03/13/25 07:58 03/12/25 03/13/25 03/13/25 22:59 06:59 14:59 Intake Total 360 / 360 240 / 240 Output Total 400 / 400 Balance -40 / -40 240 / 240 Weight last 48 hrs Weight 189 lb 9.6 oz Weight 194 lb 1 oz Physical Exam Narrative: Alert and oriented x 3 Head is normocephalic atraumatic Respirations are intact No evidence of any rashes or infection Generalized weakness of bilateral lower extremities Data 03/13/25 04:31 03/13/25 04:31 A&P Assessment and plan 1. Status post lumbar spinal fusion: Plan is to do the T7-T10 posterior spine fusion on Saturday. PDMP PDMP Reviewed: Not Reviewed Coding Level of Care Code Acute Code for Chg Fwd Diagnoses Status post lumbar spinal fusion Z98.1
[2025-03-13] MEDS: ondansetron 2 mg/ML SDV 2 mL 4 MG IVP (12:25)
[2025-03-13] MEDS: morphine 4 mg/mL SDV 1 mL 2 MG IVP (12:33)
--- NOTE | 2025-03-13 16:03 | P.PN_ITS ---
Subjective 2 Subjective: some nausea this AM. Vitals/I&O/Wt Last Vital Signs Temp 98.3 F 03/13/25 11:54 Pulse 83 03/13/25 11:54 Resp 16 03/13/25 12:33 BP 105/63 03/13/25 11:54 Pulse Ox 91 03/13/25 11:54 O2 Del Method Room Air 03/13/25 11:54 03/13/25 03/13/25 03/13/25 06:59 14:59 22:59 Intake Total 360 / 360 360 / 360 Output Total 400 / 400 100 / 100 Balance -40 / -40 260 / 260 Weight last 48 hrs Weight 86.001 kg Weight 88.025 kg Physical Exam 2 Narrative: Physical Exam Const: no acute distress and patient orient ed x3 HENMT: normocephalic and atraumatic Eye: Equal, round and r eactive pupils pre sent and EOMs inta ct bilaterally Neck/C-Spine: supple Resp: clear to auscultat ion bilaterally Cardio: regular rate and r egular rhythm GI: Soft to palpation, non-tender, No he patosplenomegaly p resent and no mass es Extremity: Yes edema (BL LE) Neuro: patient oriented x 3 and CN's II-XII intact bilaterally Data 03/13/25 04:31 03/13/25 04:31 A&P Assessment and plan 1. Lumbar stenosis with neurogenic claudication: 2. Status post lumbar spinal fusion: 3. Status post lumbar spinal fusion: Plan: 59 year old female presenting with ongoing low back pain Failed back syndrome Lumbosacral - multiple prior fusions in the past - pain stimulator in place - planning for t7/10 fusion on 03/31, per spinal surgery, may be able to do this Mon - cont. home oxy, add fentanyl PRN for breakthrough - cont. muscle relaxer - cont. gabapentin Anxiety - cont. buspirone, citalopram RA Fibromyalgia - cont. as per home regimen Diet: regular, NPO after midnight for day of surgery PPx: lovenox, hold 12 hr prior to surgery Disposition - pain control - T7-T10 posterior spine fusion on Saturday PDMP PDMP Reviewed: Not Reviewed Attestations 2 Medical Necessity Statement*: ongoing inpatient care for lumbosacral pain, spinal fusion planned Time Spent in Patient Care: 16 - 35 minutes (>than 50% of time sp ent in counselling and/or direct pt care on unit) . Coding Level of Care Code Acute Code for Chg Fwd Diagnoses Lumbar stenosis with neurogenic claudication M48.062 Status post lumbar spinal fusion Z98.1
[2025-03-14] VITALS (9 sets, daily range): BP systolic 98–112; BP diastolic 60–68; PULSE 67–81; RESP 16–18; TEMP 36.2–36.7; O2SAT 91–97
[2025-03-14 04:38] LABS: Hematocrit 38.5 % (36-47); Hemoglobin 12.50 g/dL (11.27-16.99); Mean Corpuscular HGB Conc 32.5 g/dL (30-55); Mean Corpuscular Hemoglobin 32.6 pg (27-33); Mean Corpuscular Volume 100.5 fl (85-98); Nucleated Red Blood Cells % 0 %; Platelet Count 428 10^3/cmm (157-399); Red Blood Count 3.83 10^6/uL (3.85-5.65); White Blood Count 12.65 10^3/uL (3.29-11.43)
[2025-03-14] MEDS: oxyCODONE 5 mg IR Tab/Cap 10 MG PO ×4 (05:04→20:01)
[2025-03-14 05:06] LABS: Anion Gap 16.8 (5-19); Blood Urea Nitrogen 15 mg/dL (6-20); Calcium 9.3 mg/dL (8.5-10.5); Carbon Dioxide 26 mmol/L (22-29); Chloride 103 mmol/L (98-107); Creatinine Clr Calc Pharmacy 82.3333; Glucose 96 mg/dL (65-115); Osmolality Calculated 295 mOsm/kg (285-295); Potassium 3.8 mmol/L (3.5-5.1); Sodium 142 mmol/L (136-145)
--- NOTE | 2025-03-14 10:09 | P.PN_ITS ---
Subjective 2 Subjective: Patient complaining of muscle spasm in her left leg. Otherwise unchanged Vitals/I&O/Wt Last Vital Signs Temp 97.5 F L 03/14/25 08:14 Pulse 70 03/14/25 08:14 Resp 17 03/14/25 08:14 BP 110/63 03/14/25 08:14 Pulse Ox 95 03/14/25 08:14 O2 Del Method Room Air 03/14/25 04:00 03/13/25 03/14/25 03/14/25 22:59 06:59 14:59 Intake Total 360 / 720 240 / 240 Output Total 200 / 300 Balance 160 / 420 240 / 240 Weight last 48 hrs Weight 191 lb 4.8 oz Weight 189 lb 9.6 oz Weight 194 lb 1 oz Physical Exam 2 Narrative: Resting in bed. Patient was sleeping when I walked in the room Unchanged from yesterday Data 03/14/25 04:24 03/14/25 04:24 A&P Assessment and plan 1. Status post lumbar spinal fusion: Patient has proximal junctional kyphosis we will plan to add onto the top of her construct tomorrow. PDMP PDMP Reviewed: Not Reviewed Attestations 2 Medical Necessity Statement*: Patient having surgery tomorrow Coding Level of Care Code Acute Code for Chg Fwd Diagnoses Status post lumbar spinal fusion Z98.1
--- NOTE | 2025-03-14 13:34 | P.PN_ITS ---
Subjective 2 Subjective: ongoing low back pain. Vitals/I&O/Wt Last Vital Signs Temp 97.6 F 03/14/25 12:08 Pulse 73 03/14/25 12:08 Resp 17 03/14/25 12:08 BP 98/60 03/14/25 12:08 Pulse Ox 92 03/14/25 12:08 O2 Del Method Room Air 03/14/25 04:00 03/13/25 03/14/25 03/14/25 22:59 06:59 14:59 Intake Total 360 / 720 600 / 600 Output Total 200 / 300 Balance 160 / 420 600 / 600 Weight last 48 hrs Weight 86.772 kg Weight 86.001 kg Weight 88.025 kg Physical Exam 2 Narrative: Physical Exam Const: no acute distress and patient oriented x3 HENMT: normocephalic and atraumatic Eye: Equal, round and reactive pupils present and EOMs intact bilaterally Neck/C-Spine: supple Resp: clear to auscultation bilaterally Cardio: regular rate and regular rhythm GI: Soft to palpation, non-tender, No hepatosplenomegaly present and no masses Extremity: Yes edema (BL LE) Neuro: patient oriented x 3 and CN's II-XII intact bilaterally Data 03/14/25 04:24 03/14/25 04:24 A&P Assessment and plan 1. Status post lumbar spinal fusion: 2. Obesity: 3. Failed back syndrome, lumbosacral: Plan: 59 year old female presenting with ongoing low back pain Failed back syndrome Lumbosacral Proximal junctional kyphosis - multiple prior fusions in the past - pain stimulator in place - planning for t7/10 fusion on 03/31, per spinal surgery, may be able to do this Mon - cont. home oxy, add fentanyl PRN for breakthrough - cont. muscle relaxer - cont. gabapentin Anxiety - cont. buspirone, citalopram RA Fibromyalgia - cont. as per home regimen Diet: regular, NPO after midnight for day of surgery PPx: lovenox, hold 12 hr prior to surgery Disposition - pain control - T7-T10 posterior spine fusion on Saturday PDMP PDMP Reviewed: Not Reviewed Attestations 2 Medical Necessity Statement*: Ongoing inpatient admission, spinal fusion on Sat. Time Spent in Patient Care: 16 - 35 minutes (>than 50% of time sp ent in counselling and/or direct pt care on unit) . Coding Level of Care Code Acute Code for Chg Fwd Diagnoses Status post lumbar spinal fusion Z98.1 Obesity E66.9 Failed back syndrome, lumbosacral M96.1
--- NOTE | 2025-03-14 14:04 | PC.NURSE ---
This nurse assumed care of pt at this time.
[2025-03-14] MEDS: morphine 4 mg/mL SDV 1 mL 2 MG IVP (22:13)
[2025-03-15] VITALS (26 sets, daily range): BP systolic 91–140; BP diastolic 52–86; PULSE 70–122; RESP 14–19; TEMP 36.2–37.6; O2SAT 91–98; BMI 33.0
--- NOTE | 2025-03-15 | XR_ITS ---
WS: [id number] XR thoracic spine 2V [id number] REASON FOR EXAM: posterior spine fusion FINDINGS: Posterior decompression with pedicle screw placement at T6-T7 with interconnecting rods extending from T11-T6. XR/XR thoracic spine 2V [id number] IMPRESSION: Revision of thoracolumbar fusion extended T11-T6.
[2025-03-15] MEDS: oxyCODONE 5 mg IR Tab/Cap 10 MG PO ×3 (00:44→12:05)
[2025-03-15] MEDS: morphine 4 mg/mL SDV 1 mL 2 MG IVP ×2 (02:09→10:46)
[2025-03-15 04:06] LABS: Hematocrit 36.2 % (36-47); Hemoglobin 11.60 g/dL (11.27-16.99); Mean Corpuscular HGB Conc 32.0 g/dL (30-55); Mean Corpuscular Hemoglobin 33.0 pg (27-33); Mean Corpuscular Volume 103.1 fl (85-98); Nucleated Red Blood Cells % 0 %; Platelet Count 345 10^3/cmm (157-399); Red Blood Count 3.51 10^6/uL (3.85-5.65); White Blood Count 9.71 10^3/uL (3.29-11.43)
[2025-03-15 04:32] LABS: Anion Gap 15.4 (5-19); Blood Urea Nitrogen 15 mg/dL (6-20); Calcium 8.9 mg/dL (8.5-10.5); Carbon Dioxide 27 mmol/L (22-29); Chloride 104 mmol/L (98-107); Creatinine Clr Calc Pharmacy 82.7111; Glucose 84 mg/dL (65-115); Osmolality Calculated 296 mOsm/kg (285-295); Potassium 3.4 mmol/L (3.5-5.1); Sodium 143 mmol/L (136-145)
--- NOTE | 2025-03-15 09:29 | PC.CHAP ---
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 visit [] Patient/Family/Request visit [] Outpatient visit [] Follow-up visit [] Physician referral [] Code/Alert [x] Routine visit [] Staff referral [] Actively dying [] Patient sleeping [] Family support [] [] Out of room [] Palliative care [] [] Receiving care in room [] Pre-surgical visit [] Trauma [] Long length of stay [] ICU visit [] Other: Relational/Emotional Strength [] Patient feels connected with others/family/visitors/staff [] Distress [] Loneliness/isolation [] Abandonment Spirituality of Patient [x] Person of Fatmata [] Attends Roman Catholic of their Fatmata [x] Believes in Prayer [] Reads Bible or Worship materials [] There are Spiritual issues to be addressed 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 Interventions [x] Prayer [x] Active listening [] Non-anxious presence [] Spiritual/emotional support [] Crisis/trauma care [] Spiritual counseling [] Bereavement support [] Provided bereavement packet [x] Provided Bible/devotional materials [] Provided toy/stuffed animal, coloring book to patient or family member [] Provided Communion [] Anointing/[place] [] Salvation [x] Completed spiritual assessment [] Other: Impact on Illness or Injury [] Angry [] Fearful [] Anxious [] Often cries [] Exhaustion [] Unable to work [] Unable to attend religious [] Unable to walk/stand [] Unable to read [] Unable to drive [] Unable to eat/drink [] Unable to sleep [] Unable to be with family [] Patient intubated [] Other: Summary Time spent with patient 5 min
--- NOTE | 2025-03-15 11:24 | XR_ITS ---
WS: [id number] XR shoulder RT min 2V* [id number] REASON FOR EXAM: pain FINDINGS: No fracture or focal bone lesion. Significant narrowing of the acromioclavicular joint with moderate subchondral sclerosis and mild osteophytosis. Significant narrowing of the superior portion of the glenohumeral joint with near [id number] articulation. Moderate subchondral sclerosis of the glenoid. Moderate to significant osteophytosis of the humeral head. There is a decrease in the humeral acromial interval and the undersurface of the acromion appears eroded. Minimally displaced posterior right seventh rib fracture of unknown chronicity. XR/XR shoulder RT min 2V* [id number] IMPRESSION: Moderate osteoarthritis in the acromioclavicular joint. 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 Significant osteoarthritis in the glenohumeral joint. Rib abnormality as above.
--- NOTE | 2025-03-15 15:28 | P.PN_ITS ---
Subjective 2 Subjective: - Patient was seen this morning, she is up to the bedside commode, denies any chest pain, no shortness of breath, no urinary, no bowel incontinence, no saddle or perianal anesthesia - Does complain more right hip pain, his tory of right foot drop - I was called back to the room as patie nt was trying to get up with the help of nursing staff, using a sit to stand and had complaints of right shoulder pain - Upon examination no pain palpation thr oughout the right shoulder, she does have pain at the inferior scapula, she feels like it is a spasm, she has good range of motion, good strength, - She feels like the spasm in the inferi or border of the scapula is improving, with rest, discussed doing a shoulder x-ray - Discussed with nursing staff getting h er back into bed, pain control - She is currently n.p.o. for surgery to liliane Vitals/I&O/Wt Last Vital Signs Temp 98.0 F 03/15/25 10:50 Pulse 85 03/15/25 10:50 Resp 18 03/15/25 12:05 BP 124/71 03/15/25 10:50 Pulse Ox 94 03/15/25 10:50 O2 Del Method Nasal Cannula 03/15/25 10:50 O2 Flow Rate 2 03/15/25 04:34 03/15/25 03/15/25 03/15/25 06:59 14:59 22:59 Intake Total 500 / 500 Output Total 400 / 400 Balance 100 / 100 Weight last 48 hrs Weight 87.453 kg Weight 86.772 kg Physical Exam 2 Const: COMMON NORMALS: no acute distress and patient oriented x3 Resp: COMMON NORMALS: normal respiratory effort, No retractions, No use of accessory muscles and clear to auscultation bilaterally AUSCULTATION: clear to auscultation bilaterally Cardio: COMMON NORMALS: regular rate, regular rhythm, S1 normal heart sound present and S2 normal heart sound present RATE: regular rate RHYTHM: r egular rhythm HEART SOUNDS: S1 normal heart sound present and S2 normal heart sound present GI: COMMON NORMALS: Normal to inspection, nondistended, normoactive bowel sounds present and non-tender Extremity: COMMON NORMALS: no pedal edema Neuro: COMMON NORMALS: patient oriented x3 Psych: COMMON NORMALS: mental status grossly normal Data 03/15/25 02:54 03/15/25 02:54 A&P Assessment and plan 1. Status post lumbar spinal fusion: 2. Obesity: 3. Failed back syndrome, lumbosacral: Plan: 59 year old female presenting with ongoing low back pain Acute low back pain CT/CT lumbar spine wo con* [id number] IMPRESSION: 1. Nondisplaced fracture of the superior endplate of T11. 2. No other fractures or malalignment. 3. Intact posterior spinal fusion hardware extending from T9 down to the level of the sacrum. No evidence of hardware complications. 4. 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 There is a proximally 3 mm of anterolisthesis T8 on T9. No evidence of acute erosions. 5. Mild spinal canal stenosis at T8-T9 which is difficult to assess given the amount of streak artifact from the adjacent fixation hardware. 6. Mild dextroscoliosis of the lower thoracic spine with a Gonzalez angle of 20 degrees. 7. Moderate multilevel degenerative disc changes at T3 through T8. IMPRESSION: 1. No acute fractures. 2. Intact posterior spinal fusion hardware extending from T9 down to the level of the sacrum. Laminectomy changes at L4-L5. No evidence of hardware complications. 3. Multilevel spondylolisthesis as described above. 4. No significant spinal canal stenosis or neural foraminal narrowing identified on CT. - Plan -Continue oxycodone -Continue morphine. - Continue Flexeril as needed Right shoulder pain, pain control, x-ray right shoulder Anxiety - continue buspirone, citalopram RA Fibromyalgia - cont. as per home regimen Diet: Currently n.p.o. PPx: lovenox, hold 12 hr prior to surgery Disposition - pain control - T7-T10 posterior spine fusion on Saturday PDMP PDMP Reviewed: Not Reviewed Attestations 2 Medical Necessity Statement*: Patient requires hospitalization for acute low back pain Diagnoses Status post lumbar spinal fusion Z98.1 Obesity E66.9 Failed back syndrome, lumbosacral M96.1
--- NOTE | 2025-03-15 15:38 | ANES.PREANE2 ---
Pre-Anesthetic Assessment Height/Weight: Height 1.63 m Weight 87.453 kg Temp Pulse Resp BP Pulse Ox O2 Del Method O2 Flow Rate 98.0 F 85 18 124/71 94 Nasal Cannula 2 03/15/25 10:50 03/15/25 10:50 03/15/25 12:05 03/15/25 10:50 03/15/25 10:50 03/15/25 10:50 03/15/25 04:34 Operation Date: 03/15/25 15:45 Proposed Procedures p Spinal Fusion(Not Applicable) - Rogelio Messer, DO Familial anesthetic complications: None Was Beta Kalie taken within 24 hours: N/A Was Clonidine taken within 24 hours: N/A Last intake: Intake Last Liquid Date 03/14/25 Last Liquid Time 23:55 Last Solid Date 03/14/25 Last Solid Time 23:55 Social No alcohol and No tobacco Exam alert, oriented x 3, clear to auscultation bilaterally and regular rate & rhythm Airway Mallampati: Class III Dentition: other (missing) CV/HEM Arrythmia and Hypertension GI Gastroesophageal Reflux Disease Metabolic Morbid Obesity [facility] [place] Rheumatoid Arthritis Anesthetic Plan ASA status: 3 Anesthesia: General Risk of > 500 ml blood loss (7ml/kg in children): No Medications/Allergies Home Medications ?Medication ?Instructions ?Recorded ?Confirmed ?Last Taken ?Type citalopram 40 mg tablet 40 mg PO DAILY@0800 08/19/19 03/12/25 03/12/25 History sumatriptan succinate 100 mg 100 mg PO Q2H PRN Migraine Headache 06/23/20 03/12/25 07/23/21 History tablet (Imitrex) potassium gluconate 595 mg (99 mg) 595 mg PO DAILY 02/14/21 03/12/25 03/11/25 History tablet buspirone 5 mg tablet 5 mg PO BID PRN Anxiety 03/20/22 03/12/25 08/01/24 History biotin 5 mg tablet 5 mg PO DAILY 09/13/22 03/12/25 03/11/25 History diclofenac sodium 75 mg 75 mg PO BID PRN PAIN OR 03/27/23 03/12/25 07/24/24 History tablet,delayed release INFLAMMATION ketoconazole 2 % shampoo See Rx Instructions .Route 11/14/23 03/12/25 Unknown History .COMPLEX PRN scalp irritation gabapentin 100 mg capsule 100 mg PO TID 01/30/24 03/12/25 03/12/25 History calcium 333 mg-vit D3 200 1 tab PO DAILY 02/26/24 03/12/25 03/11/25 History unit-magnesium 133 mg-zinc 5 mg tablet cholecalciferol (vitamin D3) 50 50 mcg PO DAILY 02/26/24 03/12/25 03/11/25 History mcg (2,000 unit) capsule ferrous sulfate 325 mg (65 mg 325 mg PO DAILY 02/26/24 03/12/25 03/11/25 History iron) tablet (Feosol) estradiol 0.5 mg tablet 0.5 mg PO DAILY 07/27/24 03/12/25 03/12/25 History metoprolol tartrate 25 mg tablet 25 mg PO BID 07/31/24 03/12/25 03/12/25 History [facility] Joint Brace, left #2 ea 08/18/24 03/12/25 Unknown Rx zolpidem 10 mg tablet 10 mg PO BEDTIME PRN Sleep 09/09/24 03/12/25 Unknown History lisinopril 2.5 mg tablet 2.5 mg PO DAILY #90 tabs 09/25/24 03/12/25 03/12/25 Rx prednisone 20 mg tablet See Rx Instructions PO .COMPLEX 10/14/24 03/12/25 Unknown Rx PRN joint pain flare #30 tabs omeprazole 20 mg capsule,delayed 40 mg (2 x 20 mg) PO DAILY #180 10/29/24 03/12/25 03/12/25 Rx release caps TLSO Brace #1 ea 12/24/24 03/12/25 Unknown Rx ondansetron HCl 8 mg tablet 8 mg PO Q8H PRN nausea and 01/28/25 03/12/25 Unknown Rx vomiting #30 tabs tirzepatide (weight loss) 5 mg/0.5 5 mg (0.5 mL) SUBCUT Q7D 1 month 02/25/25 03/12/25 03/09/25 Rx mL subcutaneous pen injector #2.5 mL (Zepbound) tirzepatide (weight loss) 10 10 mg (0.5 mL) SUBCUT Q7D 1 month 03/10/25 03/12/25 Unknown Rx mg/0.5 mL subcutaneous pen #2.5 mL injector (Zepbound) tirzepatide (weight loss) 12.5 12.5 mg (0.5 mL) SUBCUT Q7D 1 03/10/25 03/12/25 Unknown Rx mg/0.5 mL subcutaneous pen month #2.5 mL injector (Zepbound) tirzepatide (weight loss) 7.5 7.5 mg (0.5 mL) SUBCUT Q7D 1 month 03/10/25 03/12/25 Unknown Rx mg/0.5 mL subcutaneous pen #2.5 mL injector (Zepbound) cyclobenzaprine 10 mg tablet 10 mg PO TID PRN Muscle Spasm 03/12/25 03/12/25 Unknown History duloxetine 60 mg capsule,delayed 60 mg PO DAILY 03/12/25 03/12/25 03/12/25 History release gabapentin 300 mg capsule 300 mg PO BID PRN nerve pain 03/12/25 03/12/25 Unknown History nitroglycerin 0.4 mg sublingual 0.4 mg sublingual Q5M PRN Chest 03/12/25 03/12/25 Unknown History tablet Pain oxycodone-acetaminophen 10 mg-325 1 tab PO .Q4-6H PRN Pain 03/12/25 03/12/25 03/11/25 History mg tablet prednisone 5 mg tablet 15 mg PO DAILY 03/12/25 03/12/25 03/12/25 History Allergies Allergy/AdvReac Type Severity Reaction Status Date / Time Iodinated Contrast Media Allergy Unknown Unknown Verified 03/09/25 11:31 tetracycline Allergy ADR-Nausea Verified 03/09/25 11:31 adalimumab (From Humira(CF)) AdvReac Intermediate body rash Verified 03/09/25 11:31 etanercept (From Enbrel) AdvReac Intermediate hair loss Verified 03/09/25 11:31 and bruising Current Medications Generic Name Dose Route Start Last Admin Trade Name Freq PRN Reason Stop Dose Admin Cyclobenzaprine HCl 10 mg 03/12/25 21:00 03/15/25 13:05 Cyclobenzaprine 10 Mg Tablet PO 10 mg TID PRN Administration MUSCLE SPASMS Duloxetine HCl 60 mg 03/13/25 08:00 03/15/25 08:53 Duloxetine 60 Mg Capsule PO 60 mg DAILY@0800 CORBY Administration Enoxaparin Sodium 40 mg 10/10/25 18:22 03/14/25 16:21 Enoxaparin 40 Mg/0.4 Ml Syringe SUBCUT 40 mg Q24H CORBY Administration Gabapentin 100 mg 03/12/25 21:00 03/15/25 12:05 Gabapentin 100 Mg Capsule PO 100 mg TID CORBY Administration Isosorbide Mononitrate 30 mg 03/13/25 05:00 03/15/25 05:17 Isosorbide Mononitrate Er 30 Mg Tablet PO 30 mg DAILY CORBY Administration Lidocaine 1 patch 03/15/25 12:00 03/15/25 11:44 Lidocaine 5% Patch TOPICAL 1 patch CORBY Administration Lisinopril 2.5 mg 03/13/25 05:00 03/15/25 05:17 Lisinopril 2.5 Mg Tablet PO 2.5 mg DAILY CORBY Administration Metoprolol Tartrate 25 mg 03/12/25 18:22 03/15/25 05:17 Metoprolol Tartrate 25 Mg Tablet PO 25 mg BID CORBY Administration Morphine Sulfate 2 mg 03/12/25 18:22 03/15/25 10:46 Morphine 4 Mg/Ml Sdv 1 Ml IVP 2 mg Q4H PRN Administration SEVERE PAIN Oxycodone HCl 10 mg 03/12/25 18:28 03/15/25 12:05 Oxycodone 5 Mg Ir Tab/Cap PO 10 mg Q4H PRN Administration pain Pantoprazole Sodium 40 mg 03/13/25 05:00 03/15/25 05:[address] 40 Mg Tablet PO 40 mg DAILY CORBY Administration Zolpidem Tartrate 5 mg 03/12/25 21:00 03/14/25 20:54 Zolpidem 5 Mg Tablet PO 5 mg BEDTIME CORBY Administration [facility] Anesthesia Medical History (Updated 03/12/25 @ 19:08 by Suhail Tony DO) Shoulder pain, acute Sinus tachycardia SVT (supraventricular tachycardia) Polymyalgia rheumatica Rapid heart rate Hypertension Heart palpitations Seronegative rheumatoid arthritis of both hands Immunization counseling Inflammatory arthritis High risk medication use Chronic steroid use Polymyalgia rheumatica Spina bifida Asthma Anxiety Numbness and tingling Fibromyalgia PMR (polymyalgia rheumatica) Hx of migraines Radiculopathy Neuralgia of right thigh Trochanteric bursitis of right hip Chronic back pain Failed back syndrome, lumbosacral Spondylolisthesis, lumbar region Intervertebral disc disorders with radiculopathy, lumbosacral region Arthritis of right acromioclavicular joint Spondylolysis, cervical region Encounter for long-term opiate analgesic use Surgical History (Updated 03/12/25 @ 19:08 by Suhail Tony DO) Hx of section x 2 History of back surgery x 2 with hardware Hx of hysterectomy, total S/P insertion of spinal cord stimulator Hx of repair of right rotator cuff Family History Mother Breast cancer Father Diabetes Hypertension Heart disease Hypercholesteremia Grandmother Stroke Sister Uterine cancer Denies family history of Colon cancer Ovarian cancer Social History Smoking and tobacco/nicotine status: never used tobacco/nicotine Alcohol intake: never Substance/Drug Use: never Data Anesthesia 03/15/25 02:54 03/15/25 02:54 Short CBC 03/14/25 03/15/25 Range/Units 04:24 02:54 WBC 12.65 H 9.71 (3.29-11.43) 10^3/uL Hgb 12.50 11.60 (11.27-16.99) g/dL Hct 38.5 36.2 (36-47) % MCV 100.5 H 103.1 H (85-98) fl Plt Count 428 H 345 (157-399) 10^3/cmm Neut % (Auto) 66.1 55.2 % Neut # (Auto) 8.36 H 5.35 (1.8-7.7) 10^3/uL BMP 03/14/25 03/15/25 04:24 02:54 Sodium 142 143 Potassium 3.8 3.4 L Chloride 103 104 Carbon Dioxide 26 27 BUN 15 15 Creatinine 0.8 0.8 Glucose 96 84 Calcium 9.3 8.9 Cardiac Studies: Echocardiogram 08/16/22 Sestamibi Stress Test (Cardiology) 12/24/23 Holter Monitor 02/22/22
--- NOTE | 2025-03-15 17:48 | W.PM.OPSUD ---
Surgery/Procedure H&P Update DATE OF PROCEDURE: March 15, 2025 DATE H&P PERFORMED: 03/13/25 H&P UPDATE INFORMATION: I have reviewed H&P completed within last 30 days, I have examined patient prior to procedure and No changes to prior documentation PLANNED PROCEDURE: Operation Date: 03/15/25 15:45 Proposed Procedures p Spinal Fusion(Not Applicable) - Rogelio Messer DO
[2025-03-15] MEDS: ceFAZolin 2,000 mg SDV 2000 MG IVP (18:15)
[2025-03-15] MEDS: lidocaine-epi 1% 20 mL INJ INJECTION (19:16)
[2025-03-15] MEDS: tobramycin 40 mg/mL SDV 2mL 120 MG XX (19:48)
--- NOTE | 2025-03-15 20:43 | PM.OP ---
Operative Report Date of procedure: March 15, 2025 Pre-op diagnosis: Proximal junctional kyphosis Post-op diagnosis: same Procedure done: 1.T7-T10 posterior spine fusion 2. T7-T10 posterior spine instrumentation 3. Use of computer navigation stereotactic for spine 4. Use of allograft 5. Removal of deep hardware from spine Surgeon: Rogelio Messer DO Estimated blood loss (mL): 25 Procedure: 1.T7-T11 posterior spine fusion 2. T7-T11 Posterior spine instrumentation 3. Use of computer navigation stereotactic for spine 4. Use of allograft 5. Removal of deep hardware from spine Patient is brought to the operative suite after undergoing anesthesia was placed in the prone position. All areas of impingement were well-padded patient's prepped and draped normal sterile fashion. Skin incision was made from T7 down to the T 11. Subperiosteal dissection was made out to the transverse processes. The T10 and T11 screws were identified. Caps removed. The yvan was then lifted out of the T10 tulip and the T10 screws were removed bilaterally. Yvan was then cut in order to facilitate putting on a connector. Next tension was brought to placing a spinous process clamp on the T10 spinous process. Then the fiducial was attached this C-arm was brought in and spun around the patient. Information was then loaded in the computer at the information was then used for placing the pedicle screws. Pedicle screws were then placed at T7-T8 bilaterally. This was done by using a drill using computer navigation followed by the gearshift probe linked to computer navigation. Pedicle feeler was used followed by placing the screw under computer navigation. 1 screws were placed rods were then attached to the yvan yvan connector which connected the T11 construct to the T7. This was done bilaterally. Screws and caps were then torqued into position and locked into position. Next tension was brought to decorticating this transverse processes of T7 down to T11. Osteo amp bone graft was then packed along with the OsteoSet beads that have tobramycin and vancomycin in them. Deep drain was placed and wound was closed in a layered fashion with 0 Vicryl 2-0 Vicryl and Monocryl suture. Sterile dressings were applied patient was transferred to the PACU in stable condition.
--- NOTE | 2025-03-15 20:57 | PC.NURSE ---
multiple bruises noted on bilateral lower extremities and abdomen prior to surgery
[2025-03-15] MEDS: fentaNYL 50 mcg/mL INJ 2mL IVP ×2 (21:00→21:10)
[2025-03-15] MEDS: HYDROmorphone 1 mg/mL INJ 1ml 0.5 MG IVP (21:18)
--- NOTE | 2025-03-15 21:35 | ANE.PACU2 ---
Inpatient post-anesthesia follow up: Airway intact: Yes Vital signs: Temperature 97.6 F Pulse Rate 92 Respiratory Rate 18 Blood Pressure 120/72 Pulse Oximetry 96 Oxygen Delivery Me thod Nasal Cannula Oxygen Flow Rate 3 Fraction of Inspir ed Oxygen Hydration adequate: Yes Nausea and vomiting: No Pain level: 1 Mental status: Baseline
[2025-03-15] MEDS: blistex lip oint 7 gm Tube 1 APPLIC TOPICAL (23:41)
[2025-03-16] VITALS (14 sets, daily range): BP systolic 104–149; BP diastolic 66–82; PULSE 89–112; RESP 16–18; TEMP 36.4–36.8; O2SAT 92–97
[2025-03-16] MEDS: morphine 4 mg/mL SDV 1 mL 2 MG IVP ×3 (00:37→19:36)
[2025-03-16] MEDS: ondansetron 2 mg/ML SDV 2 mL 4 MG IVP (00:45)
[2025-03-16] MEDS: oxyCODONE 5 mg IR Tab/Cap 10 MG PO ×5 (01:11→22:49)
[2025-03-16] MEDS: ceFAZolin 2,000 mg SDV 2000 MG IVP ×3 (01:51→18:43)
[2025-03-16 05:42] LABS: Hematocrit 38.9 % (36-47); Hemoglobin 12.40 g/dL (11.27-16.99); Mean Corpuscular HGB Conc 31.9 g/dL (30-55); Mean Corpuscular Hemoglobin 32.2 pg (27-33); Mean Corpuscular Volume 101.0 fl (85-98); Nucleated Red Blood Cells % 0 %; Platelet Count 379 10^3/cmm (157-399); Red Blood Count 3.85 10^6/uL (3.85-5.65); White Blood Count 12.09 10^3/uL (3.29-11.43)
[2025-03-16 06:04] LABS: Alanine Aminotransferase 20 U/L (0-33); Albumin Level 3.9 g/dL (3.5-5.2); Alkaline Phosphatase 105 U/L (35-105); Blood Urea Nitrogen 9 mg/dL (6-20); Calcium 9.0 mg/dL (8.5-10.5); Carbon Dioxide 25 mmol/L (22-29); Chloride 101 mmol/L (98-107); Creatinine Clr Calc Pharmacy 111.3782; Globulin 2.1 g/dL (1.3-4.6); Glucose 180 mg/dL (65-115); Osmolality Calculated 293 mOsm/kg (285-295); Sodium 140 mmol/L (136-145); Total Protein 6.0 g/dL (6.6-8.7)
[2025-03-16 06:21] LABS: Anion Gap 18.6 (5-19); Potassium 4.6 mmol/L (3.5-5.1)
[2025-03-16 06:22] LABS: Aspartate Amino Transferase 19 U/L (0-32)
--- NOTE | 2025-03-16 10:31 | P.PN_ITS ---
Subjective 2 Subjective: Patient is doing well pain is controlled still having left leg issues. Vitals/I&O/Wt Last Vital Signs Temp 97.6 F 03/16/25 07:55 Pulse 98 03/16/25 07:55 Resp 18 03/16/25 08:29 BP 135/67 03/16/25 07:55 Pulse Ox 97 03/16/25 08:29 O2 Del Method Nasal Cannula 03/16/25 07:55 O2 Flow Rate 3 03/15/25 21:34 03/15/25 03/16/25 03/16/25 22:59 06:59 14:59 Intake Total 355 / 855 120 / 120 Output Total 100 / 500 1000 / 1500 Balance 255 / 355 -1000 / -645 120 / 120 Weight last 48 hrs Weight 195 lb Weight 192 lb 12.8 oz Physical Exam 2 Narrative: Continue pain left leg. Urinary Catheter Management: Maxwell: Cath Placed During This Visit: yes Reason for Continuing Indwelling Catheter: Perioperative Use in Selected Surgeries Urinary Catheter Date of Insertion: 03/15/25 Urinary Catheter Time of Insertion: 18:25 Data 03/16/25 05:08 03/16/25 05:08 A&P Assessment and plan 1. Status post lumbar spinal fusion: Postop day 1 extension of her fusion to T7. Per therapy Discharge planning to rehab in [place] PDMP PDMP Reviewed: Not Reviewed Attestations 2 Medical Necessity Statement*: Per primary service Coding Level of Care Code Acute Code for Chg Fwd Diagnoses Status post lumbar spinal fusion Z98.1
--- NOTE | 2025-03-16 15:44 | P.PN_ITS ---
Subjective 2 Subjective: Patient was seen this morning, she is working with physical therapy she feels that her strength is improving, she continues to have back pain, she tells me that she uses gabapentin 300 mg twice daily during the day, and 100 mg tablet at bedtime, discussed, she also feels that the Flexeril does not help with her pain, Vitals/I&O/Wt Last Vital Signs Temp 98.3 F 03/16/25 15:38 Pulse 98 03/16/25 15:38 Resp 16 03/16/25 15:38 BP 104/66 03/16/25 15:38 Pulse Ox 97 03/16/25 15:38 O2 Del Method Room Air 03/16/25 15:38 O2 Flow Rate 3 03/15/25 21:34 03/16/25 03/16/25 03/16/25 06:59 14:59 22:59 Intake Total 300 / 300 Output Total 1000 / 1500 Balance -1000 / -645 300 / 300 Weight last 48 hrs Weight 88.451 kg Weight 87.453 kg Physical Exam 2 Const: COMMON NORMALS: no acute distress and patient oriented x3 Resp: COMMON NORMALS: normal respiratory effort, No retractions, No use of accessory muscles and clear to auscultation bilaterally AUSCULTATION: clear to auscultation bilaterally Cardio: COMMON NORMALS: regular rate, regular rhythm, S1 normal heart sound present and S2 normal heart sound present RATE: regular rate RHYTHM: r egular rhythm HEART SOUNDS: S1 normal heart sound present and S2 normal heart sound present GI: COMMON NORMALS: Normal to inspection, nondistended, normoactive bowel sounds present and non-tender Extremity: COMMON NORMALS: no calf tenderness and no pedal edema Neuro: COMMON NORMALS: patient oriented x3, CN's II-XII intact bilaterally and moves all extremities Psych: COMMON NORMALS: mental status grossly normal Urinary Catheter Management: Maxwell: Cath Placed During This Visit: yes Reason for Continuing Indwelling Catheter: Perioperative Use in Selected Surgeries Urinary Catheter Date of Insertion: 03/15/25 Urinary Catheter Time of Insertion: 18:25 Data 03/16/25 05:08 03/16/25 05:08 A&P Assessment and plan 1. Status post lumbar spinal fusion: 2. Obesity: 3. Failed back syndrome, lumbosacral: Plan: 59 year old female presenting with ongoing low back pain Acute low back pain CT/CT lumbar spine wo con* [id number] IMPRESSION: 1. Nondisplaced fracture of the superior endplate of T11. 2. No other fractures or malalignment. 3. Intact posterior spinal fusion hardware extending from T9 down to the level of the sacrum. No evidence of hardware complications. 4. 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 There is a proximally 3 mm of anterolisthesis T8 on T9. No evidence of acute erosions. 5. Mild spinal canal stenosis at T8-T9 which is difficult to assess given the amount of streak artifact from the adjacent fixation hardware. 6. Mild dextroscoliosis of the lower thoracic spine with a Gonzalez angle of 20 degrees. 7. Moderate multilevel degenerative disc changes at T3 through T8. IMPRESSION: 1. No acute fractures. 2. Intact posterior spinal fusion hardware extending from T9 down to the level of the sacrum. Laminectomy changes at L4-L5. No evidence of hardware complications. 3. Multilevel spondylolisthesis as described above. 4. No significant spinal canal stenosis or neural foraminal narrowing identified on CT. Procedure by Dr. Messer postop day 1 1.T7-T11 posterior spine fusion 2. T7-T11 Posterior spine instrumentation 3. Use of computer navigation stereotactic for spine 4. Use of allograft 5. Removal of deep hardware from spine - Plan -Continue oxycodone. - Continue baclofen as needed Right shoulder pain, pain control, x-ray right shoulder XR/XR shoulder RT min 2V* [id number] IMPRESSION: Moderate osteoarthritis in the acromioclavicular joint. 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 Significant osteoarthritis in the glenohumeral joint. Rib abnormality as above. Anxiety - continue buspirone, citalopram RA Fibromyalgia - cont. as per home regimen Diet: Currently n.p.o. PPx: lovenox, Disposition - pain control Plan for today, pain control, PT OT, working on discharge PDMP PDMP Reviewed: Not Reviewed Attestations 2 Medical Necessity Statement*: Patient requires hospitalization for acute low back pain, status post surgical intervention Diagnoses Status post lumbar spinal fusion Z98.1 Obesity E66.9 Failed back syndrome, lumbosacral M96.1
[2025-03-17] VITALS (11 sets, daily range): BP systolic 94–129; BP diastolic 55–75; PULSE 68–98; RESP 15–20; TEMP 36.4–36.8; O2SAT 92–97
[2025-03-17] MEDS: morphine 4 mg/mL SDV 1 mL 2 MG IVP (01:33)
[2025-03-17 04:54] LABS: Hematocrit 33.5 % (36-47); Hemoglobin 10.70 g/dL (11.27-16.99); Mean Corpuscular HGB Conc 31.9 g/dL (30-55); Mean Corpuscular Hemoglobin 33.0 pg (27-33); Mean Corpuscular Volume 103.4 fl (85-98); Nucleated Red Blood Cells % 0 %; Platelet Count 379 10^3/cmm (157-399); Red Blood Count 3.24 10^6/uL (3.85-5.65); White Blood Count 13.24 10^3/uL (3.29-11.43)
[2025-03-17 05:25] LABS: Alanine Aminotransferase 20 U/L (0-33); Albumin Level 3.4 g/dL (3.5-5.2); Alkaline Phosphatase 91 U/L (35-105); Anion Gap 14.6 (5-19); Aspartate Amino Transferase 16 U/L (0-32); Blood Urea Nitrogen 13 mg/dL (6-20); Calcium 8.3 mg/dL (8.5-10.5); Carbon Dioxide 26 mmol/L (22-29); Chloride 105 mmol/L (98-107); Creatinine Clr Calc Pharmacy 111.3782; Globulin 2.0 g/dL (1.3-4.6); Glucose 106 mg/dL (65-115); Osmolality Calculated 295 mOsm/kg (285-295); Potassium 3.6 mmol/L (3.5-5.1); Sodium 142 mmol/L (136-145); Total Protein 5.4 g/dL (6.6-8.7)
[2025-03-17] MEDS: oxyCODONE 5 mg IR Tab/Cap 10 MG PO ×4 (05:35→22:48)
--- NOTE | 2025-03-17 13:58 | P.PN_ITS ---
Subjective 2 Subjective: Patient is feeling better pain is controlled has improvement of function of her left leg. Vitals/I&O/Wt Last Vital Signs Temp 97.5 F L 03/17/25 11:31 Pulse 82 03/17/25 11:31 Resp 16 03/17/25 11:31 BP 95/59 03/17/25 11:31 Pulse Ox 92 03/17/25 11:31 O2 Del Method Room Air 03/17/25 11:31 O2 Flow Rate 3 03/15/25 21:34 03/16/25 03/17/25 03/17/25 22:59 06:59 14:59 Intake Total 360 / 660 600 / 600 Output Total 900 / 900 390 / 1290 Balance -540 / -240 -390 / -630 600 / 600 Weight last 48 hrs Weight 196 lb 11.2 oz Weight 195 lb Physical Exam 2 Narrative: Left leg is improving. Urinary Catheter Management: Maxwell: Cath Placed During This Visit: yes Reason for Continuing Indwelling Catheter: Other Urinary Catheter Date of Insertion: 03/15/25 Urinary Catheter Time of Insertion: 18:25 Data 03/17/25 04:17 03/17/25 04:17 A&P Assessment and plan 1. Status post lumbar spinal fusion: Patient's left leg is improving. Discharge planning follow-up in orthopedic clinic in 1 week. PDMP PDMP Reviewed: Not Reviewed Attestations 2 Medical Necessity Statement*: Per primary service anticipate discharge today or tomorrow Coding Level of Care Code Acute Code for Chg Fwd Diagnoses Status post lumbar spinal fusion Z98.1
--- NOTE | 2025-03-17 15:16 | P.PN_ITS ---
Subjective 2 Subjective: Patient was seen this morning, she is sitting up to a chair, her pain is more under control, she is able to ambulate with physical therapy, feels that she is clinically improving, pain is more under control Vitals/I&O/Wt Last Vital Signs Temp 97.5 F L 03/17/25 11:31 Pulse 82 03/17/25 11:31 Resp 16 03/17/25 11:31 BP 95/59 03/17/25 11:31 Pulse Ox 92 03/17/25 11:31 O2 Del Method Room Air 03/17/25 11:31 O2 Flow Rate 3 03/15/25 21:34 03/17/25 03/17/25 03/17/25 06:59 14:59 22:59 Intake Total 600 / 600 Output Total 390 / 1290 Balance -390 / -630 600 / 600 Weight last 48 hrs Weight 89.222 kg Weight 88.451 kg Physical Exam 2 Const: COMMON NORMALS: no acute distress and patient oriented x3 Resp: COMMON NORMALS: normal respiratory effort, No retractions, No use of accessory muscles and clear to auscultation bilaterally AUSCULTATION: clear to auscultation bilaterally Cardio: COMMON NORMALS: regular rate, regular rhythm, S1 normal heart sound present and S2 normal heart sound present RATE: regular rate RHYTHM: r egular rhythm HEART SOUNDS: S1 normal heart sound present and S2 normal heart sound present GI: COMMON NORMALS: Normal to inspection, nondistended, normoactive bowel sounds present, non-tender and no bruits Extremity: COMMON NORMALS: no pedal edema Neuro: COMMON NORMALS: patient oriented x3 Psych: COMMON NORMALS: mental status grossly normal Urinary Catheter Management: Maxwell: Cath Placed During This Visit: yes Reason for Continuing Indwelling Catheter: Other Urinary Catheter Date of Insertion: 03/15/25 Urinary Catheter Time of Insertion: 18:25 Data 03/17/25 04:17 03/17/25 04:17 A&P Assessment and plan 1. Status post lumbar spinal fusion: 2. Obesity: 3. Failed back syndrome, lumbosacral: Plan: 59 year old female presenting with ongoing low back pain Acute low back pain CT/CT lumbar spine wo con* [id number] IMPRESSION: 1. Nondisplaced fracture of the superior endplate of T11. 2. No other fractures or malalignment. 3. Intact posterior spinal fusion hardware extending from T9 down to the level of the sacrum. No evidence of hardware complications. 4. 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 There is a proximally 3 mm of anterolisthesis T8 on T9. No evidence of acute erosions. 5. Mild spinal canal stenosis at T8-T9 which is difficult to assess given the amount of streak artifact from the adjacent fixation hardware. 6. Mild dextroscoliosis of the lower thoracic spine with a Gonzalez angle of 20 degrees. 7. Moderate multilevel degenerative disc changes at T3 through T8. IMPRESSION: 1. No acute fractures. 2. Intact posterior spinal fusion hardware extending from T9 down to the level of the sacrum. Laminectomy changes at L4-L5. No evidence of hardware complications. 3. Multilevel spondylolisthesis as described above. 4. No significant spinal canal stenosis or neural foraminal narrowing identified on CT. Procedure by Dr. Messer postop day 1 1.T7-T11 posterior spine fusion 2. T7-T11 Posterior spine instrumentation 3. Use of computer navigation stereotactic for spine 4. Use of allograft 5. Removal of deep hardware from spine - Plan -Continue oxycodone. - Continue baclofen as needed Right shoulder pain, pain control, x-ray right shoulder XR/XR shoulder RT min 2V* [id number] IMPRESSION: Moderate osteoarthritis in the acromioclavicular joint. 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 Significant osteoarthritis in the glenohumeral joint. Rib abnormality as above. Anxiety - continue buspirone, citalopram RA Fibromyalgia - cont. as per home regimen Diet: Currently n.p.o. PPx: lovenox, Disposition - pain control Plan for today, pain control, PT OT, working on discharge PDMP PDMP Reviewed: Not Reviewed Attestations 2 Medical Necessity Statement*: Patient requires hospitalization for acute low back pain Diagnoses Status post lumbar spinal fusion Z98.1 Obesity E66.9 Failed back syndrome, lumbosacral M96.1
[2025-03-18] VITALS (10 sets, daily range): BP systolic 97–146; BP diastolic 56–85; PULSE 72–87; RESP 15–18; TEMP 36.6–37.1; O2SAT 92–96
[2025-03-18] MEDS: oxyCODONE 5 mg IR Tab/Cap 10 MG PO ×4 (05:02→17:25)
[2025-03-18 05:37] LABS: Hematocrit 33.9 % (36-47); Hemoglobin 10.40 g/dL (11.27-16.99); Mean Corpuscular HGB Conc 30.7 g/dL (30-55); Mean Corpuscular Hemoglobin 32.0 pg (27-33); Mean Corpuscular Volume 104.3 fl (85-98); Nucleated Red Blood Cells % 0 %; Platelet Count 350 10^3/cmm (157-399); Red Blood Count 3.25 10^6/uL (3.85-5.65); White Blood Count 9.10 10^3/uL (3.29-11.43)
[2025-03-18 06:04] LABS: Alanine Aminotransferase 15 U/L (0-33); Albumin Level 3.2 g/dL (3.5-5.2); Alkaline Phosphatase 89 U/L (35-105); Anion Gap 16.0 (5-19); Aspartate Amino Transferase 12 U/L (0-32); Blood Urea Nitrogen 18 mg/dL (6-20); Calcium 8.7 mg/dL (8.5-10.5); Carbon Dioxide 28 mmol/L (22-29); Chloride 105 mmol/L (98-107); Creatinine Clr Calc Pharmacy 111.8818; Globulin 2.1 g/dL (1.3-4.6); Glucose 91 mg/dL (65-115); Osmolality Calculated 301 mOsm/kg (285-295); Potassium 4.0 mmol/L (3.5-5.1); Sodium 145 mmol/L (136-145); Total Protein 5.3 g/dL (6.6-8.7)
--- NOTE | 2025-03-18 12:48 | P.PN_ITS ---
Subjective 2 Subjective: Patient resting in bed comfortable still moving left leg. Was complaining of right knee and right hip pain Vitals/I&O/Wt Last Vital Signs Temp 98.3 F 03/18/25 11:58 Pulse 82 03/18/25 11:58 Resp 16 03/18/25 11:58 BP 146/85 03/18/25 11:58 Pulse Ox 94 03/18/25 11:58 O2 Del Method Room Air 03/18/25 11:58 O2 Flow Rate 3 03/15/25 21:34 03/17/25 03/18/25 03/18/25 22:59 06:59 14:59 Intake Total 360 / 960 360 / 360 Output Total 525 / 525 150 / 675 85 / 85 Balance -165 / 435 -150 / 285 275 / 275 Weight last 48 hrs Weight 185 lb 3 oz Weight 196 lb 11.2 oz Physical Exam 2 Narrative: Resting bed comfortably Urinary Catheter Management: Maxwell: Cath Placed During This Visit: yes, but has since been removed by the nurse Reason for Continuing Indwelling Catheter: Decision to DC Catheter Urinary Catheter Date of Insertion: 03/15/25 Urinary Catheter Time of Insertion: 18:25 Date Urinary Catheter Removed: 03/17/25 Time Urinary Catheter Discontinued: 16:23 Data 03/18/25 04:36 03/18/25 04:36 A&P Assessment and plan 1. Status post lumbar spinal fusion: Status post fusion Discharge planning PDMP PDMP Reviewed: Not Reviewed Attestations 2 Medical Necessity Statement*: Per primary service Coding Level of Care Code Acute Code for Chg Fwd Diagnoses Status post lumbar spinal fusion Z98.1
--- NOTE | 2025-03-18 13:33 | XR_ITS ---
WS: [id number] XR foot RT 2V [id number] REASON FOR EXAM: pain FINDINGS: No fracture or focal bone lesion. No periosteal reaction or bone erosion. Subluxation of the PIP joints of the second through the fifth toes. Remainder of the joint spaces in the forefoot are intact and well preserved. Limited evaluation of the joint spaces of the midfoot due to the obliquity of the single AP film. No abnormality of the visualized joint spaces. Subtalar joint is intact and well preserved. XR/XR foot RT 2V [id number] IMPRESSION: No significant bone or joint abnormality as above.
--- NOTE | 2025-03-18 13:37 | P.DS_ITS ---
Discharge Providers Date of Admission: 03/12/25 17:21 Date of Discharge: March 18, 2025 Attending Provider at Admission: Zander Caba MD Attending Provider at Discharge: Dion Kauffman MD Primary Care Provider: JOEL Mahan Diagnoses at Discharge Discharge Diagnosis 1. Status post lumbar spinal fusion: Reason for Visit Reason for Visit: back pain - leg weakness Hospital Course Hospital Course Patient is a 59-year-old female who presents [facility] for acute on chronic low back Acute low back pain CT/CT lumbar spine wo con* [id number] IMPRESSION: 1. Nondisplaced fracture of the superior endplate of T11. 2. No other fractures or malalignment. 3. Intact posterior spinal fusion hardware extending from T9 down to the level of the sacrum. No evidence of hardware complications. 4. 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 There is a proximally 3 mm of anterolisthesis T8 on T9. No evidence of acute erosions. 5. Mild spinal canal stenosis at T8-T9 which is difficult to assess given the amount of streak artifact from the adjacent fixation hardware. 6. Mild dextroscoliosis of the lower thoracic spine with a Gonzalez angle of 20 degrees. 7. Moderate multilevel degenerative disc changes at T3 through T8. IMPRESSION: 1. No acute fractures. 2. Intact posterior spinal fusion hardware extending from T9 down to the level of the sacrum. Laminectomy changes at L4-L5. No evidence of hardware complications. 3. Multilevel spondylolisthesis as described above. 4. No significant spinal canal stenosis or neural foraminal narrowing identified on CT. Procedure by Dr. Messer postop day 1 1.T7-T11 posterior spine fusion 2. T7-T11 Posterior spine instrumentation 3. Use of computer navigation stereotactic for spine 4. Use of allograft 5. 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 Significant osteoarthritis in the glenohumeral joint. Rib abnormality as above. - Follow-up with primary care provider Physical Exam Const: COMMON NORMALS: no acute distress and patient oriented x3 Resp: COMMON NORMALS: normal respiratory effort, No retractions, No use of accessory muscles and clear to auscultation bilaterally AUSCULTATION: clear to auscultation bilaterally Cardio: COMMON NORMALS: regular rate, regular rhythm, S1 normal heart sound present and S2 normal heart sound present RATE: regular rate RHYTHM: regular rhythm HEART SOUNDS: S1 normal heart sound present and S2 normal heart sound present GI: COMMON NORMALS: Normal to inspection, nondistended, normoactive bowel sounds present and non-tender Extremity: COMMON NORMALS: no calf tenderness and no pedal edema Neuro: COMMON NORMALS: patient oriented x3 Psych: COMMON NORMALS: mental status grossly normal Urinary Catheter Management: Maxwell: Cath Placed During This Visit: yes, but has since been removed by the nurse Reason for Continuing Indwelling Catheter: Decision to DC Catheter Urinary Catheter Date of Insertion: 03/15/25 Urinary Catheter Time of Insertion: 18:25 Date Urinary Catheter Removed: 03/17/25 Time Urinary Catheter Discontinued: 16:23 Discharge Data Studies Completed and Pending Completed Studies During Hospitalization Category Date Time Status CT lumbar spine wo con* [id number] Stat Cat Scan 03/12/25 15:[address] thoracic spin wo con* [id number] Stat Cat Scan 03/12/25 15:53 Completed XR shoulder RT min 2V* [id number] Stat Exams 03/15/25 11:24 Completed Pending at discharge Category Date Time Status XR foot RT 2V [id number] Stat Exams 03/18/25 13:33 Ordered XR thoracic spine 2V [id number] Routine Exams 03/15/25 00:00 Taken Radiology Impressions Lumbar Spine CT 03/12/25 15:53 IMPRESSION: 1. Nondisplaced fracture of the superior endplate of T11. 2. No other fractures or malalignment. 3. Intact posterior spinal fusion hardware extending from T9 down to the level of the sacrum. No evidence of hardware complications. 4. 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 There is a proximally 3 mm of anterolisthesis T8 on T9. No evidence of acute erosions. 5. Mild spinal canal stenosis at T8-T9 which is difficult to assess given the amount of streak artifact from the adjacent fixation hardware. 6. Mild dextroscoliosis of the lower thoracic spine with a Gonzalez angle of 20 degrees. 7. Moderate multilevel degenerative disc changes at T3 through T8. IMPRESSION: 1. No acute fractures. 2. Intact posterior spinal fusion hardware extending from T9 down to the level of the sacrum. Laminectomy changes at L4-L5. No evidence of hardware complications. 3. Multilevel spondylolisthesis as described above. 4. No significant spinal canal stenosis or neural foraminal narrowing identified on CT. Thoracic Spine CT 03/12/25 15:53 IMPRESSION: 1. Nondisplaced fracture of the superior endplate of T11. 2. No other fractures or malalignment. 3. Intact posterior spinal fusion hardware extending from T9 down to the level of the sacrum. No evidence of hardware complications. 4. 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 There is a proximally 3 mm of anterolisthesis T8 on T9. No evidence of acute erosions. 5. Mild spinal canal stenosis at T8-T9 which is difficult to assess given the amount of streak artifact from the adjacent fixation hardware. 6. Mild dextroscoliosis of the lower thoracic spine with a Gonzalez angle of 20 degrees. 7. Moderate multilevel degenerative disc changes at T3 through T8. IMPRESSION: 1. No acute fractures. 2. Intact posterior spinal fusion hardware extending from T9 down to the level of the sacrum. Laminectomy changes at L4-L5. No evidence of hardware complications. 3. Multilevel spondylolisthesis as described above. 4. No significant spinal canal stenosis or neural foraminal narrowing identified on CT. 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 Significant osteoarthritis in the glenohumeral joint. Rib abnormality as above. Laboratory Results WBC 9.10 10^3/uL (3.29-11.43) 03/18/25 04:36 RBC 3.25 10^6/uL (3.85-5.65) L 03/18/25 04:36 Hgb 10.40 g/dL (11.27-16.99) L 03/18/25 04:36 Hct 33.9 % (36-47) L 03/18/25 04:36 MCV 104.3 fl (85-98) H 03/18/25 04:36 MCH 32.0 pg (27-33) 03/18/25 04:36 MCHC 30.7 g/dL (30-55) 03/18/25 04:36 RDW 13.5 % (12.1-15.1) 03/18/25 04:36 Plt Count 350 10^3/cmm (157-399) 03/18/25 04:36 MPV 8.8 fL (7.4-10.4) 03/18/25 04:36 Neut % (Auto) 54.1 % 03/18/25 04:36 Lymph % (Auto) 29.8 % 03/18/25 04:36 Rich % (Auto) 11.9 % 03/18/25 04:36 Eos % (Auto) 2.6 % 03/18/25 04:36 Baso % (Auto) 0.4 % 03/18/25 04:36 Neut # (Auto) 4.92 10^3/uL (1.8-7.7) 03/18/25 04:36 Lymph # (Auto) 2.7 10^3/uL (0.8-4.8) 03/18/25 04:36 Rich # (Auto) 1.1 10^3/uL (0.2-0.9) H 03/18/25 04:36 Eos # (Auto) 0.2 10^3/uL (0.0-0.8) 03/18/25 04:36 Baso # (Auto) 0.0 10^3/uL (0.0-0.1) 03/18/25 04:36 Nucleated RBC % (auto) 0 % 03/18/25 04:36 Nucleated RBCs # 0.0 /100WBC 03/18/25 04:36 Sodium 145 mmol/L (136-145) 03/18/25 04:36 Potassium 4.0 mmol/L (3.5-5.1) 03/18/25 04:36 Chloride 105 mmol/L (98-107) 03/18/25 04:36 Carbon Dioxide 28 mmol/L (22-29) 03/18/25 04:36 Anion Gap 16.0 (5-19) 03/18/25 04:36 BUN 18 mg/dL (6-20) 03/18/25 04:36 Creatinine 0.6 mg/dL (0.5-0.9) 03/18/25 04:36 GFR Calculation 103.0 mL/min (90-130) 03/18/25 04:36 Glucose 91 mg/dL (65-115) 03/18/25 04:36 Calculated Osmolality 301 mOsm/kg (285-295) H 03/18/25 04:36 Calcium 8.7 mg/dL (8.5-10.5) 03/18/25 04:36 Total Bilirubin 0.6 mg/dL (0.15-1.2) 03/18/25 04:36 AST 12 U/L (0-32) 03/18/25 04:36 ALT 15 U/L (0-33) 03/18/25 04:36 Alkaline Phosphatase 89 U/L (35-105) 03/18/25 04:36 Total Protein 5.3 g/dL (6.6-8.7) L 03/18/25 04:36 Albumin 3.2 g/dL (3.5-5.2) L 03/18/25 04:36 Globulin 2.1 g/dL (1.3-4.6) 03/18/25 04:36 Vitals Last Vital Signs Temp 98.3 F 03/18/25 11:58 Pulse 82 03/18/25 11:58 Resp 18 03/18/25 13:19 BP 146/85 03/18/25 11:58 Pulse Ox 94 03/18/25 11:58 O2 Del Method Room Air 03/18/25 11:58 O2 Flow Rate 3 03/15/25 21:34 Discharge Plan Discharge Patient Disposition: Xfer Inpatient Rehab Fac Condition: Stable Prescriptions: New baclofen 10 mg Tablet 10 mg PO TID PRN (Reason: muscle spasms) 7 Days Qty: 21 0RF docusate sodium 100 mg Capsule 100 mg PO BID 30 Days Qty: 60 0RF aspirin 81 mg tablet 81 mg PO DAILY 30 Days Qty: 30 0RF Continued potassium gluconate 595 mg (99 mg) tablet 595 mg PO DAILY citalopram 40 mg tablet 40 mg PO DAILY@0800 sumatriptan succinate [Imitrex] 100 mg tablet 100 mg PO Q2H PRN (Reason: Migraine Headache) Rx Instructions: do not exceed 2 doses per 24 hrs buspirone 5 mg tablet 5 mg PO BID PRN (Reason: Anxiety) zolpidem 10 mg tablet 10 mg PO BEDTIME PRN (Reason: Sleep) (DME) TLSO Brace See Rx Instructions .Route .MEDSUPPLY Qty: 1 0RF Rx Instructions: As directed ferrous sulfate [Feosol] 325 mg (65 mg iron) tablet 325 mg PO DAILY calcium carb-D3-mag [id number] pg-vrhi-xp-mg tablet 1 tab PO DAILY Rx Instructions: administer with a meal cholecalciferol (vitamin D3) 50 mcg (2,000 unit) capsule 50 mcg PO DAILY estradiol 0.5 mg tablet 0.5 mg PO DAILY Rx Instructions: off 5 days; repeat cycle omeprazole 20 mg capsule,delayed release(DR/EC) 40 mg PO DAILY Qty: 180 1RF Rx Instructions: AT 8AM (DME) [facility] [place] Joint Brace, left See Rx Instructions .ROUTE .MEDSUPPLY Qty: 2 0RF Rx Instructions: As directed lisinopril 2.5 mg tablet 2.5 mg PO DAILY Qty: 90 3RF prednisone 20 mg tablet See Rx Instructions PO .COMPLEX PRN (Reason: joint pain flare) Qty: 30 1RF Rx Instructions: Take 2 tablets by mouth daily for 5 days as needed for arthritis flare. ondansetron HCl 8 mg tablet 8 mg PO Q8H PRN (Reason: nausea and vomiting) Qty: 30 1RF Zepbound 5 mg/0.5 mL pen injector 5 mg SUBCUT Q7D 30 Days Qty: 2.5 0RF ketoconazole 2 % shampoo See Rx Instructions .ROUTE .COMPLEX PRN (Reason: scalp irritation) Rx Instructions: APPLY TOPICALLY TO SCALP 2-3 TIMES WEEKLY AND ALLOW TO SIT 5 MINUTES BEFORE RINSING. biotin 5 mg Tablet 5 mg PO DAILY metoprolol tartrate 25 mg tablet 25 mg PO BID duloxetine 60 mg capsule,delayed release(DR/EC) 60 mg PO DAILY oxycodone-acetaminophen 10-325 mg tablet 1 tab PO .Q4-6H PRN (Reason: Pain) nitroglycerin 0.4 mg tablet, sublingual 0.4 mg sublingual Q5M PRN (Reason: Chest Pain) Rx Instructions: do not exceed 3 doses per episode Changed gabapentin 300 mg capsule 300 mg PO TID 30 Days Qty: 90 0RF Discontinued diclofenac sodium 75 mg tablet,delayed release (DR/EC) 75 mg PO BID PRN (Reason: PAIN OR INFLAMMATION) gabapentin 100 mg capsule 100 mg PO TID Zepbound 7.5 mg/0.5 mL pen injector 7.5 mg SUBCUT Q7D 30 Days Qty: 2.5 0RF Zepbound 10 mg/0.5 mL pen injector 10 mg SUBCUT Q7D 30 Days Qty: 2.5 0RF Zepbound 12.5 mg/0.5 mL pen injector 12.5 mg SUBCUT Q7D 30 Days Qty: 2.5 0RF prednisone 5 mg tablet 15 mg PO DAILY cyclobenzaprine 10 mg tablet 10 mg PO TID PRN (Reason: Muscle Spasm) Referrals: Rogelio Messer DO [Physician, Orthopedics] - 03/30/25 2:15 pm Referral Note: Anitra Millan FNP [Primary Care Provider, Unknown] Discharge Diet: Advance as tolerated Discharge Activity: Limit activity as instructed Patient Instructions: Acute Wound Care (DC), Opioid Safety, Post Anesthesia Care, Patient Portal & Jesus Instructions Activity Restrictions/Additional Instructions: Thank you for choosing [facility] for your care! The following is a list of instructions, from your provider, to follow upon your discharge to ensure you have the optimal recovery from your recent injury or surgery. Follow-up care is a valentin part of your treatment and safety. Be sure to make and go to all appointments, and call your doctor if you are having problems. If you do not already have a follow-up appointment made, call Dr. Messer's office in the next 1-3 days to make follow up appointment for 1 weeks at [phone]. It is also a good idea to know your test results and keep a list of the medicines you take. Medications will be prescribed for you at your provider?s discretion. These medications are to be used as instructed;if they are taken more often that prescribed they will not be refilled early and in most cases will not be refilled at all. > When a refill is needed,you should contact our office 2-3 business days beforeyour prescription runs out. Medications will NOTbe refilled by information systems security officer providers after hours! > Many pain medications contain Tylenol (Acetaminophen). Do not consume more than 4,000 mg of Tylenol per day in total with any combination of medications. > Pain medications can cause constipation. Please use an over the counter stool softener as directed, while taking pain medications. Consult your local pharmacist with questions or recommendations on stool softeners. If constipation persists, contact our office or your primary care provider. > While under our care,you are not to receive pain medications or other controlled substances from any other provider unless our office is notified and approves. Any attempts to do so will result in refusal to prescribe any further pain medications and possible dismissal from our practice. ? Will change dressing in 1 week in the clinic ? Showering is permitted, however we ask that you do not take a bath, sit in a whirlpool / Jacuzzi, or go swimming for 1 month. For only the first 2 days after surgery, lt wilt be necessary for you to cover your wound/dressing with plastic and tape to keep it dry. ? Walking is essential for the healing process after surgery. We would like you to slowly advance your walking. This should be done on relatively flat clear ground (inside or out) or can be done on a treadmill. Remember this goal does not have to happen all at once, slowly increase your distance and duration. This can be broken into more more than one walk per day as tolerated. Patients who walk as directed after surgery rarely require Physical Therapy. In the unlikely event this issue arises your provider will direct hospital staff to make the appropriate arrangements. ? No lifting over 5 pounds {a gallon of milk) or bending/twisting until further notice. Each of these activities places an unnecessary amount of stress onto the body and can impede the delicate healing process. > Instead of bending at the waist, keep your back straight and bend at the knees. > Instead of twisting your torso, keep your back straight and turn your entire body with your feet. ? You may sleep in any position which makes you comfortable.Many patients find comfort sleeping in a reclining chair. It is not abnormal to have difficulty sleeping for the first several weeks following your surgery. We recommend trying Benadryl or Tylenol PM as directed to help with your sleeping difficulties. Both medications are over the counter and available without prescription. ? NO SMOKING!!!Smoking dramatically increases the probability of developing postoperative wound infections. ? Common complaints after lumbar and/or thoracic spine surgery include, but are not limited to: numbness and/or tingling in the legs, pain around the incision and surrounding tissues, muscle spasms, or stiffness of the middle to low back. Contact our office if these symptoms persist or if an acute change occurs. ? No driving for the first 3-5 days, and not while taking narcotics until seen at your follow-up appointment and cleared.There are no restrictions for riding on short trips, however if you take a longer trip, arrangements should be made to make regular stops to get out of the vehicle and stretch . ? Swelling is an unfortunate event that will take place with any surgery and is the primary source of your postoperative discomfort. While walking and regular approved activities helps control inflammation, there are additional steps you can take to minimize swelling. > Place ice over the surgical site and surrounding tissue for twenty minutes, followed by applying a low/medium heat (heating pad) for an additional twenty minutes every 1-2 hours as needed for pain relief. > You may use of over the counter anti-inflammatory medications (Ibuprofen, Motrin, Aleve, Advil, etc) as directed on the package label. These types of medicines will significantly reduce the amount of discomfort you experience after surgery from swelling. It should be noted that if you have an allergy to any of these medications, or a history of ulcers or kidney disease you should consult your primary care provider prior to starting these medications. Discharge Attestations Time Spent in Discharge Care*: greater than 30 min Quality Metrics Clinical Quality Measures [ No reported AMI, CVA or VTE this stay] Coding Level of Care Code 90578 Total time (in minutes) for Discharge: 45 Diagnoses Status post lumbar spinal fusion Z98.1
--- NOTE | 2025-03-18 15:06 | PC.NURSE ---
Report called to Fawn Salcedo
--- NOTE | 2025-03-18 18:30 | PC.NURSE ---
Ems arrived to pick patient up at this time and take her to [facility]. Patient is A&Ox3.
== END 2025-03-18 18:30 | DRG 458 ==
LOC: ER 16:05 → MEDSURG 17:21
PROVIDERS: Orthopaedic Surgery; Admitting Provider Internal Medicine; Emergency Provider Family Medicine; PCP Nurse Practitioner Family; Visit Provider Family Medicine
PROC: 0RG70K1 Fusion of 2 to 7 Thoracic Vertebral Joints with Nonautologous Tissue Substitute, Posterior Approach, Posterior Column, Open Approach (ICD-10-PCS; principal; 2025-03-15 15:25)
DX: M96.3 Postlaminectomy kyphosis (principal); G89.18 Other acute postprocedural pain; G89.29 Other chronic pain; R29.6 Repeated falls; M35.3 Polymyalgia rheumatica; I10 Essential (primary) hypertension; M06.00 Rheumatoid arthritis without rheumatoid factor, unspecified site; F41.9 Anxiety disorder, unspecified; M79.7 Fibromyalgia; M48.062 Spinal stenosis, lumbar region with neurogenic claudication; M21.371 Foot drop, right foot; M62.831 Muscle spasm of calf; E66.9 Obesity, unspecified; Z68.31 Body mass index [BMI] 31.0-31.9, adult; Z79.890 Hormone replacement therapy; Z79.891 Long term (current) use of opiate analgesic; Z98.1 Arthrodesis status; Z96.82 Presence of neurostimulator
CPT/HCPCS: 36415; 51702; 72070; 72128; 72131; 73030; 73620; 76000; 80048; 80053; 85025; 96372; 96374; 96375; 97110; 97162; 97167; 97530; 99285; C1713; C1776; C9359; J0131; J0690; J1100; J1171; J1650; J1885; J2250; J2270; J2360; J2371; J2405; J2704; J3010; J3260; J3373; J3475; J3490; J7030; J7040; J9999

== ENCOUNTER → 2025-04-06 14:55 | Outpatient (BNVA) | payer MEDICAID, SELFPAY | PROVIDERS: PCP Nurse Practitioner Family; Visit Provider Orthopaedic Surgery | DX: Z98.890 Other specified postprocedural states (principal); Z98.1 Arthrodesis status | CPT/HCPCS: 72072; 72100 ==

== ENCOUNTER → 2025-05-04 14:38 | Outpatient (BNVA) | payer MEDICAID, SELFPAY | PROVIDERS: PCP Nurse Practitioner Family; Visit Provider Orthopaedic Surgery | DX: Z98.890 Other specified postprocedural states (principal) | CPT/HCPCS: 72070 ==